=== PATIENT | female | born 1955 | race African-American/Black ===

== ENCOUNTER → 2016-10-12 | Outpatient (CLI) | payer OTHER ==
[2015-11-25 15:35] VITALS: BP 175/86
[~2016-10-12] MED LIST: ALBU0.63 NEB; AMLO5TAB2 PO; ASPI81TA44 PO; ATOR10TA PO; Aspirin PO; BUDE10.2 IH; CA/D1TAB3 PO; CHOL10003 PO; CLOP75TA57 PO; CYCL5TAB PO; ERGO500027 PO; HYDR-2766 PO; HYDR-2868 PO; HYDR25TA9 PO; LEVO500T59 PO; LOSA25TA4 PO; LOSA50TA6 PO; NICO1PAT27 TD; OMEP40CA2 PO; PANT40TA3 PO; PRED-220 PO; PRED2.5T PO; PRED20TA PO; PRED5TAB PO; SULF500T36 PO; VENTOLIN HFA18 GM IH
--- NOTE | 2016-10-12 13:55 | KCIC ---
Bilateral 3 view hand HISTORY: Rheumatoid arthritis of both hands. Pain is worsening. Left hand Generalized bone demineralization. No evidence of acute fracture or aggressive bone destruction. Mild widening of the scapholunate distance and rotary subluxation of the scaphoid suggesting dissociation. Slight ulnar plus variance. No marginal erosion. No advanced joint space narrowing. There may be mild degenerative changes at the triscaphe and first MTP joint. IMPRESSION: 1. Findings suggest scapholunate dissociation. 2. Generalized bone demineralization. Right hand Widening of the scapholunate distance, compatible with scapholunate dissociation. Generalized bone demineralization. Slight ulnar plus variance. No evidence of acute fracture. No aggressive bone destruction. No evidence of marginal erosion. No advanced joint space narrowing. Small cortical defect at the lateral scaphoid may be due to a small cyst. Mild spurring at the triscaphe compatible with mild degenerative etiology. Mild degenerative appearance at the first MCP joint. IMPRESSION: 1. Findings suggest bilateral scapholunate dissociation. 2. Bone demineralization. Electronically signed by: Geronimo Burgos MD (10/12/2016 1:52 PM)
== END | disposition home or self-care (01) ==
LOC: KCIC 10:09
PROVIDERS: ATTEND Internal Medicine
DX: M79.642 Pain in left hand (principal); M79.641 Pain in right hand; M81.0 Age-related osteoporosis without current pathological fracture; M06.9 Rheumatoid arthritis, unspecified
CPT/HCPCS: 73130

== ENCOUNTER → 2016-11-21 | Outpatient (CLI) | payer MEDICARE, OTHER ==
[2015-11-25 15:35] VITALS: BP 175/86
--- NOTE | 2016-11-21 10:06 | RAD ---
Indication:Hepatitis C Grayscale images of the abdomen were obtained. Comparison note is made of a previous examination 09/09/2015 interpreted as unremarkable Liver:No focal mass is seen in the visualized liver. Gallbladder:Normal. The common bile duct diameter of approximately 3 mm is also normal Spleen:Normal Pancreas:The head and visualized body appeared unremarkable. The more distal body and tail of the pancreas were obscured. Kidneys:Normal Abdominal aorta and IVC:As visualized normal Ancillary findings:None Impression:No acute or significant finding seen on abdominal ultrasound exam
== END | disposition home or self-care (01) ==
LOC: US 08:39
PROVIDERS: ATTEND Internal Medicine Gastroenterology
DX: B19.20 Unspecified viral hepatitis C without hepatic coma (principal)
CPT/HCPCS: 76700

== ENCOUNTER → 2016-11-26 | Outpatient (CLI) | payer MEDICARE, OTHER ==
[2015-11-25 15:35] VITALS: BP 175/86
--- NOTE | 2016-11-26 09:04 | KCIC ---
Indication: Postmenopausal. Bone mineral analysis of the lumbar spine and left hip was performed. The bone mineral density of the lumbar spine L1-L4 is 1.130 with a T score of 0.8. The bone mineral density of the left hip is 0.846 with a T score of -0.8. IMPRESSION: Normal bone mineral density of the lumbar spine and left hip. Electronically signed by: Yimi Doan MD (11/26/2016 9:01 AM) [id number]
== END | disposition home or self-care (01) ==
LOC: KCIC DEXA 07:58
PROVIDERS: ATTEND Internal Medicine
DX: N95.9 Unspecified menopausal and perimenopausal disorder (principal); M85.88 Other specified disorders of bone density and structure, other site
CPT/HCPCS: 77080

== ENCOUNTER → 2016-11-29 | Outpatient (CLI) | payer MEDICARE, OTHER ==
[2015-11-25 15:35] VITALS: BP 175/86
--- NOTE | 2016-11-29 09:16 | RAD ---
DATE: 11/29/2016 EXAM: MAMMO MISTY SCREENING BILATERAL HISTORY: Routine screening COMPARISON: 10/07/2014 The breast parenchyma shows scattered fibroglandular densities. Breast parenchyma level B. FINDINGS: 2-D and 3-D tomosynthesis imaging was performed in CC and MLO projections. Two small nodules in the lateral aspect of the right breast are unchanged. These are probably intramammary lymph nodes. No new or enlarging breast densities are seen. Minimal benign type calcification is present. No suspicious microcalcifications have developed. IMPRESSION: Stable mammograms without evidence of malignancy. BI-RADS CATEGORY: 2 BENIGN FINDING(S) RECOMMENDED FOLLOW-UP: 12M 12 MONTH FOLLOW-UP PQRS compliance statement: Patient information was entered into a reminder system with a target due date for the next mammogram. Mammography is a sensitive method for finding small breast cancers, but it does not detect them all and is not a substitute for careful clinical examination. A negative mammogram does not negate a clinically suspicious finding and should not result in delay in biopsying a clinically suspicious abnormality. "Our facility is accredited by the [employer] Mammography Program."
== END | disposition home or self-care (01) ==
LOC: KCIC MAMMO 07:48
PROVIDERS: ATTEND Internal Medicine
DX: Z12.31 Encounter for screening mammogram for malignant neoplasm of breast (principal)
CPT/HCPCS: 77063; G0202; 77067

== ENCOUNTER 2017-06-06 12:11 | Inpatient (IN) | payer OTHER ==
[2017-06-06 12:52] LABS: ADD MAN DIFF? NO
[2017-06-06 12:56] LABS: BASO # 0.1 x10^3/uL (0.0-0.2); BASO % 1 % (0-3); EOS # 0.1 x10^3/uL (0.0-0.7); EOS % 1 % (0-3); HEMATOCRIT 36.8 % (36.0-47.0); HEMOGLOBIN 11.9 g/dL (12.0-15.5); LYMPH % 34 % (24-48); MEAN CORPUSCULAR HEMOGLOBIN 27 pg (25-35); MEAN CORPUSCULAR HGB CONC 33 g/dL (31-37); MEAN CORPUSCULAR VOLUME 83 fL (79-100); MONO # 0.6 x10^3/uL (0.0-1.1); MONO % 5 % (0-9); NEUT # 6.8 x10^3uL (1.8-7.7); NEUT % 59 % (31-73); PLATELET COUNT 339 x10^3/uL (140-400); RED BLOOD COUNT 4.45 x10^6/uL (3.50-5.40); RED CELL DISTRIBUTION WIDTH 16.8 % (11.5-14.5); WHITE BLOOD COUNT 11.6 x10^3/uL (4.0-11.0)
[2017-06-06] MEDS: IV NORMAL SALINE 1000ML BAG 1,000 ML IV ×3 (12:58→23:20)
[2017-06-06] MEDS: ONDANSETRON PF 4 MG/2 ML VIAL. IV (12:59)
[2017-06-06] MEDS: fentaNYL PF VIAL 100 MCG/2 ML VIAL IV ×5 (13:00→23:14)
[2017-06-06 13:06] LABS: ANION GAP 15 (6-14); BLOOD UREA NITROGEN 21 mg/dL (7-20); CARBON DIOXIDE 25 mmol/L (21-32); CHLORIDE 98 mmol/L (98-107); CREATININE 0.8 mg/dL (0.6-1.0); GFR 87.7; GLUCOSE 116 mg/dL (70-99); POTASSIUM 3.5 mmol/L (3.5-5.1); SODIUM 138 mmol/L (136-145)
[2017-06-06 13:12] LABS: ALBUMIN 3.3 g/dL (3.4-5.0); ALK PHOS 71 U/L (46-116); ALT (SGPT) 22 U/L (14-59); AST (SGOT) 19 U/L (15-37); DIRECT BILIRUBIN 0.1 mg/dL (0.0-0.2); LIPASE 83 U/L (73-393); TOTAL BILIRUBIN 0.3 mg/dL (0.2-1.0); TOTAL PROTEIN 9.1 g/dL (6.4-8.2)
[2017-06-06 13:20] LABS: TROPONINI 0.094 ng/mL (0.000-0.055)
[2017-06-06 13:20] LABS: CKMB INDEX 1.1 % (0-4); CKMB MASS 1.5 ng/mL (0.0-3.6); CREATINE KINASE 142 U/L (26-192)
[2017-06-06] MEDS ORDERED: CONTRAST GIVEN MC (13:30)
[2017-06-06] MEDS: IOHEXOL 300 MG/ML 100ML VIAL. IV (13:40)
[2017-06-06] MEDS: 0.9 % SODIUM CHLORIDE 10 ML DISP.SYRIN. IV (13:53)
[2017-06-06 14:32] LABS: BILIRUBIN,URINE NEGATIVE (NEG); CLARITY,URINE CLEAR; COLOR,URINE YELLOW; GLUCOSE,URINE NEGATIVE (NEG); NITRITE,URINE NEGATIVE (NEG); PH,URINE 5.5; PROTEIN,URINE NEGATIVE (NEG-TRACE); UROBILINOGEN,URINE 0.2 mg/dL (0.2 mg/dL)
[2017-06-06] MEDS ORDERED: ONDANSETRON PF 4 MG/2 ML VIAL. IV (14:45)
[2017-06-06] MEDS ORDERED: ACETAMINOPHEN 325 MG TABLET. PO (14:45)
[2017-06-06] MEDS ORDERED: NITROGLYCERIN SUBLINGUAL 0.4 MG BOTTLE OF 25. SL (14:45)
[2017-06-06 14:48] LABS: BACTERIA,URINE FEW /HPF (0-FEW); HYALINE CASTS, URINE FEW /HPF; RBC,URINE 0 /HPF (0-2); SQUAMOUS EPITHELIAL CELL,UR MOD /LPF
[2017-06-06] MEDS: hydrALAZINE 20 MG/ML VIAL. IVP (14:57)
[2017-06-06] MEDS: IPRATRPIUM/ALBUTEROL 0.5/2.5MG 3 ML NEBU. NEB ×2 (15:23→20:00)
[2017-06-06] MEDS: hydroCHLOROthiazide 25 MG TABLET PO (17:24)
[2017-06-06] MEDS: ASPIRIN CHEWABLE 81 MG TABLET. PO (17:24)
[2017-06-06] MEDS: CLOPIDOGREL BISULFATE 75 MG TABLET PO (17:25)
[2017-06-06] MEDS: amLODIPine BESYLATE 5 MG TABLET PO (17:25)
[2017-06-06] MEDS: LOSARTAN POTASSIUM 50 MG TABLET. PO (17:25)
[2017-06-06 19:21] LABS: TROPONINI 0.082 ng/mL (0.000-0.055)
[2017-06-06] MEDS ORDERED: DOCUSATE SODIUM 283 MG/5 ML ENEMA. PR (21:00)
[2017-06-06] MEDS: SODIUM PHOSPHATES 19/7GM 133 ML ENEMA. PR (21:30)
[2017-06-06] MEDS: ATORVASTATIN CALCIUM 10 MG TABLET. PO (21:34)
[2017-06-06] MEDS: hydrALAZINE 25 MG TABLET PO (21:34)
[2017-06-06] MEDS ORDERED: NON FORMULARY ITEM (Albuterol Sulfate (Albuterol Sulfate Neb Soln) 0.63 MG) NEB (22:00)
[2017-06-06] MEDS ORDERED: ALBUTEROL SULFATE 2.5 MG/3 ML NEBU. NEB (22:15)
[2017-06-06] MEDS: ENOXAPARIN 40 MG/0.4 ML SYRINGE. SQ (23:13)
[2017-06-06] MEDS: CYCLOBENZAPRINE 10 MG TABLET. PO (23:14)
[2017-06-07 00:23] LABS: TROPONINI 0.075 ng/mL (0.000-0.055)
[2017-06-07] MEDS: fentaNYL PF VIAL 100 MCG/2 ML VIAL IV ×2 (03:43→08:08)
[2017-06-07 05:14] LABS: ADD MAN DIFF? NO
[2017-06-07 05:35] LABS: BASO # 0.1 x10^3/uL (0.0-0.2); BASO % 1 % (0-3); EOS # 0.2 x10^3/uL (0.0-0.7); EOS % 2 % (0-3); HEMATOCRIT 36.4 % (36.0-47.0); HEMOGLOBIN 11.5 g/dL (12.0-15.5); LYMPH # 4.2 x10^3/uL (1.0-4.8); LYMPH % 34 % (24-48); MEAN CORPUSCULAR HEMOGLOBIN 27 pg (25-35); MEAN CORPUSCULAR HGB CONC 32 g/dL (31-37); MEAN CORPUSCULAR VOLUME 84 fL (79-100); MONO # 0.7 x10^3/uL (0.0-1.1); MONO % 6 % (0-9); NEUT # 7.2 x10^3uL (1.8-7.7); NEUT % 57 % (31-73); PLATELET COUNT 327 x10^3/uL (140-400); RED BLOOD COUNT 4.31 x10^6/uL (3.50-5.40); RED CELL DISTRIBUTION WIDTH 16.6 % (11.5-14.5); WHITE BLOOD COUNT 12.5 x10^3/uL (4.0-11.0)
[2017-06-07 05:47] LABS: ANION GAP 16 (6-14); BLOOD UREA NITROGEN 16 mg/dL (7-20); CALCIUM 9.2 mg/dL (8.5-10.1); CARBON DIOXIDE 22 mmol/L (21-32); CHLORIDE 103 mmol/L (98-107); CREATININE 0.7 mg/dL (0.6-1.0); GFR 102.3; GLUCOSE 78 mg/dL (70-99); POTASSIUM 3.3 mmol/L (3.5-5.1); SODIUM 141 mmol/L (136-145)
[2017-06-07] MEDS: IV NORMAL SALINE 1000ML BAG 1,000 ML IV (06:37)
[2017-06-07] MEDS: CHOLECALCIFEROL (VITAMIN D3) 1,000 UNIT TABLET PO (08:06)
[2017-06-07] MEDS: hydroCHLOROthiazide 25 MG TABLET PO (08:06)
[2017-06-07] MEDS: ASPIRIN CHEWABLE 81 MG TABLET. PO (08:06)
[2017-06-07] MEDS: hydrALAZINE 25 MG TABLET PO ×3 (08:07→21:19)
[2017-06-07] MEDS: amLODIPine BESYLATE 5 MG TABLET PO (08:07)
[2017-06-07] MEDS: LOSARTAN POTASSIUM 50 MG TABLET. PO (08:07)
[2017-06-07] MEDS: predniSONE 10 MG TABLET PO (08:08)
[2017-06-07] MEDS: SENNOSIDES/DOCUSATE 8.6/50MG TABLET. PO (08:11)
[2017-06-07] MEDS: POLYETHYLENE GLYCOL 3350 17 GM PACKET. PO (08:11)
[2017-06-07] MEDS: BUDESONIDE 0.5 MG/2 ML NEBU. NEB ×2 (08:12→20:15)
[2017-06-07] MEDS: IPRATRPIUM/ALBUTEROL 0.5/2.5MG 3 ML NEBU. NEB ×2 (08:12→22:49)
[2017-06-07] MEDS: ALBUTEROL SULFATE 2.5 MG/3 ML NEBU. NEB ×4 (08:15→20:15)
[2017-06-07] MEDS ORDERED: NON FORMULARY ITEM (Budesonide/Formoterol Fumarate (Symbicort 160-4.5 Mcg Inhaler) 2 PUFF) IH (09:00)
[2017-06-07] MEDS: CLOPIDOGREL BISULFATE 75 MG TABLET PO (11:42)
[2017-06-07] MEDS: POTASSIUM CHLORIDE 20 MEQ TABLET.ER. PO ×2 (11:42→16:09)
[2017-06-07] MEDS: CYCLOBENZAPRINE 10 MG TABLET. PO (21:19)
[2017-06-07] MEDS: ATORVASTATIN CALCIUM 10 MG TABLET. PO (21:19)
[2017-06-07] MEDS: ENOXAPARIN 40 MG/0.4 ML SYRINGE. SQ (21:21)
[2017-06-08] MEDS: HYDROcodone/APAP 10/325 1 TAB TABLET PO ×2 (01:11→08:57)
[2017-06-08] MEDS: ALBUTEROL SULFATE 2.5 MG/3 ML NEBU. NEB ×2 (07:46→12:08)
[2017-06-08] MEDS: BUDESONIDE 0.5 MG/2 ML NEBU. NEB (07:46)
[2017-06-08] MEDS: ASPIRIN CHEWABLE 81 MG TABLET. PO ×2 (07:47→08:58)
[2017-06-08 08:29] LABS: ANION GAP 11 (6-14); BLOOD UREA NITROGEN 9 mg/dL (7-20); CALCIUM 9.1 mg/dL (8.5-10.1); CARBON DIOXIDE 25 mmol/L (21-32); CHLORIDE 103 mmol/L (98-107); CHOLESTEROL 123 mg/dL (0-200); CREATININE 0.6 mg/dL (0.6-1.0); GFR 122.2; GLUCOSE 115 mg/dL (70-99); HDLC 75 mg/dL (40-60); LDLC 40 mg/dL (0-100); NON-HDL CHOLESTEROL 48 mg/dL (0-129); POTASSIUM 3.8 mmol/L (3.5-5.1); SODIUM 139 mmol/L (136-145); TRIGLYCERIDES 38 mg/dL (0-150); VLDLC 8 mg/dL (0-40)
[2017-06-08 08:30] LABS: CHOLESTEROL/HDL RATIO 1.6
[2017-06-08 08:45] LABS: THYROID STIM HORMONE (TSH) 0.977 uIU/mL (0.358-3.74)
[2017-06-08] MEDS: LOSARTAN POTASSIUM 50 MG TABLET. PO (08:45)
[2017-06-08] MEDS: amLODIPine BESYLATE 5 MG TABLET PO (08:45)
[2017-06-08] MEDS: CLOPIDOGREL BISULFATE 75 MG TABLET PO (08:46)
[2017-06-08] MEDS: predniSONE 10 MG TABLET PO (08:46)
[2017-06-08] MEDS: CHOLECALCIFEROL (VITAMIN D3) 1,000 UNIT TABLET PO (08:46)
[2017-06-08] MEDS: hydroCHLOROthiazide 25 MG TABLET PO (08:46)
[2017-06-08] MEDS: hydrALAZINE 25 MG TABLET PO (08:47)
== END 2017-06-08 13:05 | disposition home or self-care (01) | DRG 206 ==
LOC: ER 12:11 → 5 SOUTH 14:45
DX: M94.0 Chondrocostal junction syndrome [Tietze] (principal); I24.8 Other forms of acute ischemic heart disease; I10 Essential (primary) hypertension; E11.9 Type 2 diabetes mellitus without complications; E78.5 Hyperlipidemia, unspecified; F41.9 Anxiety disorder, unspecified; I25.10 Atherosclerotic heart disease of native coronary artery without angina pectoris; R74.8 Abnormal levels of other serum enzymes; J44.9 Chronic obstructive pulmonary disease, unspecified; F17.210 Nicotine dependence, cigarettes, uncomplicated; M06.9 Rheumatoid arthritis, unspecified; M19.90 Unspecified osteoarthritis, unspecified site; M79.7 Fibromyalgia; G89.29 Other chronic pain; T40.605A Adverse effect of unspecified narcotics, initial encounter; Z91.19 Patient's noncompliance with other medical treatment and regimen; Z88.8 Allergy status to other drugs, medicaments and biological substances; Z79.891 Long term (current) use of opiate analgesic; Z95.5 Presence of coronary angioplasty implant and graft; Z82.5 Family history of asthma and other chronic lower respiratory diseases; Z83.3 Family history of diabetes mellitus; Z82.49 Family history of ischemic heart disease and other diseases of the circulatory system; I25.2 Old myocardial infarction
CPT/HCPCS: 36415; 71046; 74177; 80048; 80061; 80076; 81001; 82553; 83690; 84443; 84484; 85025; 87086; 93005; 94640; 94760; 96361; 96374; 96375; 99291; 99291-25; J0360; J1650; J2405; J3010; J7030; J7512; J7613; J7620; J7626; Q9967

== ENCOUNTER 2017-12-22 17:27 | Inpatient (IN) | payer OTHER ==
[~2017-12-22] VITALS: Ht 162.6 cm; Wt 75.8 kg
[~2017-12-22 17:27] MED LIST changes: -AMLO5TAB2 PO; +AMLO5TAB7 PO; -ASPI81TA44 PO; +ASPI81TA59 PO; +INSU100I17 SQ; -LOSA25TA4 PO; +LOSA25TA5 PO; -LOSA50TA6 PO; +LOSA50TA7 PO; +PRED50TA PO
--- NOTE | 2017-12-22 17:50 | PHYS DOC ---
Past Medical History Past Medical History: Arthritis, COPD, Fibromyalgia, Hypertension, [place] Additional Past Medical Histor: fibromyalgia Past Surgical History: Angioplasty, Additional Past Surgical Histo: W/ STENT PLACEMENT Alcohol Use: Rarely Drug Use: None Adult General Chief Complaint Chief Complaint: SHORTNESS OF BREATH HPI HPI Patient is a 62 year old female who presents with shortness of air and cough 3 weeks. Patient states she has history of COPD and took a breathing treatment last at this morning at home. Patient states that she's not been taking any of her medications for at least a week because she wants to take Chantix and is afraid that she could not take her medications with the Chantix. Patient states that she did not consult her doctor before stopping all of her medications. Review of Systems Review of Systems Constitutional: Denies fever or chills [] Eyes: Denies change in visual acuity, redness, or eye pain [] HENT: Denies nasal congestion or sore throat [] Respiratory: Cough and shortness of breath [] Cardiovascular: No additional information not addressed in HPI [] GI: Denies abdominal pain, nausea, vomiting, bloody stools or diarrhea [] : Denies dysuria or hematuria [] Musculoskeletal: Denies back pain or joint pain [] Integument: Denies rash or skin lesions [] Neurologic: Denies headache, focal weakness or sensory changes [] Endocrine: Denies polyuria or polydipsia [] All other systems were reviewed and found to be within normal limits, except as documented in this note. Current Medications Current Medications Current Medications Medications (Trade) Dose Ordered Sig/Juan Start Time Stop Time Status Last Admin Dose Admin Acetaminophen (Tylenol) 650 mg PRN Q4HRS PRN 12/22/17 19:15 12/23/17 19:14 Albuterol/ Ipratropium (Duoneb) 3 ml 1X ONCE 12/22/17 19:00 12/22/17 19:01 DC 12/22/17 18:58 3 ML Info (CONTRAST GIVEN -- Rx MONITORING) 1 each PRN DAILY PRN 12/22/17 19:00 12/24/17 18:59 Ondansetron HCl (Zofran) 4 mg PRN Q8HRS PRN 12/22/17 19:15 12/23/17 19:14 12/22/17 19:28 4 MG Prednisone (Prednisone) 50 mg 1X ONCE 12/22/17 18:00 12/22/17 18:01 DC 12/22/17 18:24 50 MG Allergies Allergies Allergies Coded Allergies Type Severity Reaction Last Updated Verified enalapril Allergy Severe facial Swelling 06/21/15 Yes lisinopril Allergy Severe facial Swelling 06/21/15 Yes morphine Allergy Intermediate 11/24/15 Yes Physical Exam Physical Exam Constitutional: Well developed, well nourished, no acute distress, non-toxic appearance. [] HENT: Normocephalic, atraumatic, bilateral external ears normal, oropharynx moist, no oral exudates, nose normal. [] Eyes: PERRLA, EOMI, conjunctiva normal, no discharge. [] Neck: Normal range of motion, no tenderness, supple, no stridor. [] Cardiovascular:Heart rate regular rhythm, no murmur [] Lungs & Thorax: Bilateral breath sounds have rales and inspiratory and expiratory wheezes in all lobes to auscultation [] Abdomen: Bowel sounds normal, soft, no tenderness, no masses, no pulsatile masses. [] Skin: Warm, dry, no erythema, no rash. [] Back: No tenderness, no CVA tenderness. [] Extremities: No tenderness, no cyanosis, no clubbing, ROM intact, no edema. [] Neurologic: Alert and oriented X 3, normal motor function, normal sensory function, no focal deficits noted. [] Psychologic: Affect normal, judgement normal, mood normal. [] Current Patient Data Vital Signs Vital Signs Date Time Temp Pulse Resp B/P (MAP) Pulse Ox O2 Delivery O2 Flow Rate FiO2 12/22/17 18:59 96 Room Air 12/22/17 17:33 98.9 94 26 140/79 (99) 98.9 Lab Values Laboratory Tests Test 12/22/17 17:44 12/22/17 17:49 Prothrombin Time 13.2 SEC (11.7-14.0) Prothrombin Time INR 1.1 (0.8-1.1) PTT 30 SEC (24-38) White Blood Count 10.7 x10^3/uL (4.0-11.0) Red Blood Count 3.80 x10^6/uL (3.50-5.40) Hemoglobin 9.6 g/dL (12.0-15.5) L Hematocrit 29.7 % (36.0-47.0) L Mean Corpuscular Volume 78 fL (79-100) L Mean Corpuscular Hemoglobin 25 pg (25-35) Mean Corpuscular Hemoglobin Concent 32 g/dL (31-37) Red Cell Distribution Width 16.6 % (11.5-14.5) H Platelet Count 361 x10^3/uL (140-400) Neutrophils (%) (Auto) 50 % (31-73) Lymphocytes (%) (Auto) 25 % (24-48) Monocytes (%) (Auto) 9 % (0-9) Eosinophils (%) (Auto) 15 % (0-3) H Basophils (%) (Auto) 1 % (0-3) Neutrophils # (Auto) 5.3 x10^3uL (1.8-7.7) Lymphocytes # (Auto) 2.7 x10^3/uL (1.0-4.8) Monocytes # (Auto) 1.0 x10^3/uL (0.0-1.1) Eosinophils # (Auto) 1.6 x10^3/uL (0.0-0.7) H Basophils # (Auto) 0.1 x10^3/uL (0.0-0.2) Segmented Neutrophils % 54 % (35-66) Lymphocytes % 25 % (24-48) Monocytes % 8 % (0-10) Eosinophils % 12 % (0-5) H Basophils % 1 % (0-3) Platelet Estimate Adequate (ADEQUATE) D-Dimer (Linda) 7.47 ug/mlFEU (0.00-0.50) H Sodium Level 139 mmol/L (136-145) Potassium Level 3.4 mmol/L (3.5-5.1) L Chloride Level 104 mmol/L (98-107) Carbon Dioxide Level 24 mmol/L (21-32) Anion Gap 11 (6-14) Blood Urea Nitrogen 6 mg/dL (7-20) L Creatinine 0.6 mg/dL (0.6-1.0) Estimated GFR (Cockcroft-Gault) 121.8 Glucose Level 113 mg/dL (70-99) H Calcium Level 8.8 mg/dL (8.5-10.1) Troponin I Quantitative 0.058 ng/mL (0.000-0.055) JP-Xjn-C-Type Natriuretic Peptide 174 pg/mL (0-124) H Laboratory Tests 12/22/17 17:49 Laboratory Tests 12/22/17 17:49 EKG EKG Sinus rhythm, no STEMI[] Interpretation Time: [address] Jacob Radiology/Procedures Radiology/Procedures Chest x ray Impressions: [facility] [address] [place] [address] IMAGING REPORT Signed PATIENT: LOUIS SALAZAR ACCOUNT: [id number] : 1955 LOCATION: [address] [place] [address] AGE: 62 SEX: F EXAM STATUS: ADM IN ORD. PHYSICIAN: MARK REY APRN REASON: ELEVATED DDIMER PROCEDURE: CT ANGIOGRAPHY CHEST CTA Chest with contrast: Clinical History: ELEVATED D DIMER SOA AND COUGH X 3 WEEKS N PREV INJ 75ML OMNI 300 Shortness of breath. Axial helical images of the chest were obtained after the administration of 75 cc of IV Omni 300 and timed appropriately for a pulmonary arterial study. Conventional axial reconstruction was performed in addition to coronal, sagittal and bilateral oblique MIP (maximum intensity projection). This study was ordered to detect possible pulmonary embolism. There are no filling defects to suggest pulmonary embolism. The more peripheral subsegmental pulmonary arteries are not well opacified limiting our sensitivity for small peripheral pulmonary emboli. There is diffuse emphysematous changes. There is patchy groundglass opacities peripherally. There is no mediastinal or hilar lymphadenopathy. The thoracic aorta appears normal. Impression: 1. No evidence of pulmonary embolism. 2. Peripheral groundglass opacities are nonspecific and could be pneumonitis although mild atypical pneumonia is possible. PQRS Compliance Statement: One or more of the following individualized dose reduction techniques were utilized for this examination: 1. Automated exposure control 2. Adjustment of the mA and/or kV according to patient size 3. Use of iterative reconstruction technique Electronically signed by: Nestor Harrison III, MD (12/22/2017 7:40 PM) [facility] Course & Med Decision Making Course & Med Decision Making Patient is a 62 year old female who presents with shortness of air and cough 3 weeks. Patient states she has history of COPD and took a breathing treatment last at this morning at home. Patient states that she's not been taking any of her medications for at least a week because she wants to take Chantix and is afraid that she could not take her medications with the Chantix. Patient states that she did not consult her doctor before stopping all of her medications. On examination patient's lungs have rales and wheezes throughout all lung bases. Patient's breathing about 30 breaths a minute but is afebrile. Patient is 92% on room air. Patient states she does have bouts of nausea but has not vomited. Patient states she coughs up clear take mucus. Patient states she now has pain in her left side under her breast from coughing. Patient states that it hurts most when she breathes in. Patient has no extremity edema. Patient speaks in full sentences. Patient is supposed to be taking hydrochlorothiazide, hydralazine, amlodipine, prednisone, losartan, albuterol nebulized, albuterol inhaler, Symbicort, aspirin, Plavix. Patient is given 1 DuoNeb treatment in the ED and with reevaluation patient still has inspiratory and expiratory wheezes but crackles have decreased. A second DuoNeb is ordered for the patient. Patient 's troponin is elevated at 0.058. Another DuoNeb has been ordered due to continued wheezing. Patient is given 50mg Prednisone PO. EKG is Sinus rhythm without STEMI. Patient has a history of COPD, hypertension, and NSTEMI. Patient d-dimer is 7.47 and a CTA of chest is ordered to rule out PE. Dr. Desai called and spoke with Dr. Jacob. The patient is being admitted and Dr. Jacob started heparin drip and given the patient a aspirin. It is unknown if why patient troponin is elevated with normal EKG findings. Patient being treated for NSTEMI. Patients CTA shows 1. No evidence of pulmonary embolism. 2. Peripheral groundglass opacities are nonspecific and could be pneumonitis although mild atypical pneumonia is possible. Blood cultures, Rocephin and Azithromycin are ordered. [] Dragon Disclaimer Dragon Disclaimer This electronic medical record was generated, in whole or in part, using a voice recognition dictation system. Departure Departure Referrals: ANIVAL DESAI MD (PCP) MARK REY HIDE SALTER Dec 22, 2017 17:50
[2017-12-22] MEDS ORDERED: IPRATRPIUM/ALBUTEROL 0.5/2.5MG 3 ML NEBU. NEB ONE ×2 (18:00→19:00)
[2017-12-22] MEDS ORDERED: predniSONE 10 MG TABLET PO ONE (18:00)
[2017-12-22 18:05] LABS: BASO # 0.1 x10^3/uL (0.0-0.2); BASO % 1 % (0-3); EOS # 1.6 x10^3/uL (0.0-0.7); EOS % 15 % (0-3); HEMATOCRIT 29.7 % (36.0-47.0); HEMOGLOBIN 9.6 g/dL (12.0-15.5); LYMPH # 2.7 x10^3/uL (1.0-4.8); LYMPH % 25 % (24-48); MEAN CORPUSCULAR HEMOGLOBIN 25 pg (25-35); MEAN CORPUSCULAR HGB CONC 32 g/dL (31-37); MEAN CORPUSCULAR VOLUME 78 fL (79-100); MONO % 9 % (0-9); NEUT # 5.3 x10^3uL (1.8-7.7); NEUT % 50 % (31-73); PLATELET COUNT 361 x10^3/uL (140-400); RED CELL DISTRIBUTION WIDTH 16.6 % (11.5-14.5); WHITE BLOOD COUNT 10.7 x10^3/uL (4.0-11.0)
[2017-12-22 18:20] LABS: CALCIUM 8.8 mg/dL (8.5-10.1); CREATININE 0.6 mg/dL (0.6-1.0); GFR 121.8; POTASSIUM 3.4 mmol/L (3.5-5.1)
[2017-12-22] MEDS ORDERED: CONTRAST GIVEN. MC PRN (19:00)
[2017-12-22] MEDS ORDERED: ACETAMINOPHEN 325 MG TABLET. PO PRN (19:15)
[2017-12-22] MEDS ORDERED: ONDANSETRON PF 4 MG/2 ML VIAL. IV PRN (19:15)
[2017-12-22] MEDS ORDERED: IOHEXOL 300 MG/ML 100ML VIAL. IV ONE (19:30)
[2017-12-22] MEDS ORDERED: HEPARIN 25,000UTS/500ML PREMIX 500 ML IV PRN (19:30)
[2017-12-22 19:31] LABS: % BASOS 1 % (0-3); % EOS 12 % (0-5); % LYMPHS 25 % (24-48); % MONOS 8 % (0-10); % SEGS 54 % (35-66)
[2017-12-22 19:32] LABS: PLT ESTIMATE ADEQUATE (ADEQUATE)
[2017-12-22 19:35] LABS: PROTHROMBIN TIME PATIENT 13.2 SEC (11.7-14.0)
--- NOTE | 2017-12-22 19:43 | RAD ---
CTA Chest with contrast: Clinical History: ELEVATED D DIMER SOA AND COUGH X 3 WEEKS N PREV INJ 75ML OMNI 300 Shortness of breath. Axial helical images of the chest were obtained after the administration of 75 cc of IV Omni 300 and timed appropriately for a pulmonary arterial study. Conventional axial reconstruction was performed in addition to coronal, sagittal and bilateral oblique MIP (maximum intensity projection). This study was ordered to detect possible pulmonary embolism. There are no filling defects to suggest pulmonary embolism. The more peripheral subsegmental pulmonary arteries are not well opacified limiting our sensitivity for small peripheral pulmonary emboli. There is diffuse emphysematous changes. There is patchy groundglass opacities peripherally. There is no mediastinal or hilar lymphadenopathy. The thoracic aorta appears normal. Impression: 1. No evidence of pulmonary embolism. 2. Peripheral groundglass opacities are nonspecific and could be pneumonitis although mild atypical pneumonia is possible. PQRS Compliance Statement: One or more of the following individualized dose reduction techniques were utilized for this examination: 1. Automated exposure control 2. Adjustment of the mA and/or kV according to patient size 3. Use of iterative reconstruction technique Electronically signed by: Nestor Harrison III, MD (12/22/2017 7:40 PM) [facility]
[2017-12-22 20:05] VITALS: BP 173/78
[2017-12-22] MEDS ORDERED: AZITHRMYCN 500MG IVPB FOR OMNI 250 ML IV ONE (20:30)
[2017-12-22] MEDS ORDERED: OXYC15TA60 PO (20:57)
[2017-12-22] MEDS ORDERED: NON FORMULARY ITEM (Budesonide/Formoterol Fumarate (Symbicort 160-4.5 Mcg Inhaler) 2 PUFF) IH SCH (21:00)
[2017-12-22] MEDS ORDERED: NON FORMULARY ITEM (Albuterol Sulfate (Albuterol Sulfate Neb Soln) 0.63 MG) NEB PRN (21:00)
[2017-12-22] MEDS ORDERED: ALBUTEROL SULFATE 2.5 MG/3 ML NEBU. NEB PRN ×2 (21:15→22:45)
[2017-12-22] MEDS: methylPREDNISolone SOD SUCC PF 40 MG/ML VIAL. IV SCH (21:15)
--- NOTE | 2017-12-22 21:43 | RAD ---
Indication:SOA TECHNIQUE:PA and lateral views of the chest COMPARISON: Previous study from 06/07/2017 FINDINGS: Heart is normal in size. Lungs are hyperinflated with diffuse streaky perihilar opacities and prominent interstitial markings. No focal consolidation. No pneumothorax or effusion. Visualized bony thorax within normal limits. IMPRESSION: Findings suggests acute bronchitis or atypical/viral infection. Electronically signed by: Kulwinder Javier DO (12/22/2017 9:40 PM) [facility]
[2017-12-22] MEDS: ATORVASTATIN CALCIUM 10 MG TABLET. PO SCH (21:58)
[2017-12-22] MEDS: HYDROcodone/APAP 10/325 1 TAB TABLET PO PRN (21:58)
[2017-12-22] MEDS: CYCLOBENZAPRINE 10 MG TABLET. PO SCH (22:00)
[2017-12-22] MEDS: hydrALAZINE 25 MG TABLET PO SCH (22:00)
[2017-12-22 23:00] VITALS: BP 169/68
[2017-12-22] MEDS: oxyCODONE ER 15 MG TAB.ER.12H PO SCH (23:33)
[2017-12-23] MEDS ORDERED: HEPARIN for IV BOLUS 10,000 UNIT/10 ML VIAL. IV PRN (00:15)
[2017-12-23 03:00] VITALS: BP 135/52
[2017-12-23] MEDS: ALBUTEROL SULFATE 2.5 MG/3 ML NEBU. NEB SCH ×4 (06:01→19:38)
[2017-12-23] MEDS: BUDESONIDE 0.5 MG/2 ML NEBU. NEB SCH ×2 (06:01→19:38)
[2017-12-23 06:11] LABS: BASO # 0.1 x10^3/uL (0.0-0.2); BASO % 1 % (0-3); EOS % 0 % (0-3); HEMATOCRIT 28.5 % (36.0-47.0); LYMPH # 1.6 x10^3/uL (1.0-4.8); LYMPH % 16 % (24-48); MEAN CORPUSCULAR HEMOGLOBIN 25 pg (25-35); MEAN CORPUSCULAR HGB CONC 32 g/dL (31-37); MEAN CORPUSCULAR VOLUME 79 fL (79-100); MONO # 0.3 x10^3/uL (0.0-1.1); MONO % 3 % (0-9); NEUT # 7.8 x10^3uL (1.8-7.7); NEUT % 80 % (31-73); PLATELET COUNT 331 x10^3/uL (140-400); RED BLOOD COUNT 3.64 x10^6/uL (3.50-5.40); WHITE BLOOD COUNT 9.7 x10^3/uL (4.0-11.0)
--- NOTE | 2017-12-23 06:23 | EKG ---
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
[2017-12-23 06:33] LABS: CALCIUM 8.7 mg/dL (8.5-10.1); CREATININE 0.7 mg/dL (0.6-1.0); GFR 101.9; POTASSIUM 4.7 mmol/L (3.5-5.1)
[2017-12-23 07:16] VITALS: BP 140/64
[2017-12-23] MEDS ORDERED: MAGNESIUM SULFATE 2GM 50 ML IV ONE (08:15)
[2017-12-23] MEDS ORDERED: ANTI-COAG MONITOR BY PHARMACY. MC PRN (08:30)
[2017-12-23] MEDS: methylPREDNISolone SOD SUCC PF 40 MG/ML VIAL. IV SCH ×2 (08:48→20:46)
[2017-12-23] MEDS: hydroCHLOROthiazide 25 MG TABLET PO SCH (08:48)
[2017-12-23] MEDS: LACTOBACILLUS RHAMNOSUS GG 1 CAPSULE. PO SCH ×2 (08:48→20:46)
[2017-12-23] MEDS: LOSARTAN POTASSIUM 50 MG TABLET. PO SCH (08:49)
[2017-12-23] MEDS: hydrALAZINE 25 MG TABLET PO SCH ×3 (08:49→20:47)
[2017-12-23] MEDS: CLOPIDOGREL BISULFATE 75 MG TABLET PO SCH (08:50)
[2017-12-23] MEDS: amLODIPine BESYLATE 5 MG TABLET PO SCH (08:50)
[2017-12-23] MEDS: CHOLECALCIFEROL (VITAMIN D3) 1,000 UNIT TABLET PO SCH (08:50)
[2017-12-23] MEDS: ASPIRIN CHEWABLE 81 MG TABLET. PO SCH (08:50)
[2017-12-23] MEDS: oxyCODONE ER 15 MG TAB.ER.12H PO SCH ×2 (08:51→22:37)
[2017-12-23 10:28] VITALS: BP 152/66
[2017-12-23] MEDS ORDERED: NON FORMULARY ITEM (Albuterol Sulfate (Ventolin Hfa Inhaler) 2 PUFF) IH SCH (10:45)
--- NOTE | 2017-12-23 10:51 | PDOC ---
Provider Note Provider Note Pt seen.H&P dictated. #[id number] ANIVAL DESAI MD Dec 23, 2017 10:51
[2017-12-23] MEDS: ENOXAPARIN 40 MG/0.4 ML SYRINGE. SQ SCH ×2 (10:55→20:46)
[2017-12-23] MEDS ORDERED: ALBUTEROL SULFATE 2.5 MG/3 ML NEBU. NEB PRN (11:00)
[2017-12-23] MEDS: AZITHROMYCIN 250 MG TABLET. PO SCH (11:04)
[2017-12-23] MEDS: predniSONE 10 MG TABLET PO SCH (11:05)
--- NOTE | 2017-12-23 11:28 | EKG ---
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
--- NOTE | 2017-12-23 11:41 | HP ---
ADMIT DATE: 12/23/2017 LOCATION: 258. REASON FOR ADMISSION TO THE HOSPITAL: Shortness of breath, COPD with acute exacerbation. HISTORY OF PRESENT ILLNESS: The patient is a 62-year-old female with rheumatoid arthritis, chronic COPD, history of CAD, cardiac stents in the past. She was having cough with short of breath, progressive weakness. She still smokes, came to the Emergency Room initially with bilateral wheezing and was admitted to the hospital without any improvement. Her troponin was slightly elevated to 0.05. Chest x-ray showed bronchitis. CT angiogram was negative for PE. The patient was admitted to the hospital and was given IV Solu-Medrol and IV antibiotics. PAST MEDICAL HISTORY: Last time she was in the hospital was 6 months ago, history of rheumatoid arthritis, hypertension, hyperlipidemia, COPD and CAD. PAST SURGICAL HISTORY: , cardiac stents. FAMILY HISTORY: Positive for heart disease, diabetes. SOCIAL HISTORY: Smokes for about 30 years, trying to cut down, still smokes. Denies alcohol. She is on chronic narcotic pain medication. ALLERGIES: TO LISINOPRIL, ENALAPRIL, MORPHINE CAUSES HIVES AND SWELLING. MEDICATIONS AT HOME: Albuterol, amlodipine, aspirin, atorvastatin, Symbicort, vitamin D, Plavix, Flexeril, hydralazine, hydrochlorothiazide, hydrocodone, losartan, prednisone 10 mg daily. REVIEW OF SYSTEMS: CARDIAC: No chest pain. GASTROINTESTINAL: No nausea or vomiting. RESPIRATORY: Has some cough, sputum, headache, upper respiratory infection a couple of days ago. No fever. Some white to yellow sputum. Rest of her 14-systems reviewed are negative. PHYSICAL EXAMINATION: VITAL SIGNS: At the time of admission shows temperature 98, pulse 80, respirations 18, blood pressure 140/79, 91 on room air. HEENT: Head is atraumatic. Pupils equal. Oral cavity: Dentures. NECK: Supple. Thyroid not enlarged. JVD not elevated. CHEST: Symmetrical. LUNGS: Bilateral wheezing, both inspiratory and expiratory mostly in the right side, posterior. ABDOMEN: Soft, bowel sounds present, no mass palpable. EXTERNAL GENITALIA: No Fraga. RECTAL: Deferred. EXTREMITIES: No calf tenderness, no edema. Has rheumatoid arthritis with deformity of the fingers. LABORATORY DATA: White count is 10, hemoglobin 9.6, platelets 361. INR is 1.1. Electrolytes show sodium 139, potassium 4.7, chloride 104, bicarbonate 24, BUN 10, creatinine 0.7. Troponin 0.06. Magnesium 1.7, low. Chest x-ray bronchitis. CT angiogram was negative for PE. EKG done, report is pending. FINAL IMPRESSION: 1. Chronic obstructive pulmonary disease with acute exacerbation. 2. Mild elevation in troponin, probably demand ischemia. 3. Coronary artery disease ,AL old and history of cardiac stents. 4. Chronic obstructive pulmonary disease. 5. Smoking addiction. 6. Rheumatoid arthritis. 7. Hypertension. 8. Hyperlipidemia. PLAN: At this time, admit to hospital, hydrate with IV fluids, was put on heparin drip, no changes to subQ heparin. Cardiology is consulted. Monitor EKG, troponin, cardiac enzymes, EKG, IV Solu-Medrol, oxygen, breathing treatments and Zithromax and Rocephin IV and see how the patient's condition improves. ANIVAL DESAI MD DR: NIMESH/denver JOB#: [id number] / [id number] REN
[2017-12-23] MEDS: HYDROcodone/APAP 10/325 1 TAB TABLET PO PRN ×2 (11:44→20:19)
--- NOTE | 2017-12-23 13:38 | PDOC2 ---
PARISH RICE YIELD CLERK 12/23/17 1338: CARDIAC CONSULT DATE OF CONSULT Date of Consult DATE: 12/23/17 TIME: 13:16 REASON FOR CONSULT Reason for Consult: PVCs REFERRING PHYSICIAN Referring Physician: Brayan SOURCE Source: Chart review, Patient HISTORY OF PRESENT ILLNESS HISTORY OF PRESENT ILLNESS 62 year old female admitted through the ER with acute COPD exacerbation after stopping her medications in anticipation of starting Chantix. Telemetry with PVCs/PACs in the setting of hypomagnesemia and hypokalemia both of which have been corrected. Denies associated CP or palpitations. Remains dyspneic. Reason for Visit: PVCs/PACs PAST MEDICAL HISTORY Past Medical History Cardiovascular: CAD (with PCI/BMS to RCA; 04/2015), HTN, SC (NSTEMI; 04/2015), Hyperlipidemia Pulmonary: COPD CENTRAL NERVOUS SYSTEM: Other (none) GI: Other (GI bleed), diverticulosis Heme/Onc: Anemia Hepatobiliary: No pertinent hx Psych: Anxiety Musculoskeletal: Other (chronic pain ) Rheumatologic: Fibromyalgia, Rheumatoid arthritis Infectious disease: No pertinent hx ENT: No pertinent hx Renal/: No pertinent hx Endocrine: Diabetes Dermatology: No pertinent hx PAST SURGICAL HISTORY Past Surgical History FAMILY HISTORY Family History Diabetes, Heart Disease, Other (COPD) SOCIAL HISTORY Social History Smoke: 1 pack per day (X 30 years) ALCOHOL: occasional Drugs: None CURRENT MEDICATIONS CURRENT MEDICATIONS Current Medications Medications (Trade) Dose Ordered Sig/Juan Route PRN Reason Start Time Stop Time Status Last Admin Dose Admin Prednisone (Prednisone) 50 mg 1X ONCE PO 12/22/17 18:00 12/22/17 18:01 DC 12/22/17 18:24 Albuterol/ Ipratropium (Duoneb) 3 ml 1X ONCE NEB 12/22/17 18:00 12/22/17 18:01 DC 12/22/17 18:06 Albuterol/ Ipratropium (Duoneb) 3 ml 1X ONCE NEB 12/22/17 19:00 12/22/17 19:01 DC 12/22/17 18:58 Ondansetron HCl (Zofran) 4 mg PRN Q8HRS PRN IV NAUSEA/VOMITING 12/22/17 19:15 12/23/17 19:14 12/22/17 19:28 Heparin Sodium/ Dextrose 500 ml @ 18 mls/hr CONT PRN IV SEE I/O RECORD 12/22/17 19:30 12/23/17 10:46 DC 12/22/17 19:42 Ceftriaxone Sodium 50 ml @ 100 mls/hr 1X ONCE IV 12/22/17 20:00 12/22/17 20:29 DC 12/22/17 22:04 Azithromycin 250 ml @ 250 mls/hr 1X ONCE IV 12/22/17 20:30 12/22/17 21:29 DC 12/22/17 23:32 Amlodipine Besylate (Norvasc) 5 mg DAILY PO 12/23/17 09:00 12/23/17 08:50 Aspirin (Children'S Aspirin) 81 mg DAILYWBKFT PO 12/23/17 08:00 12/23/17 08:50 Atorvastatin Calcium (Lipitor) 5 mg QHS PO 12/22/17 21:15 12/22/17 21:58 Vitamin D (Vitamin D3) 1,000 unit DAILY PO 12/23/17 09:00 12/23/17 08:50 Clopidogrel Bisulfate (Plavix) 75 mg DAILYWBKFT PO 12/23/17 08:00 12/23/17 08:50 Hydrochlorothiazide (Hydrodiuril) 25 mg DAILY PO 12/23/17 09:00 12/23/17 08:48 Losartan Potassium (Cozaar) 50 mg DAILY PO 12/23/17 09:00 12/23/17 08:49 Cyclobenzaprine HCl (Flexeril) 5 mg QHS PO 12/22/17 21:15 12/22/17 22:00 Hydralazine HCl (Apresoline) 25 mg TID PO 12/22/17 21:15 12/23/17 08:49 Acetaminophen/ Hydrocodone Bitart (Lortab 10/325) 1 tab PRN Q6HRS PRN PO PAIN 12/22/17 21:00 12/23/17 11:44 Oxycodone HCl (OxyCONTIN) 15 mg BID PO 12/22/17 21:15 12/23/17 08:51 Methylprednisolone Sodium Succinate (SOLU-Medrol 40MG VIAL) 60 mg Q12HR IV 12/22/17 21:15 12/23/17 08:48 Budesonide (Pulmicort) 0.5 mg RTBID NEB 12/23/17 08:00 12/23/17 06:01 Albuterol Sulfate (Ventolin Neb Soln) 2.5 mg RTQID NEB 12/23/17 08:00 12/23/17 12:30 Albuterol Sulfate (Ventolin Neb Soln) 2.5 mg PRN Q4HRS PRN NEB SHORTNESS OF BREATH 12/22/17 22:45 12/22/17 22:42 Heparin Sodium (Porcine) (Heparin Sodium) 1,850 unit PRN Q6HRS PRN IV FOR UFH LEVEL LESS THAN 0.2 12/23/17 00:15 12/23/17 00:31 Magnesium Sulfate 50 ml @ 25 mls/hr 1X ONCE IV 12/23/17 08:15 12/23/17 10:14 DC 12/23/17 08:50 Info (Anti-Coagulation Monitoring By Pharmacy) 1 each PRN DAILY PRN MC SEE COMMENTS 12/23/17 08:30 12/23/17 08:20 Lactobacillus Rhamnosus (Culturelle) 1 cap BID PO 12/23/17 09:00 12/23/17 08:48 Prednisone (Prednisone) 10 mg DAILY PO 12/23/17 11:00 12/23/17 11:05 Azithromycin (Zithromax) 250 mg DAILY PO 12/23/17 10:45 12/23/17 11:04 ALLERGIES ALLERGIES: Coded Allergies: enalapril (Verified Allergy, Severe, facial Swelling, 06/21/15) lisinopril (Verified Allergy, Severe, facial Swelling, 06/21/15) morphine (Verified Allergy, Intermediate, 11/24/15) TOLERATES LORTAB ROS Review of System 10 point review with pertinent positives in HPI PHYSICAL EXAM General: Alert, Oriented X3, Cooperative HEENT: Atraumatic Lungs: Other (coarse) Heart: Normal S1, Normal S2, Other (3-4/6 ANGELO) Abdomen: Soft Extremities: No edema Skin: No rashes Neuro: Normal speech Psych/Mental Status: Mental status NL, Mood NL MUSCULOSKELETAL: No deformity VITALS VITALS Vital Signs Date Time Temp Pulse Resp B/P (MAP) Pulse Ox O2 Delivery O2 Flow Rate FiO2 12/23/17 12:44 18 95 Nasal Cannula 2.0 12/23/17 10:28 98.2 91 152/66 (94) 98.2 LABS Lab: Laboratory Tests Test 12/22/17 17:44 12/22/17 17:49 12/22/17 23:25 12/23/17 04:50 Prothrombin Time 13.2 SEC (11.7-14.0) Prothromb Time International Ratio 1.1 (0.8-1.1) Activated Partial Thromboplast Time 30 SEC (24-38) White Blood Count 10.7 x10^3/uL (4.0-11.0) Red Blood Count 3.80 x10^6/uL (3.50-5.40) Hemoglobin 9.6 g/dL (12.0-15.5) Hematocrit 29.7 % (36.0-47.0) Mean Corpuscular Volume 78 fL (79-100) Mean Corpuscular Hemoglobin 25 pg (25-35) Mean Corpuscular Hemoglobin Concent 32 g/dL (31-37) Red Cell Distribution Width 16.6 % (11.5-14.5) Platelet Count 361 x10^3/uL (140-400) Neutrophils (%) (Auto) 50 % (31-73) Lymphocytes (%) (Auto) 25 % (24-48) Monocytes (%) (Auto) 9 % (0-9) Eosinophils (%) (Auto) 15 % (0-3) Basophils (%) (Auto) 1 % (0-3) Neutrophils # (Auto) 5.3 x10^3uL (1.8-7.7) Lymphocytes # (Auto) 2.7 x10^3/uL (1.0-4.8) Monocytes # (Auto) 1.0 x10^3/uL (0.0-1.1) Eosinophils # (Auto) 1.6 x10^3/uL (0.0-0.7) Basophils # (Auto) 0.1 x10^3/uL (0.0-0.2) Segmented Neutrophils % 54 % (35-66) Lymphocytes % 25 % (24-48) Monocytes % 8 % (0-10) Eosinophils % 12 % (0-5) Basophils % 1 % (0-3) Platelet Estimate Adequate (ADEQUATE) D-Dimer (Linda) 7.47 ug/mlFEU (0.00-0.50) Sodium Level 139 mmol/L (136-145) Potassium Level 3.4 mmol/L (3.5-5.1) Chloride Level 104 mmol/L (98-107) Carbon Dioxide Level 24 mmol/L (21-32) Anion Gap 11 (6-14) Blood Urea Nitrogen 6 mg/dL (7-20) Creatinine 0.6 mg/dL (0.6-1.0) Estimated GFR (Cockcroft-Gault) 121.8 Glucose Level 113 mg/dL (70-99) Calcium Level 8.8 mg/dL (8.5-10.1) Troponin I Quantitative 0.058 ng/mL (0.000-0.055) 0.060 ng/mL (0.000-0.055) CJ-Ash-J-Type Natriuretic Peptide 174 pg/mL (0-124) Procalcitonin < 0.10 ng/mL (0.00-0.10) Heparin Anti-Xa Act, Unfractionated < 0.10 IU/mL (0.30-0.70) 0.27 IU/mL (0.30-0.70) Test 12/23/17 04:55 12/23/17 11:30 White Blood Count 9.7 x10^3/uL (4.0-11.0) Red Blood Count 3.64 x10^6/uL (3.50-5.40) Hemoglobin 9.0 g/dL (12.0-15.5) Hematocrit 28.5 % (36.0-47.0) Mean Corpuscular Volume 79 fL (79-100) Mean Corpuscular Hemoglobin 25 pg (25-35) Mean Corpuscular Hemoglobin Concent 32 g/dL (31-37) Red Cell Distribution Width 17.0 % (11.5-14.5) Platelet Count 331 x10^3/uL (140-400) Neutrophils (%) (Auto) 80 % (31-73) Lymphocytes (%) (Auto) 16 % (24-48) Monocytes (%) (Auto) 3 % (0-9) Eosinophils (%) (Auto) 0 % (0-3) Basophils (%) (Auto) 1 % (0-3) Neutrophils # (Auto) 7.8 x10^3uL (1.8-7.7) Lymphocytes # (Auto) 1.6 x10^3/uL (1.0-4.8) Monocytes # (Auto) 0.3 x10^3/uL (0.0-1.1) Eosinophils # (Auto) 0.0 x10^3/uL (0.0-0.7) Basophils # (Auto) 0.1 x10^3/uL (0.0-0.2) Sodium Level 139 mmol/L (136-145) Potassium Level 4.7 mmol/L (3.5-5.1) Chloride Level 104 mmol/L (98-107) Carbon Dioxide Level 24 mmol/L (21-32) Anion Gap 11 (6-14) Blood Urea Nitrogen 10 mg/dL (7-20) Creatinine 0.7 mg/dL (0.6-1.0) Estimated GFR (Cockcroft-Gault) 101.9 Glucose Level 172 mg/dL (70-99) Calcium Level 8.7 mg/dL (8.5-10.1) Magnesium Level 1.7 mg/dL (1.8-2.4) Troponin I Quantitative 0.057 ng/mL (0.000-0.055) Heparin Anti-Xa Act, Unfractionated 0.26 IU/mL (0.30-0.70) IMAGES IMAGES Chest CTA: 1. No evidence of pulmonary embolism. 2. Peripheral groundglass opacities are nonspecific and could be pneumonitis although mild atypical pneumonia is possible. ECHOCARDIOGRAM ECHOCARDIOGRAM 02/19/2018: TTE: Hyperdynamic left ventricular systolic function. The Ejection Fraction is 75%. Transmitral Doppler flow pattern is Grade I-abnormal relaxation pattern. The left atrium is mildly dilated. There appears to be dynamic LVOT obstruction with systolic anterior motion of anterior mitral valve leaflet. LVOT max pressure gradient of 177 mmHg and mean pressure gradient 91mmHg. Mild tricuspid regurgitation. The PA pressure was estimated at 36 mmHg. There is no evidence of significant pericardial effusion. ASSESSMENT/PLAN ASSESSMENT/PLAN 1. PVCs/PACS --associated with hypomagnesemia and hypokalemia which have been repleted --repeat labs in a.m. 2. murmur --repeat TTE --LVOT obstruction documented on TTE 02/2017; ? etiology of murmur 3. HTN --control with meds 4. CAD with prior PCI --stable --continue secondary prevention 7. trivial elevation of troponin levels --likely associated with accel HTN and cessation of meds --TTE will assess for WMA --no symptoms DEIDRA BURRELL MD 12/23/17 9573: CARDIAC CONSULT ASSESSMENT/PLAN ASSESSMENT/PLAN Patient seen and examined. Agree with SECURITY MANAGEMENT SPECIALIST's assessment and plan. PVCs and PACs secondary to electrolyte imbalance Replace potassium and magnesium Check 2-D echo to assess LV function and evaluate LVOT gradient If patient has significant dynamic obstruction, we will consider changing Norvasc to verapamil to optimize treatment Slight troponin elevation probably demand ischemia. CAD status clinically stable Thank you for your consultation PARISH RICE APRN Dec 23, 2017 13:38 DEIDRA BURRELL MD Dec 23, 2017 16:59
[2017-12-23 15:07] VITALS: BP 156/66
[2017-12-23 19:28] VITALS: BP 128/63
[2017-12-23] MEDS: cefTRIAXone IV Push 1 GM VIAL. IVP SCH (20:40)
[2017-12-23] MEDS: ATORVASTATIN CALCIUM 10 MG TABLET. PO SCH (20:46)
[2017-12-23] MEDS: CYCLOBENZAPRINE 10 MG TABLET. PO SCH (20:46)
[2017-12-23 22:04] VITALS: BP 150/66
--- NOTE | 2017-12-23 22:14 | EKG ---
[facility] [address] [place] [address] Test Date: 2017-12-23 Test Time: 22:08:55 Pat Name: LOUIS SALAZAR Department: Room: 258 1 Gender: F Memory Care Director: KAHLIL : 1955 Requested By: ROXANA WALDROP Order Number: [id number] Reading MD: Stu Cabral Measurements Intervals [place] Rate: 74 P: 41 VA: 186 QRS: 20 QRSD: 80 T: 24 QT: 380 QTc: 427 Interpretive Statements SINUS RHYTHM LEFT ATRIAL ABNORMALITY QRS(T) CONTOUR ABNORMALITY CONSIDER ANTEROSEPTAL MYOCARDIAL DAMAGE ABNORMAL ECG Electronically Signed On 12-24-2017 16:30:25 CDT by Stu Cabral
[2017-12-24] VITALS (7 sets, daily range): BP systolic 144–176; BP diastolic 66–79
[2017-12-24] MEDS: HYDROcodone/APAP 10/325 1 TAB TABLET PO PRN ×2 (03:58→18:01)
[2017-12-24 04:33] LABS: CALCIUM 8.6 mg/dL (8.5-10.1); CREATININE 0.8 mg/dL (0.6-1.0); GFR 87.4; MAGNESIUM 1.9 mg/dL (1.8-2.4)
[2017-12-24 05:13] LABS: POTASSIUM 3.5 mmol/L (3.5-5.1)
[2017-12-24] MEDS: ALBUTEROL SULFATE 2.5 MG/3 ML NEBU. NEB SCH ×5 (05:55→19:53)
[2017-12-24] MEDS: BUDESONIDE 0.5 MG/2 ML NEBU. NEB SCH ×2 (05:55→19:53)
[2017-12-24] MEDS ORDERED: POTASSIUM CHLORIDE 20 MEQ TABLET.ER. PO ONE ×2 (08:00→14:00)
[2017-12-24] MEDS: CLOPIDOGREL BISULFATE 75 MG TABLET PO SCH (08:45)
[2017-12-24] MEDS: hydroCHLOROthiazide 25 MG TABLET PO SCH (08:45)
[2017-12-24] MEDS: hydrALAZINE 25 MG TABLET PO SCH ×3 (08:46→21:39)
[2017-12-24] MEDS: amLODIPine BESYLATE 5 MG TABLET PO SCH (08:46)
[2017-12-24] MEDS: CHOLECALCIFEROL (VITAMIN D3) 1,000 UNIT TABLET PO SCH (08:46)
[2017-12-24] MEDS: AZITHROMYCIN 250 MG TABLET. PO SCH (08:47)
[2017-12-24] MEDS: LOSARTAN POTASSIUM 50 MG TABLET. PO SCH (08:47)
[2017-12-24] MEDS: methylPREDNISolone SOD SUCC PF 40 MG/ML VIAL. IV SCH ×2 (08:47→21:41)
[2017-12-24] MEDS: ASPIRIN CHEWABLE 81 MG TABLET. PO SCH (08:47)
[2017-12-24] MEDS: predniSONE 10 MG TABLET PO SCH (08:47)
[2017-12-24] MEDS: LACTOBACILLUS RHAMNOSUS GG 1 CAPSULE. PO SCH ×2 (08:47→21:39)
[2017-12-24] MEDS: oxyCODONE ER 15 MG TAB.ER.12H PO SCH ×2 (08:51→21:38)
--- NOTE | 2017-12-24 10:17 | PDOC ---
PROGRESS NOTES Subjective Subjective feels better today ,less sob Objective Objective Vital Signs Date Time Temp Pulse Resp B/P (MAP) Pulse Ox O2 Delivery O2 Flow Rate FiO2 12/24/17 08:51 16 96 Room Air 12/24/17 08:47 83 144/66 12/24/17 07:00 98.4 98.4 12/24/17 03:30 2.0 Intake and Output 12/24/17 07:00 Intake Total 2630 ml Output Total 6040 ml Balance -3410 ml Intake Oral 2630 ml Output Urine Total 6000 ml Emesis 40 ml Physical Exam Abdomen: Soft Heart: Normal S1, Normal S2, Other (3-4/6 ANGELO) Extremities: No edema General: Alert, Oriented X3, Cooperative HEENT: Atraumatic Lungs: Other (coarse) MUSCULOSKELETAL: No deformity Neuro: Normal speech Psych/Mental Status: Mental status NL, Mood NL Skin: No rashes Diagnosis Problem List Problems Medical Problems: (1) NSTEMI (non-ST elevated myocardial infarction) Status: Acute Assessment Assessment Problems Medical Problems: (1) NSTEMI (non-ST elevated myocardial infarction) Status: Acute FINAL IMPRESSION: 1. Chronic obstructive pulmonary disease with acute exacerbation. 2. Mild elevation in troponin, probably demand ischemia. 3. Known Coronary artery disease , history of cardiac stents. 4. Chronic obstructive pulmonary disease. 5. Smoking addiction. 6. Rheumatoid arthritis. 7. Hypertension. 8. Hyperlipidemia. PLAN: At this time, admit to hospital, hydrate with IV fluids, was put on heparin drip, no changes to subQ heparin. Cardiology is consulted. Monitor EKG, troponin, cardiac enzymes, EKG, IV Solu-Medrol, oxygen, breathing treatments and Zithromax and Rocephin IV and see how the patient's condition improves. Plan Plan of Care Problems Medical Problems: (1) NSTEMI (non-ST elevated myocardial infarction) Status: Acute Comment Review of Relevant I have reviewed the following items bijal (where applicable) has been applied. Labs Laboratory Tests Test 12/23/17 11:30 12/24/17 03:50 Heparin Anti-Xa Act, Unfractionated 0.26 IU/mL (0.30-0.70) Sodium Level 138 mmol/L (136-145) Potassium Level 3.5 mmol/L (3.5-5.1) Chloride Level 104 mmol/L (98-107) Carbon Dioxide Level 25 mmol/L (21-32) Anion Gap 9 (6-14) Blood Urea Nitrogen 15 mg/dL (7-20) Creatinine 0.8 mg/dL (0.6-1.0) Estimated GFR (Cockcroft-Gault) 87.4 Glucose Level 224 mg/dL (70-99) Calcium Level 8.6 mg/dL (8.5-10.1) Magnesium Level 1.9 mg/dL (1.8-2.4) Microbiology 12/22/17 Blood Culture - Preliminary, Resulted NO GROWTH AFTER 1 DAY Medications Current Medications Albuterol Sulfate (Ventolin Neb Soln) 2.5 mg PRN Q4HRS PRN NEB SHORTNESS OF BREATH; Start 12/23/17 at 11:00; Stop 12/23/17 at 11:00; Status DC Azithromycin (Zithromax) 250 mg DAILY PO Last administered on 12/24/17at 08:47; Start 12/23/17 at 10:45 Ceftriaxone Sodium (Rocephin) 1 gm Q24H IVP Last administered on 12/23/17at 20: 40; Start 12/23/17 at 20:00 Enoxaparin Sodium (Lovenox 40mg Syringe) 40 mg Q24H SQ Last administered on 01/30at 20:46; Start 12/23/17 at 11:00 Non-Formulary Medication (Albuterol Sulfate (Ventolin Hfa Inhaler)) 2 puff PRN Q4-6HRS IH ; Start 12/23/17 at 10:45; Status UNV Potassium Chloride (Klor-Con) 40 meq 1X ONCE PO Last administered on at 08:47; Start 12/24/17 at 08:00; Stop 12/24/17 at 08:01; Status DC Prednisone (Prednisone) 10 mg DAILY PO Last administered on 12/24/17at 08:47; Start 12/23/17 at 11:00 Vitals/I & O Vital Sign - Last 24 Hours 12/23/17 12/23/17 12/23/17 12/23/17 10:28 11:44 12:30 12:44 Temp 98.2 98.2 Pulse 91 Resp 18 18 B/P (MAP) 152/66 (94) Pulse Ox 97 97 95 O2 Delivery Nasal Cannula Nasal Cannula Nasal Cannula O2 Flow Rate 2.0 2.0 1.5 2.0 12/23/17 12/23/17 12/23/17 12/23/17 12:44 14:35 15:07 16:08 Temp 98.1 98.1 Pulse 91 88 Resp 18 B/P (MAP) 152/66 156/66 (96) Pulse Ox 96 95 O2 Delivery Room Air Nasal Cannula O2 Flow Rate 2.0 1.5 12/23/17 12/23/17 12/23/17 12/23/17 19:28 19:38 20:00 20:19 Temp 98.3 98.3 Pulse 89 Resp 18 20 B/P (MAP) 128/63 (84) Pulse Ox 96 100 100 O2 Delivery Room Air Room Air Room Air Nasal Cannula O2 Flow Rate 2.0 12/23/17 12/23/17 12/23/17 12/24/17 20:47 22:04 22:37 02:29 Temp 98.2 98.2 Pulse 89 87 Resp 18 22 18 B/P (MAP) 128/63 150/66 (94) Pulse Ox 98 98 98 O2 Delivery Nasal Cannula Nasal Cannula Room Air O2 Flow Rate 2.0 2.0 12/24/17 12/24/17 12/24/17 12/24/17 03:30 03:50 03:58 05:00 Temp 98.3 98.3 Pulse 67 Resp 18 20 20 B/P (MAP) 176/72 (106) 162/70 (100) Pulse Ox 97 97 93 O2 Delivery Nasal Cannula Room Air Room Air O2 Flow Rate 2.0 12/24/17 12/24/17 12/24/17 12/24/17 05:55 07:00 08:46 08:46 Temp 98.4 98.4 Pulse 83 83 83 Resp 20 B/P (MAP) 144/66 (92) 144/66 144/66 Pulse Ox 93 97 O2 Delivery Room Air Room Air 12/24/17 12/24/17 08:47 08:51 Pulse 83 Resp 16 B/P (MAP) 144/66 Pulse Ox 96 O2 Delivery Room Air Intake and Output 12/23/17 12/23/17 12/24/17 15:00 23:00 07:00 Intake Total 1800 ml 830 ml Output Total 2000 ml 4040 ml Balance -2000 ml -2240 ml 830 ml ANIVAL DESAI MD Dec 24, 2017 10:17
--- NOTE | 2017-12-24 10:21 | CARD ---
MR#: [id number] Date of Study: 12/24/2017 Ordering Physician: PARISH RICE, Referring Physician: ANIVAL DESAI, Tech: LINDA Banks APPROVED REPORT EXAM: Two-dimensional and M-mode echocardiogram with Doppler and color Doppler. Other Information Quality : AverageHR: 93bpm INDICATION Murmur, LVOT obstruction 2D DIMENSIONS Left Atrium(2D)2.5 (1.6-4.0cm)IVSd1.4 (0.7-1.1cm) Aortic Root(2D)2.7 (2.0-3.7cm)LVDd4.1 (3.9-5.9cm) LVOT Diameter1.9 (1.8-2.4cm)PWd1.6 (0.7-1.1cm) LVDs1.6 (2.5-4.0cm)FS (%) 61.4 % SV67.4 mlLVEF(%)90.6 (>50%) Aortic Valve AoV Peak Alfa.286.6cm/sAoV VTI66.5cm AO Peak GR.32.9mmHgAO Mean GR.21mmHg AI P 1/2 [id number] Mitral Valve MV E Kyoyrkfw451.7cm/sMV E Peak Gr.179mmHg MV DECEL [id number] A Fdkagesm816.6cm/s E/A Ratio0.8 Pulmonary Valve PV Peak Ycsooglk014.8cm/s Tricuspid Valve TR P. Ajfnizdn094ls/sTR Peak Gr.19mmHg LEFT VENTRICLE The left ventricle is normal size. There is mild to moderate concentric left ventricular hypertrophy. The left ventricular systolic function is normal and the ejection fraction is within normal range. E F 65% There is normal LV segmental wall motion. The left ventricular diastolic function and filling i s normal for age. RIGHT VENTRICLE The right ventricle is normal size. The right ventricular systolic function is normal. ATRIA The left atrium size is normal. The right atrium size is normal. The interatrial septum is intact wit h no evidence for an atrial septal defect or patent foramen ovale as noted on 2-D or Doppler imaging. AORTIC VALVE The aortic valve is moderately to severely calcified. Doppler and Color Flow revealed trace aortic re gurgitation. Suboptimal doppler evaluation. Probable at least moderate aortic stenosis. Cannot rule o ut component of LVOT obstruction/subvalvular obstruction. MG approximately 36 mm Hg. There is no aort ic valvular vegetation. MITRAL VALVE The mitral valve is moderately thickened. Mitral annular calcification is moderate. There is no evide nce of mitral valve prolapse. There is no mitral valve stenosis. Doppler and Color-flow revealed mild mitral regurgitation. TRICUSPID VALVE The tricuspid valve leaflets are thickened , but open well. Doppler and Color Flow revealed mild tric uspid regurgitation. There is no tricuspid valve prolapse or vegetation. There is no tricuspid valve stenosis. PULMONIC VALVE The pulmonic valve is not well visualized. Doppler and Color Flow revealed no pulmonic valvular regur gitation. There is no pulmonic valvular stenosis. GREAT VESSELS The aortic root is normal in size. The IVC is normal in size and collapses >50% with inspiration. PERICARDIAL EFFUSION There is no evidence of significant pericardial effusion. Critical Notification Critical Value: No <Conclusion> There is mild to moderate concentric left ventricular hypertrophy. The left ventricular systolic function is normal and the ejection fraction is within normal range. EF 65% There is normal LV segmental wall motion. The aortic valve is moderately to severely calcified. Suboptimal doppler evaluation. Probable at leas t moderate aortic stenosis. Cannot rule out component of LVOT obstruction/subvalvular obstruction. MG approximately 36 mm Hg. Signed by : Ward Abbott, Electronically Approved : 12/24/2017 10:20:26
--- NOTE | 2017-12-24 13:59 | PDOC ---
PHUC FISHER STENCILING MACHINE TENDER 12/24/17 1359: CARDIO Progress Notes Date and Time Date of Service 12/24/2017 Time of Evaluation 1220 Subjective Subjective: No Chest Pain, No shortness of breath, No Palpitations, No Dizziness Vitals Vitals Vital Signs Date Time Temp Pulse Resp B/P (MAP) Pulse Ox O2 Delivery O2 Flow Rate FiO2 12/24/17 12:06 94 Room Air 12/24/17 11:35 98.5 76 22 146/67 (93) 98.5 12/24/17 03:30 2.0 Weight Weight [ ] Input and Output Intake and Output Intake and Output 12/24/17 07:00 Intake Total 2630 ml Output Total 6040 ml Balance -3410 ml Intake Oral 2630 ml Output Urine Total 6000 ml Emesis 40 ml Laboratory Labs Laboratory Tests Test 12/24/17 03:50 Sodium Level 138 mmol/L (136-145) Potassium Level 3.5 mmol/L (3.5-5.1) Chloride Level 104 mmol/L (98-107) Carbon Dioxide Level 25 mmol/L (21-32) Anion Gap 9 (6-14) Blood Urea Nitrogen 15 mg/dL (7-20) Creatinine 0.8 mg/dL (0.6-1.0) Estimated GFR (Cockcroft-Gault) 87.4 Glucose Level 224 mg/dL (70-99) Calcium Level 8.6 mg/dL (8.5-10.1) Magnesium Level 1.9 mg/dL (1.8-2.4) Microbiology Micro Microbiology 12/22/17 Blood Culture - Preliminary, Resulted NO GROWTH AFTER 1 DAY Physical Exam HEENT: Neck Supple W Full Motion Chest: Symmetric LUNGS: Other (diminished bases) Heart: S1S2, RRR (SR WAP), murmurs (systolic murmur) Abdomen: Soft N/T Extremities: No Calf Tenderness, Other (trace LE ) Neurology: alert, oriented, follow commands Assessment Assessment 1. Arrhythmia: WAP, occasional PVCs. 2. Hypomagnesemia/hypokalemia: replaced 3. Moderate with LVOT component: EF 65% with nml WM 4. Elevated troponin: peaked at 0.06, suspect demand mediated with uncontrolled HTN and multiple culprits above. 5. HTN: labile episodes 6. CAD: past PCI, stable clinically 7. COPD with continued tobaccoism Recommendations 1. Continue with secondary prevention including DAPT. 2. Start on coreg. Will titrate BP meds as tolerated. 3. Mg, TSH, lipids. Replace K and Mg as warranted. 4. Smoking cessation 5. Follow up in office in 4 weeks. Will consider for outpt stress test if none recent. DEIDRA BURRELL MD 12/24/17 1543: CARDIO Progress Notes Assessment Assessment Patient seen and examined. Agree with OPTICAL INSTRUMENT SPECIALIST's assessment and plan. Telemetry did not show any significant arrhythmias 2-D echo results as noted. We will consider MARZIA for more definitive evaluation of aortic stenosis/LVOT obstruction as an outpatient We will also consider ischemic evaluation with MPI as an outpatient Okay for discharge from cardiac standpoint and follow-up with our office in 1 month PHUC FISHER APRN Dec 24, 2017 13:59 DEIDRA BURRELL MD Dec 24, 2017 15:43
[2017-12-24 14:24] LABS: MAGNESIUM 1.9 mg/dL (1.8-2.4)
[2017-12-24 14:27] LABS: CHOLESTEROL/HDL RATIO 1.7
[2017-12-24 16:47] LABS: FREE T4 1.21 ng/dL (0.76-1.46)
[2017-12-24] MEDS: CARVEDILOL 3.125 MG TABLET. PO SCH (17:58)
[2017-12-24] MEDS: cefTRIAXone IV Push 1 GM VIAL. IVP SCH (21:31)
[2017-12-24] MEDS: ENOXAPARIN 40 MG/0.4 ML SYRINGE. SQ SCH (21:33)
[2017-12-24] MEDS: ATORVASTATIN CALCIUM 10 MG TABLET. PO SCH (21:39)
[2017-12-24] MEDS: CYCLOBENZAPRINE 10 MG TABLET. PO SCH (21:40)
[2017-12-25 03:29] VITALS: BP 153/72
[2017-12-25 07:00] VITALS: BP 154/69
[2017-12-25] MEDS: LACTOBACILLUS RHAMNOSUS GG 1 CAPSULE. PO SCH (07:42)
[2017-12-25] MEDS: CHOLECALCIFEROL (VITAMIN D3) 1,000 UNIT TABLET PO SCH (07:42)
[2017-12-25] MEDS: ASPIRIN CHEWABLE 81 MG TABLET. PO SCH (07:42)
[2017-12-25] MEDS: amLODIPine BESYLATE 5 MG TABLET PO SCH (07:43)
[2017-12-25] MEDS: AZITHROMYCIN 250 MG TABLET. PO SCH (07:43)
[2017-12-25] MEDS: hydrALAZINE 25 MG TABLET PO SCH (07:44)
[2017-12-25] MEDS: oxyCODONE ER 15 MG TAB.ER.12H PO SCH (07:44)
[2017-12-25] MEDS: predniSONE 10 MG TABLET PO SCH (07:45)
[2017-12-25] MEDS: CLOPIDOGREL BISULFATE 75 MG TABLET PO SCH (07:45)
[2017-12-25] MEDS: LOSARTAN POTASSIUM 50 MG TABLET. PO SCH (07:45)
[2017-12-25 07:46] VITALS: BP 154/69
[2017-12-25] MEDS: CARVEDILOL 3.125 MG TABLET. PO SCH (07:46)
[2017-12-25] MEDS: hydroCHLOROthiazide 25 MG TABLET PO SCH (07:46)
[2017-12-25] MEDS: methylPREDNISolone SOD SUCC PF 40 MG/ML VIAL. IV SCH (07:46)
[2017-12-25] MEDS: BUDESONIDE 0.5 MG/2 ML NEBU. NEB SCH (07:57)
--- NOTE | 2017-12-25 07:57 | RAD ---
Chest, 2 views, 12/24/2017: HISTORY: Follow-up pneumonia Comparison is made to a study from 12/22/2017. The heart size and pulmonary vascularity are normal. There is calcific plaquing of the aorta. Emphysematous changes are present in the lungs with mild parenchymal scarring. Mild streaky bibasilar opacities most likely reflect atelectasis. There is no evidence of pleural fluid. IMPRESSION: 1. Emphysema. 2. Mild streaky bibasilar atelectasis. Electronically signed by: Benny Rene MD (12/25/2017 7:54 AM) [facility]
[2017-12-25] MEDS: ALBUTEROL SULFATE 2.5 MG/3 ML NEBU. NEB SCH ×2 (08:00→11:22)
--- NOTE | 2017-12-25 09:42 | PDOC ---
PROGRESS NOTES Subjective Subjective feels better ready to go home Objective Objective Vital Signs Date Time Temp Pulse Resp B/P (MAP) Pulse Ox O2 Delivery O2 Flow Rate FiO2 12/25/17 08:00 96 Nasal Cannula 2.0 12/25/17 07:46 78 154/69 12/25/17 07:00 98.6 22 98.6 Intake and Output 12/25/17 07:00 Intake Total 2090 ml Output Total 2950 ml Balance -860 ml Intake Oral 2090 ml Output Urine Total 2950 ml Physical Exam Abdomen: Soft Heart: Normal S1, Normal S2, Other (3-4/6 ANGELO) Extremities: No edema General: Alert, Oriented X3, Cooperative HEENT: Atraumatic Lungs: Other (coarse) MUSCULOSKELETAL: No deformity Neuro: Normal speech Psych/Mental Status: Mental status NL, Mood NL Skin: No rashes Diagnosis Problem List Problems Medical Problems: (1) NSTEMI (non-ST elevated myocardial infarction) Status: Acute Assessment Assessment Problems Medical Problems: (1) NSTEMI (non-ST elevated myocardial infarction) Status: Acute FINAL IMPRESSION: 1. Chronic obstructive pulmonary disease with acute exacerbation. 2. Mild elevation in troponin, probably demand ischemia. 3. Known Coronary artery disease , history of cardiac stents. 4. Chronic obstructive pulmonary disease. 5. Smoking addiction. 6. Rheumatoid arthritis. 7. Hypertension. 8. Hyperlipidemia. PLAN: echo good lvf cxr improved labs ok. d/c home today. po vantin+prednisone smoking counseling done. At this time, admit to hospital, hydrate with IV fluids, was put on heparin drip, no changes to subQ heparin. Cardiology is consulted. Monitor EKG, troponin, cardiac enzymes, EKG, IV Solu-Medrol, oxygen, breathing treatments and Zithromax and Rocephin IV and see how the patient's condition improves. Plan Plan of Care Problems Medical Problems: (1) NSTEMI (non-ST elevated myocardial infarction) Status: Acute Comment Review of Relevant I have reviewed the following items bijal (where applicable) has been applied. Labs Microbiology 12/22/17 Blood Culture - Final, Complete Medications Current Medications Carvedilol (Coreg) 3.125 mg BIDWMEALS PO Last administered on 12/25/17at 07:46; Start 12/24/17 at 17:00 Methylprednisolone Sodium Succinate (SOLU-Medrol 40MG VIAL) 30 mg Q12HR IV Last administered on 12/25/17at 07:46; Start 12/24/17 at 21:00 Potassium Chloride (Klor-Con) 20 meq 1X ONCE PO Last administered on at 16:34; Start 12/24/17 at 14:00; Stop 12/24/17 at 14:06; Status DC Vitals/I & O Vital Sign - Last 24 Hours 12/24/17 12/24/17 12/24/17 12/24/17 11:35 12:06 15:48 16:34 Temp 98.5 98.4 98.5 98.4 Pulse 76 85 85 Resp 22 20 B/P (MAP) 146/67 (93) 153/67 (95) 153/67 Pulse Ox 96 94 95 O2 Delivery Room Air Room Air Room Air 12/24/17 12/24/17 12/24/17 12/24/17 16:43 17:58 18:01 19:15 Pulse 85 Resp 18 B/P (MAP) 153/67 Pulse Ox 95 94 O2 Delivery Room Air Room Air Room Air 12/24/17 12/24/17 12/24/17 12/24/17 19:40 19:55 19:55 20:00 Temp 98.9 98.9 Pulse 84 Resp 16 B/P (MAP) 155/72 (99) Pulse Ox 94 98 98 O2 Delivery Room Air Room Air Room Air Room Air 12/24/17 12/24/17 12/24/17 12/25/17 21:38 21:39 22:21 01:40 Temp 98.3 98.3 Pulse 84 94 Resp 20 16 B/P (MAP) 155/72 170/79 (109) Pulse Ox 98 94 94 O2 Delivery Room Air Nasal Cannula Room Air 12/25/17 12/25/17 12/25/17 12/25/17 03:29 07:00 07:43 07:44 Temp 98.6 98.6 98.6 98.6 Pulse 72 78 72 72 Resp 16 22 B/P (MAP) 153/72 (99) 154/69 (97) 154/69 154/69 Pulse Ox 94 96 O2 Delivery Room Air Room Air 12/25/17 12/25/17 12/25/17 12/25/17 07:44 07:45 07:46 08:00 Pulse 72 78 B/P (MAP) 154/69 154/69 Pulse Ox 94 96 O2 Delivery Nasal Cannula Nasal Cannula O2 Flow Rate 2.0 2.0 Intake and Output 12/24/17 12/24/17 12/25/17 15:00 23:00 07:00 Intake Total 870 ml 1220 ml Output Total 2950 ml Balance -2080 ml 1220 ml ANIVAL DESAI MD Dec 25, 2017 09:42
[2017-12-25] MEDS ORDERED: POTASSIUM CHLORIDE 20 MEQ TABLET.ER. PO ONE (09:45)
[2017-12-25] MEDS ORDERED: PRED50TA PO (09:46)
[2017-12-25] MEDS ORDERED: CEFP200T PO (09:46)
--- NOTE | 2017-12-25 10:38 | DISCH ---
DISCHARGE WITH HOME HEALTH DISCHARGE INFORMATION: Final Diagnosis: Problems Medical Problems: (1) NSTEMI (non-ST elevated myocardial infarction) Status: Acute Condition on Discharge: Stable CODE STATUS: Code Status: Full HOME HEALTH: Face to Face: I certify this patient is under my care and that I, or a nurse practitioner or physician's assistant professor of life sciences working with me, had a face to face encounter that meets the physician face to face encounter requirements with this patient on []. Medical Complications: COPD Group Home For: Medication Management, Pain Management Physical Therapy For: Evalulation/Treatment Occupational Therapy For: Evaluation/Treatment Home Health Aide For: Self-care MENTAL HEALTH ORDERLY For: Community Resources Pt Meets Homebound Status: Unsteady balance w/ amb,, Extreme weakness w/ amb. POST DISCHARGE ORDERS: Activity Instructions for Disc: Activity as tolerated Weight Bearing Status after Di: No restrictions Wound/Incision Care: No wound care needed CHECKS AFTER DISCHARGE: Checks after discharge: Check blood press - daily TREATMENT/EQUIPMENT ORDERS: Adaptive Equipment Issued: None Discharge Respiratory Equipmen: Oxygen CERTIFICATION STATEMENT: Certification Statement: Certification Statement: Based on the above finding, I certify that this patient is confined to the home and needs intermittent penitentiary care, physical therapy and/or speech therapy, or continues to need occupational therapy.~ This patient is under my care, and I have initiated the establishment of the plan of care.~ This patient will be followed by myself or a community physician who will periodically review the plan of care. Home Meds Active Scripts Cholecalciferol (Vitamin D3) (VITAMIN D3) 1,000 Unit Tablet, 1000 UNIT PO DAILY , #30 CAP Prov:GUIDO MARTINEZ APRN 11/25/15 Albuterol Sulfate (ALBUTEROL SULFATE NEB SOLN) 0.63 Mg/3 Ml Vial.neb, 0.63 MG NEB PRN Q4HRS PRN for SHORTNESS OF BREATH, #120 EACH 0 Refills Prov:GUIDO MARTINEZ APRN 11/25/15 Losartan Potassium (LOSARTAN POTASSIUM) 50 Mg Tablet, 50 MG PO DAILY, #30 TAB Prov:GUIDO MARTINEZ APRN 11/25/15 Prednisone (PREDNISONE ) 10 Mg Tablet, 10 MG PO as directed, #27 TAB Prov:GUIDO MARTINEZ APRN 11/25/15 Aspirin (Children's Aspirin) 81 Mg Tab.chew, 81 MG PO DAILYWBKFT, #30 TAB.CHEW Prov:ANIVAL DESAI MD 05/19/14 Atorvastatin Calcium (LIPITOR) 10 Mg Tablet, 5 MG PO QHS, #30 Prov:ANIVAL DESAI MD 05/05/14 Clopidogrel Bisulfate (PLAVIX) 75 Mg Tablet, 75 MG PO DAILYWBKFT, #30 Prov:ANIVAL DESAI MD 05/05/14 Reported Medications Oxycodone Hcl (OXYCONTIN) 15 Mg Tab.er.12h, 15 MG PO BID, TAB 12/22/17 Albuterol Sulfate (VENTOLIN HFA INHALER) 18 Gm Hfa.aer.ad, 2 PUFF IH PRN Q4-6HRS , #1 INHALER 05/03/14 Budesonide/Formoterol Fumarate (SYMBICORT 160-4.5 MCG INHALER) 10.2 Gm Hfa.aer.ad, 2 PUFF IH BID, #10.6 GM 3 Refills 05/03/14 Hydrocodone Bit/Acetaminophen (HYDROCODONE-APAP 10-325 ) 1 Each Tablet, 1 TAB PO PRN Q6HRS PRN for PAIN, TAB 0 Refills 05/03/14 Hydrochlorothiazide (HYDROCHLOROTHIAZIDE TABLET ) 25 Mg Tablet, 1 TAB PO DAILY, #30 TAB 5 Refills 05/03/14 Hydralazine Hcl (HYDRALAZINE HCL) 25 Mg Tablet, 1 TAB PO TID, #90 TAB 5 Refills 05/03/14 Cyclobenzaprine Hcl (CYCLOBENZAPRINE HCL) 5 Mg Tablet, 1 TAB PO QHS, #30 TAB 05/03/14 Amlodipine Besylate (AMLODIPINE BESYLATE) 5 Mg Tablet, 5 MG PO DAILY, TAB 05/03/14 ANIVAL DESAI MD Dec 25, 2017 10:37
[2017-12-25] MEDS: HYDROcodone/APAP 10/325 1 TAB TABLET PO PRN ×2 (12:52→15:23)
== END 2017-12-25 14:58 | disposition home health service (06) | DRG 190 ==
LOC: ER 17:27 → 2 SOUTH 19:15
PROVIDERS: ADMIT Internal Medicine; ATTEND Internal Medicine
DX: J44.1 Chronic obstructive pulmonary disease with (acute) exacerbation (principal); I21.A1 Myocardial infarction type 2; E87.6 Hypokalemia; I49.3 Ventricular premature depolarization; E11.9 Type 2 diabetes mellitus without complications; E78.5 Hyperlipidemia, unspecified; E83.42 Hypomagnesemia; I10 Essential (primary) hypertension; I25.10 Atherosclerotic heart disease of native coronary artery without angina pectoris; F17.210 Nicotine dependence, cigarettes, uncomplicated; M06.9 Rheumatoid arthritis, unspecified; R79.1 Abnormal coagulation profile; M79.7 Fibromyalgia; F41.9 Anxiety disorder, unspecified; G89.29 Other chronic pain; K57.90 Diverticulosis of intestine, part unspecified, without perforation or abscess without bleeding; M19.90 Unspecified osteoarthritis, unspecified site; I25.2 Old myocardial infarction; Z79.891 Long term (current) use of opiate analgesic; Z82.5 Family history of asthma and other chronic lower respiratory diseases; Z83.3 Family history of diabetes mellitus; Z95.5 Presence of coronary angioplasty implant and graft; Z79.899 Other long term (current) drug therapy; Z88.8 Allergy status to other drugs, medicaments and biological substances; Z88.5 Allergy status to narcotic agent; Z79.4 Long term (current) use of insulin; Z79.82 Long term (current) use of aspirin
CPT/HCPCS: 36415; 71046; 71275; 80048; 80061; 83735; 83880; 84145; 84439; 84443; 84481; 84484; 85007; 85025; 85379; 85520; 85610; 85730; 87040; 93005; 93306; 94618; 94640; 94760; 96365; 96375; 99406; J0456; J0690; J0696; J1644; J1650; J2405; J2920; J3475; J7512; J7613; J7620; J7626; Q0144; 99285-25

== ENCOUNTER → 2018-07-24 | Outpatient (CLI) | payer OTHER ==
[2018-05-09 11:00] VITALS: BP 110/49
[~2018-07-24] MED LIST changes: +AMLO5TAB10 PO; -AMLO5TAB7 PO; +CEFP200T PO; +DEXL60CA2 PO; +HYDR-2145 PO; -HYDR-2766 PO; +HYDR-2769 PO; -HYDR25TA9 PO; +LOSA-73 PO; -LOSA25TA5 PO; +LOSA25TA54 PO; -LOSA50TA7 PO; +METO25TA4 PO; +NITR0.4T SL; +OXYC15TA61 PO; +PRED1TAB3 PO; +SENN-22 PO
--- NOTE | 2018-07-24 16:10 | KCIC ---
Bilateral digital screening mammograms with 3-D tomosynthesis: Reason for examination: Routine screening. Comparison is made to previous studies dated 11/29/2016 and 10/07/2014. Bilateral mammograms in CC and oblique projections were obtained with 2-D imaging and 3-D tomosynthesis imaging on a Siemens Inspiration unit and reviewed on the workstation. Interpretation was made with the benefit of CAD. The skin and nipples show no abnormalities. No abnormal axillary lymph nodes are seen. The breast parenchyma shows scattered fatty and fibroglandular density. (Breast density: Category B.) There continues to be some nodular parenchymal asymmetry anteriorly at the 10:00 position of the right breast which is stable. There continues to be a small circumscribed nodule at the 9:00 B position of the right breast which is unchanged. There also continues to be some nodularity present anteriorly in the left breast at approximately the 2:00 B position of the left breast which is stable. There are no new masses, suspicious calcifications or architectural distortion. Impression: No evidence of malignancy. Recommend routine screening. BI-RAD Category 2: Benign. "Our facility is accredited by the [employer] Mammography Program." This patient's information has been entered into a reminder system for the patient to be notified with the results of her examination and a target date for the next mammogram. Electronically signed by: Samira Wong MD (07/24/2018 4:08 PM) [facility]
== END | disposition home or self-care (01) ==
LOC: KCIC MAMMO 11:43
PROVIDERS: ATTEND Internal Medicine
DX: Z12.31 Encounter for screening mammogram for malignant neoplasm of breast (principal); N63.13 Unspecified lump in the right breast, lower outer quadrant
CPT/HCPCS: 77063; 77067

== ENCOUNTER → 2018-10-28 | Outpatient (CLI) | payer OTHER ==
[2018-05-09 11:00] VITALS: BP 110/49
[~2018-10-28] MED LIST changes: -PANT40TA3 PO; +PANT40TA77 PO
[2018-10-28 18:02] LABS: BF CLARITY TURBID; BF COLOR YELLOW; BF MON % 3 %; BF PMN % 97 %; BF RBC COUNT 7500 /cmm (Not Established); BF SOURCE SYNOVIAL; BF WBC COUNT 25000 /cmm (Not Established)
== END | disposition home or self-care (01) ==
LOC: SPEC 16:33
PROVIDERS: ATTEND Orthopaedic Surgery Sports Medicine
DX: M25.562 Pain in left knee (principal)
CPT/HCPCS: 87071; 87075; 89050; 89060

== ENCOUNTER → 2018-11-25 | Outpatient (CLI) | payer OTHER ==
[2018-05-09 11:00] VITALS: BP 110/49
[2018-11-25 15:15] LABS: BF CLARITY TURBID; BF COLOR YELLOW; BF SOURCE SYNOVIAL
[2018-11-25 15:16] LABS: BF MON % 19 %; BF PMN % 81 %; BF RBC COUNT 12800 /cmm (Not Established); BF WBC COUNT 8800 /cmm (Not Established)
== END | disposition home or self-care (01) ==
LOC: SPEC 13:11
PROVIDERS: ATTEND Orthopaedic Surgery Sports Medicine
DX: M17.12 Unilateral primary osteoarthritis, left knee (principal)
CPT/HCPCS: 87071; 87075; 89050; 89060

== ENCOUNTER → 2018-12-16 | Outpatient (CLI) | payer OTHER ==
[2018-05-09 11:00] VITALS: BP 110/49
[2018-12-16 20:12] LABS: BF CLARITY TURBID; BF COLOR YELLOW; BF RBC COUNT 8000 /cmm (Not Established); BF SOURCE SYNOVIAL; BF WBC COUNT 35500 /cmm (Not Established)
[2018-12-16 20:13] LABS: BF PMN % 85 %
[2018-12-16 20:14] LABS: BF MON % 15 %
== END | disposition home or self-care (01) ==
LOC: SPEC 16:47
PROVIDERS: ATTEND Orthopaedic Surgery Sports Medicine
DX: M17.12 Unilateral primary osteoarthritis, left knee (principal)
CPT/HCPCS: 87071; 87075; 89050; 89060

== ENCOUNTER → 2019-02-02 | Day surgery (SDC) | payer OTHER ==
[~2019-02-02] MED LIST changes: +ASPI-612 PO; +HYDR25TA10 PO; +IV RINGERS,LACTATED 1000ML 1,000 ML IV SCH; -NITR0.4T SL; +NITR0.4T24 SL; +PROPOFOL 20 ML IV ONE
--- NOTE | 2019-02-02 14:45 | PDOC4 ---
PROCEDURE Procedure [place] Indication: h/o polyps Meds: per anesthesia Findings: ABILIO--normal --scoped advanced with difficulty due to tortuosity to cecum. Mucosa normal. No polyps, tics, etc. Retroflex normal. Cari. well. IMP: Negative surveillance for h/o polyps. REC: Repeat in 5 years. F/u in office in 2 weeks re; HCV treatment status. BRIDGET SORIANO MD Feb 02, 2019 14:45
[2019-02-02 15:00] VITALS: BP 135/62
== END ==
LOC: ENDOS 13:34
PROVIDERS: ATTEND Internal Medicine Gastroenterology
DX: Z12.11 Encounter for screening for malignant neoplasm of colon (principal); K57.30 Diverticulosis of large intestine without perforation or abscess without bleeding; D64.9 Anemia, unspecified; K21.9 Gastro-esophageal reflux disease without esophagitis; F41.9 Anxiety disorder, unspecified; Z87.39 Personal history of other diseases of the musculoskeletal system and connective tissue; Z86.19 Personal history of other infectious and parasitic diseases; Z98.890 Other specified postprocedural states; Z72.0 Tobacco use; Z86.010 Personal history of colon polyps; Z88.6 Allergy status to analgesic agent; Z88.0 Allergy status to penicillin; Z88.8 Allergy status to other drugs, medicaments and biological substances
CPT/HCPCS: 45378; J2704

== ENCOUNTER 2019-02-09 10:01 | Inpatient (IN) | payer OTHER, MEDICAID ==
[~2019-02-09] VITALS: Ht 162.6 cm; Wt 81.2 kg
[~2019-02-09 10:01] MED LIST changes: -ASPI-612 PO; -HYDR25TA10 PO; -IV RINGERS,LACTATED 1000ML 1,000 ML IV SCH; -PROPOFOL 20 ML IV ONE
[2019-02-09] MEDS ORDERED: ASPIRIN 325 MG TABLET PO ONE (10:45)
[2019-02-09] MEDS ORDERED: IV NORMAL SALINE 1000ML BAG 1,000 ML IV ONE (10:45)
[2019-02-09] MEDS ORDERED: MECLIZINE HCL 12.5 MG TABLET. PO ONE (10:45)
[2019-02-09] MEDS ORDERED: NITROGLYCERIN SUBLINGUAL 0.4 MG BOTTLE OF 25. SL PRN ×3 (10:45→18:30)
[2019-02-09 10:59] LABS: BILIRUBIN,URINE NEGATIVE (NEG); CLARITY,URINE CLEAR; COLOR,URINE YELLOW; NITRITE,URINE NEGATIVE (NEG); PH,URINE 5.5; PROTEIN,URINE NEGATIVE (NEG-TRACE); UROBILINOGEN,URINE 0.2 mg/dL (0.2 mg/dL)
[2019-02-09 11:19] LABS: SQUAMOUS EPITHELIAL CELL,UR OCC /LPF
[2019-02-09 11:20] LABS: BACTERIA,URINE 0 /HPF (0-FEW); RBC,URINE 0 /HPF (0-2); WBC,URINE OCC /HPF (0-4)
[2019-02-09 11:21] LABS: BARBITURATES NEG (NEG); BENZODIAZEPINES NEG (NEG); CANNABINOIDS NEG (NEG); COCAINE NEG (NEG); METHADONE NEG (NEG); OPIATES POS (NEG); PHENCYCLIDINE NEG (NEG)
[2019-02-09 11:23] LABS: AMPHETAMINE/METHAMPHETAMINE NEG (NEG)
--- NOTE | 2019-02-09 11:35 | RAD ---
PORTABLE CHEST 1V History: Chest pain Comparison: May 06, 2018 Findings: No consolidation or pleural effusion. Normal heart size. Impression: 1. No acute cardiopulmonary process. Electronically signed by: Jb Barnhart DO (02/09/2019 11:32 AM) [facility]
--- NOTE | 2019-02-09 11:50 | RAD ---
CT HEAD WO CONTRAST Clinical indications: Dizziness. COMPARISON: 05/29/2015. Technique: Noncontrast axial cross sectional scanning of the head was performed. PQRS compliance Statement One or more of the following individualized dose reduction techniques were utilized for this study: 1. Automated exposure control 2. Adjustment of the mA and/or kV according to patient size 3. Use of iterative reconstruction technique Findings: No acute intracranial hemorrhage or midline shift or mass-effect or hydrocephalus or extra-axial fluid collection is seen. Mild bilateral periventricular white matter hypodensity is seen consistent with chronic small vessel ischemic disease. However, this has developed since the prior study. If acute ischemia is suspected clinically, then a MRI study may be helpful for further evaluation. No skull fracture or pneumocephalus is seen. No opacification of the mastoid sinuses or the middle ear cavities or the paranasal sinuses is seen. The maxillary sinuses are not completely seen in this study. IMPRESSION: No acute intracranial hemorrhage is seen. Bilateral periventricular white matter hypodensity is seen consistent with chronic small vessel ischemic disease. However, this is a new finding since May 29, 2015. Therefore, a focus of acute ischemia is possible and therefore a brain MRI study may be helpful for further evaluation if clinically indicated. Electronically signed by: Robbin Masterson MD (02/09/2019 11:47 AM) [facility]
--- NOTE | 2019-02-09 12:12 | EKG ---
[facility] [address] [place] [address] Test Date: 2019-02-09 Test Time: 10:58:58 Pat Name: LOUIS SALAZAR Department: Room: Gender: F Manuscript Reader: : 1955 Requested By: FLOYD GARDNER Order Number: [id number] Reading MD: Ward Abbott MD Measurements Intervals [place] Rate: 68 P: 38 DE: 190 QRS: -15 QRSD: 84 T: -26 QT: 372 QTc: 396 Interpretive Statements SINUS RHYTHM LEFTWARD AXIS CONSIDER INFERIOR INFARCT NON-SPECIFIC ST/T CHANGES Electronically Signed On 02-23-2019 9:28:47 REHAB MANAGER by Ward Abbott MD
[2019-02-09 14:11] LABS: BASO % 0 % (0-3); EOS # 0.3 x10^3/uL (0.0-0.7); EOS % 4 % (0-3); HEMATOCRIT 29.9 % (36.0-47.0); HEMOGLOBIN 9.7 g/dL (12.0-15.5); LYMPH # 2.6 x10^3/uL (1.0-4.8); LYMPH % 34 % (24-48); MEAN CORPUSCULAR HEMOGLOBIN 28 pg (25-35); MEAN CORPUSCULAR HGB CONC 33 g/dL (31-37); MEAN CORPUSCULAR VOLUME 87 fL (79-100); MONO # 0.7 x10^3/uL (0.0-1.1); MONO % 9 % (0-9); NEUT # 4.1 x10^3/uL (1.8-7.7); NEUT % 53 % (31-73); PLATELET COUNT 260 x10^3/uL (140-400); RED BLOOD COUNT 3.42 x10^6/uL (3.50-5.40); RED CELL DISTRIBUTION WIDTH 16.5 % (11.5-14.5); WHITE BLOOD COUNT 7.8 x10^3/uL (4.0-11.0)
[2019-02-09 14:21] LABS: CALCIUM 8.4 mg/dL (8.5-10.1); CREATININE 0.7 mg/dL (0.6-1.0); GFR 101.6; POTASSIUM 3.6 mmol/L (3.5-5.1)
[2019-02-09 14:26] LABS: ALBUMIN 2.7 g/dL (3.4-5.0); ALBUMIN/GLOBULIN RATIO 0.6 (1.0-1.7); MAGNESIUM 1.4 mg/dL (1.8-2.4); TOTAL BILIRUBIN 0.2 mg/dL (0.2-1.0); TOTAL PROTEIN 7.4 g/dL (6.4-8.2)
[2019-02-09 14:36] LABS: CREATINE KINASE 64 U/L (26-192)
[2019-02-09] MEDS ORDERED: ONDANSETRON PF 4 MG/2 ML VIAL. IV PRN (14:45)
--- NOTE | 2019-02-09 15:32 | PHYS DOC ---
Past Medical History Past Medical History: [place], Unknown Additional Past Medical Histor: fibromyalgia Past Surgical History: Angioplasty, Additional Past Surgical Histo: W/ STENT PLACEMENT Alcohol Use: None Drug Use: None Adult General Chief Complaint Chief Complaint: WEAKNESS/GENERALIZED HPI HPI Patient is a 63 year old female with history of [place] 2, rheumatoid arthritis, who presents to the ED today complaining of 7 out of 10 "gassy, indigestion" chest pain that began 2 weeks ago. She states this morning she thought she was dreaming and felt the chest pain. She also states she felt weak and was dizzy. She states she woke up and realized she is not dreaming and called 911 who took her to [facility] despite her resistant to being taken to [facility]. She states she got to [facility] and did not like the care she was receiving, she signed out and came to [place]. Patient denies any exacerbating or relieving factors to her pain. Review of Systems Review of Systems Constitutional: Denies fever or chills [] Eyes: Denies change in visual acuity, redness, or eye pain [] HENT: Denies nasal congestion or sore throat [] Respiratory: Denies cough or shortness of breath [] Cardiovascular: Reports chest pain GI: Denies abdominal pain, nausea, vomiting, bloody stools or diarrhea [] : Denies dysuria or hematuria [] Musculoskeletal: Denies back pain or joint pain [] Integument: Denies rash or skin lesions [] Neurologic: Reports dizziness. Denies headache, focal weakness or sensory changes [] All other systems were reviewed and found to be within normal limits, except as documented in this note. Current Medications Current Medications Current Medications Medications (Trade) Dose Ordered Sig/[facility] Start Time Stop Time Status Last Admin Dose Admin Aspirin (Rosaura Aspirin) 325 mg 1X ONCE 02/09/19 10:45 02/09/19 10:46 DC 02/09/19 11:44 325 MG Meclizine HCl (Antivert) 25 mg 1X ONCE 02/09/19 10:45 02/09/19 10:46 DC 02/09/19 11:44 25 MG Nitroglycerin (Nitrostat) 0.4 mg PRN Q5MIN PRN 02/09/19 10:45 02/09/19 18:28 DC Sodium Chloride 1,000 ml @ 1,000 mls/hr 1X ONCE 02/09/19 10:45 02/09/19 11:44 DC 02/09/19 11:44 1,000 MLS/HR Allergies Allergies Allergies Coded Allergies Type Severity Reaction Last Updated Verified enalapril Allergy Severe facial Swelling 02/02/19 Yes lisinopril Allergy Severe facial Swelling 02/02/19 Yes morphine Allergy Intermediate 02/02/19 Yes Physical Exam Physical Exam Constitutional: Well developed, well nourished, no acute distress, non-toxic appearance. [] HENT: Normocephalic, atraumatic, bilateral external ears normal, oropharynx moist, no oral exudates, nose normal. [] Eyes: PERRLA, EOMI, conjunctiva normal, no discharge. [] Neck: Normal range of motion, no tenderness, supple, no stridor. [] Cardiovascular:Heart rate regular rhythm, no murmur [] Lungs & Thorax: Bilateral breath sounds clear to auscultation [] Abdomen: Bowel sounds normal, soft, no tenderness, no masses, no pulsatile masses. [] Skin: Warm, dry, no erythema, no rash. [] Back: No tenderness, no CVA tenderness. [] Extremities: No tenderness, no cyanosis, no clubbing, ROM intact, no edema. [] Neurologic: Alert and oriented X 3, normal motor function, normal sensory function, no focal deficits noted. [] Psychologic: Affect normal, judgement normal, mood normal. [] Current Patient Data Vital Signs Vital Signs Date Time Temp Pulse Resp B/P (MAP) Pulse Ox O2 Delivery O2 Flow Rate FiO2 02/09/19 12:45 77 16 98 02/09/19 10:43 98.3 156/72 (100) Room Air 98.3 Lab Values Laboratory Tests Test 02/09/19 10:20 Urine Collection Type Unknown Urine Color Yellow Urine Clarity Clear Urine pH 5.5 Urine Specific [place] 1.010 Urine Protein Negative mg/dL (NEG-TRACE) Urine Glucose (UA) Negative mg/dL (NEG) Urine Ketones (Stick) Negative mg/dL (NEG) Urine Blood Negative (NEG) Urine Nitrite Negative (NEG) Urine Bilirubin Negative (NEG) Urine Urobilinogen Dipstick 0.2 mg/dL (0.2 mg/dL) Urine Leukocyte Esterase Negative (NEG) Urine RBC 0 /HPF (0-2) Urine WBC Occ /HPF (0-4) Urine Squamous Epithelial Cells Occ /LPF Urine Bacteria 0 /HPF (0-FEW) Urine Opiates Screen Pos (NEG) Urine Methadone Screen Neg (NEG) Urine Barbiturates Neg (NEG) Urine Phencyclidine Screen Neg (NEG) Urine Amphetamine/Methamphetamine Neg (NEG) Urine Benzodiazepines Screen Neg (NEG) Urine Cocaine Screen Neg (NEG) Urine Cannabinoids Screen Neg (NEG) Urine Ethyl Alcohol Neg (NEG) EKG EKG [address] Simon sinus rhythm HR 68 no STEMI[] Radiology/Procedures Radiology/Procedures []PROCEDURE: PORTABLE CHEST 1V PORTABLE CHEST 1V History: Chest pain Comparison: May 06, 2018 Findings: No consolidation or pleural effusion. Normal heart size. Impression: 1. No acute cardiopulmonary process. Electronically signed by: Jb Barnhart DO (02/09/2019 11:32 AM) [facility] DICTATED and SIGNED BY: JB BARNHART DO DATE: 02/09/19 113 PROCEDURE: CT HEAD WO CONTRAST CT HEAD WO CONTRAST Clinical indications: Dizziness. COMPARISON: 05/29/2015. Technique: Noncontrast axial cross sectional scanning of the head was performed. PQRS compliance Statement One or more of the following individualized dose reduction techniques were utilized for this study: 1. Automated exposure control 2. Adjustment of the mA and/or kV according to patient size 3. Use of iterative reconstruction technique Findings: No acute intracranial hemorrhage or midline shift or mass-effect or hydrocephalus or extra-axial fluid collection is seen. Mild bilateral periventricular white matter hypodensity is seen consistent with chronic small vessel ischemic disease. However, this has developed since the prior study. If acute ischemia is suspected clinically, then a MRI study may be helpful for further evaluation. No skull fracture or pneumocephalus is seen. No opacification of the mastoid sinuses or the middle ear cavities or the paranasal sinuses is seen. The maxillary sinuses are not completely seen in this study. IMPRESSION: No acute intracranial hemorrhage is seen. Bilateral periventricular white matter hypodensity is seen consistent with chronic small vessel ischemic disease. However, this is a new finding since May 29, 2015. Therefore, a focus of acute ischemia is possible and therefore a brain MRI study may be helpful for further evaluation if clinically indicated. Electronically signed by: Mala Masterson MD (02/09/2019 11:47 AM) [id number] DICTATED and SIGNED BY: MALA MASTERSON MD DATE: 02/09/19 1147 Course & Med Decision Making Course & Med Decision Making Pertinent Labs and Imaging studies reviewed. (See chart for details) This is a 63-year-old female patient presenting to the ED today for left-sided chest pain for 2 weeks. Also complaining of dizziness since this morning. See history of present illness. Cardiac workup is negative. Stroke scale is 0. Chest x-ray is negative for any acute findings, CT of the head noted for ischemic chronic small vessel ischemic disease however this is new since 2016. Most of her labs are negative for any acute findings, Heart score is 0. Spoke with Dr. Desai who accepted patient for admission. Spoke with Dr. [place] and DRAWING TRACER for cardiology who will f/u with patient. Dragon Disclaimer Dragon Disclaimer This electronic medical record was generated, in whole or in part, using a voice recognition dictation system. The HEART Score for CP Pts HEART Score for Chest Pain: HEART Score for Chest Pain Response (Comments) Value History Slighlty/Non-Suspicious 0 ECG Normal 0 Age > 65 2 Risk Factors 1 or 2 Risk Factors 1 Troponin < Normal Limit 0 Total 3 Risk Factors: Risk Factors: DM, Current or recent (<one month) smoker, HTN, HLP, family history of CAD, obesity. Risk Scores: Score 0 - 3: 2.5% MACE over next 6 weeks - Discharge Home Score 4 - 6: 20.3% MACE over next 6 weeks - Admit for Clinical Observation Score 7 - 10: 72.7% MACE over next 6 weeks - Early Invasive Strategies NIHSS Stroke Scale NIH Stroke Scale: NIH Stroke Scale Response (Comments) Value Level of Consciousness: 0 Alert/Responsive 0 LOC Questions: 0 Answers both correctly 0 Best Gaze: 0 Normal 0 Visual: 0 No visual loss 0 Facial Palsy: 0 Normal, symmetrical 0 Motor - Left Arm 0 No drift 0 Motor - Right Arm 0 No drift 0 Motor - Left Leg 0 No drift 0 Motor: Right Leg 0 No drift 0 Limb Ataxia: 0 Absent 0 Sensory: 0 No loss 0 Best Language: 0 Normal 0 Dysathria: 0 Normal 0 Extinction and Inattention: 0 Normal 0 Total 0 Departure Departure Impression: Primary Impression: Chest pain Additional Impression: Dizziness Disposition: 09 ADMITTED INPATIENT Condition: STABLE Referrals: ANIVAL DESAI MD (PCP) Problem Qualifiers Primary Impression: Chest pain Chest pain type: unspecified Qualified Codes: R07.9 - Chest pain, unspecified FLOYD GARDNER [employer] MANAGER Feb 09, 2019 15:32
[2019-02-09 15:50] VITALS: BP 147/65
[2019-02-09] MEDS ORDERED: ASPI-612 PO (16:36)
[2019-02-09] MEDS ORDERED: HYDR25TA10 PO (16:36)
--- NOTE | 2019-02-09 16:36 | PDOC2 ---
NEUROLOGY CONSULT Date of Admission Date of Admission DATE: 02/09/19 TIME: 16:25 Reason for Consult Reason for Consult: abnormal head CT Referring Physician Referring Physician: Dr. Schmidt Source Source: Chart review, Patient History of Present Illness History of Present Illness The patient is a 63-year-old right-handed female who came to the emergency department with 2 weeks of chest pain. She went to , was not happy with the care, and came here. Because of her vision no complaints of dizziness, she underwent a head CT, as reviewed below. She denies any history of stroke, seizur e, or head injury. There is no headache. Past Medical History Cardiovascular: CAD, HTN, [place], Hyperlipidemia Pulmonary: COPD CENTRAL NERVOUS SYSTEM: Periperal neuropathy GI: Constipation, GERD, Other (dysphagia) Heme/Onc: Anemia NOS Hepatobiliary: Hep A/B/C Musculoskeletal: Other (carpal tunnel) Rheumatologic: Fibromyalgia, Rheumatoid arthritis, Other (lupus) Renal/: UTI, Urinary Incontinence Past Surgical History Past Surgical History: Cataract Removal, , Tonsillectomy, Other (coronary) Family History Family History: Cancer, CAD Social History Social History , no alcohol or tobacco Current Medications Current Medications Current Medications Oxycodone HCl (OxyCONTIN) 15 mg Q12HR PO ; Start 02/09/19 at 21:00 Aspirin (Rosaura Aspirin) 325 mg 1X ONCE PO Last administered on 02/09/19at 11:44; Start 02/09/19 at 10:45; Stop 02/09/19 at 10:46; Status DC Nitroglycerin (Nitrostat) 0.4 mg PRN Q5MIN PRN SL CP RATING > 1/10; Start 02/09/19 at 10:45; Stop 02/10/19 at 10:44 Sodium Chloride 1,000 ml @ 1,000 mls/hr 1X ONCE IV Last administered on 02/09/19at 11:44; Start 02/09/19 at 10:45; Stop 02/09/19 at 11:44; Status DC Meclizine HCl (Antivert) 25 mg 1X ONCE PO Last administered on 02/09/19at 11:44; Start 02/09/19 at 10:45; Stop 02/09/19 at 10:46; Status DC Ondansetron HCl (Zofran) 4 mg PRN Q8HRS PRN IV NAUSEA/VOMITING; Start 02/09/19 at 14:45; Stop 02/10/19 at 14:44 Nitroglycerin (Nitrostat) 0.4 mg PRN Q5MIN PRN SL CHEST PAIN; Start 02/09/19 at 14:45; Stop 02/10/19 at 14:44 Active Scripts Active Dexilant (Dexlansoprazole) 60 Mg Romero. 1 Cap PO DAILY 30 Days Nitrostat (Nitroglycerin) 0.4 Mg Tab.subl 0.4 Mg SL PRN Q5MIN PRN 30 Days Senna-Time S Tablet (Sennosides/Docusate Sodium) 1 Each Tablet 1 Tab PO BID 30 Days Albuterol Sulfate Neb Soln (Albuterol Sulfate) 0.63 Mg/3 Ml Vial.neb 0.63 Mg NEB PRN Q4HRS PRN Losartan Potassium 50 Mg Tablet 50 Mg PO DAILY Lipitor (Atorvastatin Calcium) 10 Mg Tablet 5 Mg PO QHS Reported Metoprolol Tartrate 25 Mg Tablet 1 Tab PO BID Prednisone 1 Mg Tablet 5 Tab PO DAILY Oxycontin (Oxycodone HCl) 15 Mg Tab.er.12h 15 Mg PO BID Ventolin Hfa Inhaler (Albuterol Sulfate) 18 Gm Hfa.aer.ad 2 Puff IH PRN Q4-6HRS Symbicort 160-4.5 Mcg Inhaler (Budesonide/Formoterol Fumarate) 10.2 Gm Hfa.aer.ad 2 Puff IH BID Hydrocodone-Apap 10-325 (Hydrocodone Bit/Acetaminophen) 1 Each Tablet 1 Tab PO PRN Q6HRS PRN Hydralazine Hcl 25 Mg Tablet 1 Tab PO TID Cyclobenzaprine Hcl 5 Mg Tablet 1 Tab PO QHS Allergies Allergies: Coded Allergies: enalapril (Verified Allergy, Severe, facial Swelling, 02/02/19) lisinopril (Verified Allergy, Severe, facial Swelling, 02/02/19) morphine (Verified Allergy, Intermediate, 02/02/19) TOLERATES LORTAB ROS Review of System Negative for fever, chills, weight loss, shortness of breath, chest pain, indigestion, hematochezia, melena, and dysuria. Full 14-point review of systems is negative. Physical Exam Physical Examination General: Well-developed, well-nourished black female in no acute distress HEENT: Normocephalic andatraumatic.Temporal arteriespulsatile and nontender. Neck: Supple without bruit, no meningismus Musculoskeletal: Stability:see neurologic. Gait exam:see neurologic. Tone:see neurologic.Strength:see neurologic. Neurological: Mental Status:intact, orientation, memory, attention span/concentration, language, fund of knowledge normal. Cranial Nerves:Pupils equal and reactive to light, extraocular movements areintact, visual painter are full to confrontation. Facial sensation is normal. There is no facial asymmetry. Vestibulo-ocular reflex is intact. Palate elevates and tongue protrudes in midline. All other cranial related problems are negative except as mentioned before.Reflexes:2+ and symmetric with flexor plantar responses. Motor:5/5 strength with normal tone and bulk. Coordination:Finger-nose finger and cozv-hw-nhad testing are normal. Rapid alternating movements and fine finger movements are intact. Gait:Refuses, usually has a cane or walker because of severe osteoarthritis in the knees, especially on the left, did not have these with her. Sensory:Normal pinprick, vibration, light touch, proprioception. Vitals VITALS Vital Signs Date Time Temp Pulse Resp B/P (MAP) Pulse Ox O2 Delivery O2 Flow Rate FiO2 02/09/19 15:50 97.9 78 16 147/65 (92) 96 Room Air 97.9 Labs Labs Laboratory Tests Test 02/09/19 10:20 02/09/19 14:00 Urine Collection Type Unknown Urine Color Yellow Urine Clarity Clear Urine pH 5.5 Urine Specific [place] 1.010 Urine Protein Negative mg/dL (NEG-TRACE) Urine Glucose (UA) Negative mg/dL (NEG) Urine Ketones (Stick) Negative mg/dL (NEG) Urine Blood Negative (NEG) Urine Nitrite Negative (NEG) Urine Bilirubin Negative (NEG) Urine Urobilinogen Dipstick 0.2 mg/dL (0.2 mg/dL) Urine Leukocyte Esterase Negative (NEG) Urine RBC 0 /HPF (0-2) Urine WBC Occ /HPF (0-4) Urine Squamous Epithelial Cells Occ /LPF Urine Bacteria 0 /HPF (0-FEW) Urine Opiates Screen Pos (NEG) Urine Methadone Screen Neg (NEG) Urine Barbiturates Neg (NEG) Urine Phencyclidine Screen Neg (NEG) Urine Amphetamine/Methamphetamine Neg (NEG) Urine Benzodiazepines Screen Neg (NEG) Urine Cocaine Screen Neg (NEG) Urine Cannabinoids Screen Neg (NEG) Urine Ethyl Alcohol Neg (NEG) White Blood Count 7.8 x10^3/uL (4.0-11.0) Red Blood Count 3.42 x10^6/uL (3.50-5.40) Hemoglobin 9.7 g/dL (12.0-15.5) Hematocrit 29.9 % (36.0-47.0) Mean Corpuscular Volume 87 fL (79-100) Mean Corpuscular Hemoglobin 28 pg (25-35) Mean Corpuscular Hemoglobin Concent 33 g/dL (31-37) Red Cell Distribution Width 16.5 % (11.5-14.5) Platelet Count 260 x10^3/uL (140-400) Neutrophils (%) (Auto) 53 % (31-73) Lymphocytes (%) (Auto) 34 % (24-48) Monocytes (%) (Auto) 9 % (0-9) Eosinophils (%) (Auto) 4 % (0-3) Basophils (%) (Auto) 0 % (0-3) Neutrophils # (Auto) 4.1 x10^3/uL (1.8-7.7) Lymphocytes # (Auto) 2.6 x10^3/uL (1.0-4.8) Monocytes # (Auto) 0.7 x10^3/uL (0.0-1.1) Eosinophils # (Auto) 0.3 x10^3/uL (0.0-0.7) Basophils # (Auto) 0.0 x10^3/uL (0.0-0.2) Sodium Level 141 mmol/L (136-145) Potassium Level 3.6 mmol/L (3.5-5.1) Chloride Level 106 mmol/L (98-107) Carbon Dioxide Level 26 mmol/L (21-32) Anion Gap 9 (6-14) Blood Urea Nitrogen 18 mg/dL (7-20) Creatinine 0.7 mg/dL (0.6-1.0) Estimated GFR (Cockcroft-Gault) 101.6 BUN/Creatinine Ratio 26 (6-20) Glucose Level 99 mg/dL (70-99) Calcium Level 8.4 mg/dL (8.5-10.1) Magnesium Level 1.4 mg/dL (1.8-2.4) Total Bilirubin 0.2 mg/dL (0.2-1.0) Aspartate Amino Transf (AST/SGOT) 14 U/L (15-37) Alanine Aminotransferase (ALT/SGPT) 12 U/L (14-59) Alkaline Phosphatase 51 U/L (46-116) Creatine Kinase 64 U/L (26-192) Creatine Kinase MB (Mass) 1.0 ng/mL (0.0-3.6) Creatine Kinase MB Relative Index % (0-4) Troponin I Quantitative 0.053 ng/mL (0.000-0.055) YL-Sbg-N-Type Natriuretic Peptide 284 pg/mL (0-124) Total Protein 7.4 g/dL (6.4-8.2) Albumin 2.7 g/dL (3.4-5.0) Albumin/Globulin Ratio 0.6 (1.0-1.7) Thyroid Stimulating Hormone (TSH) 0.486 uIU/mL (0.358-3.74) Laboratory Tests Test 02/09/19 10:20 02/09/19 14:00 Urine Collection Type Unknown Urine Color Yellow Urine Clarity Clear Urine pH 5.5 Urine Specific [place] 1.010 Urine Protein Negative mg/dL (NEG-TRACE) Urine Glucose (UA) Negative mg/dL (NEG) Urine Ketones (Stick) Negative mg/dL (NEG) Urine Blood Negative (NEG) Urine Nitrite Negative (NEG) Urine Bilirubin Negative (NEG) Urine Urobilinogen Dipstick 0.2 mg/dL (0.2 mg/dL) Urine Leukocyte Esterase Negative (NEG) Urine RBC 0 /HPF (0-2) Urine WBC Occ /HPF (0-4) Urine Squamous Epithelial Cells Occ /LPF Urine Bacteria 0 /HPF (0-FEW) Urine Opiates Screen Pos (NEG) Urine Methadone Screen Neg (NEG) Urine Barbiturates Neg (NEG) Urine Phencyclidine Screen Neg (NEG) Urine Amphetamine/Methamphetamine Neg (NEG) Urine Benzodiazepines Screen Neg (NEG) Urine Cocaine Screen Neg (NEG) Urine Cannabinoids Screen Neg (NEG) Urine Ethyl Alcohol Neg (NEG) White Blood Count 7.8 x10^3/uL (4.0-11.0) Red Blood Count 3.42 x10^6/uL (3.50-5.40) Hemoglobin 9.7 g/dL (12.0-15.5) Hematocrit 29.9 % (36.0-47.0) Mean Corpuscular Volume 87 fL (79-100) Mean Corpuscular Hemoglobin 28 pg (25-35) Mean Corpuscular Hemoglobin Concent 33 g/dL (31-37) Red Cell Distribution Width 16.5 % (11.5-14.5) Platelet Count 260 x10^3/uL (140-400) Neutrophils (%) (Auto) 53 % (31-73) Lymphocytes (%) (Auto) 34 % (24-48) Monocytes (%) (Auto) 9 % (0-9) Eosinophils (%) (Auto) 4 % (0-3) Basophils (%) (Auto) 0 % (0-3) Neutrophils # (Auto) 4.1 x10^3/uL (1.8-7.7) Lymphocytes # (Auto) 2.6 x10^3/uL (1.0-4.8) Monocytes # (Auto) 0.7 x10^3/uL (0.0-1.1) Eosinophils # (Auto) 0.3 x10^3/uL (0.0-0.7) Basophils # (Auto) 0.0 x10^3/uL (0.0-0.2) Sodium Level 141 mmol/L (136-145) Potassium Level 3.6 mmol/L (3.5-5.1) Chloride Level 106 mmol/L (98-107) Carbon Dioxide Level 26 mmol/L (21-32) Anion Gap 9 (6-14) Blood Urea Nitrogen 18 mg/dL (7-20) Creatinine 0.7 mg/dL (0.6-1.0) Estimated GFR (Cockcroft-Gault) 101.6 BUN/Creatinine Ratio 26 (6-20) Glucose Level 99 mg/dL (70-99) Calcium Level 8.4 mg/dL (8.5-10.1) Magnesium Level 1.4 mg/dL (1.8-2.4) Total Bilirubin 0.2 mg/dL (0.2-1.0) Aspartate Amino Transf (AST/SGOT) 14 U/L (15-37) Alanine Aminotransferase (ALT/SGPT) 12 U/L (14-59) Alkaline Phosphatase 51 U/L (46-116) Creatine Kinase 64 U/L (26-192) Creatine Kinase MB (Mass) 1.0 ng/mL (0.0-3.6) Creatine Kinase MB Relative Index % (0-4) Troponin I Quantitative 0.053 ng/mL (0.000-0.055) ZD-Qbw-S-Type Natriuretic Peptide 284 pg/mL (0-124) Total Protein 7.4 g/dL (6.4-8.2) Albumin 2.7 g/dL (3.4-5.0) Albumin/Globulin Ratio 0.6 (1.0-1.7) Thyroid Stimulating Hormone (TSH) 0.486 uIU/mL (0.358-3.74) Images Images CT HEAD WO CONTRAST Clinical indications: Dizziness. COMPARISON: 05/29/2015. Technique: Noncontrast axial cross sectional scanning of the head was performed. PQRS compliance Statement One or more of the following individualized dose reduction techniques were utilized for this study: 1. Automated exposure control 2. Adjustment of the mA and/or kV according to patient size 3. Use of iterative reconstruction technique Findings: No acute intracranial hemorrhage or midline shift or mass-effect or hydrocephalus or extra-axial fluid collection is seen. Mild bilateral periventricular white matter hypodensity is seen consistent with chronic small vessel ischemic disease. However, this has developed since the prior study. If acute ischemia is suspected clinically, then a MRI study may be helpful for further evaluation. No skull fracture or pneumocephalus is seen. No opacification of the mastoid sinuses or the middle ear cavities or the paranasal sinuses is seen. The maxillary sinuses are not completely seen in this study. IMPRESSION: No acute intracranial hemorrhage is seen. Bilateral periventricular white matter hypodensity is seen consistent with chronic small vessel ischemic disease. However, this is a new finding since May 29, 2015. Therefore, a focus of acute ischemia is possible and therefore a brain MRI study may be helpful for further evaluation if clinically indicated. Assessment/Plan Assessment/Plan Impression: I reviewed the CT scans from today and 3 years ago, I really do not see much difference, she has microvascular ischemic disease undoubtedly due to age and blood pressure, this is asymptomatic, and she has a negative neurological examination. Mild peripheral neuropathy. On examination all I find is some hyporeflexia Recommendations: I offered the patient an option of getting a brain MRI, she says she has severe claustrophobia. Therefore risks outweigh benefits of this study. Note that she is already on aspirin, blood pressure control, and a statin, so is well covered for stroke prevention anyway. Therefore, I simply offered patient reassurance that her CT scan findings are unremarkable. No additional neurological studies needed. Thank you for letting me help with the patient's care. KORY MOLINA MD Feb 09, 2019 16:36
[2019-02-09] MEDS ORDERED: NON FORMULARY ITEM (Albuterol Sulfate (Ventolin Hfa Inhaler) 2 PUFF) IH SCH (18:30)
[2019-02-09] MEDS ORDERED: ALBUTEROL SULFATE 2.5 MG/3 ML NEBU. NEB PRN (18:30)
[2019-02-09] MEDS ORDERED: NON FORMULARY ITEM (Albuterol Sulfate (Albuterol Sulfate Neb Soln) 0.63 MG) NEB PRN (18:30)
[2019-02-09 19:23] VITALS: BP 147/67
[2019-02-09] MEDS: BUDESONIDE 0.5 MG/2 ML NEBU. NEB SCH (20:21)
[2019-02-09] MEDS: ALBUTEROL SULFATE 2.5 MG/3 ML NEBU. NEB SCH (20:21)
[2019-02-09] MEDS ORDERED: oxyCODONE ER 15 MG TAB.ER.12H PO SCH (21:00)
[2019-02-09] MEDS ORDERED: NON FORMULARY ITEM (Budesonide/Formoterol Fumarate (Symbicort 160-4.5 Mcg Inhaler) 2 PUFF) IH SCH (21:00)
[2019-02-09] MEDS: ATORVASTATIN CALCIUM 10 MG TABLET. PO SCH (21:00)
[2019-02-09] MEDS: SENNOSIDES/DOCUSATE 8.6/50MG TABLET. PO SCH (21:23)
[2019-02-09] MEDS: CYCLOBENZAPRINE 10 MG TABLET. PO SCH (21:23)
[2019-02-09] MEDS: METOPROLOL TART IMMED RELEASE 25 MG TABLET. PO SCH (21:24)
[2019-02-09] MEDS: hydrALAZINE 25 MG TABLET PO SCH (21:26)
[2019-02-09] MEDS: oxyCODONE ER 15 MG TAB.ER.12H PO SCH (21:27)
[2019-02-09] MEDS: HYDROcodone/APAP 10/325 1 TAB TABLET PO PRN (21:59)
[2019-02-09 22:49] VITALS: BP 144/68
[2019-02-09] MEDS ORDERED: MAGNESIUM SULFATE 2GM 50 ML IV ONE (23:00)
[2019-02-09] MEDS: ENOXAPARIN 40 MG/0.4 ML SYRINGE. SQ SCH (23:01)
[2019-02-10] VITALS (17 sets, daily range): BP systolic 117–188; BP diastolic 58–89
[2019-02-10 03:23] LABS: BASO # 0.1 x10^3/uL (0.0-0.2); BASO % 1 % (0-3); EOS # 0.3 x10^3/uL (0.0-0.7); EOS % 5 % (0-3); HEMOGLOBIN 10.1 g/dL (12.0-15.5); LYMPH % 42 % (24-48); MEAN CORPUSCULAR HEMOGLOBIN 29 pg (25-35); MEAN CORPUSCULAR HGB CONC 33 g/dL (31-37); MEAN CORPUSCULAR VOLUME 88 fL (79-100); MONO # 0.6 x10^3/uL (0.0-1.1); MONO % 8 % (0-9); NEUT # 3.1 x10^3/uL (1.8-7.7); NEUT % 44 % (31-73); PLATELET COUNT 270 x10^3/uL (140-400); RED BLOOD COUNT 3.53 x10^6/uL (3.50-5.40); RED CELL DISTRIBUTION WIDTH 16.4 % (11.5-14.5); WHITE BLOOD COUNT 7.1 x10^3/uL (4.0-11.0)
[2019-02-10 03:42] LABS: CALCIUM 8.9 mg/dL (8.5-10.1); CREATININE 0.7 mg/dL (0.6-1.0); GFR 101.6; MAGNESIUM 2.3 mg/dL (1.8-2.4); POTASSIUM 4.3 mmol/L (3.5-5.1)
--- NOTE | 2019-02-10 07:36 | EKG ---
[facility] [address] [place] [address] Test Date: 2019-02-10 Test Time: 07:26:14 Pat Name: LOUIS SALAZAR Department: Room: 209 1 Gender: F Clerk Entry Level: [place] : 1955 Requested By: ANIVAL DESAI Order Number: [id number] Reading MD: Ward Abbott MD Measurements Intervals [place] Rate: 59 P: 55 NM: 190 QRS: 2 QRSD: 84 T: -12 QT: 390 QTc: 390 Interpretive Statements SINUS RHYTHM CONSISTENT WITH ANTEROSEPTAL INFARCT Electronically Signed On 02-23-2019 9:37:06 SENIOR ENVIRONMENTAL PRACTICE LEADER by Ward Abbott MD
[2019-02-10] MEDS: ALBUTEROL SULFATE 2.5 MG/3 ML NEBU. NEB SCH ×4 (07:54→19:57)
[2019-02-10] MEDS: BUDESONIDE 0.5 MG/2 ML NEBU. NEB SCH ×2 (07:54→19:57)
--- NOTE | 2019-02-10 08:18 | PDOC2 ---
PHUC FISHER SITE DAMAGE PREVENTION TECHNICIAN 02/10/19 0818: CARDIAC CONSULT DATE OF CONSULT Date of Consult DATE: 02/10/19 TIME: 08:11 REASON FOR CONSULT Reason for Consult: chest pain REFERRING PHYSICIAN Referring Physician: Kleber SOURCE Source: Chart review, Patient HISTORY OF PRESENT ILLNESS HISTORY OF PRESENT ILLNESS This is a pleasant 63 yo female admitted for complains of chest pain. Reports that she woke up yesterday morning and was having palpitations and dizziness. This lasted at least about 15 minutes yesterday. She felt that she felt her heart was beating fast. She was brought to ED first then was transferred to [facility] as she prefers to be here so she was brought in by her daughter. In the last week she has been having chest pain achy sensation to left and has been having sensation of indigestion. Also reports of BARNES. No recent injuries, fall. She also has been skipping her meds mainly due to forgetfulness,. PAST MEDICAL HISTORY Past Medical History Cardiovascular: CAD (with PCI/BMS to RCA; 04/2015), HTN, [place] (NSTEMI; 04/2015), Hyperlipidemia, Pulmonary: COPD CENTRAL NERVOUS SYSTEM: Other (none) GI: Other (GI bleed), diverticulosis, colon polyp, duodenal angiodysplasia, GERD Heme/Onc: Anemia Hepatobiliary: No pertinent hx Psych: Anxiety Musculoskeletal: Other (chronic pain ) Rheumatologic: Fibromyalgia, Rheumatoid arthritis Infectious disease: no pertinent history ENT: No pertinent hx Renal/: No pertinent hx Endocrine: Diabetes Dermatology: No pertinent hx PAST SURGICAL HISTORY Past Surgical History , Other (PCI/stent 2014), PCI/stent 04/2017 FAMILY HISTORY Family History: Diabetes, Heart Disease SOCIAL HISTORY Smoke: Quit ALCOHOL: occassional Drugs: None Lives: with Family CURRENT MEDICATIONS CURRENT MEDICATIONS Current Medications Medications (Trade) Dose Ordered Sig/Juan Route PRN Reason Start Time Stop Time Status Last Admin Dose Admin Oxycodone HCl (OxyCONTIN) 15 mg Q12HR PO 02/09/19 21:00 02/09/19 21:27 Aspirin (Rosaura Aspirin) 325 mg 1X ONCE PO 02/09/19 10:45 02/09/19 10:46 DC 02/09/19 11:44 Sodium Chloride 1,000 ml @ 1,000 mls/hr 1X ONCE IV 02/09/19 10:45 02/09/19 11:44 DC 02/09/19 11:44 Meclizine HCl (Antivert) 25 mg 1X ONCE PO 02/09/19 10:45 02/09/19 10:46 DC 02/09/19 11:44 Hydralazine HCl (Apresoline) 25 mg TID PO 02/09/19 21:00 02/09/19 21:26 Acetaminophen/ Hydrocodone Bitart (Lortab 10/325) 1 tab PRN Q6HRS PRN PO PAIN 02/09/19 18:30 02/09/19 21:59 Metoprolol Tartrate (Lopressor) 25 mg BID PO 02/09/19 21:00 02/09/19 21:24 Senna/Docusate Sodium (Senna Plus) 1 tab BID PO 02/09/19 21:00 02/09/19 21:23 Cyclobenzaprine HCl (Flexeril) 5 mg QHS PO 02/09/19 21:00 02/09/19 21:23 Budesonide (Pulmicort) 0.5 mg RTBID NEB 02/09/19 20:00 02/10/19 07:54 Albuterol Sulfate (Ventolin Neb Soln) 2.5 mg RTQID NEB 02/09/19 20:00 02/10/19 07:54 Magnesium Sulfate 50 ml @ 25 mls/hr 1X ONCE IV 02/09/19 23:00 02/10/19 00:59 DC 02/09/19 22:59 Enoxaparin Sodium (Lovenox 40mg Syringe) 40 mg Q24H SQ 02/09/19 23:00 02/09/19 23:01 ALLERGIES ALLERGIES: Coded Allergies: enalapril (Verified Allergy, Severe, facial Swelling, 02/02/19) lisinopril (Verified Allergy, Severe, facial Swelling, 02/02/19) morphine (Verified Allergy, Intermediate, 02/02/19) TOLERATES LORTAB ROS Review of System 14 point ROS evaluated with pertinent positives noted per HPI PHYSICAL EXAM General: Alert, Oriented X3, Cooperative, No acute distress HEENT: Atraumatic, Mucous membr. moist/pink Lungs: Clear to auscultation, Normal air movement Heart: Regular rate (SR), Normal S1, Normal S2, Other (S4; holosystolic murmur loudest to apex) Abdomen: Soft, No tenderness Extremities: No cyanosis, No edema Skin: No breakdown, No significant lesion Neuro: Normal speech, Sensation intact Psych/Mental Status: Mental status NL, Mood NL MUSCULOSKELETAL: Osteoarthritic changes both hands VITALS/I&O VITALS/I&O: Vital Signs Date Time Temp Pulse Resp B/P (MAP) Pulse Ox O2 Delivery O2 Flow Rate FiO2 02/10/19 07:54 98 Room Air 02/10/19 03:38 97.5 66 16 127/63 (84) 97.5 I & O 02/09/19 02/09/19 02/10/19 15:00 23:00 07:00 Intake Total 120 ml 120 ml Output Total 300 ml Balance -180 ml 120 ml LABS Lab: Laboratory Tests Test 02/09/19 10:20 02/09/19 14:00 02/09/19 23:25 02/10/19 02:50 Urine Collection Type Unknown Urine Color Yellow Urine Clarity Clear Urine pH 5.5 Urine Specific [place] 1.010 Urine Protein Negative mg/dL (NEG-TRACE) Urine Glucose (UA) Negative mg/dL (NEG) Urine Ketones (Stick) Negative mg/dL (NEG) Urine Blood Negative (NEG) Urine Nitrite Negative (NEG) Urine Bilirubin Negative (NEG) Urine Urobilinogen Dipstick 0.2 mg/dL (0.2 mg/dL) Urine Leukocyte Esterase Negative (NEG) Urine RBC 0 /HPF (0-2) Urine WBC Occ /HPF (0-4) Urine Squamous Epithelial Cells Occ /LPF Urine Bacteria 0 /HPF (0-FEW) Urine Opiates Screen Pos (NEG) Urine Methadone Screen Neg (NEG) Urine Barbiturates Neg (NEG) Urine Phencyclidine Screen Neg (NEG) Urine Amphetamine/Methamphetamine Neg (NEG) Urine Benzodiazepines Screen Neg (NEG) Urine Cocaine Screen Neg (NEG) Urine Cannabinoids Screen Neg (NEG) Urine Ethyl Alcohol Neg (NEG) White Blood Count 7.8 x10^3/uL (4.0-11.0) 7.1 x10^3/uL (4.0-11.0) Red Blood Count 3.42 x10^6/uL (3.50-5.40) L 3.53 x10^6/uL (3.50-5.40) Hemoglobin 9.7 g/dL (12.0-15.5) L 10.1 g/dL (12.0-15.5) L Hematocrit 29.9 % (36.0-47.0) L 31.0 % (36.0-47.0) L Mean Corpuscular Volume 87 fL (79-100) 88 fL (79-100) Mean Corpuscular Hemoglobin 28 pg (25-35) 29 pg (25-35) Mean Corpuscular Hemoglobin Concent 33 g/dL (31-37) 33 g/dL (31-37) Red Cell Distribution Width 16.5 % (11.5-14.5) H 16.4 % (11.5-14.5) H Platelet Count 260 x10^3/uL (140-400) 270 x10^3/uL (140-400) Neutrophils (%) (Auto) 53 % (31-73) 44 % (31-73) Lymphocytes (%) (Auto) 34 % (24-48) 42 % (24-48) Monocytes (%) (Auto) 9 % (0-9) 8 % (0-9) Eosinophils (%) (Auto) 4 % (0-3) H 5 % (0-3) H Basophils (%) (Auto) 0 % (0-3) 1 % (0-3) Neutrophils # (Auto) 4.1 x10^3/uL (1.8-7.7) 3.1 x10^3/uL (1.8-7.7) Lymphocytes # (Auto) 2.6 x10^3/uL (1.0-4.8) 3.0 x10^3/uL (1.0-4.8) Monocytes # (Auto) 0.7 x10^3/uL (0.0-1.1) 0.6 x10^3/uL (0.0-1.1) Eosinophils # (Auto) 0.3 x10^3/uL (0.0-0.7) 0.3 x10^3/uL (0.0-0.7) Basophils # (Auto) 0.0 x10^3/uL (0.0-0.2) 0.1 x10^3/uL (0.0-0.2) Sodium Level 141 mmol/L (136-145) 143 mmol/L (136-145) Potassium Level 3.6 mmol/L (3.5-5.1) 4.3 mmol/L (3.5-5.1) Chloride Level 106 mmol/L (98-107) 108 mmol/L (98-107) H Carbon Dioxide Level 26 mmol/L (21-32) 25 mmol/L (21-32) Anion Gap 9 (6-14) 10 (6-14) Blood Urea Nitrogen 18 mg/dL (7-20) 16 mg/dL (7-20) Creatinine 0.7 mg/dL (0.6-1.0) 0.7 mg/dL (0.6-1.0) Estimated GFR (Cockcroft-Gault) 101.6 101.6 BUN/Creatinine Ratio 26 (6-20) H Glucose Level 99 mg/dL (70-99) 110 mg/dL (70-99) H Calcium Level 8.4 mg/dL (8.5-10.1) L 8.9 mg/dL (8.5-10.1) Magnesium Level 1.4 mg/dL (1.8-2.4) L 2.3 mg/dL (1.8-2.4) Total Bilirubin 0.2 mg/dL (0.2-1.0) Aspartate Amino Transferase (AST) 14 U/L (15-37) L Alanine Aminotransferase (ALT) 12 U/L (14-59) L Alkaline Phosphatase 51 U/L (46-116) Creatine Kinase 64 U/L (26-192) Creatine Kinase MB (Mass) 1.0 ng/mL (0.0-3.6) Creatine Kinase MB Relative Index % (0-4) Troponin I Quantitative 0.053 ng/mL (0.000-0.055) 0.058 ng/mL (0.000-0.055) 0.063 ng/mL (0.000-0.055) MB-Wse-C-Type Natriuretic Peptide 284 pg/mL (0-124) H Total Protein 7.4 g/dL (6.4-8.2) Albumin 2.7 g/dL (3.4-5.0) L Albumin/Globulin Ratio 0.6 (1.0-1.7) L Thyroid Stimulating Hormone (TSH) 0.486 uIU/mL (0.358-3.74) 0.723 uIU/mL (0.358-3.74) Triglycerides Level 94 mg/dL (0-150) Cholesterol Level 160 mg/dL (0-200) LDL Cholesterol, Calculated 61 mg/dL (0-100) VLDL Cholesterol, Calculated 19 mg/dL (0-40) Non-HDL Cholesterol Calculated 80 mg/dL (0-129) HDL Cholesterol 80 mg/dL (40-60) H Cholesterol/HDL Ratio 2.0 Laboratory Tests 02/09/19 14:00 02/10/19 02:50 Laboratory Tests 02/09/19 14:00 02/10/19 02:50 ECHOCARDIOGRAM ECHOCARDIOGRAM <Conclusion> The left ventricular systolic function is normal. The Ejection Fraction is 60-65%. There is normal LV segmental wall motion. Moderate asymmetric left ventricular septal hypertrophy. Moderate aortic stenosis with aortic valve area by planimetry is 1.36 cm2. There is systolic anterior motion of the anterior leaflet of mitral valve. Dynamic left ventricular outflow tract obstruction seen with PG 46 mm Hg increasing to 63 mm Hg with valsalva. Doppler and Color Flow revealed trace tricuspid regurgitation. There is no evidence of significant pericardial effusion. DATE: 05/07/18 1426 HEART CATH HEART CATH Conclusion 1. 70-80% stenosis involving the right coronary artery 2. Successful PCI/stent placement to the right coronary artery 3. Hyperdynamic left ventricle systolic function with ejection fraction estimated at greater than 75% 4. No significant mitral regurgitation or aortic stenosis Recommendations 1. Aspirin 325 daily 2. Plavix 75 daily for at least 4-6 weeks and preferably one year 3. Cardiovascular risk factor modification DATE: 05/03/14 1647 ASSESSMENT/PLAN ASSESSMENT/PLAN 1. Chest pain: UA features 2. CAD: past stent to RCA 3. Hx of moderate and HOCM 4. Hx of duodenal angiodysplasia requiring transfusion 5. COPD 6. Chronic diastolic CHF 7. HTN: controlled 8. HLP 9. Hypomagnesemia: replaced Recommendations 1. TTE. [facility] today, risks and benefits discussed and agreeable to proceed. 2. ASA. Resume home meds post [facility]. 3. If no [facility] in the last yr then will consider. 4. Discussed treatment compliance and phone utilization for reminder. DEIDRA BURRELL MD 02/10/19 1715: CARDIAC CONSULT ASSESSMENT/PLAN ASSESSMENT/PLAN Patient seen and examined. Agree with EMPLOYMENT TRAINING SPECIALIST's assessment and plan. Agree with cardiac catheterization for more definitive evaluation of symptoms concerning for unstable angina. Chronic diastolic heart failure clinically well compensated. Continue current medical regimen. Thank you for your consultation. PHUC FISHER APRN Feb 10, 2019 08:18 DEIDRA BURRELL MD Feb 10, 2019 17:15
[2019-02-10] MEDS: oxyCODONE ER 15 MG TAB.ER.12H PO SCH ×2 (09:54→21:53)
[2019-02-10] MEDS: ASPIRIN ENTERIC COATED 81 MG TABLET.DR. PO SCH (09:54)
[2019-02-10] MEDS: METOPROLOL TART IMMED RELEASE 25 MG TABLET. PO SCH ×2 (09:55→21:56)
[2019-02-10] MEDS: hydrALAZINE 25 MG TABLET PO SCH ×3 (09:55→21:56)
[2019-02-10] MEDS: LOSARTAN POTASSIUM 50 MG TABLET. PO SCH (09:55)
[2019-02-10] MEDS: HYDROcodone/APAP 10/325 1 TAB TABLET PO PRN (09:59)
--- NOTE | 2019-02-10 10:16 | PDOC ---
Provider Note Provider Note Pt seen.H&P dictated.#[id number]. ANIVAL DESAI MD Feb 10, 2019 10:16
--- NOTE | 2019-02-10 10:36 | NUR ---
SS following for discharge planning. SS reviewed pt chart. Pt is from home and is currently on room air. SS will continue to follow for discharge planning.
--- NOTE | 2019-02-10 10:49 | HP ---
ADMIT DATE: 02/09/2019 REASON FOR ADMISSION TO THE HOSPITAL: Chest pain. The patient has known history of coronary artery disease. HISTORY OF PRESENT ILLNESS: The patient is a 63-year-old female who has history of rheumatoid arthritis, chronic smoker, stopped last year, history of coronary artery disease, ID [address] [facility], she had stents placed. She was having chest pain yesterday, does not feel good. She also noticed her heart rating fast. She was taken to [facility], but she did not want to go there. She was brought to [facility], seen in the Emergency Room. Cardiac enzymes initial set was negative and EKG negative for acute ischemia, was admitted to the hospital and Cardiology was consulted. CT scan showed many lacunar strokes, but no acute stroke. Neurology was consulted. PAST MEDICAL HISTORY: History of coronary artery disease, had a stent in the right coronary in 2015, hypertension, ID, hyperlipidemia, rheumatoid arthritis, COPD, diverticulosis, hepatitis C, fibromyalgia, rheumatoid arthritis, chronic pain syndrome. PAST SURGICAL HISTORY: , cardiac stent in 2014, ulcers in 04/2017. FAMILY HISTORY: Positive for diabetes, heart disease. SOCIAL HISTORY: Ex-smoker, quit last year, smoked for 30 years. Denies alcohol. On chronic narcotic pain medications. ALLERGIES: LISINOPRIL, MORPHINE, ENALAPRIL CAUSES SWELLING. MEDICATIONS AT HOME: DuoNeb 4 times daily, she has a breathing machine at home, aspirin 81 mg daily, atorvastatin 10 mg daily, Symbicort 2 puffs twice a day, cyclobenzaprine 5 mg at bedtime, Dexilant 60 mg daily, hydralazine 25 mg 3 times daily, hydrochlorothiazide 25 mg daily, hydrocodone 10/325 q.6 hours, losartan 50 mg daily, metoprolol 25 mg twice a day, nitro sublingual, OxyContin 50 mg twice a day, prednisone 5 mg daily, she is on chronic prednisone for arthritis, senna daily. REVIEW OF SYSTEMS: CARDIAC: She says no chest pain now. GASTROINTESTINAL: No nausea or vomiting. NEUROLOGICAL: No weakness. The rest of the 14 systems was reviewed and negative. PHYSICAL EXAMINATION: GENERAL: The patient is pleasant, not in any distress. VITAL SIGNS: Temperature 98, pulse 84, respirations 20, blood pressure 153/72, 97 on room air. HEENT: Head is atraumatic. Pupils equal. Oral cavity; no congestion. Has dentures. NECK: Supple. Thyroid not enlarged. JVD not elevated. CHEST: Symmetrical. CARDIOVASCULAR: S1, S2. LUNGS: Clear. ABDOMEN: Soft, bowel sounds present, no mass palpable. EXTERNAL GENITALIA: No Fraga. RECTAL: Deferred. EXTREMITIES: Has swelling in the right knee from previous arthritis, had arthrocentesis done in the past. No edema, no calf tenderness. Has rheumatoid arthritis with deformities of the fingers. LABORATORY DATA: Shows a white count 8, hemoglobin 9.7, platelets 260. Electrolytes show sodium 141, potassium 3.6, chloride 106, bicarbonate 26, BUN 18, creatinine 0.7, glucose 99, magnesium 1.4, low. LFTs were normal. Troponin 0.05. TSH was normal. Cholesterol 160. Urine is negative. Toxicology screen was positive for opiates. She takes chronic narcotic pain medications and chest x-ray was negative. CT head negative for acute stroke. FINAL IMPRESSION: 1. Chest pain for cardiac evaluation. 2. The patient has known coronary artery disease, previous stents in 2014,2017. 3. Chronic obstructive pulmonary disease, stable. 4. Rheumatoid arthritis, on prednisone. 5. Chronic pain medications, narcotic for pain control. 6. History of hepatitis C. 7. Probably history of old lacunar infarcts. PLAN: At this time, was admitted to the hospital. Serial cardiac enzymes and EKG. Cardiology is consulted, probably either go for a stress test or a cardiac catheterization. The patient was also seen by Neurology because of old strokes, does not feel this is an acute stroke at this point and she also had anemia of chronic disease. We will see how she does after the cardiac evaluation. ANIVAL DESAI MD DR: NIMESH/[place] JOB#: [id number] / [id number] REN
[2019-02-10] MEDS ORDERED: fentaNYL PF VIAL 100 MCG/2 ML VIAL ONE (11:14)
[2019-02-10] MEDS ORDERED: MIDAZOLAM HCL/PF 2 MG/2 ML VIAL. ONE (11:14)
[2019-02-10] MEDS ORDERED: IOHEXOL 300 MG/ML 50 ML VIAL. IART ONE (11:15)
[2019-02-10] MEDS ORDERED: NITROGLYCERIN 200 MCG/2 ML SYRINGE FOR CATH/VASC LAB. ONE (11:15)
[2019-02-10] MEDS ORDERED: MIDAZOLAM HCL/PF 2 MG/2 ML VIAL. IV ONE (11:15)
[2019-02-10] MEDS ORDERED: LIDOCAINE 1% PF 2 ML VIAL. INJ ONE (11:15)
[2019-02-10] MEDS ORDERED: fentaNYL PF VIAL 100 MCG/2 ML VIAL IV ONE (11:15)
[2019-02-10] MEDS ORDERED: VERAPAMIL 5 MG/2 ML VIAL. ONE (11:15)
[2019-02-10] MEDS ORDERED: VERAPAMIL 5 MG/2 ML VIAL. IART ONE (11:15)
[2019-02-10] MEDS ORDERED: NITROGLYCERIN 200 MCG/2 ML SYRINGE FOR CATH/VASC LAB. IART ONE (11:15)
[2019-02-10] MEDS ORDERED: HEPARIN for IV BOLUS 10,000 UNIT/10 ML VIAL. IART ONE (11:15)
[2019-02-10] MEDS ORDERED: HEPARIN for IV BOLUS 10,000 UNIT/10 ML VIAL. ONE (11:15)
[2019-02-10] MEDS ORDERED: IOHEXOL 300 MG/ML 100ML VIAL. ONE (11:18)
[2019-02-10] MEDS ORDERED: LIDOCAINE 1% PF 2 ML VIAL. ONE (11:18)
[2019-02-10] MEDS ORDERED: diphenhydrAMINE 50 MG/ML VIAL ONE (11:36)
[2019-02-10] MEDS ORDERED: CONTRAST GIVEN. MC PRN (11:45)
[2019-02-10] MEDS ORDERED: diphenhydrAMINE 50 MG/ML VIAL IVP ONE (12:00)
--- NOTE | 2019-02-10 12:07 | CARD ---
MR#: [id number] Date of Study: 02/10/2019 Ordering Physician: PHUC FISHER, Referring Physician: PHUC FISHER Tech: KASSIDY MOHAMUD APPROVED REPORT Technologist: KASSIDY MOHAMUD Nurse: Kyung Victor RN Procedure(s) performed: Left heart catheterization and selective coronary angiography via right trans radial approach FL TIME: 5.0 MIN DOSE: 30.4 GY/CM2 CONTRAST: 68 ML OMNIPAQUE MODERATE SEDATION: 25 MINS INDICATION The indication(s) include : unstable angina . CS Clinical Frailty Scale [facility] Clinical Frailty Scale: Managing Well Heart Failure Heart Failure: No PROCEDURE NARRATIVE After explaining the risks, benefits and alternative options, informed consent was obtained from mayra ent. Patient was brought to the cardiac Chucking Machine Set Up Operator Tool and right wrist was prepped and draped in the usual fashion after confirming a positive modified Luís's test. Arterial access was obtained in the righ t radial artery and a 6 [place] sheath was inserted. 6 [place] Les catheter was used to perform bernard ective angiography of the left and right coronary arteries. LVEDP and transaortic gradients were ashwini ured. Patient tolerated the procedure well. Hemostasis was achieved using TR band. There were no i mmediate complications. The following findings were noted. FINDINGS 1. Hemodynamics: Left ventricular end-diastolic pressure of 29 mmHg. No pullback gradient across th e aortic valve. 2. Coronary angiography: a. The left main coronary artery arose from the left sinus of Valsalva, gave rise to the left anteri or descending and left circumflex arteries and did not show any significant stenosis. b. The left anterior descending artery did not show any significant stenosis. c. The left circumflex artery did not show any significant stenosis. d. The right coronary artery was a large and dominant vessel arising from the right sinus of Valsalv a that showed widely patent stent in the midsegment. Conclusion No significant coronary artery stenosis with widely patent previously placed stent in the right coron michael artery Recommendations Medical Therapy Signed by : Stu Cabral, Electronically Approved : 02/10/2019 12:07:13
[2019-02-10] MEDS: predniSONE 10 MG TABLET PO SCH (12:23)
[2019-02-10] MEDS: SENNOSIDES/DOCUSATE 8.6/50MG TABLET. PO SCH ×2 (12:23→21:51)
[2019-02-10] MEDS: hydroCHLOROthiazide 25 MG TABLET PO SCH (12:23)
[2019-02-10] MEDS: PANTOPRAZOLE 40 MG TABLET.DR. PO SCH (12:23)
[2019-02-10] MEDS: ATORVASTATIN CALCIUM 10 MG TABLET. PO SCH (21:00)
[2019-02-10] MEDS: CYCLOBENZAPRINE 10 MG TABLET. PO SCH (21:51)
[2019-02-10] MEDS: ENOXAPARIN 40 MG/0.4 ML SYRINGE. SQ SCH (23:31)
[2019-02-11 03:33] VITALS: BP 160/69
[2019-02-11] MEDS: HYDROcodone/APAP 10/325 1 TAB TABLET PO PRN (05:15)
[2019-02-11] MEDS: PANTOPRAZOLE 40 MG TABLET.DR. PO SCH (06:24)
[2019-02-11 07:00] VITALS: BP 138/68
[2019-02-11] MEDS: BUDESONIDE 0.5 MG/2 ML NEBU. NEB SCH (08:00)
[2019-02-11] MEDS: ALBUTEROL SULFATE 2.5 MG/3 ML NEBU. NEB SCH (08:45)
[2019-02-11] MEDS: predniSONE 10 MG TABLET PO SCH (09:10)
[2019-02-11] MEDS: ASPIRIN ENTERIC COATED 81 MG TABLET.DR. PO SCH (09:10)
[2019-02-11] MEDS: SENNOSIDES/DOCUSATE 8.6/50MG TABLET. PO SCH (09:10)
[2019-02-11] MEDS: hydroCHLOROthiazide 25 MG TABLET PO SCH (09:10)
[2019-02-11] MEDS: oxyCODONE ER 15 MG TAB.ER.12H PO SCH (09:11)
[2019-02-11] MEDS: LOSARTAN POTASSIUM 50 MG TABLET. PO SCH (09:11)
[2019-02-11] MEDS: hydrALAZINE 25 MG TABLET PO SCH (09:11)
[2019-02-11] MEDS: METOPROLOL TART IMMED RELEASE 25 MG TABLET. PO SCH (09:12)
--- NOTE | 2019-02-11 09:33 | CARD ---
MR#: [id number] Date of Study: 02/11/2019 Ordering Physician: PHUC FISHER, Referring Physician: PHUC FISHER Tech: Sara Ingram SHILOH APPROVED REPORT EXAM: Two-dimensional and M-mode echocardiogram with Doppler and color Doppler. Other Information Quality : AverageHR: 67bpm Rhythm : NSR INDICATION Chest Pain 2D DIMENSIONS RVDd2.7 (2.9-3.5cm)Left Atrium(2D)2.8 (1.6-4.0cm) IVSd1.6 (0.7-1.1cm)Aortic Root(2D)2.6 (2.0-3.7cm) LVDd3.0 (3.9-5.9cm)LVOT Diameter1.8 (1.8-2.4cm) PWd1.3 (0.7-1.1cm)LVDs1.7 (2.5-4.0cm) FS (%) 43.8 %SV27.6 ml M-Mode DIMENSIONS Left Atrium(MM)4.59 (2.5-4.0cm)Aortic Root2.61 (2.2-3.7cm) Aortic Valve AoV Peak Alaf.312.0cm/sAoV VTI66.6cm AO Peak GR.38.9mmHgAO Mean GR.20mmHg Mitral Valve MV E Inxmwnht21.9cm/sMV E Peak Gr.8mmHg MV DECEL [id number] A Sgvweayv321.6cm/s MV E Mean Gr.4mmHgE/A Ratio0.9 Pulmonary Valve PV Peak Rsvruffl282.2cm/s Tricuspid Valve TR P. Ytvcdotl884fo/sRAP [id number] TR Peak Gr.70taJyAODG29bjHb Pulmonary Vein S1 Bccesrnk15.9cm/sD2 Qxydqlja45.9cm/s LEFT VENTRICLE The left ventricle is normal size. There is mild to moderate concentric left ventricular hypertrophy. The left ventricle is hyperdynamic. The Ejection Fraction is >70%. There is normal LV segmental wall motion. Transmitral Doppler flow pattern is abnormal. RIGHT VENTRICLE The right ventricle is normal size. There is normal right ventricular wall thickness. The right ventr icular systolic function is normal. ATRIA The left atrium is mildly dilated. The right atrium size is normal. The interatrial septum is intact with no evidence for an atrial septal defect or patent foramen ovale as noted on 2-D or Doppler imagi ng. AORTIC VALVE The aortic valve is trileaflet. The aortic valve is moderately calcified. Doppler and Color Flow reve aled trace to mild aortic regurgitation. There is moderate valvular aortic stenosis with maximum pres sure gradient of 39 mmHg and mean pressure gradient of 20 mmHg. MITRAL VALVE Mitral annular calcification is mild. LVOT obstruction present. There is no evidence of mitral valve prolapse. There is no mitral valve stenosis. Doppler and Color-flow revealed trace to mild mitral reg urgitation. TRICUSPID VALVE The tricuspid valve is normal in structure and function. Doppler and Color Flow revealed trace tricus pid regurgitation. The PA pressure was estimated at 20 mmHg. There is no tricuspid valve prolapse or vegetation. There is no tricuspid valve stenosis. PULMONIC VALVE The pulmonic valve is not well visualized. GREAT VESSELS The aortic root is normal in size. The ascending aorta is normal in size. The IVC is normal in size a nd collapses >50% with inspiration. PERICARDIAL EFFUSION There is no evidence of significant pericardial effusion. Critical Notification Critical Value: No <Conclusion> The left ventricle is normal size. The left ventricle is hyperdynamic. The Ejection Fraction is >70%. There is mild to moderate concentric left ventricular hypertrophy. There is moderate valvular aortic stenosis with maximum pressure gradient of 39 mmHg and mean pressur e gradient of 20 mmHg. Doppler and Color Flow revealed trace to mild aortic regurgitation. Doppler and Color-flow revealed trace to mild mitral regurgitation. Doppler and Color Flow revealed trace tricuspid regurgitation. The PA pressure was estimated at 20 mmHg. Signed by : Adrien Francois MD Electronically Approved : 02/11/2019 09:32:53
--- NOTE | 2019-02-11 10:24 | PDOC ---
PROGRESS NOTES Subjective Subjective pt want to go home Objective Objective Vital Signs Date Time Temp Pulse Resp B/P (MAP) Pulse Ox O2 Delivery O2 Flow Rate FiO2 02/11/19 09:12 72 138/68 02/11/19 08:00 Room Air 02/11/19 07:00 98.5 18 95 98.5 02/10/19 11:56 2.0 Intake and Output 02/11/19 07:00 Intake Total 1890 ml Output Total 600 ml Balance 1290 ml Intake Oral 1890 ml Output Urine Total 600 ml # Voids 3 # Bowel Movements 1 Physical Exam Abdomen: Soft, No tenderness Heart: Regular rate (SR), Normal S1, Normal S2, Other (S4; holosystolic murmur loudest to apex) Extremities: No cyanosis, No edema General: Alert, Oriented X3, Cooperative, No acute distress HEENT: Atraumatic, Mucous membr. moist/pink Lungs: Clear to auscultation, Normal air movement MUSCULOSKELETAL: Osteoarthritic changes both hands Neuro: Normal speech, Sensation intact Psych/Mental Status: Mental status NL, Mood NL Skin: No breakdown, No significant lesion Diagnosis Problem List Problems Medical Problems: (1) Chest pain Status: Acute (2) Dizziness Status: Acute Assessment Assessment Problems Medical Problems: (1) Chest pain Status: Acute (2) Dizziness Status: Acute FINAL IMPRESSION: 1. Chest pain for cardiac evaluation. 2. The patient has known coronary artery disease, previous stents in 2014,2018. 3. Chronic obstructive pulmonary disease, stable. 4. Rheumatoid arthritis, on prednisone. 5. Chronic pain medications, narcotic for pain control. 6. History of hepatitis C. 7. Probably history of old lacunar infarcts. PLAN: d/c home today Cardiac cath 02/10/19 ,no blockages and patent stents. d/c home today. labs good. At this time, was admitted to the hospital. Serial cardiac enzymes and EKG. Cardiology is consulted, probably either go for a stress test or a cardiac catheterization. The patient was also seen by Neurology because of old strokes, does not feel this is an acute stroke at this point and she also had anemia of chronic disease. We will see how she does after the cardiac evaluation. Plan Plan of Care Problems Medical Problems: (1) Chest pain Status: Acute (2) Dizziness Status: Acute Comment Review of Relevant I have reviewed the following items bijal (where applicable) has been applied. Medications Current Medications Diphenhydramine HCl (Benadryl) 25 mg 1X ONCE IVP Last administered on 02/10/19at 12:00; Start 02/10/19 at 12:00; Stop 02/10/19 at 12:01; Status DC Diphenhydramine HCl (Benadryl) 50 mg STK-MED ONCE .ROUTE ; Start 02/10/19 at 11:36; Stop 02/10/19 at 11:37; Status DC Fentanyl Citrate (Fentanyl 2ml Vial) 100 mcg 1X ONCE IV Last administered on 02/10/19at 11:15; Start 02/10/19 at 11:15; Stop 02/10/19 at 11:34; Status DC Fentanyl Citrate (Fentanyl 2ml Vial) 100 mcg STK-MED ONCE .ROUTE ; Start 02/10/19 at 11:14; Stop 02/10/19 at 11:15; Status DC Heparin Sodium (Porcine) (Heparin Sodium) 2,500 unit 1X ONCE IART Last administered on 02/10/19at 11:15; Start 02/10/19 at 11:15; Stop 02/10/19 at 11:34; Status DC Heparin Sodium (Porcine) (Heparin Sodium) 10,000 unit STK-MED ONCE .ROUTE ; S tart 02/10/19 at 11:15; Stop 02/10/19 at 11:15; Status DC Heparin Sodium/ Sodium Chloride 500 ml @ As Directed STK-MED ONCE .ROUTE ; Start 02/10/19 at 11:18; Stop 02/10/19 at 11:18; Status DC Heparin Sodium/ Sodium Chloride (HEPARIN for ARTERIAL LINE FLUSH) 1,000 unit 1X ONCE IART Last administered on 02/10/19at 11:15; Start 02/10/19 at 11:15; Stop 02/10/19 at 11:34; Status DC Heparin Sodium/ Sodium Chloride (HEPARIN for ARTERIAL LINE FLUSH) 1,000 unit 1X ONCE IART Last administered on 02/10/19at 11:15; Start 02/10/19 at 11:15; Stop 02/10/19 at 11:34; Status DC Info (CONTRAST GIVEN -- Rx MONITORING) 1 each PRN DAILY PRN MC SEE COMMENTS; Start 02/10/19 at 11:45; Stop 02/12/19 at 11:44 Iohexol (Omnipaque 300 Mg/ml) 50 ml 1X ONCE IART Last administered on 02/10/19at 11:15; Start 02/10/19 at 11:15; Stop 02/10/19 at 11:34; Status DC Iohexol (Omnipaque 300 Mg/ml) 100 ml STK-MED ONCE .ROUTE ; Start 02/10/19 at 11:18; Stop 02/10/19 at 11:18; Status DC Lidocaine HCl (Xylocaine-Mpf 1% 2ml Vial) 2 ml 1X ONCE INJ Last administered on 02/10/19at 11:15; Start 02/10/19 at 11:15; Stop 02/10/19 at 11:34; Status DC Lidocaine HCl (Xylocaine-Mpf 1% 2ml Vial) 2 ml STK-MED ONCE .ROUTE ; Start 02/10/19 at 11:18; Stop 02/10/19 at 11:18; Status DC Midazolam HCl (Versed) 2 mg 1X ONCE IV Last administered on 02/10/19at 11:15; Start 02/10/19 at 11:15; Stop 02/10/19 at 11:34; Status DC Midazolam HCl (Versed) 2 mg STK-MED ONCE .ROUTE ; Start 02/10/19 at 11:14; Stop 02/10/19 at 11:15; Status DC Nitroglycerin (Nitroglycerin) 200 mcg 1X ONCE IART Last administered on 02/10/19at 11:15; Start 02/10/19 at 11:15; Stop 02/10/19 at 11:34; Status DC Nitroglycerin (Nitroglycerin) 200 mcg STK-MED ONCE .ROUTE ; Start 02/10/19 at 11:15; Stop 02/10/19 at 11:15; Status DC Verapamil HCl (Verapamil) 2.5 mg 1X ONCE IART Last administered on 02/10/19at 11:15; Start 02/10/19 at 11:15; Stop 02/10/19 at 11:34; Status DC Verapamil HCl (Verapamil) 5 mg STK-MED ONCE .ROUTE ; Start 02/10/19 at 11:15; Stop 02/10/19 at 11:15; Status DC Vitals/I & O Vital Sign - Last 24 Hours 02/10/19 02/10/19 02/10/1919 11:15 11:15 11:56 12:05 Pulse 77 71 70 Resp 15 18 B/P (MAP) 119/58 (78) Pulse Ox 98 O2 Delivery Nasal Cannula O2 Flow Rate 2.0 02/10/19 02/10/19 02/10/19 02/10/19 12:10 12:20 12:35 13:03 Pulse 72 90 86 B/P (MAP) 129/70 (89) 162/69 (100) 117/86 (96) Pulse Ox 95 O2 Delivery Room Air 02/10/19 02/10/19 02/10/19 02/10/19 14:35 14:38 15:00 15:07 Temp 98.1 98.1 Pulse 82 84 100 88 Resp 20 B/P (MAP) 124/58 (80) 124/58 170/89 (116) 188/68 (108) Pulse Ox 96 O2 Delivery Room Air 02/10/19 02/10/19 02/10/19 02/10/19 15:37 16:07 16:19 16:37 Pulse 88 80 96 B/P (MAP) 139/64 (89) 148/66 (93) 173/75 (107) Pulse Ox 96 O2 Delivery Room Air 02/10/19 02/10/19 02/10/19 02/10/19 16:51 17:06 17:07 19:59 Temp 97.9 97.9 Pulse 94 95 96 89 Resp 18 B/P (MAP) 170/89 (116) 170/89 131/60 (83) 132/63 (86) O2 Delivery Room Air 02/10/19 02/10/19 02/10/19 02/10/19 20:03 21:53 21:56 21:56 Pulse 75 75 Resp 16 B/P (MAP) 172/72 172/72 Pulse Ox 96 O2 Delivery Room Air Room Air 02/10/19 02/11/19 02/11/19 02/11/19 23:16 01:53 03:33 05:15 Temp 98.8 98.8 98.8 98.8 Pulse 72 99 Resp 18 18 18 16 B/P (MAP) 177/79 (111) 160/69 (99) Pulse Ox 98 96 96 96 O2 Delivery Room Air Room Air Room Air Room Air 02/11/19 02/11/19 02/11/19/30/19 06:15 07:00 08:00 09:11 Temp 98.5 98.5 Pulse 72 72 Resp 16 18 B/P (MAP) 138/68 (91) 138/68 Pulse Ox 96 95 O2 Delivery Room Air Room Air Room Air 02/11/19 02/11/19 09:11 09:12 Pulse 72 72 B/P (MAP) 138/68 138/68 Intake and Output 02/10/19 02/10/19 02/11/19 15:00 23:00 07:00 Intake Total 400 ml 690 ml 800 ml Output Total 600 ml Balance -200 ml 690 ml 800 ml ANIVAL DESAI MD Feb 11, 2019 10:24
[2019-02-11 11:00] VITALS: BP 116/58
--- NOTE | 2019-02-11 11:34 | PDOC ---
AUDREY FISHERHOMERSandra Carson HEAD WRESTLING COACH 02/11/19 1134: CARDIO Progress Notes Date and Time Date of Service 02/11/2019 Time of Evaluation 1110 Subjective Subjective: No Chest Pain, No shortness of breath, No Palpitations Vitals Vitals Vital Signs Date Time Temp Pulse Resp B/P (MAP) Pulse Ox O2 Delivery O2 Flow Rate FiO2 02/11/19 09:12 72 138/68 02/11/19 08:00 Room Air 02/11/19 07:00 98.5 18 95 98.5 02/10/19 11:56 2.0 Weight Weight [ ] Input and Output Intake and Output Intake and Output 02/11/19 07:00 Intake Total 1890 ml Output Total 600 ml Balance 1290 ml Intake Oral 1890 ml Output Urine Total 600 ml # Voids 3 # Bowel Movements 1 Physical Exam HEENT: Neck Supple W Full Motion Chest: Symmetric LUNGS: Clear to Auscultation Heart: S1S2, RRR (SR), other (S4; 4/6 holosystolic loudest apex) Abdomen: Soft N/T Extremities: No Edema, No Calf Tenderness Neurology: alert, oriented, follow commands Assessment Assessment 1. Chest pain: potentially due to HOCM/. LHC revealed patent stents 2. CAD: past stents 3. Hx of moderate and HOCM: virtually unchanged per echo 4. Hx of duodenal angiodysplasia requiring transfusion 5. COPD 6. Chronic diastolic CHF: compensated 7. HTN: controlled 8. HLP 9. Hypomagnesemia: replaced Recommendations 1. ASA, Secondary prevention measures. 2. MCOT for 2 weeks for her palpitations to rule out any contributing arrhythmias. 3. Discussed treatment compliance and phone utilization for reminder. DEIDRA BURRELL MD 02/11/19 1625: CARDIO Progress Notes Assessment Assessment Patient seen and examined. Agree with INDUSTRIAL RELATIONS OFFICER's assessment and plan. Cardiac catheterization showed patent RCA stent without any lesions needing intervention. Continue current secondary prevention measures. Agree with outpatient event monitor and follow-up in 1 month PHUC FISHER APRN Feb 11, 2019 11:34 DEIDRA BURRELL MD Feb 11, 2019 16:25
--- NOTE | 2019-02-11 13:20 | NUR ---
Discharge Note: LOUIS SALAZAR Discharge instructions and discharge home medications reviewed with Patient and a copy given. All questions have been answered and understanding verbalized. Follow up appointment information given to patient. The following instructions and handouts were given: Chest pain, cardiac diet, and post heart catheterization after care Discontinued lines and drains: Peripheral IV intact. Patient discharged to Home or Self Care with Self via Wheelchair
--- NOTE | 2019-02-16 21:34 | PDOC ---
Provider Note Provider Note Discharge summary dictated. #[id number] ANIVAL DESAI MD Feb 16, 2019 21:34
--- NOTE | 2019-02-16 21:42 | DS ---
DATE OF DISCHARGE: 02/11/2019 REASON FOR ADMISSION TO THE HOSPITAL: Chest pain, slight elevation in troponin. PROCEDURES DONE: 1. Echocardiogram. 2. Cardiac catheterization. COMPLICATIONS NOTED: None. HOSPITAL COURSE: The patient is a 63-year-old female with history of previous NE as well as previous stents in the past. The patient was admitted with chest pain and cardiac enzymes were slightly elevated at 0.058, went up to 0.063. The patient had a history of coronary artery disease, previous cardiac stents, was taken to the label paster and it shows previously placed stents in the right coronary artery were widely patent, no significant coronary artery disease was noted and the patient was feeling better. The patient was discharged on 02/11/2019. FINAL DIAGNOSES: Chest pain, very slight elevation in troponin. Cardiac catheterization shows previously placed stent in the right coronary is patent, no significant coronary artery disease. Patient has chronic fibromyalgia, rheumatoid arthritis, hypertension, hyperlipidemia, gastroesophageal reflux disease . chronic obstructive pulmonary disease, all remained stable. DISPOSITION: The patient was discharged home. ANIVAL DESAI MD DR: NIMESH/[place] JOB#: [id number] / [id number] REN
== END 2019-02-11 13:20 | disposition home or self-care (01) | DRG 286 ==
LOC: ER 10:01 → 2 NORTH 13:00
PROVIDERS: ADMIT Internal Medicine; ATTEND Internal Medicine
PROC: 4A023N7 Measurement of Cardiac Sampling and Pressure, Left Heart, Percutaneous Approach (ICD-10-PCS; principal; 2019-02-10)
PROC: B2111ZZ Fluoroscopy of Multiple Coronary Arteries using Low Osmolar Contrast (ICD-10-PCS; 2019-02-10)
DX: R07.9 Chest pain, unspecified (principal); E43 Unspecified severe protein-calorie malnutrition; I42.1 Obstructive hypertrophic cardiomyopathy; I50.32 Chronic diastolic (congestive) heart failure; I25.10 Atherosclerotic heart disease of native coronary artery without angina pectoris; E78.5 Hyperlipidemia, unspecified; E83.42 Hypomagnesemia; G89.4 Chronic pain syndrome; I11.0 Hypertensive heart disease with heart failure; E11.42 Type 2 diabetes mellitus with diabetic polyneuropathy; J44.9 Chronic obstructive pulmonary disease, unspecified; K21.9 Gastro-esophageal reflux disease without esophagitis; M06.9 Rheumatoid arthritis, unspecified; M79.7 Fibromyalgia; F41.9 Anxiety disorder, unspecified; I25.2 Old myocardial infarction; Z79.891 Long term (current) use of opiate analgesic; Z82.49 Family history of ischemic heart disease and other diseases of the circulatory system; Z83.3 Family history of diabetes mellitus; Z87.19 Personal history of other diseases of the digestive system; Z87.891 Personal history of nicotine dependence; Z95.5 Presence of coronary angioplasty implant and graft; Z88.8 Allergy status to other drugs, medicaments and biological substances; D63.8 Anemia in other chronic diseases classified elsewhere
CPT/HCPCS: 36415; 70450; 71045; 80048; 80053; 80061; 80307; 81001; 82553; 83735; 83880; 84443; 84484; 85025; 93005; 93306; 93458; 94640; 94760; 96360; 96361; 99152; 99153; C1769; C1892; J1200; J1644; J1650; J2250; J3010; J3475; J3490; J7030; J7512; J7613; J7626; J8597; Q9967; 99285-25; G0378

== ENCOUNTER 2019-10-03 09:31 | Inpatient (IN) | payer OTHER, MEDICAID ==
[~2019-10-03] VITALS: Ht 162.6 cm; Wt 82.0 kg
[2019-10-03] VITALS (17 sets, daily range): BP systolic 108–163; BP diastolic 34–64
[~2019-10-03 09:31] MED LIST changes: +ASPI-612 PO; +HYDR25TA10 PO
[2019-10-03 10:24] LABS: BASO # 0.1 x10^3/uL (0.0-0.2); BASO % 1 % (0-3); EOS # 0.3 x10^3/uL (0.0-0.7); EOS % 3 % (0-3); LYMPH # 3.9 x10^3/uL (1.0-4.8); LYMPH % 40 % (24-48); MEAN CORPUSCULAR HEMOGLOBIN 17 pg (25-35); MEAN CORPUSCULAR HGB CONC 29 g/dL (31-37); MEAN CORPUSCULAR VOLUME 59 fL (79-100); MONO # 0.9 x10^3/uL (0.0-1.1); MONO % 9 % (0-9); NEUT # 4.6 x10^3/uL (1.8-7.7); NEUT % 47 % (31-73); PLATELET COUNT 318 x10^3/uL (140-400); RED BLOOD COUNT 2.52 x10^6/uL (3.50-5.40); WHITE BLOOD COUNT 9.7 x10^3/uL (4.0-11.0)
[2019-10-03 10:26] LABS: CALCIUM 8.7 mg/dL (8.5-10.1); CREATININE 1.2 mg/dL (0.6-1.0); GFR 54.4; POTASSIUM 3.5 mmol/L (3.5-5.1)
[2019-10-03 10:27] LABS: HEMATOCRIT 14.7 % (36.0-47.0); HEMOGLOBIN 4.2 g/dL (12.0-15.5)
[2019-10-03 10:31] LABS: ALBUMIN 3.1 g/dL (3.4-5.0); ALBUMIN/GLOBULIN RATIO 0.9 (1.0-1.7); TOTAL BILIRUBIN 0.2 mg/dL (0.2-1.0); TOTAL PROTEIN 6.6 g/dL (6.4-8.2)
--- NOTE | 2019-10-03 10:36 | PHYS DOC ---
Past Medical History Past Medical History: ID, Unknown Additional Past Medical Histor: fibromyalgia Past Surgical History: Angioplasty, Additional Past Surgical Histo: W/ STENT PLACEMENT Smoking Status: Never Smoker Additional Information: Chewing tabacco daily Alcohol Use: None Drug Use: None General Adult EDM: Chief Complaint: ABNORMAL LABS HPI: HPI: Patient is a 64-year-old female who presents today secondary to generalized weakness and an abnormal lab. Dr. Javier called this morning after he found the results of blood that was drawn yesterday the hemoglobin was 4 and hematocrit was 14. He said he talked to the patient and had her come to the emergency department for further evaluation. Patient states other than feeling generally weak she has not been sick recently. She did state that a couple of weeks ago she had some kaur colored stools but no fever no melena no hematemesis no hematochezia. She denies any pain. She has not had much of a cough or congestion. [] Review of Systems: Review of Systems: Constitutional: Reports generalized weakness. [] Eyes: Denies change in visual acuity. [] HENT: Denies nasal congestion or sore throat. [] Respiratory: Denies cough or shortness of breath. [] Cardiovascular: Denies chest pain or edema. [] GI: Denies abdominal pain, nausea, vomiting, bloody stools or diarrhea. [] : Denies dysuria. [] Musculoskeletal: Denies back pain or joint pain. [] Integument: Denies rash. [] Neurologic: Denies headache, focal weakness or sensory changes. [] Endocrine: Denies polyuria or polydipsia. [] Lymphatic: Denies swollen glands. [] Psychiatric: Denies depression or anxiety. [] Heart Score: Risk Factors: Risk Factors: DM, Current or recent (<one month) smoker, HTN, HLP, family history of CAD, obesity. Risk Scores: Score 0 - 3: 2.5% MACE over next 6 weeks - Discharge Home Score 4 - 6: 20.3% MACE over next 6 weeks - Admit for Clinical Observation Score 7 - 10: 72.7% MACE over next 6 weeks - Early Invasive Strategies Allergies: Allergies: Allergies Coded Allergies Type Severity Reaction Last Updated Verified enalapril Allergy Severe facial Swelling 02/02/19 Yes lisinopril Allergy Severe facial Swelling 02/02/19 Yes morphine Allergy Intermediate 02/02/19 Yes Physical Exam: PE: Constitutional: Well developed, well nourished, no acute distress, appears pale. [] HENT: Normocephalic, atraumatic, bilateral external ears normal, oropharynx moist, no oral exudates, nose normal. [] Eyes: PERRLA, EOMI, conjunctiva normal, no discharge. [] Neck: Normal range of motion, no tenderness, supple, no stridor. [] Cardiovascular:Heart rate regular rhythm, no murmur [] Lungs & Thorax: Bilateral breath sounds clear to auscultation [] Abdomen: Bowel sounds normal, soft, no tenderness, no masses, no pulsatile masses. [] Skin: Skin appears pale. [] Back: No tenderness, no CVA tenderness. [] Extremities: No tenderness, no cyanosis, no clubbing, ROM intact, no edema. [] Neurologic: Alert and oriented X 3, normal motor function, normal sensory function, no focal deficits noted. [] Psychologic: Anxious [] Current Patient Data: Labs: Laboratory Tests Test 10/03/19 10:00 White Blood Count 9.7 x10^3/uL (4.0-11.0) Red Blood Count 2.52 x10^6/uL (3.50-5.40) L Hemoglobin 4.2 g/dL (12.0-15.5) *L Hematocrit 14.7 % (36.0-47.0) *L Mean Corpuscular Volume 59 fL (79-100) L Mean Corpuscular Hemoglobin 17 pg (25-35) L Mean Corpuscular Hemoglobin Concent 29 g/dL (31-37) L Red Cell Distribution Width 21.0 % (11.5-14.5) H Platelet Count 318 x10^3/uL (140-400) Neutrophils (%) (Auto) 47 % (31-73) Lymphocytes (%) (Auto) 40 % (24-48) Monocytes (%) (Auto) 9 % (0-9) Eosinophils (%) (Auto) 3 % (0-3) Basophils (%) (Auto) 1 % (0-3) Neutrophils # (Auto) 4.6 x10^3/uL (1.8-7.7) Lymphocytes # (Auto) 3.9 x10^3/uL (1.0-4.8) Monocytes # (Auto) 0.9 x10^3/uL (0.0-1.1) Eosinophils # (Auto) 0.3 x10^3/uL (0.0-0.7) Basophils # (Auto) 0.1 x10^3/uL (0.0-0.2) Platelet Estimate Pending Sodium Level 142 mmol/L (136-145) Potassium Level 3.5 mmol/L (3.5-5.1) Chloride Level 106 mmol/L (98-107) Carbon Dioxide Level 23 mmol/L (21-32) Anion Gap 13 (6-14) Blood Urea Nitrogen 22 mg/dL (7-20) H Creatinine 1.2 mg/dL (0.6-1.0) H Estimated GFR (Cockcroft-Gault) 54.4 BUN/Creatinine Ratio 18 (6-20) Glucose Level 117 mg/dL (70-99) H Calcium Level 8.7 mg/dL (8.5-10.1) Total Bilirubin 0.2 mg/dL (0.2-1.0) Aspartate Amino Transferase (AST) 18 U/L (15-37) Alanine Aminotransferase (ALT) 21 U/L (14-59) Alkaline Phosphatase 40 U/L (46-116) L Total Protein 6.6 g/dL (6.4-8.2) Albumin 3.1 g/dL (3.4-5.0) L Albumin/Globulin Ratio 0.9 (1.0-1.7) L Laboratory Tests 10/03/19 10:00 Laboratory Tests 10/03/19 10:00 Vital Signs: Vital Signs Date Time Temp Pulse Resp B/P (MAP) Pulse Ox O2 Delivery O2 Flow Rate FiO2 10/03/19 09:42 99.3 82 126/73 (90) 99 Room Air 99.3 EKG: EKG: [] Radiology/Procedures: Radiology/Procedures: [] Course & Med Decision Making: Course & Med Decision Making Pertinent Labs and Imaging studies reviewed. (See chart for details) [ED course: Evaluation reveals a 64-year-old female with what appears to be an acute anemia. Her hemoglobin is 4 hematocrit 14. She was typed and crossed for 2 units and blood was transfused in the emergency department today. She will be admitted for further evaluation.] Dragon Disclaimer: Dragon Disclaimer: This electronic medical record was generated, in whole or in part, using a voice recognition dictation system. Departure Departure Impression: Primary Impression: Symptomatic anemia Disposition: ADMITTED INPATIENT Condition: STABLE Referrals: ANIVAL DESAI MD (PCP) Justicifation of Admission Dx: Justifications for Admission: Justification of Admission Dx: Yes Comments: Symptomatic anemia LUCERO ROMAN DO Oct 03, 2019 10:36
[2019-10-03] MEDS ORDERED: ACETAMINOPHEN 325 MG TABLET. PO PRN ×2 (10:45→11:00)
[2019-10-03] MEDS ORDERED: ONDANSETRON PF 4 MG/2 ML VIAL. IV PRN (10:45)
[2019-10-03] MEDS ORDERED: NITROGLYCERIN SUBLINGUAL 0.4 MG BOTTLE OF 25. SL PRN (11:00)
[2019-10-03] MEDS ORDERED: NON FORMULARY ITEM (Albuterol Sulfate (Ventolin Hfa Inhaler) 2 PUFF) IH SCH (11:00)
[2019-10-03 11:11] LABS: ANISOCYTOSIS MOD; PLT ESTIMATE ADEQUATE (ADEQUATE); POLYCHROMASIA SLIGHT
[2019-10-03 11:12] LABS: HYPOCHROMIA MOD; MICROCYTOSIS MOD; OVALOCYTES FEW; TARGET CELLS FEW
[2019-10-03] MEDS ORDERED: ALBUTEROL SULFATE 2.5 MG/3 ML NEBU. NEB PRN (11:15)
--- NOTE | 2019-10-03 11:17 | PDOC ---
Provider Note Provider Note H&P dictated #[id number] Justicifation of Admission Dx: Justifications for Admission: Justification of Admission Dx: Yes Comments: Acute blood loss anemia with GI bleeding. RITO JOLLY MD Oct 03, 2019 11:17
--- NOTE | 2019-10-03 11:41 | HP ---
ADMIT DATE: 10/03/2019 ADMITTING PHYSICIAN: Erik Schmidt MD. HISTORY OF PRESENT ILLNESS: This 64-year-old female with a history of previous GI bleeding and diverticulosis and coronary artery disease with stent, has been not feeling well for last 1 week. She has been feeling weak and dizzy. She denies any chest pains, but gets tired and short of breath easily. She denies any bleeding. She does admit to dark stools only small amount once. She denies any abdominal pain, nausea, vomiting, diarrhea, constipation, fever or chills. She does admit to fast heart rate at times. Yesterday, she had seen Dr. Schmidt and she had blood drawn. This morning, the lab called me stating that the patient had a critical lab with hemoglobin of 4.3, so I called the patient and told her to come to the Emergency Room. In the Emergency Room, the patient was noted to have hemoglobin of 4, so I will admit her to Intensive Care Unit for blood transfusion and further management. Stool has not been obtained in the Emergency Room. The patient denies any overt bleeding. REVIEW OF SYSTEMS: As noted in the history of present illness. Other systems reviewed and are negative. The patient has been taking blood thinners. PAST MEDICAL HISTORY: Her last admission was in 01/2019 for chest pain. At that time, cardiac catheterization showed previously placed stent in the right coronary artery that was patent and no other significant coronary artery disease. She has a history of hypertension, myocardial infarction, hyperlipidemia, rheumatoid arthritis, COPD, diverticulosis, hepatitis C, fibromyalgia, chronic pain syndrome. PAST SURGICAL HISTORY: Includes , cardiac stent in the right coronary artery in 2014, repeat cardiac catheterization in 01/2019, ulcers in 04/2017. FAMILY HISTORY: Positive for diabetes and heart disease. SOCIAL HISTORY: Ex-smoker, quit in 2018, smoked for 30 years prior to that. No history of alcoholism or drug abuse. Has been on chronic narcotic pain medications. ALLERGIES: THE PATIENT IS ALLERGIC TO LISINOPRIL, MORPHINE, ENALAPRIL, CAUSES SWELLING. MEDICATIONS: Reviewed and ordered as needed. PHYSICAL EXAMINATION: VITAL SIGNS: Temperature 99.3 degrees Fahrenheit, pulse 82 per minute, blood pressure 126/73 mmHg. GENERAL: The patient is an elderly female who is alert, oriented and in mild distress. SKIN: Warm and dry. Skin is pale. EYES: Pupils reacting to light. Conjunctivae pale. Sclerae muddy. HENT: Unremarkable. NECK: Supple. JVP normal. No thyromegaly. Trachea midline. LUNGS: Decreased breath sounds at bases. Lungs are clear. No wheezing noted. CARDIOVASCULAR: Tachycardia present. Grade 3/6 systolic murmur present. ABDOMEN: Soft, nontender, no guarding, no rigidity. Bowel sounds present. Abdomen is obese. EXTREMITIES: No edema, no calf tenderness, no cyanosis. CENTRAL NERVOUS SYSTEM: Alert and oriented, generalized weakness. LABORATORY FINDINGS: INR is 1. Sodium 142, potassium 3.5, BUN 22, creatinine 1.2, glucose 117, albumin 3.1, AST 18, ALT 21. WBC count is 9.7, hemoglobin 4.2, platelet count is 318,000, MCV is 59. IMPRESSION: 1. Most likely the patient has acute gastrointestinal bleeding. 2. Acute blood loss anemia. 3. Coronary artery disease with stent in the right coronary artery. 4. Diverticulosis. 5. Hyperlipidemia. 6. Rheumatoid arthritis. 7. Chronic obstructive pulmonary disease. 8. Hepatitis C. 9. Fibromyalgia. 10. Chronic pain syndrome. PLAN: I will admit her to Intensive Care Unit because of her coronary artery disease as well as severe anemia. Type and cross and transfuse. She may need at least 3-[address] Conner for GI evaluation and management. I will hold her blood pressure medications. Keep her n.p.o. for now. We will also hold aspirin. I will start her on IV Protonix. The patient is hemodynamically stable, but at high risk for complications. We will monitor her hemoglobin and hematocrit every 6 hours and advance diet and other medications when she continues to improve. For details, please refer to the orders. JAMELTIP Phani JOLLY MD DR: MIGUEL ÁNGEL/[place] JOB#: [id number] / [id number]
[2019-10-03] MEDS: ALBUTEROL SULFATE 2.5 MG/3 ML NEBU. NEB SCH ×3 (12:00→20:00)
[2019-10-03] MEDS: PANTOPRAZOLE IV PUSH 40 MG VIAL. IVP SCH ×2 (12:04→20:48)
[2019-10-03 12:13] LABS: RED BLOOD COUNT 2.43 x10^6/uL (3.50-5.40); RED CELL DISTRIBUTION WIDTH 21.4 % (11.5-14.5); WHITE BLOOD COUNT 9.7 x10^3/uL (4.0-11.0)
[2019-10-03 12:15] LABS: HEMATOCRIT 14.2 % (36.0-47.0); HEMOGLOBIN 4.1 g/dL (12.0-15.5)
--- NOTE | 2019-10-03 12:20 | NUR ---
Received Critical from Lab Hgb 4.1 and Hct 14.[address] Schmidt at [phone]
[2019-10-03] MEDS: predniSONE 5 MG TABLET PO SCH (13:00)
--- NOTE | 2019-10-03 13:08 | PDOC2 ---
CONSULT Date of Consult Date of Consult DATE: 10/03/19 TIME: 13:07 Reason for Consult Reason for Consult: Chronic blood loss anemia Past Medical History Cardiovascular: CAD, HTN, GA, Hyperlipidemia Pulmonary: COPD CENTRAL NERVOUS SYSTEM: Periperal neuropathy GI: Constipation, GERD, Other Heme/Onc: Anemia NOS Hepatobiliary: Hep A/B/C Psych: Anxiety Musculoskeletal: Other Rheumatologic: Fibromyalgia, Rheumatoid arthritis, Other Infectious disease: No pertinent hx Renal/: UTI, Urinary Incontinence Endocrine: Diabetes Past Surgical History Past Surgical History: Cataract Removal, , Tonsillectomy, Other Family History Family History: Diabetes, Heart Disease Social History ALCOHOL: occassional Drugs: None Lives: with Family Domestic Violence: Neg Current Problem List Problem List Problems Medical Problems: (1) Symptomatic anemia Status: Acute Current Medications Current Medications Current Medications Ondansetron HCl (Zofran) 4 mg PRN Q8HRS PRN IV NAUSEA/VOMITING; Start 10/03/19 at 10:45; Stop 10/04/19 at 10:44 Acetaminophen (Tylenol) 650 mg PRN Q4HRS PRN PO FEVER > 100.3'F; Start 10/03/19 at 10:45; Stop 10/03/19 at 11:08; Status DC Acetaminophen (Tylenol) 650 mg PRN Q6HRS PRN PO MILD PAIN / TEMP > 100.3'F; Start 10/03/19 at 11:00 Acetaminophen/ Hydrocodone Bitart (Lortab 10/325) 1 tab PRN Q6HRS PRN PO MODERATE TO SEVERE PAIN; Start 10/03/19 at 11:00 Nitroglycerin (Nitrostat) 0.4 mg PRN Q5MIN PRN SL CHEST PAIN; Start 10/03/19 at 11:00 Oxycodone HCl (OxyCONTIN) 15 mg BID PO ; Start 10/03/19 at 21:00 Prednisone (Prednisone) 5 mg DAILY PO ; Start 10/03/19 at 13:00 Senna/Docusate Sodium (Senna Plus) 1 tab BID PO ; Start 10/03/19 at 21:00 Albuterol Sulfate (Ventolin Neb Soln) 2.5 mg PRN Q4HRS PRN NEB SHORTNESS OF BR EATH; Start 10/03/19 at 11:15 Non-Formulary Medication (Albuterol Sulfate (Ventolin Hfa Inhaler)) 2 puff PRN Q4-6HRS IH ; Start 10/03/19 at 11:00; Status UNV Budesonide (Pulmicort) 0.5 mg RTBID NEB ; Start 10/03/19 at 20:00 Pantoprazole Sodium (PROTONIX VIAL for IV PUSH) 40 mg Q12HR IVP Last administered on 10/03/19at 12:04; Start 10/03/19 at 11:00 Albuterol Sulfate (Ventolin Neb Soln) 2.5 mg RTQID NEB ; Start 10/03/19 at 12:00 Active Scripts Active Dexilant (Dexlansoprazole) 60 Mg Cap.mp 1 Cap PO DAILY 30 Days Nitrostat (Nitroglycerin) 0.4 Mg Tab.subl 0.4 Mg SL PRN Q5MIN PRN 30 Days Senna-Time S Tablet (Sennosides/Docusate Sodium) 1 Each Tablet 1 Tab PO BID 30 Days Albuterol Sulfate Neb Soln (Albuterol Sulfate) 0.63 Mg/3 Ml Vial.neb 0.63 Mg NEB PRN Q4HRS PRN Losartan Potassium 50 Mg Tablet 50 Mg PO DAILY Lipitor (Atorvastatin Calcium) 10 Mg Tablet 5 Mg PO QHS Reported Aspirin Ec (Aspirin) 81 Mg Tablet. 81 Mg PO DAILY Hydrochlorothiazide 25 Mg Tablet 25 Mg PO DAILY Metoprolol Tartrate 25 Mg Tablet 1 Tab PO BID Prednisone 1 Mg Tablet 5 Tab PO DAILY Oxycontin (Oxycodone HCl) 15 Mg Tab.er.12h 15 Mg PO BID Ventolin Hfa Inhaler (Albuterol Sulfate) 18 Gm Hfa.aer.ad 2 Puff IH PRN Q4-6HRS Symbicort 160-4.5 Mcg Inhaler (Budesonide/Formoterol Fumarate) 10.2 Gm Hfa.aer.ad 2 Puff IH BID Hydrocodone-Apap 10-325 (Hydrocodone Bit/Acetaminophen) 1 Each Tablet 1 Tab PO PRN Q6HRS PRN Hydralazine Hcl 25 Mg Tablet 1 Tab PO TID Cyclobenzaprine Hcl 5 Mg Tablet 1 Tab PO QHS Allergies Allergies: Coded Allergies: enalapril (Verified Allergy, Severe, facial Swelling, 02/02/19) lisinopril (Verified Allergy, Severe, facial Swelling, 02/02/19) morphine (Verified Allergy, Intermediate, 02/02/19) TOLERATES LORTAB Vitals VITALS Vital Signs Date Time Temp Pulse Resp B/P (MAP) Pulse Ox O2 Delivery O2 Flow Rate FiO2 10/03/19 12:38 98.9 75 18 111/34 98.9 10/03/19 11:15 100 Room Air Labs Labs Laboratory Tests Test 10/03/19 10:00 10/03/19 11:57 White Blood Count 9.7 x10^3/uL (4.0-11.0) 9.7 x10^3/uL (4.0-11.0) Red Blood Count 2.52 x10^6/uL (3.50-5.40) 2.43 x10^6/uL (3.50-5.40) Hemoglobin 4.2 g/dL (12.0-15.5) 4.1 g/dL (12.0-15.5) Hematocrit 14.7 % (36.0-47.0) 14.2 % (36.0-47.0) Mean Corpuscular Volume 59 fL (79-100) 59 fL (79-100) Mean Corpuscular Hemoglobin 17 pg (25-35) 17 pg (25-35) Mean Corpuscular Hemoglobin Concent 29 g/dL (31-37) 29 g/dL (31-37) Red Cell Distribution Width 21.0 % (11.5-14.5) 21.4 % (11.5-14.5) Platelet Count 318 x10^3/uL (140-400) 298 x10^3/uL (140-400) Neutrophils (%) (Auto) 47 % (31-73) Lymphocytes (%) (Auto) 40 % (24-48) Monocytes (%) (Auto) 9 % (0-9) Eosinophils (%) (Auto) 3 % (0-3) Basophils (%) (Auto) 1 % (0-3) Neutrophils # (Auto) 4.6 x10^3/uL (1.8-7.7) Lymphocytes # (Auto) 3.9 x10^3/uL (1.0-4.8) Monocytes # (Auto) 0.9 x10^3/uL (0.0-1.1) Eosinophils # (Auto) 0.3 x10^3/uL (0.0-0.7) Basophils # (Auto) 0.1 x10^3/uL (0.0-0.2) Platelet Estimate Adequate (ADEQUATE) Polychromasia Slight Hypochromasia Mod Anisocytosis Mod Microcytosis Mod Target Cells Few Ovalocytes Few Prothrombin Time 13.0 SEC (11.7-14.0) Prothromb Time International Ratio 1.0 (0.8-1.1) Sodium Level 142 mmol/L (136-145) Potassium Level 3.5 mmol/L (3.5-5.1) Chloride Level 106 mmol/L (98-107) Carbon Dioxide Level 23 mmol/L (21-32) Anion Gap 13 (6-14) Blood Urea Nitrogen 22 mg/dL (7-20) Creatinine 1.2 mg/dL (0.6-1.0) Estimated GFR (Cockcroft-Gault) 54.4 BUN/Creatinine Ratio 18 (6-20) Glucose Level 117 mg/dL (70-99) Calcium Level 8.7 mg/dL (8.5-10.1) Total Bilirubin 0.2 mg/dL (0.2-1.0) Aspartate Amino Transf (AST/SGOT) 18 U/L (15-37) Alanine Aminotransferase (ALT/SGPT) 21 U/L (14-59) Alkaline Phosphatase 40 U/L (46-116) Total Protein 6.6 g/dL (6.4-8.2) Albumin 3.1 g/dL (3.4-5.0) Albumin/Globulin Ratio 0.9 (1.0-1.7) Laboratory Tests Test 10/03/19 10:00 10/03/19 11:57 White Blood Count 9.7 x10^3/uL (4.0-11.0) 9.7 x10^3/uL (4.0-11.0) Red Blood Count 2.52 x10^6/uL (3.50-5.40) 2.43 x10^6/uL (3.50-5.40) Hemoglobin 4.2 g/dL (12.0-15.5) 4.1 g/dL (12.0-15.5) Hematocrit 14.7 % (36.0-47.0) 14.2 % (36.0-47.0) Mean Corpuscular Volume 59 fL (79-100) 59 fL (79-100) Mean Corpuscular Hemoglobin 17 pg (25-35) 17 pg (25-35) Mean Corpuscular Hemoglobin Concent 29 g/dL (31-37) 29 g/dL (31-37) Red Cell Distribution Width 21.0 % (11.5-14.5) 21.4 % (11.5-14.5) Platelet Count 318 x10^3/uL (140-400) 298 x10^3/uL (140-400) Neutrophils (%) (Auto) 47 % (31-73) Lymphocytes (%) (Auto) 40 % (24-48) Monocytes (%) (Auto) 9 % (0-9) Eosinophils (%) (Auto) 3 % (0-3) Basophils (%) (Auto) 1 % (0-3) Neutrophils # (Auto) 4.6 x10^3/uL (1.8-7.7) Lymphocytes # (Auto) 3.9 x10^3/uL (1.0-4.8) Monocytes # (Auto) 0.9 x10^3/uL (0.0-1.1) Eosinophils # (Auto) 0.3 x10^3/uL (0.0-0.7) Basophils # (Auto) 0.1 x10^3/uL (0.0-0.2) Platelet Estimate Adequate (ADEQUATE) Polychromasia Slight Hypochromasia Mod Anisocytosis Mod Microcytosis Mod Target Cells Few Ovalocytes Few Prothrombin Time 13.0 SEC (11.7-14.0) Prothromb Time International Ratio 1.0 (0.8-1.1) Sodium Level 142 mmol/L (136-145) Potassium Level 3.5 mmol/L (3.5-5.1) Chloride Level 106 mmol/L (98-107) Carbon Dioxide Level 23 mmol/L (21-32) Anion Gap 13 (6-14) Blood Urea Nitrogen 22 mg/dL (7-20) Creatinine 1.2 mg/dL (0.6-1.0) Estimated GFR (Cockcroft-Gault) 54.4 BUN/Creatinine Ratio 18 (6-20) Glucose Level 117 mg/dL (70-99) Calcium Level 8.7 mg/dL (8.5-10.1) Total Bilirubin 0.2 mg/dL (0.2-1.0) Aspartate Amino Transf (AST/SGOT) 18 U/L (15-37) Alanine Aminotransferase (ALT/SGPT) 21 U/L (14-59) Alkaline Phosphatase 40 U/L (46-116) Total Protein 6.6 g/dL (6.4-8.2) Albumin 3.1 g/dL (3.4-5.0) Albumin/Globulin Ratio 0.9 (1.0-1.7) Assessment/Plan Assessment/Plan Chronic blood loss anemia- etiology to be determined. Malignancy, AVMS, polyps, and/or IBD in differential. Plan iron studies/b12/retic count transfusional support to maintain Hg > 7 eventul EGD/colono to further assess RIANNA FLORES MD Oct 03, 2019 13:08
--- NOTE | 2019-10-03 15:07 | CONS ---
DATE OF CONSULTATION: 10/03/2019 GASTROENTEROLOGY CONSULTATION REASON FOR CONSULTATION: Chronic blood loss anemia. HISTORY OF PRESENT ILLNESS: A 64-year-old -[place] female with past medical history significant for fibromyalgia, AL, , status post stents, who was admitted to the hospital after she was found to have hemoglobin of 4. She has had general weakness, but denies any melena, hematochezia, or hematemesis. States that she had bleed several years ago, at which time no source was identified. Weight and appetite have been stable until recently. With continued symptoms of shortness of breath, she has been admitted for further evaluation and care. PAST MEDICAL HISTORY: Heart disease, status post AL, history of stents, , angioplasty. ALLERGIES: ENALAPRIL, LISINOPRIL, AND MORPHINE. MEDICATIONS: Presently include oxycodone, budesonide, prednisone, albuterol, pantoprazole, nitroglycerin. SOCIAL HISTORY: She is retired. Does not drink or smoke. FAMILY HISTORY: Noncontributory. REVIEW OF SYSTEMS: Per records. PHYSICAL EXAMINATION: GENERAL: Reveals a pale -Emir[place] female. VITAL SIGNS: Temperature 98.9, pulse 75, respiratory rate 18, blood pressure 111/34. LUNGS: Clear. CARDIOVASCULAR: Reveals S1, S2 without S3, S4 or appreciable murmurs. Tachycardic. ABDOMEN: Reveals a soft abdomen, normal bowel sounds, without appreciable hepatosplenomegaly. EXTREMITIES: Reveal no cyanosis, clubbing or edema. LABORATORY STUDIES: Hemoglobin 4.1, hematocrit 14.2, white count 9.7, platelet count is 298,000. Sodium 142, potassium 3.5, chloride 106, BUN 22, creatinine 1.2, glucose 117, calcium 8.7. Total bilirubin 0.2, AST of 18, ALT of 21, alkaline phosphatase 40, total protein 6.6, albumin 3.1. INR is 1.0. IMPRESSION: Chronic blood loss anemia, etiology is to be determined. Differential includes peptic ulcer disease, malignancy, inflammatory bowel disease, colon polyps, arteriovenous malformations. Therefore, recommend blood counts, iron stores, B12 levels. Retic count to further assess her symptoms. Eventual endoscopy would be recommended once the patient is hemodynamically stabilized. RIANNA FLORES MD DR: PUSHPA/[place] JOB#: [id number] / [id number]
[2019-10-03] MEDS: BUDESONIDE 0.5 MG/2 ML NEBU. NEB SCH (20:00)
[2019-10-03] MEDS: oxyCODONE ER 15 MG TAB.ER.12H PO SCH (20:48)
[2019-10-03] MEDS: SENNOSIDES/DOCUSATE 8.6/50MG TABLET. PO SCH (20:48)
[2019-10-03] MEDS: HYDROcodone/APAP 10/325 1 TAB TABLET PO PRN (20:55)
[2019-10-04 01:30] LABS: HEMATOCRIT 25.1 % (36.0-47.0); HEMOGLOBIN 7.9 g/dL (12.0-15.5); RED BLOOD COUNT 3.64 x10^6/uL (3.50-5.40); RED CELL DISTRIBUTION WIDTH 29.4 % (11.5-14.5); WHITE BLOOD COUNT 10.9 x10^3/uL (4.0-11.0)
[2019-10-04 03:00] VITALS: BP 138/49
[2019-10-04 07:00] VITALS: BP 157/54
[2019-10-04 07:41] LABS: ALBUMIN 2.9 g/dL (3.4-5.0); ALBUMIN/GLOBULIN RATIO 0.9 (1.0-1.7); CALCIUM 8.7 mg/dL (8.5-10.1); GFR 67.1; POTASSIUM 3.8 mmol/L (3.5-5.1); TOTAL BILIRUBIN 0.4 mg/dL (0.2-1.0); TOTAL PROTEIN 6.3 g/dL (6.4-8.2)
[2019-10-04 07:42] LABS: BASO % 0 % (0-3); EOS # 0.4 x10^3/uL (0.0-0.7); EOS % 5 % (0-3); HEMATOCRIT 24.3 % (36.0-47.0); HEMOGLOBIN 7.6 g/dL (12.0-15.5); LYMPH # 3.1 x10^3/uL (1.0-4.8); LYMPH % 34 % (24-48); MEAN CORPUSCULAR HEMOGLOBIN 22 pg (25-35); MEAN CORPUSCULAR HGB CONC 31 g/dL (31-37); MEAN CORPUSCULAR VOLUME 69 fL (79-100); MONO # 0.9 x10^3/uL (0.0-1.1); MONO % 10 % (0-9); NEUT # 4.7 x10^3/uL (1.8-7.7); NEUT % 51 % (31-73); PLATELET COUNT 257 x10^3/uL (140-400); RED BLOOD COUNT 3.54 x10^6/uL (3.50-5.40); RED CELL DISTRIBUTION WIDTH 29.7 % (11.5-14.5); WHITE BLOOD COUNT 9.2 x10^3/uL (4.0-11.0)
[2019-10-04] MEDS: BUDESONIDE 0.5 MG/2 ML NEBU. NEB SCH ×2 (07:49→21:05)
[2019-10-04] MEDS: ALBUTEROL SULFATE 2.5 MG/3 ML NEBU. NEB SCH ×4 (07:49→21:05)
--- NOTE | 2019-10-04 09:45 | PDOC ---
IM PROGRESS NOTES- Subjective Subjective Feels weak. No complaints of abdominal pain or dyspnea. Objective Vitals/I&O Vital Signs Date Time Temp Pulse Resp B/P (MAP) Pulse Ox O2 Delivery O2 Flow Rate FiO2 10/04/19 07:50 97 Room Air 10/04/19 07:00 98.4 69 18 157/54 (88) 98.4 I & O 10/03/19 10/03/19 10/04/19 14:59 22:59 06:59 Intake Total 320 ml 713 ml 640 ml Balance 320 ml 713 ml 640 ml Physical Exam Physical Exam General appearance - alert, chronically ill appearing, and in no distress and oriented to person, place, and time Mental Status - alert, oriented to person, place, and time, affect appropriate to mood Head - normal Chest -decreased breath sounds at bases Heart - S1 and S2 regular with grade 3 x 6 systolic murmur Abdomen - soft, nontender Neurological - alert and oriented Extremities - no pedal edema Skin - warm and dry Labs Laboratory Tests Test 10/03/19 10:00 10/03/19 11:57 10/03/19 12:00 10/04/19 00:10 White Blood Count 9.7 x10^3/uL (4.0-11.0) 9.7 x10^3/uL (4.0-11.0) 10.9 x10^3/uL (4.0-11.0) Red Blood Count 2.52 x10^6/uL (3.50-5.40) L 2.43 x10^6/uL (3.50-5.40) L 2.46 x10^6/uL (3.50-5.70) L 3.64 x10^6/uL (3.50-5.40) Hemoglobin 4.2 g/dL (12.0-15.5) *L 4.1 g/dL (12.0-15.5) *L 7.9 g/dL (12.0-15.5) #L Hematocrit 14.7 % (36.0-47.0) *L 14.2 % (36.0-47.0) *L 25.1 % (36.0-47.0) L Mean Corpuscular Volume 59 fL (79-100) L 59 fL (79-100) L 69 fL (79-100) #L Mean Corpuscular Hemoglobin 17 pg (25-35) L 17 pg (25-35) L 22 pg (25-35) L Mean Corpuscular Hemoglobin Concent 29 g/dL (31-37) L 29 g/dL (31-37) L 32 g/dL (31-37) Red Cell Distribution Width 21.0 % (11.5-14.5) H 21.4 % (11.5-14.5) H 29.4 % (11.5-14.5) H Platelet Count 318 x10^3/uL (140-400) 298 x10^3/uL (140-400) 264 x10^3/uL (140-400) Neutrophils (%) (Auto) 47 % (31-73) Lymphocytes (%) (Auto) 40 % (24-48) Monocytes (%) (Auto) 9 % (0-9) Eosinophils (%) (Auto) 3 % (0-3) Basophils (%) (Auto) 1 % (0-3) Neutrophils # (Auto) 4.6 x10^3/uL (1.8-7.7) Lymphocytes # (Auto) 3.9 x10^3/uL (1.0-4.8) Monocytes # (Auto) 0.9 x10^3/uL (0.0-1.1) Eosinophils # (Auto) 0.3 x10^3/uL (0.0-0.7) Basophils # (Auto) 0.1 x10^3/uL (0.0-0.2) Platelet Estimate Adequate (ADEQUATE) Polychromasia Slight Hypochromasia Mod Anisocytosis Mod Microcytosis Mod Target Cells Few Ovalocytes Few Prothrombin Time 13.0 SEC (11.7-14.0) Prothrombin Time INR 1.0 (0.8-1.1) Sodium Level 142 mmol/L (136-145) Potassium Level 3.5 mmol/L (3.5-5.1) Chloride Level 106 mmol/L (98-107) Carbon Dioxide Level 23 mmol/L (21-32) Anion Gap 13 (6-14) Blood Urea Nitrogen 22 mg/dL (7-20) H Creatinine 1.2 mg/dL (0.6-1.0) H Estimated GFR (Cockcroft-Gault) 54.4 BUN/Creatinine Ratio 18 (6-20) Glucose Level 117 mg/dL (70-99) H Calcium Level 8.7 mg/dL (8.5-10.1) Total Bilirubin 0.2 mg/dL (0.2-1.0) Aspartate Amino Transferase (AST) 18 U/L (15-37) Alanine Aminotransferase (ALT) 21 U/L (14-59) Alkaline Phosphatase 40 U/L (46-116) L Total Protein 6.6 g/dL (6.4-8.2) Albumin 3.1 g/dL (3.4-5.0) L Albumin/Globulin Ratio 0.9 (1.0-1.7) L Absolute Reticulocyte Count 0.062 x10^6/uL (0.020-0.120) Percent Reticulocyte Count 2.5 % (0.5-2.3) H Immature Reticulocyte Fraction 0.56 (0.20-0.60) Iron Level 10 ug/dL (50-170) L Total Iron Binding Capacity 476 ug/dL (250-450) H Iron Saturation 2 % (15-34) L Test 10/04/19 06:15 White Blood Count 9.2 x10^3/uL (4.0-11.0) Red Blood Count 3.54 x10^6/uL (3.50-5.40) Hemoglobin 7.6 g/dL (12.0-15.5) L Hematocrit 24.3 % (36.0-47.0) L Mean Corpuscular Volume 69 fL (79-100) L Mean Corpuscular Hemoglobin 22 pg (25-35) L Mean Corpuscular Hemoglobin Concent 31 g/dL (31-37) Red Cell Distribution Width 29.7 % (11.5-14.5) H Platelet Count 257 x10^3/uL (140-400) Neutrophils (%) (Auto) 51 % (31-73) Lymphocytes (%) (Auto) 34 % (24-48) Monocytes (%) (Auto) 10 % (0-9) H Eosinophils (%) (Auto) 5 % (0-3) H Basophils (%) (Auto) 0 % (0-3) Neutrophils # (Auto) 4.7 x10^3/uL (1.8-7.7) Lymphocytes # (Auto) 3.1 x10^3/uL (1.0-4.8) Monocytes # (Auto) 0.9 x10^3/uL (0.0-1.1) Eosinophils # (Auto) 0.4 x10^3/uL (0.0-0.7) Basophils # (Auto) 0.0 x10^3/uL (0.0-0.2) Sodium Level 141 mmol/L (136-145) Potassium Level 3.8 mmol/L (3.5-5.1) Chloride Level 106 mmol/L (98-107) Carbon Dioxide Level 25 mmol/L (21-32) Anion Gap 10 (6-14) Blood Urea Nitrogen 15 mg/dL (7-20) Creatinine 1.0 mg/dL (0.6-1.0) Estimated GFR (Cockcroft-Gault) 67.1 BUN/Creatinine Ratio 15 (6-20) Glucose Level 121 mg/dL (70-99) H Calcium Level 8.7 mg/dL (8.5-10.1) Total Bilirubin 0.4 mg/dL (0.2-1.0) Aspartate Amino Transferase (AST) 14 U/L (15-37) L Alanine Aminotransferase (ALT) 22 U/L (14-59) Alkaline Phosphatase 35 U/L (46-116) L Total Protein 6.3 g/dL (6.4-8.2) L Albumin 2.9 g/dL (3.4-5.0) L Albumin/Globulin Ratio 0.9 (1.0-1.7) L Laboratory Tests 10/03/19 10:00 10/03/19 11:57 10/04/19 00:10 10/04/19 06:15 Laboratory Tests 10/03/19 10:00 10/04/19 06:15 Meds Current Medications Medications (Trade) Dose Ordered Sig/Juan Route PRN Reason Start Time Stop Time Status Last Admin Dose Admin Acetaminophen/ Hydrocodone Bitart (Lortab 10/325) 1 tab PRN Q6HRS PRN PO MODERATE TO SEVERE PAIN 10/03/19 11:00 10/03/19 20:55 Oxycodone HCl (OxyCONTIN) 15 mg BID PO 10/03/19 21:00 10/03/19 20:48 Senna/Docusate Sodium (Senna Plus) 1 tab BID PO 10/03/19 21:00 10/03/19 20:48 Budesonide (Pulmicort) 0.5 mg RTBID [facility] 10/03/19 20:00 10/04/19 07:49 Pantoprazole Sodium (PROTONIX VIAL for IV PUSH) 40 mg Q12HR IVP 10/03/19 11:00 10/03/19 20:48 Albuterol Sulfate (Ventolin Neb Soln) 2.5 mg RTQID [facility] 10/03/19 12:00 10/04/19 07:49 Assessment Assessment 1. Most likely the patient has acute gastrointestinal bleeding. 2. Acute blood loss anemia. 3. Coronary artery disease with stent in the right coronary artery. 4. Diverticulosis. 5. Hyperlipidemia. 6. Rheumatoid arthritis. 7. Chronic obstructive pulmonary disease. 8. Hepatitis C. 9. Fibromyalgia. 10. Chronic pain syndrome. PLAN: I will admit her to Intensive Care Unit because of her coronary artery disease as well as severe anemia. Type and cross and transfuse. She may need at least 3-[address] Conner for GI evaluation and management. I will hold her blood pressure medications. Keep her n.p.o. for now. We will also hold aspirin. I will start her on IV Protonix. The patient is hemodynamically stable, but at high risk for complications. We will monitor her hemoglobin and hematocrit every 6 hours and advance diet and other medications when she continues to improve. For details, please refer to the orders. Hemoglobin has improved to 7.9. Hypertension-restart metoprolol and hydralazine. Anemia, acute on chronic blood loss anemia-check B12 level and iron studies. Will need GI work-up when stable Plan Plan For more details regarding further plans, please refer to the orders. Justicifation of Admission Dx: Justifications for Admission: Justification of Admission Dx: Yes RITO JOLLY MD Oct 04, 2019 09:45
[2019-10-04 11:00] VITALS: BP 154/50
[2019-10-04] MEDS: predniSONE 5 MG TABLET PO SCH (11:49)
[2019-10-04] MEDS: oxyCODONE ER 15 MG TAB.ER.12H PO SCH ×2 (11:50→20:59)
[2019-10-04] MEDS: PANTOPRAZOLE IV PUSH 40 MG VIAL. IVP SCH ×2 (11:50→20:55)
[2019-10-04] MEDS: SENNOSIDES/DOCUSATE 8.6/50MG TABLET. PO SCH ×2 (11:50→20:55)
[2019-10-04] MEDS: hydrALAZINE 25 MG TABLET PO SCH ×3 (11:54→20:53)
[2019-10-04] MEDS: METOPROLOL TART IMMED RELEASE 25 MG TABLET. PO SCH ×2 (11:54→20:50)
[2019-10-04 15:00] VITALS: BP 160/64
--- NOTE | 2019-10-04 15:21 | PDOC ---
G I PROGRESS NOTE Reason for Follow-up Iron deficiency anemia Subjective Feeling better s/p transfusions Physical Exam Lungs clear CV S1 S2 ABD +BS, soft, nontender Review of Relevant I have reviewed the following items bijal (where applicable) has been applied. Labs Laboratory Tests Test 10/03/19 10:00 10/03/19 11:57 10/03/19 12:00 10/04/19 00:10 White Blood Count 9.7 x10^3/uL (4.0-11.0) 9.7 x10^3/uL (4.0-11.0) 10.9 x10^3/uL (4.0-11.0) Red Blood Count 2.52 x10^6/uL (3.50-5.40) 2.43 x10^6/uL (3.50-5.40) 2.46 x10^6/uL (3.50-5.70) 3.64 x10^6/uL (3.50-5.40) Hemoglobin 4.2 g/dL (12.0-15.5) 4.1 g/dL (12.0-15.5) 7.9 g/dL (12.0-15.5) Hematocrit 14.7 % (36.0-47.0) 14.2 % (36.0-47.0) 25.1 % (36.0-47.0) Mean Corpuscular Volume 59 fL (79-100) 59 fL (79-100) 69 fL (79-100) Mean Corpuscular Hemoglobin 17 pg (25-35) 17 pg (25-35) 22 pg (25-35) Mean Corpuscular Hemoglobin Concent 29 g/dL (31-37) 29 g/dL (31-37) 32 g/dL (31-37) Red Cell Distribution Width 21.0 % (11.5-14.5) 21.4 % (11.5-14.5) 29.4 % (11.5-14.5) Platelet Count 318 x10^3/uL (140-400) 298 x10^3/uL (140-400) 264 x10^3/uL (140-400) Neutrophils (%) (Auto) 47 % (31-73) Lymphocytes (%) (Auto) 40 % (24-48) Monocytes (%) (Auto) 9 % (0-9) Eosinophils (%) (Auto) 3 % (0-3) Basophils (%) (Auto) 1 % (0-3) Neutrophils # (Auto) 4.6 x10^3/uL (1.8-7.7) Lymphocytes # (Auto) 3.9 x10^3/uL (1.0-4.8) Monocytes # (Auto) 0.9 x10^3/uL (0.0-1.1) Eosinophils # (Auto) 0.3 x10^3/uL (0.0-0.7) Basophils # (Auto) 0.1 x10^3/uL (0.0-0.2) Platelet Estimate Adequate (ADEQUATE) Polychromasia Slight Hypochromasia Mod Anisocytosis Mod Microcytosis Mod Target Cells Few Ovalocytes Few Prothrombin Time 13.0 SEC (11.7-14.0) Prothromb Time International Ratio 1.0 (0.8-1.1) Sodium Level 142 mmol/L (136-145) Potassium Level 3.5 mmol/L (3.5-5.1) Chloride Level 106 mmol/L (98-107) Carbon Dioxide Level 23 mmol/L (21-32) Anion Gap 13 (6-14) Blood Urea Nitrogen 22 mg/dL (7-20) Creatinine 1.2 mg/dL (0.6-1.0) Estimated GFR (Cockcroft-Gault) 54.4 BUN/Creatinine Ratio 18 (6-20) Glucose Level 117 mg/dL (70-99) Calcium Level 8.7 mg/dL (8.5-10.1) Total Bilirubin 0.2 mg/dL (0.2-1.0) Aspartate Amino Transf (AST/SGOT) 18 U/L (15-37) Alanine Aminotransferase (ALT/SGPT) 21 U/L (14-59) Alkaline Phosphatase 40 U/L (46-116) Total Protein 6.6 g/dL (6.4-8.2) Albumin 3.1 g/dL (3.4-5.0) Albumin/Globulin Ratio 0.9 (1.0-1.7) Absolute Reticulocyte Count 0.062 x10^6/uL (0.020-0.120) Percent Reticulocyte Count 2.5 % (0.5-2.3) Immature Reticulocyte Fraction 0.56 (0.20-0.60) Iron Level 10 ug/dL (50-170) Total Iron Binding Capacity 476 ug/dL (250-450) Iron Saturation 2 % (15-34) Test 10/04/19 06:15 10/04/19 12:00 White Blood Count 9.2 x10^3/uL (4.0-11.0) 10.4 x10^3/uL (4.0-11.0) Red Blood Count 3.54 x10^6/uL (3.50-5.40) 3.53 x10^6/uL (3.50-5.40) Hemoglobin 7.6 g/dL (12.0-15.5) 7.8 g/dL (12.0-15.5) Hematocrit 24.3 % (36.0-47.0) 24.6 % (36.0-47.0) Mean Corpuscular Volume 69 fL (79-100) 70 fL (79-100) Mean Corpuscular Hemoglobin 22 pg (25-35) 22 pg (25-35) Mean Corpuscular Hemoglobin Concent 31 g/dL (31-37) 32 g/dL (31-37) Red Cell Distribution Width 29.7 % (11.5-14.5) 29.5 % (11.5-14.5) Platelet Count 257 x10^3/uL (140-400) 262 x10^3/uL (140-400) Neutrophils (%) (Auto) 51 % (31-73) Lymphocytes (%) (Auto) 34 % (24-48) Monocytes (%) (Auto) 10 % (0-9) Eosinophils (%) (Auto) 5 % (0-3) Basophils (%) (Auto) 0 % (0-3) Neutrophils # (Auto) 4.7 x10^3/uL (1.8-7.7) Lymphocytes # (Auto) 3.1 x10^3/uL (1.0-4.8) Monocytes # (Auto) 0.9 x10^3/uL (0.0-1.1) Eosinophils # (Auto) 0.4 x10^3/uL (0.0-0.7) Basophils # (Auto) 0.0 x10^3/uL (0.0-0.2) Sodium Level 141 mmol/L (136-145) Potassium Level 3.8 mmol/L (3.5-5.1) Chloride Level 106 mmol/L (98-107) Carbon Dioxide Level 25 mmol/L (21-32) Anion Gap 10 (6-14) Blood Urea Nitrogen 15 mg/dL (7-20) Creatinine 1.0 mg/dL (0.6-1.0) Estimated GFR (Cockcroft-Gault) 67.1 BUN/Creatinine Ratio 15 (6-20) Glucose Level 121 mg/dL (70-99) Calcium Level 8.7 mg/dL (8.5-10.1) Total Bilirubin 0.4 mg/dL (0.2-1.0) Aspartate Amino Transf (AST/SGOT) 14 U/L (15-37) Alanine Aminotransferase (ALT/SGPT) 22 U/L (14-59) Alkaline Phosphatase 35 U/L (46-116) Total Protein 6.3 g/dL (6.4-8.2) Albumin 2.9 g/dL (3.4-5.0) Albumin/Globulin Ratio 0.9 (1.0-1.7) Laboratory Tests Test 10/04/19 00:10 10/04/19 06:15 10/04/19 12:00 White Blood Count 10.9 x10^3/uL (4.0-11.0) 9.2 x10^3/uL (4.0-11.0) 10.4 x10^3/uL (4.0-11.0) Red Blood Count 3.64 x10^6/uL (3.50-5.40) 3.54 x10^6/uL (3.50-5.40) 3.53 x10^6/uL (3.50-5.40) Hemoglobin 7.9 g/dL (12.0-15.5) 7.6 g/dL (12.0-15.5) 7.8 g/dL (12.0-15.5) Hematocrit 25.1 % (36.0-47.0) 24.3 % (36.0-47.0) 24.6 % (36.0-47.0) Mean Corpuscular Volume 69 fL (79-100) 69 fL (79-100) 70 fL (79-100) Mean Corpuscular Hemoglobin 22 pg (25-35) 22 pg (25-35) 22 pg (25-35) Mean Corpuscular Hemoglobin Concent 32 g/dL (31-37) 31 g/dL (31-37) 32 g/dL (31-37) Red Cell Distribution Width 29.4 % (11.5-14.5) 29.7 % (11.5-14.5) 29.5 % (11.5-14.5) Platelet Count 264 x10^3/uL (140-400) 257 x10^3/uL (140-400) 262 x10^3/uL (140-400) Neutrophils (%) (Auto) 51 % (31-73) Lymphocytes (%) (Auto) 34 % (24-48) Monocytes (%) (Auto) 10 % (0-9) Eosinophils (%) (Auto) 5 % (0-3) Basophils (%) (Auto) 0 % (0-3) Neutrophils # (Auto) 4.7 x10^3/uL (1.8-7.7) Lymphocytes # (Auto) 3.1 x10^3/uL (1.0-4.8) Monocytes # (Auto) 0.9 x10^3/uL (0.0-1.1) Eosinophils # (Auto) 0.4 x10^3/uL (0.0-0.7) Basophils # (Auto) 0.0 x10^3/uL (0.0-0.2) Sodium Level 141 mmol/L (136-145) Potassium Level 3.8 mmol/L (3.5-5.1) Chloride Level 106 mmol/L (98-107) Carbon Dioxide Level 25 mmol/L (21-32) Anion Gap 10 (6-14) Blood Urea Nitrogen 15 mg/dL (7-20) Creatinine 1.0 mg/dL (0.6-1.0) Estimated GFR (Cockcroft-Gault) 67.1 BUN/Creatinine Ratio 15 (6-20) Glucose Level 121 mg/dL (70-99) Calcium Level 8.7 mg/dL (8.5-10.1) Total Bilirubin 0.4 mg/dL (0.2-1.0) Aspartate Amino Transf (AST/SGOT) 14 U/L (15-37) Alanine Aminotransferase (ALT/SGPT) 22 U/L (14-59) Alkaline Phosphatase 35 U/L (46-116) Total Protein 6.3 g/dL (6.4-8.2) Albumin 2.9 g/dL (3.4-5.0) Albumin/Globulin Ratio 0.9 (1.0-1.7) Medications Current Medications Ondansetron HCl (Zofran) 4 mg PRN Q8HRS PRN IV NAUSEA/VOMITING; Start 10/03/19 at 10:45; Stop 10/04/19 at 10:44; Status DC Acetaminophen (Tylenol) 650 mg PRN Q4HRS PRN PO FEVER > 100.3'F; Start 10/03/19 at 10:45; Stop 10/03/19 at 11:08; Status DC Acetaminophen (Tylenol) 650 mg PRN Q6HRS PRN PO MILD PAIN / TEMP > 100.3'F; Start 10/03/19 at 11:00 Acetaminophen/ Hydrocodone Bitart (Lortab 10/325) 1 tab PRN Q6HRS PRN PO MODERATE TO SEVERE PAIN Last administered on 10/03/19at 20:55; Start 10/03/19 at 11:00 Nitroglycerin (Nitrostat) 0.4 mg PRN Q5MIN PRN SL CHEST PAIN; Start 10/03/19 at 11:00 Oxycodone HCl (OxyCONTIN) 15 mg BID PO Last administered on 10/04/19at 11:50; Start 10/03/19 at 21:00 Prednisone (Prednisone) 5 mg DAILY PO Last administered on 10/04/19at 11:49; Start 10/03/19 at 13:00 Senna/Docusate Sodium (Senna Plus) 1 tab BID PO Last administered on 10/04/19at 11:50; Start 10/03/19 at 21:00 Albuterol Sulfate (Ventolin Neb Soln) 2.5 mg PRN Q4HRS PRN NEB SHORTNESS OF BREATH; Start 10/03/19 at 11:15 Non-Formulary Medication (Albuterol Sulfate (Ventolin Hfa Inhaler)) 2 puff PRN Q4-6HRS IH ; Start 10/03/19 at 11:00; Status UNV Budesonide (Pulmicort) 0.5 mg RTBID NEB Last administered on 10/04/19at 07:49; Start 10/03/19 at 20:00 Pantoprazole Sodium (PROTONIX VIAL for IV PUSH) 40 mg Q12HR IVP Last administered on 10/04/19at 11:50; Start 10/03/19 at 11:00 Albuterol Sulfate (Ventolin Neb Soln) 2.5 mg RTQID NEB Last administered on 10/04/19at 11:05; Start 10/03/19 at 12:00 Atorvastatin Calcium (Lipitor) 5 mg QHS PO ; Start 10/04/19 at 21:00 Hydralazine HCl (Apresoline) 25 mg TID PO Last administered on 10/04/19at 15:16; Start 10/04/19 at 10:00 Metoprolol Tartrate (Lopressor) 25 mg BID PO Last administered on 10/04/19at 11:54; Start 10/04/19 at 10:00 Active Scripts Active Dexilant (Dexlansoprazole) 60 Mg Cap.mp 1 Cap PO DAILY 30 Days Nitrostat (Nitroglycerin) 0.4 Mg Tab.subl 0.4 Mg SL PRN Q5MIN PRN 30 Days Senna-Time S Tablet (Sennosides/Docusate Sodium) 1 Each Tablet 1 Tab PO BID 30 Days Albuterol Sulfate Neb Soln (Albuterol Sulfate) 0.63 Mg/3 Ml Vial.neb 0.63 Mg NEB PRN Q4HRS PRN Losartan Potassium 50 Mg Tablet 50 Mg PO DAILY Lipitor (Atorvastatin Calcium) 10 Mg Tablet 5 Mg PO QHS Reported Aspirin Ec (Aspirin) 81 Mg Tablet. 81 Mg PO DAILY Hydrochlorothiazide 25 Mg Tablet 25 Mg PO DAILY Metoprolol Tartrate 25 Mg Tablet 1 Tab PO BID Prednisone 1 Mg Tablet 5 Tab PO DAILY Oxycontin (Oxycodone HCl) 15 Mg Tab.er.12h 15 Mg PO BID Ventolin Hfa Inhaler (Albuterol Sulfate) 18 Gm Hfa.aer.ad 2 Puff IH PRN Q4-6HRS Symbicort 160-4.5 Mcg Inhaler (Budesonide/Formoterol Fumarate) 10.2 Gm Hfa.aer.ad 2 Puff IH BID Hydrocodone-Apap 10-325 (Hydrocodone Bit/Acetaminophen) 1 Each Tablet 1 Tab PO PRN Q6HRS PRN Hydralazine Hcl 25 Mg Tablet 1 Tab PO TID Cyclobenzaprine Hcl 5 Mg Tablet 1 Tab PO QHS Vitals/I & O Vital Sign - Last 24 Hours 10/03/19 10/03/19 10/03/19 10/03/19 15:47 15:49 16:10 16:20 Temp 96.6 96.6 96.5 96.6 96.6 96.5 Pulse 85 85 87 Resp 20 20 12 B/P (MAP) 134/62 134/62 108/56 Pulse Ox 98 O2 Delivery Room Air 10/03/19 10/03/19 10/03/19 10/03/19 17:15 18:12 19:21 19:21 Temp 98.0 98.1 98.5 98.5 98.0 98.1 98.5 98.5 Pulse 78 79 83 83 Resp 12 12 18 18 B/P (MAP) 144/59 147/64 139/56 (83) 139/56 Pulse Ox 96 O2 Delivery Room Air 10/03/19 10/03/19 10/03/19 10/03/19 20:00 20:21 20:48 20:55 Temp 98.7 98.7 Pulse 89 Resp 16 16 16 B/P (MAP) 143/64 Pulse Ox 96 O2 Delivery Room Air Room Air Room Air 10/03/19 10/03/19 10/04/19 10/04/19 22:00 23:00 01:00 03:00 Temp 98.6 98.1 98.6 98.1 Pulse 78 71 Resp 16 18 16 18 B/P (MAP) 154/61 (92) 138/49 (78) Pulse Ox 96 96 96 94 O2 Delivery Room Air Room Air Room Air Room Air 10/04/19 10/04/19 10/04/19 10/04/19 07:00 07:50 08:00 11:00 Temp 98.4 98.2 98.4 98.2 Pulse 69 92 Resp 18 20 B/P (MAP) 157/54 (88) 154/50 (84) Pulse Ox 98 97 97 O2 Delivery Room Air Room Air Room Air Room Air 10/04/19 10/04/19 10/04/19 10/04/19 11:05 11:50 11:54 11:54 Pulse 69 69 B/P (MAP) 157/54 157/54 Pulse Ox 98 98 O2 Delivery Room Air Room Air 10/04/19 15:16 Pulse 69 B/P (MAP) 157/54 Intake and Output 10/03/19 10/03/19 10/04/19 14:59 22:59 06:59 Intake Total 320 ml 713 ml 640 ml Balance 320 ml 713 ml 640 ml Problem List Problems Medical Problems: (1) Symptomatic anemia Status: Acute Assessment Iron deficiency anemia- etiology to be determined. PUD, colon/gastric cancer, AVMS, IBD, celiac disease, and/or colon polyps in differential. Plan advance diet covid swab o/p egd/colonoscopy to further assess Justicifation of Admission Dx: Justifications for Admission: Justification of Admission Dx: Yes RIANNA FLORES MD Oct 04, 2019 15:21
[2019-10-04 18:13] LABS: HEMATOCRIT 23.9 % (36.0-47.0); HEMOGLOBIN 7.6 g/dL (12.0-15.5); RED BLOOD COUNT 3.45 x10^6/uL (3.50-5.40); RED CELL DISTRIBUTION WIDTH 29.5 % (11.5-14.5); WHITE BLOOD COUNT 11.2 x10^3/uL (4.0-11.0)
[2019-10-04 19:00] VITALS: BP 150/62
--- NOTE | 2019-10-04 19:34 | NUR ---
Some charting was not completed by day shift RN. This RN completed tasks to get rid of red charting out.
[2019-10-04] MEDS: HYDROcodone/APAP 10/325 1 TAB TABLET PO PRN (20:56)
[2019-10-04] MEDS: ATORVASTATIN CALCIUM 10 MG TABLET. PO SCH (20:59)
--- NOTE | 2019-10-04 21:04 | NUR ---
Pt. refused lipitor and states MD told her they were going to hold that and her steroid.
[2019-10-04 23:00] VITALS: BP 144/53
[2019-10-05 00:15] LABS: HEMATOCRIT 23.5 % (36.0-47.0); HEMOGLOBIN 7.3 g/dL (12.0-15.5); RED BLOOD COUNT 3.44 x10^6/uL (3.50-5.40); RED CELL DISTRIBUTION WIDTH 29.7 % (11.5-14.5); WHITE BLOOD COUNT 11.4 x10^3/uL (4.0-11.0)
[2019-10-05 03:00] VITALS: BP 137/55
[2019-10-05] MEDS: HYDROcodone/APAP 10/325 1 TAB TABLET PO PRN (03:08)
[2019-10-05 05:22] LABS: BASO # 0.1 x10^3/uL (0.0-0.2); BASO % 1 % (0-3); EOS # 0.4 x10^3/uL (0.0-0.7); EOS % 4 % (0-3); HEMATOCRIT 23.9 % (36.0-47.0); HEMOGLOBIN 7.4 g/dL (12.0-15.5); LYMPH # 2.8 x10^3/uL (1.0-4.8); LYMPH % 25 % (24-48); MEAN CORPUSCULAR HEMOGLOBIN 21 pg (25-35); MEAN CORPUSCULAR HGB CONC 31 g/dL (31-37); MEAN CORPUSCULAR VOLUME 69 fL (79-100); MONO # 1.1 x10^3/uL (0.0-1.1); MONO % 10 % (0-9); NEUT # 7.2 x10^3/uL (1.8-7.7); NEUT % 62 % (31-73); PLATELET COUNT 230 x10^3/uL (140-400); RED BLOOD COUNT 3.45 x10^6/uL (3.50-5.40); RED CELL DISTRIBUTION WIDTH 29.7 % (11.5-14.5); WHITE BLOOD COUNT 11.6 x10^3/uL (4.0-11.0)
[2019-10-05 05:43] LABS: ALBUMIN 2.8 g/dL (3.4-5.0); ALBUMIN/GLOBULIN RATIO 0.8 (1.0-1.7); CALCIUM 8.4 mg/dL (8.5-10.1); CREATININE 0.8 mg/dL (0.6-1.0); GFR 86.8; POTASSIUM 3.7 mmol/L (3.5-5.1); TOTAL BILIRUBIN 0.3 mg/dL (0.2-1.0); TOTAL PROTEIN 6.2 g/dL (6.4-8.2)
--- NOTE | 2019-10-05 06:21 | EKG ---
[facility] [address] [place] [address] Test Date: 2019-10-03 Test Time: 11:28:07 Pat Name: LOUIS SALAZAR Department: Room: 444 Gender: F [employer]: : [id number] Requested By: RITO JOLLY Order Number: [id number] Reading MD: Stu Cabral Measurements Intervals [place] Rate: 74 P: 129 [place]: 162 QRS: 181 QRSD: 90 T: 161 QT: 368 QTc: 409 Interpretive Statements SINUS RHYTHM ANTEROSEPTAL INFARCT, OLD Electronically Signed On 10-26-2019 10:13:00 CDT by Stu Cabral
[2019-10-05 07:56] VITALS: BP 150/63
[2019-10-05] MEDS: SENNOSIDES/DOCUSATE 8.6/50MG TABLET. PO SCH ×2 (08:53→21:45)
[2019-10-05] MEDS: predniSONE 5 MG TABLET PO SCH (08:53)
[2019-10-05] MEDS: METOPROLOL TART IMMED RELEASE 25 MG TABLET. PO SCH ×2 (08:53→21:44)
[2019-10-05] MEDS: hydrALAZINE 25 MG TABLET PO SCH ×3 (08:54→21:45)
[2019-10-05] MEDS: oxyCODONE ER 15 MG TAB.ER.12H PO SCH ×2 (08:54→21:44)
[2019-10-05] MEDS: PANTOPRAZOLE IV PUSH 40 MG VIAL. IVP SCH (08:54)
--- NOTE | 2019-10-05 08:54 | NUR ---
SW following. Discussed with RN, pt from home room air, gets around fine. Per RN, pt reported she has a walker, wheelchair and scooter at home. Plan for EGD and colonoscopy outpatient. COVID-19 test pending. SW will continue to follow.
--- NOTE | 2019-10-05 10:11 | PDOC ---
PROGRESS NOTES Subjective Subjective none ,slightly better today Objective Objective Vital Signs Date Time Temp Pulse Resp B/P (MAP) Pulse Ox O2 Delivery O2 Flow Rate FiO2 10/05/19 08:54 73 150/63 10/05/19 08:54 Room Air 10/05/19 07:56 98.6 18 97 98.6 Intake and Output 10/05/19 07:00 Intake Total 360 ml Balance 360 ml Intake Oral 360 ml # Voids 3 # Bowel Movements 1 Physical Exam Abdomen: Normal bowel sounds, Soft Heart: Regular rate, Normal S1 Extremities: No clubbing General: Alert HEENT: Atraumatic, PERRLA Lungs: Clear to auscultation MUSCULOSKELETAL: Osteoarthritic changes both hands Neck: Supple Neuro: Normal speech Psych/Mental Status: Mental status NL Skin: No breakdown Diagnosis Problem List Problems Medical Problems: (1) Symptomatic anemia Status: Acute Assessment Assessment 1. Anemia most likely the patient has acute gastrointestinal bleeding. 2. Acute blood loss anemia. 3. Coronary artery disease with stent in the right coronary artery. 4. Diverticulosis. 5. Hyperlipidemia. 6. Rheumatoid arthritis on prednisone. 7. Chronic obstructive pulmonary disease. 8. Hepatitis C. 9. Fibromyalgia. 10. Chronic pain syndrome. PLAN: Hb 7.4 today after transfusion. iron infusion today 400 m g iv protonix bid pt want EGD done in patient due to transportation problems. covid test pending. sono liver for Hep c liver disease I will admit her to Intensive Care Unit because of her coronary artery disease as well as severe anemia. Type and cross and transfuse. She may need at least 3-[address] Conner for GI evaluation and management. I will hold her blood pressure medications. Keep her n.p.o. for now. We will also hold aspirin. I will start her on IV Protonix. The patient is hemodynamically stable, but at high risk for complications. We will monitor her hemoglobin and hematocrit every 6 hours and advance diet and other medications when she continues to improve. For details, please refer to the orders. Hemoglobin has improved to 7.9. Hypertension-restart metoprolol and hydralazine. Anemia, acute on chronic blood loss anemia-check B12 level and iron studies. Will need GI work-up when stable Plan Plan of Care Problems Medical Problems: (1) Symptomatic anemia Status: Acute Comment Review of Relevant I have reviewed the following items bijal (where applicable) has been applied. Labs Laboratory Tests Test 10/04/19 12:00 10/04/19 17:55 10/05/19 00:10 10/05/19 04:45 White Blood Count 10.4 x10^3/uL (4.0-11.0) 11.2 x10^3/uL (4.0-11.0) 11.4 x10^3/uL (4.0-11.0) 11.6 x10^3/uL (4.0-11.0) Red Blood Count 3.53 x10^6/uL (3.50-5.40) 3.45 x10^6/uL (3.50-5.40) 3.44 x10^6/uL (3.50-5.40) 3.45 x10^6/uL (3.50-5.40) Hemoglobin 7.8 g/dL (12.0-15.5) 7.6 g/dL (12.0-15.5) 7.3 g/dL (12.0-15.5) 7.4 g/dL (12.0-15.5) Hematocrit 24.6 % (36.0-47.0) 23.9 % (36.0-47.0) 23.5 % (36.0-47.0) 23.9 % (36.0-47.0) Mean Corpuscular Volume 70 fL (79-100) 69 fL (79-100) 69 fL (79-100) 69 fL (79-100) Mean Corpuscular Hemoglobin 22 pg (25-35) 22 pg (25-35) 21 pg (25-35) 21 pg (25-35) Mean Corpuscular Hemoglobin Concent 32 g/dL (31-37) 32 g/dL (31-37) 31 g/dL (31-37) 31 g/dL (31-37) Red Cell Distribution Width 29.5 % (11.5-14.5) 29.5 % (11.5-14.5) 29.7 % (11.5-14.5) 29.7 % (11.5-14.5) Platelet Count 262 x10^3/uL (140-400) 244 x10^3/uL (140-400) 230 x10^3/uL (140-400) 230 x10^3/uL (140-400) Neutrophils (%) (Auto) 62 % (31-73) Lymphocytes (%) (Auto) 25 % (24-48) Monocytes (%) (Auto) 10 % (0-9) Eosinophils (%) (Auto) 4 % (0-3) Basophils (%) (Auto) 1 % (0-3) Neutrophils # (Auto) 7.2 x10^3/uL (1.8-7.7) Lymphocytes # (Auto) 2.8 x10^3/uL (1.0-4.8) Monocytes # (Auto) 1.1 x10^3/uL (0.0-1.1) Eosinophils # (Auto) 0.4 x10^3/uL (0.0-0.7) Basophils # (Auto) 0.1 x10^3/uL (0.0-0.2) Sodium Level 142 mmol/L (136-145) Potassium Level 3.7 mmol/L (3.5-5.1) Chloride Level 105 mmol/L (98-107) Carbon Dioxide Level 26 mmol/L (21-32) Anion Gap 11 (6-14) Blood Urea Nitrogen 11 mg/dL (7-20) Creatinine 0.8 mg/dL (0.6-1.0) Estimated GFR (Cockcroft-Gault) 86.8 BUN/Creatinine Ratio 14 (6-20) Glucose Level 122 mg/dL (70-99) Calcium Level 8.4 mg/dL (8.5-10.1) Total Bilirubin 0.3 mg/dL (0.2-1.0) Aspartate Amino Transf (AST/SGOT) 16 U/L (15-37) Alanine Aminotransferase (ALT/SGPT) 20 U/L (14-59) Alkaline Phosphatase 40 U/L (46-116) Total Protein 6.2 g/dL (6.4-8.2) Albumin 2.8 g/dL (3.4-5.0) Albumin/Globulin Ratio 0.8 (1.0-1.7) Medications Current Medications Atorvastatin Calcium (Lipitor) 5 mg QHS PO ; Start 10/04/19 at 21:00 Vitals/I & O Vital Sign - Last 24 Hours 10/04/19 10/04/19 10/04/19 10/04/19 11:00 11:05 11:50 11:54 Temp 98.2 98.2 Pulse 92 69 Resp 20 B/P (MAP) 154/50 (84) 157/54 Pulse Ox 97 98 98 O2 Delivery Room Air Room Air Room Air 10/04/19 10/04/19 10/04/19 10/04/19 11:54 15:00 15:16 15:55 Temp 98.6 98.6 Pulse 69 72 69 Resp 18 B/P (MAP) 157/54 160/64 (96) 157/54 Pulse Ox 93 93 O2 Delivery Room Air 10/04/19 10/04/19 10/04/19 10/04/19 16:20 19:00 20:00 20:50 Temp 99.1 99.1 Pulse 80 69 Resp 18 B/P (MAP) 150/62 (91) 157/54 Pulse Ox 96 O2 Delivery Room Air Room Air Room Air 10/04/19 10/04/19 10/04/19 10/04/19 20:53 20:56 21:08 21:56 Pulse 69 B/P (MAP) 157/54 Pulse Ox 98 O2 Delivery Room Air Room Air Room Air 10/04/19 10/05/19 10/05/19 10/05/19 23:00 03:00 03:08 04:10 Temp 98.4 98.6 98.4 98.6 Pulse 79 69 Resp 18 18 B/P (MAP) 144/53 (83) 137/55 (82) Pulse Ox 94 95 O2 Delivery Room Air Room Air Room Air Room Air 10/05/19 10/05/19 10/05/19 10/05/19 07:56 08:53 08:54 08:54 Temp 98.6 98.6 Pulse 73 73 73 Resp 18 B/P (MAP) 150/63 (92) 150/63 150/63 Pulse Ox 97 O2 Delivery Room Air Room Air Intake and Output 10/04/19 10/04/19 10/05/19 15:00 23:00 07:00 Intake Total 360 ml Balance 360 ml Justicifation of Admission Dx: Justifications for Admission: Justification of Admission Dx: Yes ANIVAL DESAI MD Oct 05, 2019 10:11
[2019-10-05] MEDS ORDERED: CYANOCOBALAMIN (VITAMIN B-12) 1,000 MCG/ML VIAL IM ONE (10:15)
--- NOTE | 2019-10-05 10:20 | NUR ---
Informed of NPO status for impending stomach test
[2019-10-05] MEDS ORDERED: IRON SUCROSE COMPLEX 400 MG in IV NORMAL SALINE 250ML 250 ML IV ONE (11:00)
[2019-10-05 11:12] VITALS: BP 129/51
--- NOTE | 2019-10-05 12:30 | PDOC ---
Subjective: Subjective: Feeling better. Had a hard stool at home and maybe saw a black spot in it. Maybe recurred here. Doesn't take iron at home, doesn't know why. Says she's having a scope today and her food was taken away. Takes Dexilant and ASA at home. Objective: Objective: EGD 04/2018: E--Irregular z-line at 39cm c/w ~grade A esophagitis. G--Normal D--3, 1mm angiodysplasiae in distal bulb. Not treated as not acutely bleeding and presence of these reliably predicts more lesions distally beyond reach of scope and treatment not likely to have meaningful effect on the anemia. IMP: Mild reflux esophagitis. Duodenal angiodysplasiae. REC: Likely will need chronic po or IV iron supplementation. Colonoscopy 01/2019: ABILIO--normal --scoped advanced with difficulty due to tortuosity to cecum. Mucosa normal. No polyps, tics, etc. Retroflex normal. IMP: Negative surveillance for h/o polyps. REC: Repeat in 5 years. F/u in office in 2 weeks re; HCV treatment status. D/w nurse - to have US today - primary asked about EGD as inpt vs outpt. Vital Signs: Vital Signs Date Time Temp Pulse Resp B/P (MAP) Pulse Ox O2 Delivery O2 Flow Rate FiO2 10/05/19 11:12 97.3 73 18 129/51 (77) 98 Room Air 97.3 Labs: Laboratory Tests Test 10/04/19 16:25 10/04/19 17:55 10/05/19 00:10 10/05/19 04:45 Coronavirus (COVID-19)(PCR) Negative White Blood Count 11.2 x10^3/uL 11.4 x10^3/uL 11.6 x10^3/uL Red Blood Count 3.45 x10^6/uL 3.44 x10^6/uL 3.45 x10^6/uL Hemoglobin 7.6 g/dL 7.3 g/dL 7.4 g/dL Hematocrit 23.9 % 23.5 % 23.9 % Mean Corpuscular Volume 69 fL 69 fL 69 fL Mean Corpuscular Hemoglobin 22 pg 21 pg 21 pg Mean Corpuscular Hemoglobin Concent 32 g/dL 31 g/dL 31 g/dL Red Cell Distribution Width 29.5 % 29.7 % 29.7 % Platelet Count 244 x10^3/uL 230 x10^3/uL 230 x10^3/uL Neutrophils (%) (Auto) 62 % Lymphocytes (%) (Auto) 25 % Monocytes (%) (Auto) 10 % Eosinophils (%) (Auto) 4 % Basophils (%) (Auto) 1 % Neutrophils # (Auto) 7.2 x10^3/uL Lymphocytes # (Auto) 2.8 x10^3/uL Monocytes # (Auto) 1.1 x10^3/uL Eosinophils # (Auto) 0.4 x10^3/uL Basophils # (Auto) 0.1 x10^3/uL Sodium Level 142 mmol/L Potassium Level 3.7 mmol/L Chloride Level 105 mmol/L Carbon Dioxide Level 26 mmol/L Anion Gap 11 Blood Urea Nitrogen 11 mg/dL Creatinine 0.8 mg/dL Estimated GFR (Cockcroft-Gault) 86.8 BUN/Creatinine Ratio 14 Glucose Level 122 mg/dL Calcium Level 8.4 mg/dL Total Bilirubin 0.3 mg/dL Aspartate Amino Transf (AST/SGOT) 16 U/L Alanine Aminotransferase (ALT/SGPT) 20 U/L Alkaline Phosphatase 40 U/L Total Protein 6.2 g/dL Albumin 2.8 g/dL Albumin/Globulin Ratio 0.8 PE: GEN: NAD - sitting on edge of bed, iron infusing LUNGS: CTAB HEART: RRR ABD: NABS, S/ND/NT NEURO/PSYCH: A & O 3 A/P: DEJAH, non-compliance w/ iron - recent 'scopes as above - h/o duodenal angiodysplasiae, GERD on PPI Hep C CAD -- Plans for US. Will review questions about EGD w/ Dr. Conner. Can change to PO PPI. Justicifation of Admission Dx: Justifications for Admission: Justification of Admission Dx: Yes MARCK HORTA Oct 05, 2019 12:30
[2019-10-05 12:59] LABS: HEMATOCRIT 25.2 % (36.0-47.0); HEMOGLOBIN 7.7 g/dL (12.0-15.5); RED BLOOD COUNT 3.65 x10^6/uL (3.50-5.40); RED CELL DISTRIBUTION WIDTH 29.9 % (11.5-14.5)
[2019-10-05] MEDS: ALBUTEROL SULFATE 2.5 MG/3 ML NEBU. NEB SCH ×3 (13:14→19:34)
[2019-10-05 15:10] VITALS: BP 166/60
[2019-10-05 19:00] VITALS: BP 161/62
[2019-10-05 19:27] LABS: HEMOGLOBIN 7.9 g/dL (12.0-15.5); RED BLOOD COUNT 3.6 x10^6/uL (3.50-5.40); RED CELL DISTRIBUTION WIDTH 30.5 % (11.5-14.5); WHITE BLOOD COUNT 12.9 x10^3/uL (4.0-11.0)
[2019-10-05] MEDS: BUDESONIDE 0.5 MG/2 ML NEBU. NEB SCH (19:34)
--- NOTE | 2019-10-05 20:15 | RAD ---
ABDOMEN LTD: 10/05/2019 10:05 AM Indication: 64 years old Female. Hepatitis C Comparison: None. TECHNIQUE: Sonographic evaluation of the right upper quadrant was performed utilizing grayscale and color Doppler imaging. FINDINGS: Liver: There is diffuse increased echogenicity of the hepatic parenchyma compatible with diffuse hepatocellular disease, most commonly due to steatosis. This decreases the sensitivity of ultrasound for the detection of focal hepatic lesions. There is hepatopedal flow within the portal venous system. Right hepatic lobe measures 18.1 cm. Biliary system: CBD measures 7 mm. There is no intrahepatic or extrahepatic biliary dilatation. Gallbladder: No gallstones, wall thickening or pericholecystic fluid. . Sonographic Nash sign: Negative Pancreas: Visualized head and uncinate process are unremarkable. Body and tail are not visualized. Right kidney: 11.5 x 4.5 x 4.2 cm No hydronephrosis. Normal echotexture without focal mass or renal calculus. Free fluid:None. IMPRESSION: Increased echogenicity of the hepatic parenchyma suggestive of hepatocellular disease, most, hepatic steatosis. This limits evaluation for underlying hepatic masses. Electronically signed by: Scarlett Toth MD (10/05/2019 8:12 PM) KENY
[2019-10-05] MEDS: ATORVASTATIN CALCIUM 10 MG TABLET. PO SCH (21:00)
[2019-10-05 23:00] VITALS: BP 157/72
[2019-10-06 00:30] LABS: HEMATOCRIT 25.7 % (36.0-47.0); HEMOGLOBIN 8.1 g/dL (12.0-15.5); RED BLOOD COUNT 3.69 x10^6/uL (3.50-5.40); RED CELL DISTRIBUTION WIDTH 29.7 % (11.5-14.5); WHITE BLOOD COUNT 13.9 x10^3/uL (4.0-11.0)
[2019-10-06 03:00] VITALS: BP 149/61
[2019-10-06] MEDS: HYDROcodone/APAP 10/325 1 TAB TABLET PO PRN (04:18)
[2019-10-06 06:33] LABS: HEMATOCRIT 23.8 % (36.0-47.0); HEMOGLOBIN 7.2 g/dL (12.0-15.5); RED BLOOD COUNT 3.37 x10^6/uL (3.50-5.40); WHITE BLOOD COUNT 13.5 x10^3/uL (4.0-11.0)
[2019-10-06 07:00] VITALS: BP 149/54
[2019-10-06] MEDS: ALBUTEROL SULFATE 2.5 MG/3 ML NEBU. NEB SCH ×2 (07:29→11:43)
[2019-10-06] MEDS: BUDESONIDE 0.5 MG/2 ML NEBU. NEB SCH (07:29)
[2019-10-06] MEDS ORDERED: PANTOPRAZOLE 40 MG TABLET.DR. PO SCH (07:30)
--- NOTE | 2019-10-06 07:54 | PDOC ---
PROGRESS NOTES Subjective Subjective READY TO GO HOME Objective Objective Vital Signs Date Time Temp Pulse Resp B/P (MAP) Pulse Ox O2 Delivery O2 Flow Rate FiO2 10/06/19 07:31 98 Room Air 10/06/19 03:00 98.6 72 18 149/61 (90) 98.6 Intake and Output 10/06/19 07:00 Intake Total 720 ml Balance 720 ml Intake Oral 720 ml # Voids 2 Physical Exam Abdomen: Normal bowel sounds, Soft Heart: Regular rate, Normal S1 Extremities: No clubbing General: Alert HEENT: Atraumatic, PERRLA Lungs: Clear to auscultation MUSCULOSKELETAL: Osteoarthritic changes both hands Neck: Supple Neuro: Normal speech Psych/Mental Status: Mental status NL Skin: No breakdown Diagnosis Problem List Problems Medical Problems: (1) Symptomatic anemia Status: Acute Assessment Assessment 1. Anemia most likely the patient has acute gastrointestinal bleeding. 2. Acute blood loss anemia. 3. Coronary artery disease with stent in the right coronary artery. 4. Diverticulosis. 5. Hyperlipidemia. 6. Rheumatoid arthritis on prednisone. 7. Chronic obstructive pulmonary disease. 8. Hepatitis C. 9. Fibromyalgia. 10. Chronic pain syndrome. PLAN:d/c home today Hb 7.1 today after transfusion. iron infusion today 400 m g po protonix bid out pt testing covid test p-neg. sono liver for Hep c liver disease, no masses I will admit her to Intensive Care Unit because of her coronary artery disease as well as severe anemia. Type and cross and transfuse. She may need at least 3-[address] Conner for GI evaluation and management. I will hold her blood pressure medications. Keep her n.p.o. for now. We will also hold aspirin. I will start her on IV Protonix. The patient is hemodynamically stable, but at high risk for complications. We will monitor her hemoglobin and hematocrit every 6 hours and advance diet and other medications when she continues to improve. For details, please refer to the orders. Hemoglobin has improved to 7.9. Hypertension-restart metoprolol and hydralazine. Anemia, acute on chronic blood loss anemia-check B12 level and iron studies. Will need GI work-up when stable Plan Plan of Care Problems Medical Problems: (1) Symptomatic anemia Status: Acute Comment Review of Relevant I have reviewed the following items bijal (where applicable) has been applied. Labs Laboratory Tests Test 10/05/19 12:25 10/05/19 19:20 10/06/19 00:11 10/06/19 06:00 White Blood Count 13.0 x10^3/uL (4.0-11.0) 12.9 x10^3/uL (4.0-11.0) 13.9 x10^3/uL (4.0-11.0) 13.5 x10^3/uL (4.0-11.0) Red Blood Count 3.65 x10^6/uL (3.50-5.40) 3.60 x10^6/uL (3.50-5.40) 3.69 x10^6/uL (3.50-5.40) 3.37 x10^6/uL (3.50-5.40) Hemoglobin 7.7 g/dL (12.0-15.5) 7.9 g/dL (12.0-15.5) 8.1 g/dL (12.0-15.5) 7.2 g/dL (12.0-15.5) Hematocrit 25.2 % (36.0-47.0) 25.0 % (36.0-47.0) 25.7 % (36.0-47.0) 23.8 % (36.0-47.0) Mean Corpuscular Volume 69 fL (79-100) 70 fL (79-100) 70 fL (79-100) 71 fL (79-100) Mean Corpuscular Hemoglobin 21 pg (25-35) 22 pg (25-35) 22 pg (25-35) 21 pg (25-35) Mean Corpuscular Hemoglobin Concent 31 g/dL (31-37) 32 g/dL (31-37) 31 g/dL (31-37) 30 g/dL (31-37) Red Cell Distribution Width 29.9 % (11.5-14.5) 30.5 % (11.5-14.5) 29.7 % (11.5-14.5) 30.0 % (11.5-14.5) Platelet Count 240 x10^3/uL (140-400) 245 x10^3/uL (140-400) 253 x10^3/uL (140-400) 204 x10^3/uL (140-400) Medications Current Medications Cyanocobalamin (Vitamin B-12) 1,000 mcg 1X ONCE IM Last administered on 10/05/19at 12:42; Start 10/05/19 at 10:15; Stop 10/05/19 at 10:19; Status DC Iron Sucrose 400 mg/Sodium Chloride 270 ml @ 90 mls/hr 1X ONCE IV Last administered on 10/05/19at 10:51; Start 10/05/19 at 11:00; Stop 10/05/19 at 13:59; Status DC Pantoprazole Sodium (Protonix) 40 mg DAILYAC PO ; Start 10/06/19 at 07:30 Vitals/I & O Vital Sign - Last 24 Hours 10/05/19 10/05/19 10/05/19 10/05/19 07:56 08:53 08:54 08:54 Temp 98.6 98.6 Pulse 73 73 73 Resp 18 B/P (MAP) 150/63 (92) 150/63 150/63 Pulse Ox 97 O2 Delivery Room Air Room Air 10/05/19 10/05/19 10/05/19 10/05/19 11:12 12:42 13:14 15:10 Temp 97.3 97.6 97.3 97.6 Pulse 73 76 Resp 18 18 B/P (MAP) 129/51 (77) 166/60 (95) Pulse Ox 98 97 97 O2 Delivery Room Air Room Air Room Air Room Air 10/05/19 10/05/19 10/05/19 10/05/19 16:27 19:00 19:35 20:00 Temp 98.5 98.5 Pulse 83 Resp 18 B/P (MAP) 161/62 (95) Pulse Ox 99 95 98 O2 Delivery Room Air Room Air Room Air Room Air 10/05/19 10/05/19 10/05/19 10/05/19 21:44 21:44 21:45 23:00 Temp 98.7 98.7 Pulse 83 83 83 Resp 18 B/P (MAP) 161/62 161/62 157/72 (100) Pulse Ox 98 O2 Delivery Room Air Room Air 10/06/19 10/06/19 10/06/19 10/06/19 01:44 03:00 04:18 05:20 Temp 98.6 98.6 Pulse 72 Resp 18 B/P (MAP) 149/61 (90) Pulse Ox 98 O2 Delivery Room Air Room Air Room Air Room Air 10/06/19 07:31 Pulse Ox 98 O2 Delivery Room Air Intake and Output 10/05/19 10/05/19 10/06/19 15:00 23:00 07:00 Intake Total 300 ml 100 ml 320 ml Balance 300 ml 100 ml 320 ml Justicifation of Admission Dx: Justifications for Admission: Justification of Admission Dx: Yes ANIVAL DESAI MD Oct 06, 2019 07:54
[2019-10-06 08:37] VITALS: BP 149/54
[2019-10-06] MEDS: hydrALAZINE 25 MG TABLET PO SCH (08:37)
[2019-10-06] MEDS: SENNOSIDES/DOCUSATE 8.6/50MG TABLET. PO SCH (08:37)
[2019-10-06] MEDS: oxyCODONE ER 15 MG TAB.ER.12H PO SCH (08:37)
[2019-10-06] MEDS: predniSONE 5 MG TABLET PO SCH (08:37)
[2019-10-06] MEDS: METOPROLOL TART IMMED RELEASE 25 MG TABLET. PO SCH (08:37)
--- NOTE | 2019-10-06 09:02 | NUR ---
SW following. Discussed with RN, pt from home, room air, COVID-19 negative. Discharge order for home with self care. No further SW needs.
--- NOTE | 2019-10-06 11:11 | PDOC ---
Subjective: Subjective: Wants to know what she's supposed to do about her anemia. "I don't want the inexpensive option and I don't want the expensive option." Objective: Objective: Has DC orders. Vital Signs: Vital Signs Date Time Temp Pulse Resp B/P (MAP) Pulse Ox O2 Delivery O2 Flow Rate FiO2 10/06/19 08:37 84 149/54 10/06/19 08:37 16 Room Air 10/06/19 07:31 98 10/06/19 07:00 98.2 98.2 Labs: Laboratory Tests Test 10/05/19 12:25 10/05/19 19:20 10/06/19 00:11 10/06/19 06:00 White Blood Count 13.0 x10^3/uL 12.9 x10^3/uL 13.9 x10^3/uL 13.5 x10^3/uL Red Blood Count 3.65 x10^6/uL 3.60 x10^6/uL 3.69 x10^6/uL 3.37 x10^6/uL Hemoglobin 7.7 g/dL 7.9 g/dL 8.1 g/dL 7.2 g/dL Hematocrit 25.2 % 25.0 % 25.7 % 23.8 % Mean Corpuscular Volume 69 fL 70 fL 70 fL 71 fL Mean Corpuscular Hemoglobin 21 pg 22 pg 22 pg 21 pg Mean Corpuscular Hemoglobin Concent 31 g/dL 32 g/dL 31 g/dL 30 g/dL Red Cell Distribution Width 29.9 % 30.5 % 29.7 % 30.0 % Platelet Count 240 x10^3/uL 245 x10^3/uL 253 x10^3/uL 204 x10^3/uL Imaging: Abd US 10/04 IMPRESSION: Increased echogenicity of the hepatic parenchyma suggestive of hepatocellular disease, most, hepatic steatosis. This limits evaluation for underlying hepatic masses. PE: GEN: NAD - two breakfast trays LUNGS: CTAB HEART: RRR ABD: S/ND/NT NEURO/PSYCH: A & O 3 A/P: DEJAH H/o duodenal angiodysplasiae and GERD - on PPI, non-compliant w/ iron Hep C -- DC per primary. Again explained need for chronic iron supplementation - discussed could take PO iron BID-TID or continue with infusions as outpt. Follow-up w/ Dr. Conner in the office re: Hep C treatment as previously discussed. Justicifation of Admission Dx: Justifications for Admission: Justification of Admission Dx: Yes MARCK HORTA Oct 06, 2019 11:10
--- NOTE | 2019-10-06 11:50 | NUR ---
Discharge instructions and belongings reviewed with patient, verbalized understanding. Patient was escorted out via wheelchair by Calos HUNTER
--- NOTE | 2019-10-07 14:55 | PDOC ---
Provider Note Provider Note Discharge summary dictated,#[id number]. Justicifation of Admission Dx: Justifications for Admission: Justification of Admission Dx: Yes ANIVAL DESAI MD Oct 07, 2019 14:55
--- NOTE | 2019-10-07 15:38 | DS ---
DATE OF DISCHARGE: 10/06/2019 REASON FOR ADMISSION TO THE HOSPITAL: Severe anemia, hemoglobin around 4. CONSULTATIONS: GI, Dr. Conner. PROCEDURES DONE: Ultrasound of the abdomen and other procedure is blood transfusion of 2 units. HOSPITAL COURSE: The patient is a 64-year-old female with history of coronary artery disease, rheumatoid arthritis, on prednisone and hepatitis C. She was feeling weak and tired. Routine labs in the office shows hemoglobin 4. The patient was referred to the hospital. In the Emergency Room, hemoglobin was 4 and was seen by GI. It was thought chronic anemia, was given 2 units of packed RBC, hemoglobin went up to 8. Her iron studies was low, was given 500 mg IV iron. The patient had ultrasound of the liver for hepatitis C, which shows no cirrhosis. No nodules. The patient was recommended outpatient EGD, colonoscopy and she had a colonoscopy in 2019. EGD in 2018 shows angiodysplasia in the duodenum. FINAL DIAGNOSES: 1. Chronic anemia secondary to possible bleeding from duodenal angiodysplasia. 2. History of hepatitis C. 3. Rheumatoid arthritis. 4. Hypertension. 5. Coronary artery disease, history of previous cardiac intervention. PLAN: At this time, the patient was recommended to follow outpatient for EGD and also for hepatitis C treatment. Monitor hemoglobin. The patient was given IV iron infusion and 2 units of packed RBC. ANIVAL DESAI MD DR: NIMESH/[place] JOB#: [id number] / [id number]
== END 2019-10-06 11:40 | disposition home or self-care (01) | DRG 378 ==
LOC: ER 09:31 → 4 NORTH 10:37
PROVIDERS: ADMIT Internal Medicine; ATTEND Internal Medicine
PROC: 30233N1 Transfusion of Nonautologous Red Blood Cells into Peripheral Vein, Percutaneous Approach (ICD-10-PCS; principal; 2019-10-03)
DX: K31.811 Angiodysplasia of stomach and duodenum with bleeding (principal); D62 Acute posthemorrhagic anemia; B19.20 Unspecified viral hepatitis C without hepatic coma; E11.9 Type 2 diabetes mellitus without complications; E78.5 Hyperlipidemia, unspecified; G89.4 Chronic pain syndrome; I10 Essential (primary) hypertension; I25.10 Atherosclerotic heart disease of native coronary artery without angina pectoris; I25.2 Old myocardial infarction; J44.9 Chronic obstructive pulmonary disease, unspecified; K57.90 Diverticulosis of intestine, part unspecified, without perforation or abscess without bleeding; M06.9 Rheumatoid arthritis, unspecified; M79.7 Fibromyalgia; Z79.891 Long term (current) use of opiate analgesic; Z83.3 Family history of diabetes mellitus; Z87.891 Personal history of nicotine dependence; Z91.14 Patient's other noncompliance with medication regimen; Z95.5 Presence of coronary angioplasty implant and graft; F41.9 Anxiety disorder, unspecified; K21.9 Gastro-esophageal reflux disease without esophagitis; Z20.828 Contact with and (suspected) exposure to other viral communicable diseases; Z88.8 Allergy status to other drugs, medicaments and biological substances
CPT/HCPCS: 36415; 76705; 80053; 82607; 83540; 83550; 85025; 85027; 85045; 85610; 86850; 86900; 86901; 86920; 93005; 94640; 94760; 99285; C9113; J1756; J3420; J7050; J7512; P9016; G0378; J7030; J7613; J7626; U0003-CS

== ENCOUNTER → 2020-05-16 | Outpatient (CLI) | payer OTHER, MEDICAID ==
[~2020-05-16] MED LIST changes: +AMLO-186 PO; -AMLO5TAB10 PO; -ASPI-612 PO; +ASPI-886 PO
--- NOTE | 2020-05-16 22:17 | CARD ---
MR#: [id number] Date of Study: 05/16/2020 Ordering Physician: DEIDRA BURRELL, Referring Physician: DEIDRA BURRELL, Tech: Karen Almonte [facility] APPROVED REPORT EXAM: Two-dimensional and M-mode echocardiogram with Doppler and color Doppler. Other Information Quality : AverageHR: 79bpm INDICATION Aortic Valve Disease RISK FACTORS Hypertension Diabetes Previous smoker 2D DIMENSIONS RVDd2.4 (2.9-3.5cm)Left Atrium(2D)2.7 (1.6-4.0cm) IVSd1.1 (0.7-1.1cm)Aortic Root(2D)2.8 (2.0-3.7cm) LVDd4.8 (3.9-5.9cm)LVOT Diameter2.0 (1.8-2.4cm) PWd1.1 (0.7-1.1cm)LVDs3.1 (2.5-4.0cm) FS (%) 34.7 %SV68.8 ml LVEF(%)63.7 (>50%) Aortic Valve AoV Peak Alfa.308.9cm/sAoV VTI66.1cm AO Peak GR.38.2mmHgLVOT Peak Alfa.168.2cm/s LVOT VTI 38.77cmAO Mean GR.21mmHg KULDIP (VMAX)1.55dr1RJY (VTI)1.93cm2 Mitral Valve MV E Gqqzxtxu524.0cm/sMV DECEL [id number] MV A Pzmpvawb261.9cm/sMV E Mean Gr.6mmHg MV [id number]/A Ratio0.8 MVA (PHT)2.13cm2 TDI E/Lateral E'17.4E/Medial E'12.8 Pulmonary Valve PV Peak Xzqgsfcw538.4cm/sPV Peak Grad.4mmHg Tricuspid Valve TR P. Gdejkawy374ls/sRAP [id number] TR Peak Gr.33ohXqJRAD69xtMb Pulmonary Vein S1 Ueuitjax56.0cm/sD2 Yposlxxp25.9cm/s PVa [id number] LEFT VENTRICLE The left ventricle is normal size. There is mild concentric left ventricular hypertrophy. The left ve ntricular systolic function is normal and the ejection fraction is within normal range. The Ejection Fraction is 60-65%. There is normal LV segmental wall motion. Transmitral Doppler flow pattern is Gra de I-abnormal relaxation pattern. RIGHT VENTRICLE The right ventricle is normal size. There is normal right ventricular wall thickness. The right ventr icular systolic function is normal. ATRIA The left atrium size is normal. The right atrium size is normal. The interatrial septum is intact wit h no evidence for an atrial septal defect or patent foramen ovale as noted on 2-D or Doppler imaging. AORTIC VALVE The aortic valve is severely calcified. Doppler and Color Flow revealed trace aortic regurgitation. T here is moderate aortic stenosis with a maximum pressure gradient of 42 mmHg and mean pressure gradie nt of 28 mmHg. MITRAL VALVE The mitral valve is mildly thickened. There is the appearance of LVOT obstruction present. There is n o evidence of mitral valve prolapse. There is no mitral valve stenosis. Doppler and Color-flow reveal ed trace to mild mitral regurgitation. TRICUSPID VALVE The tricuspid valve is normal in structure and function. Doppler and Color Flow revealed trace tricus pid regurgitation with an estimated PAP of 31 mmHg. There is no tricuspid valve stenosis. PULMONIC VALVE The pulmonic valve is not well visualized. Doppler and Color Flow revealed trace pulmonic valvular re gurgitation. There is no pulmonic valvular stenosis. GREAT VESSELS The aortic root is normal in size. The IVC is normal in size and collapses >50% with inspiration. PERICARDIAL EFFUSION There is no evidence of significant pericardial effusion. Critical Notification Critical Value: No <Conclusion> The left ventricular systolic function is normal and the ejection fraction is within normal range. Th e Ejection Fraction is 60-65%. There is normal LV segmental wall motion. There is moderate aortic stenosis with a maximum pressure gradient of 42 mmHg and mean pressure gradi ent of 28 mmHg. Signed by : Ward Abbott, Electronically Approved : 05/16/2020 22:16:53
== END ==
LOC: ECHO 15:07
PROVIDERS: ATTEND Internal Medicine Cardiovascular Disease
DX: I08.0 Rheumatic disorders of both mitral and aortic valves (principal); Q25.3 Supravalvular aortic stenosis; I11.9 Hypertensive heart disease without heart failure; Z87.891 Personal history of nicotine dependence
CPT/HCPCS: 93306

== ENCOUNTER → 2020-10-19 | Outpatient (CLI) | payer OTHER, MEDICAID ==
[2020-10-04 14:23] VITALS: BP 127/65
[~2020-10-19] MED LIST changes: +INSU100V35 SQ; +REGADENOSON 0.4 MG/5 ML DISP.SYRIN. IV ONE
--- NOTE | 2020-10-20 11:13 | RAD ---
MR#: [id number] Date of Study: 10/19/2020 Ordering Physician: DEIDRA BURRELL, Referring Physician: AURORA CARMONA Tech: RT Ama (R) (N) APPROVED REPORT Test Type: Pharmacological Stress Nurse/Tech: Yusuf Osborne RN Test Indications: CAD Cardiac History: Cardiac Stent in 2014, HTN, See EMR. Medications: See EMR. Medical History: COPD, X-Smoker=quit 3yrs ago after 53 years of smoking, DM, See EMR. Resting ECG: SR Resting Heart Rate: 74 bpm Resting Blood Pressure: 150/70mmHg Pretest Chest Pain: No chest pain Nurse/Tech Notes Lungs diminished throughout, Heart tones regular. Consent: The procedure was explained to the patient in lay terms. Informed consent was witnessed. Efrain eout was entered into [employer]. History and Stress Test performed by ROSRAIO Hernandez Pharm. Details Pharmacologic stress testing was performed using 0.4mg per 5ml of regadenoson given intravenously ove r 7-10 seconds. Stress Symptoms No chest pain or symptoms. POST EXERCISE Reason for Termination: Infusion complete Max HR: 97 bpm Max Blood Pressure: 146/65mmHg Blood Pressure response to exercise: Normal blood pressure response during stress. Heart Rate response to exercise: WNL Chest Pain: No. Arrhythmia: No. ST Change: No. INTERPRETATION Stress EKG Conclusion: No evidence of stress induced EKG changes. Baseline septal infarct pattern. Imaging Protocol IMAGE PROTOCOL: Rest Tc-99m/stress Tc-99m 1 day Rest: Stress: Viability: Radiopharm.Tc99m [id number] Sestamibi Dose10.4mCi 31mCi Duration 15min. 15min. Img Date 10/19/2020 10/19/2020 Inj-Img [id number]. 60min. Rest Admin Site:IV - Right AntecubitalAdministrator:RT Coleman (R)(N) Stress Admin Site: IV - Right AntecubitalAdministrator: ROSARIO Hernandez STRESS DATA End Diast. Vol.86.0mlAv. Heart Rate85.0bpm End Syst. Vol.20.0mlCO Index BSA0.0L/min Myocardial Bwih290.0gEject. Nexwxzuo02.0% Stress Rates Pk. Fill Rate3.95EDV/secLVtime Pk. Fill 177.98msec Pk. Empty Rate4.77ESV/secLVtime Pk. Vdxyg271.00msec 1/3 Pk. Fill1.29EDV/sec Stress Scores Regional WT2.00Summed WT8.00 Regional WM0.00Summed WM2.00 The rest and stress images show normal perfusion, normal contraction and thickening. LV Perf. Quant 17 Seg. SSS0.00 17 Seg. SRS0.00 17 Seg. SDS0.00 Stress Defect Extent (% LAD)0.00Rest Defect Extent (% LAD)0.00Rev. Defect Extent (% LAD)0.00 Stress Defect Extent (% LCX) 7.50Rest Defect Extent (% LCX)0.00Rev. Defect Extent (% LCX)7.50 Stress Defect Extent (% RCA)0.00Rest Defect Extent (% RCA)0.00Rev. Defect Extent (% RCA)0.00 Stress Defect Extent (% NORM)1.30Rest Defect Extent (% NORM)0.00Rev. Defect Extent (% NORM)1.30 Other Information Quality:Average Risk Assessment: Low Risk Conclusion 1. No evidence of EKG changes with stress testing. Baseline septal infarct pattern. 2. Normal perfusion at stress/rest. 3. Low risk study. 4. EF > 60%. Signed by : Ward Abbott, Electronically Approved : 10/20/2020 11:13:21
== END ==
LOC: NM 09:29
PROVIDERS: ATTEND Internal Medicine Cardiovascular Disease
DX: C20 Malignant neoplasm of rectum (principal); I21.9 Acute myocardial infarction, unspecified; I25.119 Atherosclerotic heart disease of native coronary artery with unspecified angina pectoris
CPT/HCPCS: 78452; 93017; A9500; J2785

== ENCOUNTER 2020-10-26 09:10 | Inpatient (IN) | payer OTHER, MEDICAID ==
[2020-10-26] VITALS (22 sets, daily range): BP systolic 104–179; BP diastolic 55–99
[~2020-10-26] VITALS: Ht 162.6 cm; Wt 87.3 kg
[~2020-10-26 09:10] MED LIST changes: -REGADENOSON 0.4 MG/5 ML DISP.SYRIN. IV ONE
[2020-10-26] MEDS ORDERED: LIDOCAINE WITH 8.4% SOD BICARB 3 ML DISP.SYRIN. ONE ×2 (10:04→11:31)
[2020-10-26] MEDS ORDERED: fentaNYL PF VIAL 100 MCG/2 ML VIAL ONE (10:09)
[2020-10-26] MEDS ORDERED: MIDAZOLAM HCL/PF 2 MG/2 ML VIAL. ONE (10:09)
[2020-10-26] MEDS ORDERED: LOSARTAN POTASSIUM 50 MG TABLET. PO STA (10:20)
[2020-10-26] MEDS ORDERED: hydrALAZINE 20 MG/ML VIAL. IVP ONE (10:30)
[2020-10-26] MEDS ORDERED: METOPROLOL TART IMMED RELEASE 25 MG TABLET. PO ONE (10:30)
[2020-10-26] MEDS ORDERED: LIDOCAINE WITH 8.4% SOD BICARB 3 ML DISP.SYRIN. IJ ONE (11:15)
[2020-10-26] MEDS ORDERED: fentaNYL PF VIAL 100 MCG/2 ML VIAL IV ONE (11:15)
[2020-10-26] MEDS ORDERED: MIDAZOLAM HCL/PF 2 MG/2 ML VIAL. IV ONE (11:15)
--- NOTE | 2020-10-26 12:09 | PDOC ---
Provider Note Date of Service: DATE: 10/26/20 TIME: 12:07 Provider Note IR NOTE RUL nodule biopsy performed 10.26.20 Post biopsy pneumothorax with 8 Fr anterior chest tube placed. Will need admission, pulm consult. Currently on continuous suction at -20. Otherwise stable. Justifications for Admission Other Justification WENDY GOMEZ MD Oct 26, 2020 12:09
[2020-10-26] MEDS ORDERED: HYDROcodone/APAP 5/325MG 1 TAB TABLET PO PRN (12:15)
--- NOTE | 2020-10-26 13:54 | NUR ---
Pt admitted to room 442, report phoned to nurse Crabtree. All personal belonging taken with patient. Sp02 98%, no s/s of resp distress noted. Family informed of admission and room number. Pt escorted per cart. Chest tube connected in room, O2 at 2L/NC. Nurse at bedside.
[2020-10-26] MEDS ORDERED: DEXTROSE 50% 25 GM / 50ML DISP.SYRIN. IV PRN (15:15)
[2020-10-26] MEDS ORDERED: NON FORMULARY ITEM (Albuterol Sulfate (Ventolin Hfa Inhaler) 2 PUFF) IH SCH (15:30)
[2020-10-26] MEDS ORDERED: ALBUTEROL SULFATE 2.5 MG/3 ML NEBU. NEB PRN (15:45)
[2020-10-26] MEDS: HYDROcodone/APAP 10/325 1 TAB TABLET PO PRN (15:51)
[2020-10-26] MEDS: hydrALAZINE 25 MG TABLET PO SCH ×2 (15:53→21:00)
[2020-10-26 17:00] LABS: BASO # 0.1 x10^3/uL (0.0-0.2); BASO % 1 % (0-3); EOS # 0.1 x10^3/uL (0.0-0.7); EOS % 1 % (0-3); HEMATOCRIT 29.9 % (36.0-47.0); HEMOGLOBIN 9.7 g/dL (12.0-15.5); LYMPH % 24 % (24-48); MEAN CORPUSCULAR HEMOGLOBIN 30 pg (25-35); MEAN CORPUSCULAR HGB CONC 32 g/dL (31-37); MEAN CORPUSCULAR VOLUME 91 fL (79-100); MONO # 0.9 x10^3/uL (0.0-1.1); MONO % 8 % (0-9); NEUT # 8.1 x10^3/uL (1.8-7.7); NEUT % 67 % (31-73); PLATELET COUNT 252 x10^3/uL (140-400); RED BLOOD COUNT 3.28 x10^6/uL (3.50-5.40); WHITE BLOOD COUNT 12.1 x10^3/uL (4.0-11.0)
[2020-10-26 17:34] LABS: ALBUMIN 2.6 g/dL (3.4-5.0); ALBUMIN/GLOBULIN RATIO 0.7 (1.0-1.7); CALCIUM 8.6 mg/dL (8.5-10.1); CREATININE 0.8 mg/dL (0.6-1.0); GFR 86.6; POTASSIUM 3.2 mmol/L (3.5-5.1); TOTAL BILIRUBIN 0.2 mg/dL (0.2-1.0); TOTAL PROTEIN 6.3 g/dL (6.4-8.2)
[2020-10-26] MEDS: INSULIN LISPRO 300 UNITS/3 ML VIAL. SQ SCH (17:40)
[2020-10-26] MEDS: BUDESONIDE 0.5 MG/2 ML NEBU. NEB SCH (18:33)
[2020-10-26] MEDS: ALBUTEROL SULFATE 2.5 MG/3 ML NEBU. NEB SCH (18:33)
[2020-10-26] MEDS ORDERED: NON FORMULARY ITEM (Budesonide/Formoterol Fumarate (Symbicort 160-4.5 Mcg Inhaler) 2 PUFF) IH SCH (21:00)
[2020-10-26] MEDS: SENNOSIDES/DOCUSATE 8.6/50MG TABLET. PO SCH (21:25)
[2020-10-26] MEDS: ATORVASTATIN CALCIUM 10 MG TABLET. PO SCH (21:35)
[2020-10-26] MEDS: oxyCODONE ER 15 MG TAB.ER.12H PO SCH (21:36)
[2020-10-26] MEDS: CYCLOBENZAPRINE 10 MG TABLET. PO SCH (21:37)
[2020-10-26] MEDS: METOPROLOL TART IMMED RELEASE 25 MG TABLET. PO SCH (21:38)
[2020-10-27] MEDS: HYDROcodone/APAP 10/325 1 TAB TABLET PO PRN ×3 (00:09→18:38)
[2020-10-27] MEDS: ALBUTEROL SULFATE 2.5 MG/3 ML NEBU. NEB SCH ×5 (00:13→18:15)
[2020-10-27 03:00] VITALS: BP 127/57
[2020-10-27 07:00] VITALS: BP 116/57
[2020-10-27] MEDS: BUDESONIDE 0.5 MG/2 ML NEBU. NEB SCH ×2 (07:49→18:17)
[2020-10-27] MEDS: INSULIN LISPRO 300 UNITS/3 ML VIAL. SQ SCH ×5 (08:00→16:35)
--- NOTE | 2020-10-27 08:14 | RAD ---
10/26/2020 CT-guided biopsy, right upper lobe pulmonary nodule CT guided right chest tube placement INDICATION: Lung nodule Consent: The procedure was explained in its entirety to the patient or the patients designated repres entative by a member of the treatment team, including a discussion of the risks, benefits and commonl y accepted alternatives to the procedure, as well as the expected consequences of no therapy whatsoev er. Discussion of the risks included, but was not limited to, those that are most frequent and thos e that are rare but possibly severe or life-threatening, as well as the possibility of unforeseen com plications. The patient was brought to the CT scanner and placed in the supine position. A timeout procedure was performed. CT imaging of the pelvis demonstrated nodule in the right upper lobe concerning for prima ry lung malignancy. Anterior chest was prepped and draped using sterile barrier technique. 1% lidocai ne was administered for local anesthesia. Under intermittent CT guidance a 17-gauge needle was advanc ed to the nodule. Core biopsy samples were obtained. No pneumothorax prevention device is applied as the guiding needle was removed. In spite of this, post biopsy pneumothorax was noted, enlarging over serial CT exams. Therefore a small caliber chest tube was placed from an anterior approach. A new are a was prepped and draped using sterile barrier technique. 1% lidocaine was again administered. Under intermittent CT guidance a 5 Georgian sheathed needle was advanced into the pleural space. A guidewire was advanced into the pleural space over which, following dilatation and 8 Georgian drain was placed. T he catheter was connected to Pleur-evac device set to -20 cm of water. Sterile dressings were applied . The patient was transferred to the recovery area in stable condition, and will be admitted for obse rvation and chest tube management. Sedation: The procedure was performed under conscious sedation including continuous cardiopulmonary m onitoring via a dedicated sedation nurse. Nucu-wn-keuz sedation time: 30 minutes Impression: 1. CT guided biopsy, right upper lobe pulmonary nodule 2. CT guided right chest tube placement Electronically signed by: Elias Bojorquez MD (10/27/2020 8:11 AM) [id number]
--- NOTE | 2020-10-27 08:44 | PDOC ---
PULMONARY PROGRESS NOTES DATE: 10/27/20 TIME: 08:44 Vitals Vital Signs Date Time Temp Pulse Resp B/P (MAP) Pulse Ox O2 Delivery O2 Flow Rate FiO2 10/27/20 08:00 Room Air 10/27/20 07:53 97 10/27/20 07:12 16 10/27/20 06:37 1.0 10/27/20 03:00 98.8 86 127/57 (80) 98.8 General: Alert, Oriented X4, No acute distress Lungs: Clear, Other Cardiovascular: S1, S2 Abdomen: Soft, Non-tender Extremities: No Edema Labs Laboratory Tests Test 10/26/20 09:25 10/26/20 16:00 10/26/20 16:50 10/26/20 21:10 SARS-CoV-2 Antigen (Rapid) Negative (NEGATIVE) White Blood Count 12.1 x10^3/uL (4.0-11.0) Red Blood Count 3.28 x10^6/uL (3.50-5.40) Hemoglobin 9.7 g/dL (12.0-15.5) Hematocrit 29.9 % (36.0-47.0) Mean Corpuscular Volume 91 fL (79-100) Mean Corpuscular Hemoglobin 30 pg (25-35) Mean Corpuscular Hemoglobin Concent 32 g/dL (31-37) Red Cell Distribution Width 15.0 % (11.5-14.5) Platelet Count 252 x10^3/uL (140-400) Neutrophils (%) (Auto) 67 % (31-73) Lymphocytes (%) (Auto) 24 % (24-48) Monocytes (%) (Auto) 8 % (0-9) Eosinophils (%) (Auto) 1 % (0-3) Basophils (%) (Auto) 1 % (0-3) Neutrophils # (Auto) 8.1 x10^3/uL (1.8-7.7) Lymphocytes # (Auto) 3.0 x10^3/uL (1.0-4.8) Monocytes # (Auto) 0.9 x10^3/uL (0.0-1.1) Eosinophils # (Auto) 0.1 x10^3/uL (0.0-0.7) Basophils # (Auto) 0.1 x10^3/uL (0.0-0.2) Sodium Level 140 mmol/L (136-145) Potassium Level 3.2 mmol/L (3.5-5.1) Chloride Level 105 mmol/L (98-107) Carbon Dioxide Level 25 mmol/L (21-32) Anion Gap 10 (6-14) Blood Urea Nitrogen 24 mg/dL (7-20) Creatinine 0.8 mg/dL (0.6-1.0) Estimated GFR (Cockcroft-Gault) 86.6 BUN/Creatinine Ratio 30 (6-20) Glucose Level 231 mg/dL (70-99) Calcium Level 8.6 mg/dL (8.5-10.1) Total Bilirubin 0.2 mg/dL (0.2-1.0) Aspartate Amino Transf (AST/SGOT) 16 U/L (15-37) Alanine Aminotransferase (ALT/SGPT) 29 U/L (14-59) Alkaline Phosphatase 40 U/L (46-116) Total Protein 6.3 g/dL (6.4-8.2) Albumin 2.6 g/dL (3.4-5.0) Albumin/Globulin Ratio 0.7 (1.0-1.7) Glucose (Fingerstick) 209 mg/dL (70-99) 288 mg/dL (70-99) Test 10/27/20 08:41 Glucose (Fingerstick) 209 mg/dL (70-99) Laboratory Tests Test 10/26/20 09:25 10/26/20 16:00 10/26/20 16:50 10/26/20 21:10 SARS-CoV-2 Antigen (Rapid) Negative (NEGATIVE) White Blood Count 12.1 x10^3/uL (4.0-11.0) Red Blood Count 3.28 x10^6/uL (3.50-5.40) Hemoglobin 9.7 g/dL (12.0-15.5) Hematocrit 29.9 % (36.0-47.0) Mean Corpuscular Volume 91 fL (79-100) Mean Corpuscular Hemoglobin 30 pg (25-35) Mean Corpuscular Hemoglobin Concent 32 g/dL (31-37) Red Cell Distribution Width 15.0 % (11.5-14.5) Platelet Count 252 x10^3/uL (140-400) Neutrophils (%) (Auto) 67 % (31-73) Lymphocytes (%) (Auto) 24 % (24-48) Monocytes (%) (Auto) 8 % (0-9) Eosinophils (%) (Auto) 1 % (0-3) Basophils (%) (Auto) 1 % (0-3) Neutrophils # (Auto) 8.1 x10^3/uL (1.8-7.7) Lymphocytes # (Auto) 3.0 x10^3/uL (1.0-4.8) Monocytes # (Auto) 0.9 x10^3/uL (0.0-1.1) Eosinophils # (Auto) 0.1 x10^3/uL (0.0-0.7) Basophils # (Auto) 0.1 x10^3/uL (0.0-0.2) Sodium Level 140 mmol/L (136-145) Potassium Level 3.2 mmol/L (3.5-5.1) Chloride Level 105 mmol/L (98-107) Carbon Dioxide Level 25 mmol/L (21-32) Anion Gap 10 (6-14) Blood Urea Nitrogen 24 mg/dL (7-20) Creatinine 0.8 mg/dL (0.6-1.0) Estimated GFR (Cockcroft-Gault) 86.6 BUN/Creatinine Ratio 30 (6-20) Glucose Level 231 mg/dL (70-99) Calcium Level 8.6 mg/dL (8.5-10.1) Total Bilirubin 0.2 mg/dL (0.2-1.0) Aspartate Amino Transf (AST/SGOT) 16 U/L (15-37) Alanine Aminotransferase (ALT/SGPT) 29 U/L (14-59) Alkaline Phosphatase 40 U/L (46-116) Total Protein 6.3 g/dL (6.4-8.2) Albumin 2.6 g/dL (3.4-5.0) Albumin/Globulin Ratio 0.7 (1.0-1.7) Glucose (Fingerstick) 209 mg/dL (70-99) 288 mg/dL (70-99) Test 10/27/20 08:41 Glucose (Fingerstick) 209 mg/dL (70-99) Medications Active Scripts Medications Dose Route/Sig Max Daily Dose Days Date Category Admelog (Insulin Lispro) 100 Unit/1 Ml Vial 5 Units SQ TIDWMEALS 30 10/04/20 Rx Aspirin Ec (Aspirin) 81 Mg Tablet.dr 81 Mg PO DAILY 02/09/19 Reported Hydrochlorothiazide 25 Mg Tablet 25 Mg PO DAILY 02/09/19 Reported Metoprolol Tartrate 25 Mg Tablet 1 Tab PO BID 05/09/18 Reported Nitrostat (Nitroglycerin) 0.4 Mg Tab.subl 0.4 Mg SL PRN Q5MIN PRN 30 01/19/18 Rx Senna-Time S Tablet (Sennosides/Docusate Sodium) 1 Each Tablet 1 Tab PO BID 30 01/19/18 Rx Oxycontin (Oxycodone HCl) 15 Mg Tab.er.12h 15 Mg PO BID 12/22/17 Reported Albuterol Sulfate Neb Soln (Albuterol Sulfate) 0.63 Mg/3 Ml Vial.neb 0.63 Mg NEB PRN Q4HRS PRN 11/25/15 Rx Losartan Potassium 50 Mg Tablet 50 Mg PO DAILY 11/25/15 Rx Lipitor (Atorvastatin Calcium) 10 Mg Tablet 5 Mg PO QHS 05/05/14 Rx Ventolin Hfa Inhaler (Albuterol Sulfate) 18 Gm Hfa.aer.ad 2 Puff IH PRN Q4-6HRS 05/03/14 Reported Symbicort 160-4.5 Mcg Inhaler (Budesonide/Formoterol Fumarate) 10.2 Gm Hfa.aer.ad 2 Puff IH BID 05/03/14 Reported Hydrocodone-Apap 10-325 (Hydrocodone Bit/Acetaminophen) 1 Each Tablet 1 Tab PO PRN Q6HRS PRN 05/03/14 Reported Hydralazine Hcl 25 Mg Tablet 1 Tab PO TID 05/03/14 Reported Cyclobenzaprine Hcl 5 Mg Tablet 1 Tab PO QHS 05/03/14 Reported Impression . FULL NOTE DICTATED WILL DC WALL SUCTION REPEAT CXR IN 2 HOURS IF NO CHANGE CLAMP TUBE AND REPEAT CXR IN AM POSSIBLE DC TUBE IN AM MICHELLE PETERS MD Oct 27, 2020 08:44
[2020-10-27] MEDS ORDERED: POTASSIUM CHLORIDE 20 MEQ TABLET.ER. PO ONE (09:30)
[2020-10-27] MEDS ORDERED: DEXTROSE 50% 25 GM / 50ML DISP.SYRIN. IV PRN (09:30)
--- NOTE | 2020-10-27 09:34 | PDOC ---
Provider Note Date of Service: DATE: 10/27/20 TIME: 09:33 Provider Note Pt seen.H&P dictated.#[id number]. Justifications for Admission Other Justification ANIVAL DESAI MD Oct 27, 2020 09:34
[2020-10-27] MEDS: ASPIRIN ENTERIC COATED 81 MG TABLET.DR. PO SCH (09:39)
[2020-10-27] MEDS: hydrALAZINE 25 MG TABLET PO SCH ×3 (09:40→21:01)
[2020-10-27] MEDS: METOPROLOL TART IMMED RELEASE 25 MG TABLET. PO SCH ×2 (09:40→21:01)
[2020-10-27] MEDS: oxyCODONE ER 15 MG TAB.ER.12H PO SCH ×2 (09:40→21:04)
[2020-10-27] MEDS: SENNOSIDES/DOCUSATE 8.6/50MG TABLET. PO SCH ×2 (09:40→21:01)
[2020-10-27] MEDS: LOSARTAN POTASSIUM 50 MG TABLET. PO SCH (09:41)
[2020-10-27] MEDS: hydroCHLOROthiazide 25 MG TABLET PO SCH (09:41)
[2020-10-27] MEDS ORDERED: ENOXAPARIN 40 MG/0.4 ML SYRINGE. SQ SCH (10:00)
--- NOTE | 2020-10-27 10:07 | NUR ---
SW following. Discussed with RN, pt from home, room air, ada diet, rapid COVID-19 negative. Pulmonology following. RN advised no SW needs at this time. SW will continue to follow.
--- NOTE | 2020-10-27 10:40 | HP ---
ADMIT DATE: 10/26/2020 REASON FOR ADMISSION TO THE HOSPITAL: Pneumothorax after procedure, lung biopsy, right upper lobe. HISTORY OF PRESENT ILLNESS: The patient is a 65-year-old female patient who recently had a CT scan which shows a right upper lung mass suspicious for cancer. The patient was seen by Pulmonology, Dr. Alarcon who recommended lung biopsy. The patient was scheduled for a lung biopsy yesterday, had a CT-guided lung biopsy, right upper lobe nodule, post-biopsy pneumothorax developed. The patient had a chest tube placed, 8-Kazakh. The patient was admitted to the hospital. Pulmonary was consulted. PAST MEDICAL HISTORY: The patient was admitted to the hospital last month for chest pain. The patient has a known history of coronary artery disease, history of cardiac stents in the past. The patient had echocardiogram last week which shows a good left ventricular function. She has a history of coronary artery disease, COPD, rheumatoid arthritis, hepatitis C, hypertension, hyperlipidemia. PAST SURGICAL HISTORY: Stents in the heart, knee aspirations and now she had a lung biopsy. PERSONAL HISTORY: Smoked for 50 years, 1-2 packs; stopped three years ago. Denies alcohol. The patient is on chronic narcotic pain medication. FAMILY HISTORY: Positive for heart disease, COPD. REVIEW OF SYMPTOMS: The patient has some pain in the right side of the chest, but much better. ALLERGIES: LISINOPRIL CAUSES SWELLING. ENALAPRIL, KATEY INHIBITORS CAUSE SWELLING. ALSO, MORPHINE. MEDICATIONS AT HOME: Patient is on albuterol inhaler, aspirin, atorvastatin, Symbicort, cyclobenzaprine, Dexilant, hydralazine, hydrochlorothiazide, hydrocodone, losartan, metoprolol, OxyContin 15 mg twice a day, prednisone 5 mg daily, senna. PHYSICAL EXAMINATION: VITAL SIGNS: At the time of admission shows temperature 98, pulse 80, respirations 19, blood pressure 179/83, 98 on room air. HEENT: Head is atraumatic. Pupils equal. Oral cavity, no congestion. NECK: Supple. Thyroid not enlarged. JVD not elevated. CHEST: Has a chest tube on the right side of the chest, waterseal present. LUNGS: Good air entry. CARDIOVASCULAR: S1, S2. ABDOMEN: Soft, bowel sounds present. No mass palpable. EXTERNAL GENITALIA: No Fraga. RECTAL: Deferred. EXTREMITIES: No calf tenderness. No edema, has some arthritis from rheumatoid arthritis in the hands and arthritis and swellings in the knees. NEUROLOGIC: Moving all extremities. No focal deficits noted. LABORATORY DATA: Shows a white count of 12, hemoglobin 9.7, platelets 252. Electrolytes show sodium 140, potassium 3.2, chloride 105, bicarbonate 25, BUN 22, creatinine 0.8, glucose 232 and LFTs normal. FINAL IMPRESSION: 1. Right pneumothorax after biopsy, had a chest tube placed. 2. Right upper lung mass suspicious for cancer. Biopsy done, report is pending. 3. Chronic obstructive pulmonary disease. 4. Coronary artery disease, history of cardiac stents. 5. Rheumatoid arthritis. 6. Diabetes. 7. Hypertension. 8. Hyperlipidemia. 9. Hepatitis C. 10. Chronic narcotic pain medications for pain control. PLAN: At this time, was admitted to the hospital, had a chest tube placed. Pulmonary was consulted. Pain control,, check blood sugars and lovenox for DVT prophylaxis. NIMESH/ZACKERY/TRINIDAD DR: Polina TID: [id number] MTDD
[2020-10-27 11:00] VITALS: BP 116/57
--- NOTE | 2020-10-27 12:47 | RAD ---
EXAMINATION: XR CHEST 1V CLINICAL HISTORY: Pneumothorax, right lung biopsy and chest tube placement 10/26/2020 EXAM DATE/TIME: 10/27/2020 11:32 AM COMPARISON: 10/02/2020 FINDINGS: Lines, Tubes, and Devices: Right-sided pigtail pleural drainage catheter projected over the lower mayra g zone. Cardiomediastinal Silhouette: Normal heart size. Aortic atherosclerotic calcification. Lungs and Pleura: No evidence of right pneumothorax or pleural effusion. Slightly increased density s urrounding the right upper lobe pulmonary nodule, likely related to postprocedural changes. Mild biba silar subsegmental opacities, likely subsegmental atelectasis. Chronic changes in the lungs similar t o prior study. Bones and Soft Tissues: Degenerative changes of the thoracic spine. IMPRESSION: Right-sided pleural drainage catheter with no evidence of right pneumothorax or pleural effusion. Mild bibasilar opacities, likely subsegmental atelectasis. Electronically signed by: Sathish Rey DO (10/27/2020 12:44 PM) [id number]
[2020-10-27 15:00] VITALS: BP 151/74
[2020-10-27 19:35] VITALS: BP 126/71
--- NOTE | 2020-10-27 19:37 | RAD ---
EXAMINATION: Chest radiograph. VIEWS: Single view COMPARISON: Same day radiograph INDICATION:65 years, Female, chest tube. FINDINGS/ IMPRESSION: Stable position of the right pigtail pleural drain catheter with no evidence of pleural e ffusion or pneumothorax. No other significant changes since earlier exam. Electronically signed by: Keli Escalera MD (10/27/2020 7:34 PM) JACKIE
[2020-10-27] MEDS: ATORVASTATIN CALCIUM 10 MG TABLET. PO SCH (21:01)
[2020-10-27] MEDS: CYCLOBENZAPRINE 10 MG TABLET. PO SCH (21:01)
[2020-10-27 23:48] VITALS: BP 128/74
--- NOTE | 2020-10-28 02:47 | CONS ---
DATE OF CONSULTATION: 10/27/2020 ATTENDING PHYSICIAN: Erik Schmidt MD. REASON FOR CONSULTATION: The patient is seen in Pulmonary consultation at the request of Dr. Bojorquez for expected pneumothorax post right upper lobe biopsy. HISTORY OF PRESENT ILLNESS: The patient is a 65-year-old that had a previously abnormal CT chest. She had a right upper lobe mass with severe emphysematous changes surround the mass. I saw her in consultation in the office. We went over the options. I did explain that she would benefit from a needle aspiration. With that being said, we went over the possible complication including expected pneumothorax rate of 25%. The patient underwent a fine needle aspiration. She subsequently had a pneumothorax. Chest tube was inserted. I was asked to see her in consultation. She now feels better. She is not more short of air. She does have some discomfort at the site of the chest tube. PAST MEDICAL HISTORY: Coronary artery disease with previous myocardial infarction, COPD, fibromyalgia, rheumatoid arthritis, hypertension, and hyperlipidemia. PAST SURGICAL HISTORY: Previous cardiac stenting. She has had knee injections in the past. MEDICATION LIST: Reviewed. SOCIAL HISTORY: She quit tobacco in 2018. FAMILY HISTORY: Mother had lung cancer. REVIEW OF SYSTEMS: As indicated above, otherwise a 10-point system was reviewed and negative. CURRENT MEDICATIONS: List was reviewed. ALLERGIES: TO ENALAPRIL, LISINOPRIL AND MORPHINE. PHYSICAL EXAMINATION: GENERAL: The patient was in no significant respiratory distress, currently on room air saturation anywhere between 92 and 94%. HEENT: Eyes, the sclerae are nonicteric. NECK: Jugular venous distention was not elevated. No subcutaneous emphysema. CHEST: Full expansion. LUNGS: Poor air flow, no wheezes. CARDIOVASCULAR: Regular rate and rhythm with S1, S2, no S3. ABDOMEN: Soft. EXTREMITIES: No clubbing, cyanosis or edema. LABORATORY DATA: Chest x-ray was reviewed. There was no pneumothorax, status post chest tube placement. IMPRESSION: 1. Expected pneumothorax in a patient with severe emphysema undergoing a right upper lobe mass FNA. 2. Status post FNA right upper lobe mass, suspect malignancy. 3. Chronic obstructive pulmonary disease, unknown FEV1. 4. Tobacco dependence, in remission. 5. Other comorbidities including coronary artery disease, chronic obstructive pulmonary disease, and fibromyalgia. PLAN: 1. I have reviewed the chest x-ray, the lung is fully inflated. There is no air leak on chest tube. 2. Discontinue oral suction. Repeat chest x-ray in 2 hours. 3. If the above remains the same, we will clamp tube and possibly discontinue tube in the a.m. 4. Case discussed with pathologist, final report on FNA is pending. CIERA/XAVIER/ADINA DR: CIERA/[place] TID: [id number]
[2020-10-28 03:15] VITALS: BP 138/66
[2020-10-28] MEDS: HYDROcodone/APAP 10/325 1 TAB TABLET PO PRN ×2 (04:10→11:44)
[2020-10-28 07:00] VITALS: BP 141/67
[2020-10-28] MEDS: ALBUTEROL SULFATE 2.5 MG/3 ML NEBU. NEB SCH ×2 (07:42→12:28)
[2020-10-28] MEDS: BUDESONIDE 0.5 MG/2 ML NEBU. NEB SCH (07:43)
[2020-10-28 07:47] LABS: BASO # 0.1 x10^3/uL (0.0-0.2); BASO % 1 % (0-3); EOS # 0.4 x10^3/uL (0.0-0.7); EOS % 4 % (0-3); HEMATOCRIT 30.8 % (36.0-47.0); LYMPH # 3.2 x10^3/uL (1.0-4.8); LYMPH % 28 % (24-48); MEAN CORPUSCULAR HEMOGLOBIN 30 pg (25-35); MEAN CORPUSCULAR HGB CONC 32 g/dL (31-37); MEAN CORPUSCULAR VOLUME 92 fL (79-100); MONO # 1.1 x10^3/uL (0.0-1.1); MONO % 10 % (0-9); NEUT # 6.4 x10^3/uL (1.8-7.7); NEUT % 57 % (31-73); PLATELET COUNT 227 x10^3/uL (140-400); RED BLOOD COUNT 3.35 x10^6/uL (3.50-5.40); RED CELL DISTRIBUTION WIDTH 15.3 % (11.5-14.5); WHITE BLOOD COUNT 11.3 x10^3/uL (4.0-11.0)
[2020-10-28 07:52] LABS: CALCIUM 9.5 mg/dL (8.5-10.1); CREATININE 0.8 mg/dL (0.6-1.0); GFR 86.6; POTASSIUM 3.8 mmol/L (3.5-5.1)
[2020-10-28] MEDS: METOPROLOL TART IMMED RELEASE 25 MG TABLET. PO SCH (07:55)
[2020-10-28] MEDS: hydrALAZINE 25 MG TABLET PO SCH (07:56)
[2020-10-28] MEDS: SENNOSIDES/DOCUSATE 8.6/50MG TABLET. PO SCH (07:56)
[2020-10-28] MEDS: ASPIRIN ENTERIC COATED 81 MG TABLET.DR. PO SCH (07:56)
[2020-10-28] MEDS: oxyCODONE ER 15 MG TAB.ER.12H PO SCH (07:57)
[2020-10-28] MEDS: LOSARTAN POTASSIUM 50 MG TABLET. PO SCH (07:57)
[2020-10-28] MEDS: hydroCHLOROthiazide 25 MG TABLET PO SCH (07:57)
[2020-10-28] MEDS: INSULIN LISPRO 300 UNITS/3 ML VIAL. SQ SCH ×4 (08:13→12:17)
--- NOTE | 2020-10-28 08:40 | PDOC ---
PROGRESS NOTES Date of Service: DATE: 10/28/20 TIME: 08:40 Subjective Subjective feels ok , some chest pain at biopsy site Objective Objective Vital Signs Date Time Temp Pulse Resp B/P (MAP) Pulse Ox O2 Delivery O2 Flow Rate FiO2 10/28/20 07:57 99 Room Air 10/28/20 07:57 86 141/67 10/28/20 07:00 98.4 17 98.4 Intake and Output 10/28/20 07:00 Intake Total 720 ml Output Total 400 ml Balance 320 ml Intake Oral 720 ml Output Urine Total 400 ml # Voids 2 Physical Exam Abdomen: Soft Heart: Regular rate, Normal S1, Normal S2 Extremities: No clubbing General: Alert HEENT: Atraumatic Lungs: Clear to auscultation MUSCULOSKELETAL: No deformity, Osteoarthritic changes both hands Neck: Supple Neuro: Normal speech Psych/Mental Status: Mental status NL Skin: No breakdown Assessment Assessment FINAL IMPRESSION: 1. Right pneumothorax after biopsy, had a chest tube placed. 2. Right upper lung mass suspicious for cancer. Biopsy done, report is pending. 3. Chronic obstructive pulmonary disease. 4. Coronary artery disease, history of cardiac stents. 5. Rheumatoid arthritis. 6. Diabetes. 7. Hypertension. 8. Hyperlipidemia. 9. Hepatitis C. 10. Chronic narcotic pain medications for pain control. PLAN: chest tube to be clamped . chest tube to be removed, pt want to go home tomorrow. labs ok At this time, was admitted to the hospital, had a chest tube placed. Pulmonary was consulted. Pain control,, check blood sugars and lovenox for DVT prophylaxis. Comment Review of Relevant I have reviewed the following items bijal (where applicable) has been applied. Labs Laboratory Tests Test 10/27/20 08:41 10/27/20 11:15 10/27/20 16:34 10/27/20 21:16 Glucose (Fingerstick) 209 mg/dL (70-99) 223 mg/dL (70-99) 127 mg/dL (70-99) 235 mg/dL (70-99) Test 10/28/20 06:35 10/28/20 07:18 White Blood Count 11.3 x10^3/uL (4.0-11.0) Red Blood Count 3.35 x10^6/uL (3.50-5.40) Hemoglobin 10.0 g/dL (12.0-15.5) Hematocrit 30.8 % (36.0-47.0) Mean Corpuscular Volume 92 fL (79-100) Mean Corpuscular Hemoglobin 30 pg (25-35) Mean Corpuscular Hemoglobin Concent 32 g/dL (31-37) Red Cell Distribution Width 15.3 % (11.5-14.5) Platelet Count 227 x10^3/uL (140-400) Neutrophils (%) (Auto) 57 % (31-73) Lymphocytes (%) (Auto) 28 % (24-48) Monocytes (%) (Auto) 10 % (0-9) Eosinophils (%) (Auto) 4 % (0-3) Basophils (%) (Auto) 1 % (0-3) Neutrophils # (Auto) 6.4 x10^3/uL (1.8-7.7) Lymphocytes # (Auto) 3.2 x10^3/uL (1.0-4.8) Monocytes # (Auto) 1.1 x10^3/uL (0.0-1.1) Eosinophils # (Auto) 0.4 x10^3/uL (0.0-0.7) Basophils # (Auto) 0.1 x10^3/uL (0.0-0.2) Sodium Level 136 mmol/L (136-145) Potassium Level 3.8 mmol/L (3.5-5.1) Chloride Level 101 mmol/L (98-107) Carbon Dioxide Level 25 mmol/L (21-32) Anion Gap 10 (6-14) Blood Urea Nitrogen 21 mg/dL (7-20) Creatinine 0.8 mg/dL (0.6-1.0) Estimated GFR (Cockcroft-Gault) 86.6 Glucose Level 172 mg/dL (70-99) Calcium Level 9.5 mg/dL (8.5-10.1) Glucose (Fingerstick) 173 mg/dL (70-99) Medications Current Medications Aspirin (Ecotrin) 81 mg DAILY PO Last administered on 10/28/20at 07:56; Start 10/27/20 at 09:00 Dextrose (Dextrose 50%-Water Syringe) 12.5 gm PRN Q15MIN PRN IV SEE COMMENTS; Start 10/27/20 at 09:30 Enoxaparin Sodium (Lovenox 40mg Syringe) 40 mg Q24H SQ Last administered on 10/27/20at 09:41; Start 10/27/20 at 10:00; Stop 10/28/20 at 08:04; Status DC Enoxaparin Sodium (Lovenox 40mg Syringe) 40 mg Q24H SQ Last administered on 10/28/20at 08:07; Start 10/28/20 at 09:00 Hydrochlorothiazide (Hydrodiuril) 25 mg DAILY PO Last administered on 10/28/20at 07:57; Start 10/27/20 at 09:00 Insulin Human Lispro (HumaLOG) 0-7 UNITS TIDWMEALS SQ Last administered on 10/28/20at 08:13; Start 10/27/20 at 12:00 Losartan Potassium (Cozaar) 50 mg DAILY PO Last administered on 10/28/20at 07:57; Start 10/27/20 at 09:00 Potassium Chloride (Klor-Con) 40 meq 1X ONCE PO Last administered on 10/27/20at 09:41; Start 10/27/20 at 09:30; Stop 10/27/20 at 09:36; Status DC Vitals/I & O Vital Sign - Last 24 Hours 10/27/20 10/27/20 10/27/20 10/27/20 09:40 09:40 09:41 11:00 Temp 97.9 97.9 Pulse 82 82 82 84 Resp 18 B/P (MAP) 116/57 116/57 116/57 116/57 (76) Pulse Ox 94 O2 Delivery Room Air 10/27/20 10/27/20 10/27/20 10/27/20 11:49 13:18 15:00 15:37 Temp 97.9 97.9 Pulse 84 96 Resp 18 B/P (MAP) 116/57 151/74 (99) Pulse Ox 94 O2 Delivery Room Air Room Air Room Air 10/27/20 10/27/20 10/27/20 10/27/20 18:18 19:08 19:35 20:15 Temp 98.4 98.4 Pulse 95 Resp 20 18 B/P (MAP) 126/71 (89) Pulse Ox 93 O2 Delivery Room Air Room Air Room Air Room Air 10/27/20 10/27/20 10/27/20 10/27/20 21:01 21:01 21:04 23:48 Temp 98.5 98.5 Pulse 96 96 94 Resp 20 18 B/P (MAP) 151/74 151/74 128/74 (92) Pulse Ox 93 O2 Delivery Room Air Room Air 10/28/20 10/28/20 10/28/20 10/28/20 01:04 03:15 04:10 04:40 Temp 98.2 98.2 Pulse 66 Resp 20 18 20 20 B/P (MAP) 138/66 (90) Pulse Ox 93 O2 Delivery Room Air Room Air Room Air Room Air 10/28/20 10/28/20 10/28/20 10/28/20 07:00 07:43 07:55 07:56 Temp 98.4 98.4 Pulse 86 86 86 Resp 17 B/P (MAP) 141/67 (91) 141/67 141/67 Pulse Ox 94 99 O2 Delivery Room Air Room Air 10/28/20 10/28/20 07:57 07:57 Pulse 86 B/P (MAP) 141/67 Pulse Ox 99 O2 Delivery Room Air Intake and Output 10/27/20 10/27/20 10/28/20 15:00 23:00 07:00 Intake Total 120 ml 240 ml 360 ml Output Total 400 ml Balance 120 ml -160 ml 360 ml Justifications for Admission Other Justification ANIVAL DESAI MD Oct 28, 2020 08:40
[2020-10-28] MEDS ORDERED: ENOXAPARIN 40 MG/0.4 ML SYRINGE. SQ SCH (09:00)
--- NOTE | 2020-10-28 09:00 | RAD ---
EXAMINATION: XR CHEST 1V CLINICAL HISTORY: Pneumothorax TECHNIQUE: XR CHEST 1V COMPARISON: 10/27/2020 FINDINGS/ IMPRESSION: No evidence of significant interval change when accounting for differences in patient positioning and imaging technique. Right pleural drainage catheter remains in similar position with no evidence of pneumothorax or pleur al effusion. Electronically signed by: Sathish Rey DO (10/28/2020 8:58 AM) [id number]
--- NOTE | 2020-10-28 09:35 | PDOC ---
PULMONARY PROGRESS NOTES DATE: 10/28/20 TIME: 09:35 Subjective Patient feels better, now more short of breath. Vitals Vital Signs Date Time Temp Pulse Resp B/P (MAP) Pulse Ox O2 Delivery O2 Flow Rate FiO2 10/28/20 07:57 99 Room Air 10/28/20 07:57 86 141/67 10/28/20 07:00 98.4 17 98.4 ROS: No Nausea, No Chest Pain, No Abdominal Pain, No Increase Cough General: Alert, Oriented X4, No acute distress Lungs: Clear, Other Cardiovascular: S1, S2 Abdomen: Soft, Non-tender Extremities: No Edema Labs Laboratory Tests Test 10/26/20 16:00 10/26/20 16:50 10/26/20 21:10 10/27/20 08:41 White Blood Count 12.1 x10^3/uL (4.0-11.0) Red Blood Count 3.28 x10^6/uL (3.50-5.40) Hemoglobin 9.7 g/dL (12.0-15.5) Hematocrit 29.9 % (36.0-47.0) Mean Corpuscular Volume 91 fL (79-100) Mean Corpuscular Hemoglobin 30 pg (25-35) Mean Corpuscular Hemoglobin Concent 32 g/dL (31-37) Red Cell Distribution Width 15.0 % (11.5-14.5) Platelet Count 252 x10^3/uL (140-400) Neutrophils (%) (Auto) 67 % (31-73) Lymphocytes (%) (Auto) 24 % (24-48) Monocytes (%) (Auto) 8 % (0-9) Eosinophils (%) (Auto) 1 % (0-3) Basophils (%) (Auto) 1 % (0-3) Neutrophils # (Auto) 8.1 x10^3/uL (1.8-7.7) Lymphocytes # (Auto) 3.0 x10^3/uL (1.0-4.8) Monocytes # (Auto) 0.9 x10^3/uL (0.0-1.1) Eosinophils # (Auto) 0.1 x10^3/uL (0.0-0.7) Basophils # (Auto) 0.1 x10^3/uL (0.0-0.2) Sodium Level 140 mmol/L (136-145) Potassium Level 3.2 mmol/L (3.5-5.1) Chloride Level 105 mmol/L (98-107) Carbon Dioxide Level 25 mmol/L (21-32) Anion Gap 10 (6-14) Blood Urea Nitrogen 24 mg/dL (7-20) Creatinine 0.8 mg/dL (0.6-1.0) Estimated GFR (Cockcroft-Gault) 86.6 BUN/Creatinine Ratio 30 (6-20) Glucose Level 231 mg/dL (70-99) Calcium Level 8.6 mg/dL (8.5-10.1) Total Bilirubin 0.2 mg/dL (0.2-1.0) Aspartate Amino Transf (AST/SGOT) 16 U/L (15-37) Alanine Aminotransferase (ALT/SGPT) 29 U/L (14-59) Alkaline Phosphatase 40 U/L (46-116) Total Protein 6.3 g/dL (6.4-8.2) Albumin 2.6 g/dL (3.4-5.0) Albumin/Globulin Ratio 0.7 (1.0-1.7) Glucose (Fingerstick) 209 mg/dL (70-99) 288 mg/dL (70-99) 209 mg/dL (70-99) Test 10/27/20 11:15 10/27/20 16:34 10/27/20 21:16 10/28/20 06:35 Glucose (Fingerstick) 223 mg/dL (70-99) 127 mg/dL (70-99) 235 mg/dL (70-99) White Blood Count 11.3 x10^3/uL (4.0-11.0) Red Blood Count 3.35 x10^6/uL (3.50-5.40) Hemoglobin 10.0 g/dL (12.0-15.5) Hematocrit 30.8 % (36.0-47.0) Mean Corpuscular Volume 92 fL (79-100) Mean Corpuscular Hemoglobin 30 pg (25-35) Mean Corpuscular Hemoglobin Concent 32 g/dL (31-37) Red Cell Distribution Width 15.3 % (11.5-14.5) Platelet Count 227 x10^3/uL (140-400) Neutrophils (%) (Auto) 57 % (31-73) Lymphocytes (%) (Auto) 28 % (24-48) Monocytes (%) (Auto) 10 % (0-9) Eosinophils (%) (Auto) 4 % (0-3) Basophils (%) (Auto) 1 % (0-3) Neutrophils # (Auto) 6.4 x10^3/uL (1.8-7.7) Lymphocytes # (Auto) 3.2 x10^3/uL (1.0-4.8) Monocytes # (Auto) 1.1 x10^3/uL (0.0-1.1) Eosinophils # (Auto) 0.4 x10^3/uL (0.0-0.7) Basophils # (Auto) 0.1 x10^3/uL (0.0-0.2) Sodium Level 136 mmol/L (136-145) Potassium Level 3.8 mmol/L (3.5-5.1) Chloride Level 101 mmol/L (98-107) Carbon Dioxide Level 25 mmol/L (21-32) Anion Gap 10 (6-14) Blood Urea Nitrogen 21 mg/dL (7-20) Creatinine 0.8 mg/dL (0.6-1.0) Estimated GFR (Cockcroft-Gault) 86.6 Glucose Level 172 mg/dL (70-99) Calcium Level 9.5 mg/dL (8.5-10.1) Test 10/28/20 07:18 Glucose (Fingerstick) 173 mg/dL (70-99) Laboratory Tests Test 10/27/20 11:15 10/27/20 16:34 10/27/20 21:16 10/28/20 06:35 Glucose (Fingerstick) 223 mg/dL (70-99) 127 mg/dL (70-99) 235 mg/dL (70-99) White Blood Count 11.3 x10^3/uL (4.0-11.0) Red Blood Count 3.35 x10^6/uL (3.50-5.40) Hemoglobin 10.0 g/dL (12.0-15.5) Hematocrit 30.8 % (36.0-47.0) Mean Corpuscular Volume 92 fL (79-100) Mean Corpuscular Hemoglobin 30 pg (25-35) Mean Corpuscular Hemoglobin Concent 32 g/dL (31-37) Red Cell Distribution Width 15.3 % (11.5-14.5) Platelet Count 227 x10^3/uL (140-400) Neutrophils (%) (Auto) 57 % (31-73) Lymphocytes (%) (Auto) 28 % (24-48) Monocytes (%) (Auto) 10 % (0-9) Eosinophils (%) (Auto) 4 % (0-3) Basophils (%) (Auto) 1 % (0-3) Neutrophils # (Auto) 6.4 x10^3/uL (1.8-7.7) Lymphocytes # (Auto) 3.2 x10^3/uL (1.0-4.8) Monocytes # (Auto) 1.1 x10^3/uL (0.0-1.1) Eosinophils # (Auto) 0.4 x10^3/uL (0.0-0.7) Basophils # (Auto) 0.1 x10^3/uL (0.0-0.2) Sodium Level 136 mmol/L (136-145) Potassium Level 3.8 mmol/L (3.5-5.1) Chloride Level 101 mmol/L (98-107) Carbon Dioxide Level 25 mmol/L (21-32) Anion Gap 10 (6-14) Blood Urea Nitrogen 21 mg/dL (7-20) Creatinine 0.8 mg/dL (0.6-1.0) Estimated GFR (Cockcroft-Gault) 86.6 Glucose Level 172 mg/dL (70-99) Calcium Level 9.5 mg/dL (8.5-10.1) Test 10/28/20 07:18 Glucose (Fingerstick) 173 mg/dL (70-99) Medications Active Scripts Medications Dose Route/Sig Max Daily Dose Days Date Category Admelog (Insulin Lispro) 100 Unit/1 Ml Vial 5 Units SQ TIDWMEALS 30 10/04/20 Rx Aspirin Ec (Aspirin) 81 Mg Tablet.dr 81 Mg PO DAILY 02/09/19 Reported Hydrochlorothiazide 25 Mg Tablet 25 Mg PO DAILY 02/09/19 Reported Metoprolol Tartrate 25 Mg Tablet 1 Tab PO BID 05/09/18 Reported Nitrostat (Nitroglycerin) 0.4 Mg Tab.subl 0.4 Mg SL PRN Q5MIN PRN 30 01/19/18 Rx Senna-Time S Tablet (Sennosides/Docusate Sodium) 1 Each Tablet 1 Tab PO BID 30 01/19/18 Rx Oxycontin (Oxycodone HCl) 15 Mg Tab.er.12h 15 Mg PO BID 12/22/17 Reported Albuterol Sulfate Neb Soln (Albuterol Sulfate) 0.63 Mg/3 Ml Vial.neb 0.63 Mg NEB PRN Q4HRS PRN 11/25/15 Rx Losartan Potassium 50 Mg Tablet 50 Mg PO DAILY 11/25/15 Rx Lipitor (Atorvastatin Calcium) 10 Mg Tablet 5 Mg PO QHS 05/05/14 Rx Ventolin Hfa Inhaler (Albuterol Sulfate) 18 Gm Hfa.aer.ad 2 Puff IH PRN Q4-6HRS 05/03/14 Reported Symbicort 160-4.5 Mcg Inhaler (Budesonide/Formoterol Fumarate) 10.2 Gm Hfa.aer.ad 2 Puff IH BID 05/03/14 Reported Hydrocodone-Apap 10-325 (Hydrocodone Bit/Acetaminophen) 1 Each Tablet 1 Tab PO PRN Q6HRS PRN 05/03/14 Reported Hydralazine Hcl 25 Mg Tablet 1 Tab PO TID 05/03/14 Reported Cyclobenzaprine Hcl 5 Mg Tablet 1 Tab PO QHS 05/03/14 Reported Impression . IMPRESSION: 1. Expected pneumothorax in a patient with severe emphysema undergoing a right upper lobe mass FNA. 2. Status post FNA right upper lobe mass, suspect malignancy. 3. Chronic obstructive pulmonary disease, unknown FEV1. 4. Tobacco dependence, in remission. 5. Other comorbidities including coronary artery disease, chronic obstructive pulmonary disease, and fibromyalgia. Material submitted: . lung - RIGHT LUNG MASS CORE BIOPSY. Modifiers: right . 01 Clinical history: . RIGHT LUNG MASS RIGHT LUNG BIOPSY RIGHT LUNG NODULE . 02 Diagnosis: Lung tissue, right lung mass core biopsy: - POORLY DIFFERENTIATED NON-SMALL CELL CARCINOMA - FAVOR POORLY DIFFERENTIATED ADENOCARCINOMA. SEE COMMENT. (JPM:pit/alberto; 10/28/2020) QTP 10/28/2020 0850 Local . 02 Plan . Updated 10/28 Biopsy results positive for adenocarcinoma Chest x-ray reviewed no pneumothorax, chest tube has been clamped since last night We will discontinue chest tube okay to discharge home Follow-up with me next Friday 10/27 PLAN: 1. I have reviewed the chest x-ray, the lung is fully inflated. There is no air leak on chest tube. 2. Discontinue oral suction. Repeat chest x-ray in 2 hours. 3. If the above remains the same, we will clamp tube and possibly discontinue tube in the a.m. 4. Case discussed with pathologist, final report on FNA is pending. MICHELLE PETERS MD Oct 28, 2020 09:35
--- NOTE | 2020-10-28 10:41 | NUR ---
SW following. Discussed with RN, pt from home, room air, ada diet, Rapid COVID-19 negative. Pulmonology following - pt has a chest tube. RN advised no SW needs at this time. SW will continue to follow.
[2020-10-28 11:00] VITALS: BP 134/80
[2020-10-28 11:14] LABS: % EOS 5 % (0-5); % LYMPHS 25 % (24-48); % MONOS 7 % (0-10); % SEGS 63 % (35-66)
[2020-10-28 11:15] LABS: ANISOCYTOSIS SLIGHT; PLT ESTIMATE ADEQUATE (ADEQUATE)
[2020-10-28 15:00] VITALS: BP 136/72
--- NOTE | 2020-10-28 15:09 | PATHOLOGY ---
[facility] Accession Number: [id number] . 01 Material submitted: . lung - RIGHT LUNG MASS CORE BIOPSY. Modifiers: right . 01 Clinical history: . RIGHT LUNG MASS RIGHT LUNG BIOPSY RIGHT LUNG NODULE . 02 Diagnosis: Lung tissue, right lung mass core biopsy: - POORLY DIFFERENTIATED NON-SMALL CELL CARCINOMA - FAVOR POORLY DIFFERENTIATED ADENOCARCINOMA. SEE COMMENT. (JPM:pit/alberto; 10/28/2020) P 10/28/2020 0850 Local . 02 Comment: Sections of the right lung mass core biopsy show areas of replacement of lung parenchyma by a poorly differentiated malignant epithelial neoplasm. The tumor cells are present in solid nests and also focally appear to have a gland within gland cribriform arrangement. The tumor cells have moderate amounts of eosinophilic to vacuolated cytoplasm with some tumr cells appearing to have intracytoplasmic lumina. Tumor cells possess enlarged, markedly pleomorphic hyperchromatic nuclei. There is focal tumor necrosis and acute inflammation. Mitotic figures are readily demonstrated. Uninvolved lung tissue shows interstitial chronic inflammation and focal organizing pneumonia. A panel of immunoperoxidase stains is obtained on A1 and yields the following results: . Cytokeratin 7: Tumor cells positive. Cytkeratin 20: Tumor cells negative. CDX2: Tumor cells negative. P40: Few scattered tumor cells positive. TTF-1: Tumor cells negative. Napsin A: Few tumor cells focally positive. MICHAEL-3: Tumor cells negative. CK5/6: Tumor cells positive. . The morphologic and immunophenotypic findings are supportive of the diagnosis of poorly differentiated nonsmall cell carcinoma, favor poorly differentiated adenocarcinoma. The case is also examined by Dr. Shaw, who concurs with the diagnosis. The results are reported to Dr. Alarcon on 10/28/2020 at 1:36 PM. . (JPM:pit/alberto; 10/28/2020) . Special stains performed: CK7, CK20, CDX2, p40, TTF-1, napsin A, CK5/6 and MICHAEL-3 all on A1. . 02 Electronically signed: . Rajeev Fountain MD, Pathologist NPI- [id number] . 01 Gross description: . The specimen is received in formalin, labeled "Talia Hindsann A and RT lung" and per the requisition "RT lung mass core BX". It consists of multiple rose-white, irregular to cylindrical soft tissue fragments ranging from 0.1-1.1 cm in greatest dimension. Specimen is placed in a biopsy bag and entirely submitted in A1. (MRF; 10/26/2020) MFE/MFE 10/26/2020 1606 Local . 02 Pathologist provided ICD-10: C34.91 . 02 CPT . 739577, [id number], [id number] Specimen Comment: A courtesy copy of this report has been sent to [phone], [phone] Specimen Comment: [id number] Specimen Comment: Report sent to DR. ALARCON / DR DESAI Specimen Comment: Report sent to Performed at: 01 [facility] [address], [place], [place] [id number] MD Laureano Warner MD Phone: [phone] Performed at: 02 [facility] [address], [place] [id number] MD Rajeev Fountain MD Phone: [phone]
--- NOTE | 2020-10-30 10:47 | PDOC ---
Provider Note Date of Service: DATE: 10/30/20 TIME: 10:47 Provider Note Discharge summary dictated.#[id number]. Justifications for Admission Other Justification ANIVAL DESAI MD Oct 30, 2020 10:47
--- NOTE | 2020-10-30 12:57 | DS ---
REASON FOR ADMISSION TO THE HOSPITAL: Pneumothorax status post lung biopsy, right upper lobe. CONSULTATION: Alban Alarcon MD PROCEDURE DONE: Chest tube placement. HOSPITAL COURSE: The patient is a 65-year-old female. The patient had a right upper lung mass, around 2 cm. The patient had outpatient CT-guided lung biopsy. Unfortunately, the patient had a pneumothorax after that the patient had a chest tube placed, was admitted to the hospital. The patient was seen by pulmonology. The patient was put on water seal for 24-48 hours. It was clamped. Repeat x-ray shows improvement of the pneumothorax. Chest tube was removed. The patient was discharged. Pathology shows a poorly differentiated non-small cell carcinoma, favor poorly differentiated adenocarcinoma. The patient will be scheduled to see outpatient oncology and radiation oncology. FINAL DIAGNOSES: 1. Right upper lobe lung mass. The patient had a biopsy which shows a poorly differentiated adenocarcinoma. 2. The patient had pneumothorax, status post lung biopsy. The patient had chest tube placed and removed. 3. Smoking history for at least 40 years, stopped 3 years ago. 4. Rheumatoid arthritis. 5. Diabetes 6. Hypertension. 7. Hyperlipidemia. 8. Coronary artery disease. 9. Hepatitis C. 10. Chronic narcotic pain medications. DISPOSITION: Home. The patient will follow outpatient with medical oncology and radiation team. NIMESH/ERASTO/ADAMARIS DR: NIMESH/[place] TID: [id number]
== END 2020-10-28 16:00 | disposition home or self-care (01) | DRG 199 ==
LOC: INTRAD 09:10 → 4 NORTH 13:42
PROVIDERS: ADMIT Internal Medicine; ATTEND Internal Medicine
PROC: 0BBC3ZX Excision of Right Upper Lung Lobe, Percutaneous Approach, Diagnostic (ICD-10-PCS; principal; 2020-10-26)
PROC: 0W9930Z Drainage of Right Pleural Cavity with Drainage Device, Percutaneous Approach (ICD-10-PCS; 2020-10-26)
DX: J95.811 Postprocedural pneumothorax (principal); E43 Unspecified severe protein-calorie malnutrition; C34.11 Malignant neoplasm of upper lobe, right bronchus or lung; B19.20 Unspecified viral hepatitis C without hepatic coma; E11.9 Type 2 diabetes mellitus without complications; E78.5 Hyperlipidemia, unspecified; F17.201 Nicotine dependence, unspecified, in remission; I10 Essential (primary) hypertension; I25.10 Atherosclerotic heart disease of native coronary artery without angina pectoris; I25.2 Old myocardial infarction; J43.9 Emphysema, unspecified; M06.9 Rheumatoid arthritis, unspecified; M79.7 Fibromyalgia; Z79.891 Long term (current) use of opiate analgesic; Z80.1 Family history of malignant neoplasm of trachea, bronchus and lung; Z82.5 Family history of asthma and other chronic lower respiratory diseases; Z95.5 Presence of coronary angioplasty implant and graft; Z20.822 Contact with and (suspected) exposure to COVID-19; Z88.8 Allergy status to other drugs, medicaments and biological substances
CPT/HCPCS: 32408; 32557; 36415; 71045; 80048; 80053; 82962; 85007; 85025; 87426; 88305; 88341; 88342; 94640; 94760; 99152; 99153; C1892; J0360; J1650; J1815; J2250; J3010; J3490; G0378; J7613; J7626

== ENCOUNTER → 2020-11-11 | Outpatient (CLI) | payer OTHER, MEDICAID ==
[2020-10-28 15:00] VITALS: BP 136/72
--- NOTE | 2020-11-14 12:46 | OP ---
DATE OF SURGERY: 11/11/2020 ATTENDING PHYSICIAN: Alban Alarcon MD The patient underwent full pulmonary function testing. FEV1 to FVC ratio of 67%. FEV1 was 84% of predicted, 1.61 liters. FVC was 2.41 liters. Diffusion capacity was slightly decreased. Total lung capacity was increased. IMPRESSION: Mild obstructive airflow. CIERA/ERASTO/RADHA DR: Giuliano TID: [id number]
== END ==
LOC: PF 09:40
PROVIDERS: ATTEND Internal Medicine Pulmonary Disease
DX: R06.02 Shortness of breath (principal)
CPT/HCPCS: 94010; 94726; 94729

== ENCOUNTER → 2020-11-11 | Outpatient (CLI) | payer OTHER, MEDICAID ==
[2020-10-28 15:00] VITALS: BP 136/72
--- NOTE | 2020-11-11 12:22 | RAD ---
NM PET/CT SKULL BASE TO MID THIGH Clinical Indication: Pulmonary nodule Comparison: CT chest October 04, 2020 Technique: Patient blood glucose at the time of injection is 127 mg/dL. The patient was administered 13.37 mCi of F-18 FDG intravenously. The patient rested quietly during a 60 minute uptake period. The n PET imaging from the skull base to the upper thighs was performed. A noncontrast CT was acquired ov er this same area. The CT is for attenuation correction and anatomic localization, it is not of diagn ostic quality and is not intended to diagnose disease independently of the PET. PQRS Compliance Statement: One or more of the following individualized dose reduction techniques were utilized for this examinat ion: 1. Automated exposure control 2. Adjustment of the mA and/or kV according to patient size 3. Use of iterative reconstruction technique Findings: Background: Mediastinal SUV max: 1.98 Liver SUV max: 3.29 Head and neck: There is no evidence of FDG-avid disease. Chest: Right upper lobe spiculated mass measures 2.8 x 2.2 cm with SUV max 17.5. New right upper lobe nodula r opacity measures 0.6 cm (series 3 image 123). The lesion is too small to evaluate on PET. Unchanged right upper lobe pleural-based nodule also too small to evaluate on PET. Severe pulmonary emphysema. No consolidation. No pneumothorax. No pleural effusion. Extensive coronar y artery calcifications. Atheromatous plaque within the aorta. Mildly enlarged precarinal lymph node measures 1.3 x 1.3 cm with mildly elevated metabolic activity 3 .38. Right hilar lymph node with SUV max 4.0 (series 603 image 59). Difficult to measure on noncontra st CT. Enlarged right axillary lymph node measures 2.4 x 3.3 cm with low level metabolic activity 2.8 8 in normal fatty hilum. Abdomen and pelvis: The liver, spleen, adrenal glands, pancreas and gallbladder have unremarkable noncontrast appearance. Small calcified lymph nodes within the periportal region. No hydronephrosis. No renal calculus. Moderate colonic stool burden. Normal appendix. No evidence of bowel obstruction. No pathologic lymph adenopathy. No ascites. Extensive atheromatous plaque throughout the aorta and branch vessels. Musculoskeletal: There is no evidence of FDG-avid disease. IMPRESSION: 1. Hypermetabolic spiculated right upper lobe mass compatible with known malignancy. 2. Mildly metabolic right hilar and mediastinal lymph nodes, concerning for metastasis. 3. New small right upper lobe nodular opacity, indeterminate on PET. Recommend short-term 3 month fo llow-up. Electronically signed by: Jb Barnhart DO (11/11/2020 12:19 PM) [id number]
== END ==
LOC: PETSC 08:58
PROVIDERS: ATTEND Radiology Radiation Oncology
DX: C34.11 Malignant neoplasm of upper lobe, right bronchus or lung (principal); R91.8 Other nonspecific abnormal finding of lung field; J43.9 Emphysema, unspecified; R59.0 Localized enlarged lymph nodes; I70.0 Atherosclerosis of aorta; I25.10 Atherosclerotic heart disease of native coronary artery without angina pectoris
CPT/HCPCS: 78815; A9552

== ENCOUNTER → 2020-11-18 | Outpatient (CLI) | payer OTHER, MEDICAID ==
[2020-10-28 15:00] VITALS: BP 136/72
[2020-11-18 15:21] LABS: BASO % 0 % (0-3); EOS # 0.1 x10^3/uL (0.0-0.7); EOS % 2 % (0-3); HEMATOCRIT 27.4 % (36.0-47.0); HEMOGLOBIN 8.9 g/dL (12.0-15.5); LYMPH # 1.4 x10^3/uL (1.0-4.8); LYMPH % 20 % (24-48); MEAN CORPUSCULAR HEMOGLOBIN 29 pg (25-35); MEAN CORPUSCULAR HGB CONC 32 g/dL (31-37); MEAN CORPUSCULAR VOLUME 90 fL (79-100); MONO # 0.7 x10^3/uL (0.0-1.1); MONO % 10 % (0-9); NEUT % 68 % (31-73); PLATELET COUNT 299 x10^3/uL (140-400); RED BLOOD COUNT 3.05 x10^6/uL (3.50-5.40); RED CELL DISTRIBUTION WIDTH 14.9 % (11.5-14.5); WHITE BLOOD COUNT 7.3 x10^3/uL (4.0-11.0)
[2020-11-18 15:36] LABS: CALCIUM 8.8 mg/dL (8.5-10.1); CREATININE 1.2 mg/dL (0.6-1.0); GFR 54.2; POTASSIUM 3.5 mmol/L (3.5-5.1)
[2020-11-18 15:42] LABS: ALBUMIN 2.9 g/dL (3.4-5.0); ALBUMIN/GLOBULIN RATIO 0.6 (1.0-1.7); TOTAL BILIRUBIN 0.2 mg/dL (0.2-1.0); TOTAL PROTEIN 7.8 g/dL (6.4-8.2)
== END ==
LOC: ONCLAB 14:42
PROVIDERS: ATTEND Internal Medicine Hematology & Oncology
DX: C34.11 Malignant neoplasm of upper lobe, right bronchus or lung (principal)
CPT/HCPCS: 36415; 80053; 85025

== ENCOUNTER → 2020-11-21 | Outpatient (CLI) | payer OTHER, MEDICAID ==
[2020-10-28 15:00] VITALS: BP 136/72
[~2020-11-21] MED LIST changes: +GADOTERATE 7.5 MMOL/15ML VIAL. IVP ONE; +PANT20TA2 PO
--- NOTE | 2020-11-21 14:37 | RAD ---
MRI BRAIN WO+W Date: 11/21/2020 10:08 AM Indication: LUNG CA. NON SMALL CELL LUNG CANCER Comparison: CT head 02/09/2019. Technique: Multiplanar multisequence MRI of the brain was performed with and without intravenous cont rast using the standard protocol. 15 cc Clariscan contrast was administered intravenously during the exam. Findings: No acute infarct. No acute or chronic hemorrhage. The ventricles are normal in size and configuration without hydrocephalus. Moderate scattered FLAIR hyperintensities in the subcortical and periventricu lar deep white matter, a nonspecific finding, most commonly seen with chronic small vessel ischemic d isease. Mild generalized cerebral volume loss. Bilateral cerebellar and thalamic chronic lacunar infarcts. The scalp and calvarium are normal. The pituitary and sella are normal. No Chiari malformation. Incom pletely characterized degenerative spondylosis of the visualized upper cervical spine. The visualized orbits and globes are normal. The visualized paranasal sinuses are clear. The mastoid air cells are clear. Normal flow voids within the vertebral, basilar, and internal carotid arteries indicating patency. IMPRESSION: 1. No evidence of intracranial metastatic disease. 2. Bilateral cerebellar and thalamic chronic lacunar infarcts. 3. Moderate chronic small vessel ischemic disease and mild cerebral volume loss. Electronically signed by: Nadir Rouse MD (11/21/2020 2:34 PM) [id number]
== END ==
LOC: MRI 14:54
PROVIDERS: ATTEND Radiology Radiation Oncology
DX: C34.11 Malignant neoplasm of upper lobe, right bronchus or lung (principal); I67.82 Cerebral ischemia; I63.81 Other cerebral infarction due to occlusion or stenosis of small artery; M47.812 Spondylosis without myelopathy or radiculopathy, cervical region
CPT/HCPCS: 70553; A9575

== ENCOUNTER 2020-11-23 08:47 | Outpatient (CLI) | payer OTHER, MEDICAID ==
[~2020-11-23] VITALS: Ht 162.6 cm; Wt 81.4 kg
[~2020-11-23 08:47] MED LIST changes: -GADOTERATE 7.5 MMOL/15ML VIAL. IVP ONE; -PANT20TA2 PO
[2020-11-23] MEDS ORDERED: PANT20TA2 PO (09:16)
[2020-11-23 09:35] VITALS: BP 134/61
[2020-11-23 09:46] LABS: PROTHROMBIN TIME PATIENT 13.2 SEC (11.7-14.0)
--- NOTE | 2020-11-23 10:15 | NUR ---
Pt here for portacath placement. Pt was swabbed for COViD upon arrival because she is not fully vaccinated. Rapid and PCR COVID test came back positive. Dr Espinoza and Dr Eckert notified. Decision made to delay port placement for 2 weeks. [facility] notified. New appt made for port placement. Pt instructed on quarantine procedures for herself and family members. 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 [place] MACIEL
== END 2020-11-23 10:20 | disposition home or self-care (01) ==
LOC: INTRAD 08:47
PROVIDERS: ATTEND Internal Medicine Hematology & Oncology
DX: Z11.52 Encounter for screening for COVID-19 (principal); Z20.822 Contact with and (suspected) exposure to COVID-19; I25.10 Atherosclerotic heart disease of native coronary artery without angina pectoris; I10 Essential (primary) hypertension; E78.00 Pure hypercholesterolemia, unspecified; K21.9 Gastro-esophageal reflux disease without esophagitis; M19.90 Unspecified osteoarthritis, unspecified site; E11.9 Type 2 diabetes mellitus without complications; Z79.899 Other long term (current) drug therapy; Z98.890 Other specified postprocedural states; Z79.82 Long term (current) use of aspirin; Z79.4 Long term (current) use of insulin; Z82.49 Family history of ischemic heart disease and other diseases of the circulatory system
CPT/HCPCS: 36415; 85610; 87426

== ENCOUNTER 2020-12-07 08:44 | Outpatient (CLI) | payer OTHER, MEDICAID ==
[~2020-12-07] VITALS: Ht 162.6 cm; Wt 81.8 kg
[~2020-12-07 08:44] MED LIST changes: +PANT20TA2 PO
[2020-12-07 09:22] VITALS: BP 158/66
[2020-12-07] MEDS ORDERED: LIDOCAINE 1%/EPI 1:100,000 20 ML VIAL. ONE (09:58)
[2020-12-07] MEDS ORDERED: fentaNYL PF VIAL 100 MCG/2 ML VIAL ONE (10:19)
[2020-12-07] MEDS ORDERED: MIDAZOLAM HCL/PF 2 MG/2 ML VIAL. ONE (10:19)
[2020-12-07] MEDS ORDERED: fentaNYL PF VIAL 100 MCG/2 ML VIAL IV ONE (10:45)
[2020-12-07] MEDS ORDERED: LIDOCAINE 1%/EPI 1:100,000 20 ML VIAL. INJ ONE (10:45)
[2020-12-07] MEDS ORDERED: MIDAZOLAM HCL/PF 2 MG/2 ML VIAL. IV ONE (10:45)
[2020-12-07 11:01] VITALS: BP 140/68
[2020-12-07 11:10] VITALS: BP 110/64
[2020-12-07 11:25] VITALS: BP 124/57
--- NOTE | 2020-12-07 11:25 | RAD ---
PROCEDURE: Fluoroscopically and ultrasound-guided placement of right internal jugular tunnel central venous catheter with port (Bard PowerPort, Groshong tip ). Clinical Indication: Chemotherapy access Discussion: The risks and benefits of the procedure were discussed with the patient and/or their visitor services representative. Informed consent was obtained. The patient was brought to the fluoroscopy suite and placed in supine position. A time out procedure was performed. The right neck and chest were prepped and draped using maximum sterile barrier technique including th e use of: Current guideline approved cutaneous antisepsis, a large sterile sheet to establish a steri le field. Additionally the heavy equipment operator apprentice wore a hat, mask, sterile gloves, a sterile gown during the proce dure as well as practiced acceptable hand hygiene prior to placing the port. Ultrasound-guided access: Ultrasound evaluation showed the right jugular vein to be patent and compr essible. 1 % lidocaine with epinephrine was administered to the skin and subcutaneous tissues overlyi ng the right neck and chest. Under direct ultrasound guidance a single wall puncture was made followe d by tract dilation and placement of a sheath. An ultrasound image was saved and sent to PACS. Next, an incision was made in an infraclavicular location and a pocket created. The catheter was tunneled between the pocket and the venotomy site. The catheter was advanced through the peel away sheath, u nder fluoroscopic guidance, such that it's tip was in the mid right atrium. The catheter was connecte d to the port reservoir. The port was accessed and found to flush and aspirate normally. The reservoi r was then placed into the subcutaneous pocket. The wound was closed in layers using 3 Vicryl and 4- 0 Vicryl suture. Dermabond was applied overlying the wound, and venotomy site. The patient tolerated procedure without immediate complication. Sedation: Conscious sedation was performed for 33 minutes. Sedation was carried out while the patie nt was continually monitored by a member of the Radiology nursing staff. Continual cardiopulmonary m onitoring was carried out during the procedure. The patient tolerated the procedure well and there w ere no immediate complications. Fluoroscopy time: 0.3 mins Dose area product 0.3 Park centimeter squared Impression: Successful ultrasound and fluoroscopically guided placement of right internal jugular anais kyle central venous catheter with port (Bard PowerPort, Groshong tip). Electronically signed by: Elias Bojorquez MD (12/07/2020 11:22 AM) [id number]
--- NOTE | 2020-12-07 11:25 | RAD ---
PROCEDURE: Fluoroscopically and ultrasound-guided placement of right internal jugular tunnel central venous catheter with port (Bard PowerPort, Groshong tip ). Clinical Indication: Chemotherapy access Discussion: The risks and benefits of the procedure were discussed with the patient and/or their banking representative. Informed consent was obtained. The patient was brought to the fluoroscopy suite and placed in supine position. A time out procedure was performed. The right neck and chest were prepped and draped using maximum sterile barrier technique including th e use of: Current guideline approved cutaneous antisepsis, a large sterile sheet to establish a steri le field. Additionally the wave soldering machine operator wore a hat, mask, sterile gloves, a sterile gown during the proce dure as well as practiced acceptable hand hygiene prior to placing the port. Ultrasound-guided access: Ultrasound evaluation showed the right jugular vein to be patent and compr essible. 1 % lidocaine with epinephrine was administered to the skin and subcutaneous tissues overlyi ng the right neck and chest. Under direct ultrasound guidance a single wall puncture was made followe d by tract dilation and placement of a sheath. An ultrasound image was saved and sent to PACS. Next, an incision was made in an infraclavicular location and a pocket created. The catheter was tunneled between the pocket and the venotomy site. The catheter was advanced through the peel away sheath, u nder fluoroscopic guidance, such that it's tip was in the mid right atrium. The catheter was connecte d to the port reservoir. The port was accessed and found to flush and aspirate normally. The reservoi r was then placed into the subcutaneous pocket. The wound was closed in layers using 3 Vicryl and 4- 0 Vicryl suture. Dermabond was applied overlying the wound, and venotomy site. The patient tolerated procedure without immediate complication. Sedation: Conscious sedation was performed for 33 minutes. Sedation was carried out while the patie nt was continually monitored by a member of the Radiology nursing staff. Continual cardiopulmonary m onitoring was carried out during the procedure. The patient tolerated the procedure well and there w ere no immediate complications. Fluoroscopy time: 0.3 mins Dose area product 0.3 Park centimeter squared Impression: Successful ultrasound and fluoroscopically guided placement of right internal jugular anais kyle central venous catheter with port (Bard PowerPort, Groshong tip). Electronically signed by: Elias Bojorquez MD (12/07/2020 11:22 AM) [id number]
[2020-12-07 11:40] VITALS: BP 117/54
[2020-12-07 11:55] VITALS: BP 144/70
--- NOTE | 2020-12-07 12:08 | NUR ---
Discharge Note: LOUIS SALAZAR Discharge instructions and discharge home medications reviewed with Patient and a copy given. All questions have been answered and understanding verbalized. The following instructions and handouts were given: adult moderate sedation and implanted port instructions Discontinued lines and drains: Peripheral IV intact. Patient discharged to Home or Self Care withFamily Membera Wheelchair
--- NOTE | 2020-12-07 12:22 | NUR ---
Called Elba in Radiation Oncology to let her know that patient was finishing her lunch and would be down for her appointment. No problems noted and transport took patient by wheelchair.
== END 2020-12-07 12:25 | disposition home or self-care (01) ==
LOC: INTRAD 08:44
PROVIDERS: ATTEND Internal Medicine Hematology & Oncology
DX: Z51.11 Encounter for antineoplastic chemotherapy (principal); I10 Essential (primary) hypertension; E78.00 Pure hypercholesterolemia, unspecified; I25.2 Old myocardial infarction; J44.9 Chronic obstructive pulmonary disease, unspecified; K21.9 Gastro-esophageal reflux disease without esophagitis; E11.9 Type 2 diabetes mellitus without complications; M79.7 Fibromyalgia; M06.9 Rheumatoid arthritis, unspecified; I25.10 Atherosclerotic heart disease of native coronary artery without angina pectoris; F17.210 Nicotine dependence, cigarettes, uncomplicated; Z87.440 Personal history of urinary (tract) infections; Z79.899 Other long term (current) drug therapy; Z98.890 Other specified postprocedural states
CPT/HCPCS: 36561; 76937; 77001; 99152; 99153; C1788; C1892; J0690; J2250; J3010; J3490

== ENCOUNTER → 2020-12-08 | Outpatient (CLI) | payer OTHER, MEDICAID ==
[2020-12-07 11:55] VITALS: BP 144/70
[2020-12-08 09:10] LABS: BASO % 0 % (0-3); EOS # 0.3 x10^3/uL (0.0-0.7); EOS % 3 % (0-3); HEMATOCRIT 30.8 % (36.0-47.0); HEMOGLOBIN 9.7 g/dL (12.0-15.5); LYMPH # 3.1 x10^3/uL (1.0-4.8); LYMPH % 31 % (24-48); MEAN CORPUSCULAR HEMOGLOBIN 28 pg (25-35); MEAN CORPUSCULAR HGB CONC 32 g/dL (31-37); MEAN CORPUSCULAR VOLUME 88 fL (79-100); MONO # 0.9 x10^3/uL (0.0-1.1); MONO % 9 % (0-9); NEUT # 5.7 x10^3/uL (1.8-7.7); NEUT % 57 % (31-73); PLATELET COUNT 251 x10^3/uL (140-400)
[2020-12-08 09:29] LABS: CALCIUM 8.5 mg/dL (8.5-10.1); CREATININE 0.7 mg/dL (0.6-1.0); POTASSIUM 3.5 mmol/L (3.5-5.1)
[2020-12-08 09:33] LABS: ALBUMIN 2.8 g/dL (3.4-5.0); ALBUMIN/GLOBULIN RATIO 0.7 (1.0-1.7); TOTAL BILIRUBIN 0.3 mg/dL (0.2-1.0); TOTAL PROTEIN 6.9 g/dL (6.4-8.2)
== END ==
LOC: ONCLAB 08:42
PROVIDERS: ATTEND Internal Medicine Hematology & Oncology
DX: C34.11 Malignant neoplasm of upper lobe, right bronchus or lung (principal)
CPT/HCPCS: 36415; 80053; 83615; 85025

== ENCOUNTER → 2020-12-14 | Outpatient (CLI) | payer OTHER, MEDICAID ==
[2020-12-07 11:55] VITALS: BP 144/70
[2020-12-14 11:50] LABS: BASO # 0.1 x10^3/uL (0.0-0.2); BASO % 1 % (0-3); EOS # 0.3 x10^3/uL (0.0-0.7); EOS % 3 % (0-3); HEMATOCRIT 31.2 % (36.0-47.0); LYMPH # 2.1 x10^3/uL (1.0-4.8); LYMPH % 25 % (24-48); MEAN CORPUSCULAR HEMOGLOBIN 28 pg (25-35); MEAN CORPUSCULAR HGB CONC 32 g/dL (31-37); MEAN CORPUSCULAR VOLUME 88 fL (79-100); MONO # 0.4 x10^3/uL (0.0-1.1); MONO % 5 % (0-9); NEUT # 5.5 x10^3/uL (1.8-7.7); NEUT % 66 % (31-73); PLATELET COUNT 209 x10^3/uL (140-400); RED BLOOD COUNT 3.53 x10^6/uL (3.50-5.40); RED CELL DISTRIBUTION WIDTH 16.7 % (11.5-14.5); WHITE BLOOD COUNT 8.4 x10^3/uL (4.0-11.0)
[2020-12-14 12:06] LABS: CALCIUM 8.8 mg/dL (8.5-10.1); GFR 66.9
[2020-12-14 12:14] LABS: ALBUMIN 3.2 g/dL (3.4-5.0); ALBUMIN/GLOBULIN RATIO 0.8 (1.0-1.7); TOTAL BILIRUBIN 0.3 mg/dL (0.2-1.0); TOTAL PROTEIN 7.4 g/dL (6.4-8.2)
== END ==
LOC: ONCLAB 10:53
PROVIDERS: ATTEND Internal Medicine Hematology & Oncology
DX: C34.11 Malignant neoplasm of upper lobe, right bronchus or lung (principal)
CPT/HCPCS: 36415; 80053; 85025

== ENCOUNTER → 2020-12-21 | Outpatient (CLI) | payer OTHER, MEDICAID ==
[2020-12-07 11:55] VITALS: BP 144/70
[2020-12-21 11:31] LABS: CALCIUM 8.6 mg/dL (8.5-10.1); CREATININE 0.7 mg/dL (0.6-1.0); POTASSIUM 3.8 mmol/L (3.5-5.1)
[2020-12-21 11:32] LABS: BASO % 1 % (0-3); EOS # 0.1 x10^3/uL (0.0-0.7); EOS % 2 % (0-3); HEMATOCRIT 27.6 % (36.0-47.0); HEMOGLOBIN 8.9 g/dL (12.0-15.5); LYMPH # 0.4 x10^3/uL (1.0-4.8); LYMPH % 6 % (24-48); MEAN CORPUSCULAR HEMOGLOBIN 29 pg (25-35); MEAN CORPUSCULAR HGB CONC 32 g/dL (31-37); MEAN CORPUSCULAR VOLUME 90 fL (79-100); MONO # 0.2 x10^3/uL (0.0-1.1); MONO % 3 % (0-9); NEUT # 5.6 x10^3/uL (1.8-7.7); NEUT % 89 % (31-73); PLATELET COUNT 227 x10^3/uL (140-400); RED BLOOD COUNT 3.08 x10^6/uL (3.50-5.40); RED CELL DISTRIBUTION WIDTH 17.2 % (11.5-14.5); WHITE BLOOD COUNT 6.3 x10^3/uL (4.0-11.0)
[2020-12-21 11:41] LABS: ALBUMIN/GLOBULIN RATIO 0.8 (1.0-1.7); TOTAL BILIRUBIN 0.4 mg/dL (0.2-1.0)
[2020-12-21 12:39] LABS: % BANDS 2 % (0-9); % LYMPHS 11 % (24-48); % MONOS 1 % (0-10); % SEGS 86 % (35-66); PLT ESTIMATE ADEQUATE (ADEQUATE)
== END ==
LOC: ONCLAB 10:42
PROVIDERS: ATTEND Internal Medicine Hematology & Oncology
DX: C34.11 Malignant neoplasm of upper lobe, right bronchus or lung (principal)
CPT/HCPCS: 36415; 80053; 85007; 85025

== ENCOUNTER → 2020-12-29 | Outpatient (CLI) | payer OTHER, MEDICAID ==
[2020-12-07 11:55] VITALS: BP 144/70
[2020-12-29 11:04] LABS: BASO % 0 % (0-3); EOS % 0 % (0-3); HEMATOCRIT 22.6 % (36.0-47.0); HEMOGLOBIN 7.4 g/dL (12.0-15.5); LYMPH # 0.3 x10^3/uL (1.0-4.8); LYMPH % 5 % (24-48); MEAN CORPUSCULAR HEMOGLOBIN 30 pg (25-35); MEAN CORPUSCULAR HGB CONC 33 g/dL (31-37); MEAN CORPUSCULAR VOLUME 91 fL (79-100); MONO # 0.2 x10^3/uL (0.0-1.1); MONO % 5 % (0-9); NEUT # 4.9 x10^3/uL (1.8-7.7); NEUT % 90 % (31-73); PLATELET COUNT 233 x10^3/uL (140-400); RED BLOOD COUNT 2.47 x10^6/uL (3.50-5.40); RED CELL DISTRIBUTION WIDTH 19.1 % (11.5-14.5)
[2020-12-29 11:07] LABS: CALCIUM 8.4 mg/dL (8.5-10.1); CREATININE 0.8 mg/dL (0.6-1.0); GFR 86.6; POTASSIUM 4.6 mmol/L (3.5-5.1)
[2020-12-29 11:14] LABS: ALBUMIN 3.1 g/dL (3.4-5.0); TOTAL BILIRUBIN 0.2 mg/dL (0.2-1.0); TOTAL PROTEIN 6.3 g/dL (6.4-8.2)
[2020-12-29 12:49] LABS: WHITE BLOOD COUNT 5.4 x10^3/uL (4.0-11.0)
== END ==
LOC: ONCLAB 09:42
PROVIDERS: ATTEND Physician Assistant
DX: C34.11 Malignant neoplasm of upper lobe, right bronchus or lung (principal)
CPT/HCPCS: 36415; 80053; 83615; 85025

== ENCOUNTER 2021-01-03 11:35 | Observation (INO) | payer OTHER, MEDICAID ==
[~2021-01-03] VITALS: Ht 162.6 cm; Wt 83.4 kg
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
[2021-01-03] MEDS ORDERED: IV NORMAL SALINE 1000ML BAG 1,000 ML IV ONE (12:45)
[2021-01-03 12:48] LABS: ALBUMIN 3.1 g/dL (3.4-5.0); ALBUMIN/GLOBULIN RATIO 0.9 (1.0-1.7); CALCIUM 8.6 mg/dL (8.5-10.1); CREATININE 0.6 mg/dL (0.6-1.0); GFR 120.7; MAGNESIUM 1.3 mg/dL (1.8-2.4); POTASSIUM 3.7 mmol/L (3.5-5.1); TOTAL BILIRUBIN 0.2 mg/dL (0.2-1.0); TOTAL PROTEIN 6.5 g/dL (6.4-8.2)
[2021-01-03 12:50] LABS: BASO % 1 % (0-3); EOS % 1 % (0-3); HEMATOCRIT 25.6 % (36.0-47.0); HEMOGLOBIN 8.3 g/dL (12.0-15.5); LYMPH # 0.5 x10^3/uL (1.0-4.8); LYMPH % 17 % (24-48); MEAN CORPUSCULAR HEMOGLOBIN 30 pg (25-35); MEAN CORPUSCULAR HGB CONC 33 g/dL (31-37); MEAN CORPUSCULAR VOLUME 92 fL (79-100); MONO # 0.3 x10^3/uL (0.0-1.1); MONO % 10 % (0-9); NEUT # 2.2 x10^3/uL (1.8-7.7); NEUT % 71 % (31-73); PLATELET COUNT 186 x10^3/uL (140-400); RED BLOOD COUNT 2.77 x10^6/uL (3.50-5.40); RED CELL DISTRIBUTION WIDTH 20.1 % (11.5-14.5); WHITE BLOOD COUNT 3.1 x10^3/uL (4.0-11.0)
[2021-01-03] MEDS ORDERED: DEXTROSE 50% 25 GM / 50ML DISP.SYRIN. IV ONE (12:57)
[2021-01-03] MEDS ORDERED: DEXTROSE 50% 25 GM / 50ML DISP.SYRIN. IV PRN ×2 (13:00→19:30)
[2021-01-03 13:31] LABS: ANISOCYTOSIS MOD; PLT ESTIMATE ADEQUATE (ADEQUATE); POLYCHROMASIA SLIGHT
[2021-01-03] MEDS ORDERED: ACETAMINOPHEN 325 MG TABLET. PO PRN (13:45)
[2021-01-03 13:52] LABS: BILIRUBIN,URINE NEGATIVE (NEG); CLARITY,URINE CLEAR; COLOR,URINE YELLOW; NITRITE,URINE NEGATIVE (NEG); PH,URINE 5.5 (<5.0-8.0); PROTEIN,URINE NEGATIVE (NEG-TRACE)
--- NOTE | 2021-01-03 14:00 | RAD ---
XR CHEST 1V CLINICAL INDICATIONS: Reason: DIZZINESS / Spl. Instructions: / History: COMPARISON: October 28, 2020 Findings: Right-sided chest tube has been removed. Again seen is a right upper lobe lung mass or nodu lar lung infiltrate. It is slightly smaller. No new lung infiltrate or pleural effusion or pulmonary edema or lung mass or pneumothorax is seen. The heart size, pulmonary vasculature, mediastinum and b oth marcela are unremarkable. Right IJ Port-A-Cath has been placed and the tip is seen within the lower SVC above the level of the right atrium.. IMPRESSION: No new radiographic abnormality is seen. Right upper lobe lung mass or nodular lung infil trate is slightly smaller since October 28, 2020. Electronically signed by: Robbin Masterson MD (01/03/2021 12:27 PM) [id number]
--- NOTE | 2021-01-03 14:00 | RAD ---
XR FOOT_LEFT 3 VIEWS Clinical indications: Reason: BRUISING METATARSAL AREA, RAN OVER WITH SCOOTER / Spl. Instructions: / History: Findings: No acute fracture or dislocation or osteolytic process is evident. IMPRESSION: No acute osseous abnormality is evident. Electronically signed by: Robbin Masterson MD (01/03/2021 12:38 PM) [id number]
--- NOTE | 2021-01-03 14:00 | RAD ---
PQRS Compliance Statement: One or more of the following individualized dose reduction techniques were utilized for this examinat ion: 1. Automated exposure control 2. Adjustment of the mA and/or kV according to patient size 3. Use of iterative reconstruction technique CT head without contrast 01/03/2021 12:25 PM INDICATION: Headache COMPARISON: CT head 02/09/2019 TECHNIQUE: Multiple axial CT images of the head were obtained from skull base through the vertex with out intravenous contrast. FINDINGS: Head: Ventricles, sulci and basal cisterns are within normal limits. There is no hydrocephalus. Low-attenuation in the periventricular white matter is suggestive of chronic small vessel ischemic ch anges. Park-white matter differentiation is normal. There is no acute intracranial hemorrhage. There is no mass, mass effect or midline shift. Posterior fossa is normal in appearance. Visualized portions of the orbits are normal with exception of bilateral lens replacement. Paranasal sinuses are well aerated. Mastoid air cells are well aerated. Scalp and calvaria are normal. IMPRESSION: No acute intracranial hemorrhage. Low-attenuation in the periventricular white matter is suggestive of chronic small vessel ischemic ch anges. Findings are stable as compared to prior examination from 02/09/2019. Electronically signed by: Scarlett Toth MD (01/03/2021 12:51 PM) [id number]
[2021-01-03 14:07] LABS: BACTERIA,URINE 0 /HPF (0-FEW); RBC,URINE 0 /HPF (0-2)
--- NOTE | 2021-01-03 15:37 | EKG ---
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
[2021-01-03 19:00] VITALS: BP_SYST 141; BP_SYST 156; BP_DIAS 100; BP_DIAS 67
[2021-01-03] MEDS ORDERED: POTASSIUM CL 20MEQ D5-0.9%NACL 1,000 ML IV SCH (19:30)
[2021-01-03] MEDS ORDERED: NITROGLYCERIN SUBLINGUAL 0.4 MG BOTTLE OF 25. SL PRN (19:30)
[2021-01-03] MEDS ORDERED: NON FORMULARY ITEM (Albuterol Sulfate (Albuterol Sulfate Neb Soln) 0.63 MG) NEB PRN (19:30)
[2021-01-03] MEDS ORDERED: NON FORMULARY ITEM (Albuterol Sulfate (Ventolin Hfa Inhaler) 2 PUFF) IH SCH (19:30)
[2021-01-03] MEDS ORDERED: MAGNESIUM SULFATE 4GM 100 ML IV ONE (19:30)
[2021-01-03] MEDS ORDERED: HYDROcodone/APAP 10/325 1 TAB TABLET PO PRN (19:30)
[2021-01-03] MEDS ORDERED: ALBUTEROL SULFATE 2.5 MG/3 ML NEBU. NEB PRN (19:45)
[2021-01-03] MEDS ORDERED: ENOXAPARIN 40 MG/0.4 ML SYRINGE. SQ SCH (20:00)
[2021-01-03] MEDS: ALBUTEROL SULFATE 2.5 MG/3 ML NEBU. NEB SCH (20:11)
[2021-01-03] MEDS: BUDESONIDE 0.5 MG/2 ML NEBU. NEB SCH (20:11)
[2021-01-03] MEDS ORDERED: NON FORMULARY ITEM (Budesonide/Formoterol Fumarate (Symbicort 160-4.5 Mcg Inhaler) 2 PUFF) IH SCH (21:00)
[2021-01-03] MEDS ORDERED: ATORVASTATIN CALCIUM 10 MG TABLET. PO SCH (21:00)
[2021-01-03] MEDS: SENNOSIDES/DOCUSATE 8.6/50MG TABLET. PO SCH (21:00)
[2021-01-03] MEDS: hydrALAZINE 25 MG TABLET PO SCH (21:25)
[2021-01-03] MEDS: oxyCODONE ER 15 MG TAB.ER.12H PO SCH (21:25)
[2021-01-03] MEDS: METOPROLOL TART IMMED RELEASE 25 MG TABLET. PO SCH (21:26)
[2021-01-03 23:00] VITALS: BP_SYST 137; BP_SYST 140; BP_DIAS 102; BP_DIAS 62
[2021-01-04] MEDS: ALBUTEROL SULFATE 2.5 MG/3 ML NEBU. NEB SCH ×2 (01:45→07:22)
[2021-01-04 03:00] VITALS: BP 157/81
[2021-01-04 07:00] VITALS: BP 123/59
[2021-01-04] MEDS: BUDESONIDE 0.5 MG/2 ML NEBU. NEB SCH (07:22)
[2021-01-04] MEDS ORDERED: PANTOPRAZOLE 40 MG TABLET.DR. PO SCH (07:30)
[2021-01-04 07:39] LABS: BASO % 1 % (0-3); EOS % 2 % (0-3); HEMATOCRIT 22.2 % (36.0-47.0); HEMOGLOBIN 7.2 g/dL (12.0-15.5); LYMPH # 0.6 x10^3/uL (1.0-4.8); LYMPH % 23 % (24-48); MEAN CORPUSCULAR HEMOGLOBIN 30 pg (25-35); MEAN CORPUSCULAR HGB CONC 33 g/dL (31-37); MEAN CORPUSCULAR VOLUME 93 fL (79-100); MONO # 0.3 x10^3/uL (0.0-1.1); MONO % 12 % (0-9); NEUT # 1.5 x10^3/uL (1.8-7.7); NEUT % 62 % (31-73); PLATELET COUNT 135 x10^3/uL (140-400); RED BLOOD COUNT 2.38 x10^6/uL (3.50-5.40); RED CELL DISTRIBUTION WIDTH 20.5 % (11.5-14.5); WHITE BLOOD COUNT 2.5 x10^3/uL (4.0-11.0)
[2021-01-04 07:41] LABS: CALCIUM 8.3 mg/dL (8.5-10.1); CREATININE 0.9 mg/dL (0.6-1.0); GFR 75.6; POTASSIUM 4.2 mmol/L (3.5-5.1)
[2021-01-04] MEDS ORDERED: INSULIN LISPRO 300 UNITS/3 ML VIAL. SQ SCH (08:00)
[2021-01-04] MEDS ORDERED: LOSARTAN POTASSIUM 50 MG TABLET. PO SCH (09:00)
[2021-01-04] MEDS ORDERED: ASPIRIN ENTERIC COATED 81 MG TABLET.DR. PO SCH (09:00)
--- NOTE | 2021-01-04 09:05 | PDOC ---
Provider Note Date of Service: DATE: 01/04/21 TIME: 09:04 Provider Note Pt seen, combined H&P and discharge summary dictated.#[id number]. Justifications for Admission Other Justification ANIVAL DESAI MD Jan 04, 2021 09:05
--- NOTE | 2021-01-04 09:46 | DS ---
DATE OF DISCHARGE: 01/04/2021 COMBINED HISTORY AND PHYSICAL AND DISCHARGE SUMMARY REASON FOR ADMISSION TO THE HOSPITAL: Hypoglycemia, orthostatic hypotension, dizziness. HISTORY OF PRESENT ILLNESS: The patient is a 65-year-old female with history of lung cancer and she is getting radiation and chemo at Outpatient Radiology. She does every day radiation, chemo once a week. She finished her radiation yesterday. When she was coming out of the table, she was lightheaded, dizzy and she was hypoglycemic, blood sugar was low, was sent to the Emergency Room after blood sugar was 30. She was given D50 and she was also orthostatic with a low blood pressure and a heart fast rate. The patient was given IV fluids. She was given D50, was put on D5 and was admitted for overnight observation. PAST MEDICAL HISTORY: She has a history of lung cancer, which was a non-small cell, this was diagnosed a month ago, she is seeing Radiation and Oncology; history of coronary artery disease; diabetes; hypertension; hyperlipidemia and she is on sliding scale insulin and she also has a history of cardiac stents for [place] in the past. She also has fibromyalgia, anxiety, depression, chronic pain. PAST SURGICAL HISTORY: Angioplasty, , stent placement and now, she is getting radiation and chemo, has a Port-A-Cath for chemo. PERSONAL HISTORY: Former smoker for at least 40 years, stopped recently. Denies alcohol. She is on chronic narcotic pain medications. ALLERGIES: LISINOPRIL CAUSED SWELLING, MORPHINE AND ENALAPRIL. MEDICATIONS AT HOME: The patient takes anywhere from 3-5 units of sliding scale with each meal. She is on hydrochlorothiazide 25 mg, cyclobenzaprine 5 mg at bedtime, albuterol nebulizer and inhaler, aspirin 81 mg daily, atorvastatin 10 mg daily, Symbicort 2 puffs twice a day, hydralazine 25 mg 3 times daily, hydrocodone 10/325 q.6, losartan 50 mg daily, metoprolol 25 mg twice a day, nitro sublingual, OxyContin 15 mg twice a day, pantoprazole 20 mg daily, senna 1 daily. FAMILY HISTORY: Unremarkable. SOCIAL HISTORY: Lives at home. REVIEW OF SYMPTOMS: Feels better. She is anxious to go home. PHYSICAL EXAMINATION: VITAL SIGNS: Her temperature is 98, pulse 86, respirations 18, blood pressure 140/65 and 99% on room air. HEENT: Head is atraumatic. Pupils equal. Oral cavity: She has no teeth, has dentures. NECK: Supple. CHEST: Symmetrical, has a Port-A-Cath in the right side of chest. CARDIOVASCULAR: S1, S2. LUNGS: Clear. ABDOMEN: Soft. No mass palpable. EXTERNAL GENITALIA: No Fraga. RECTUM: Deferred. EXTREMITIES: The patient has rheumatoid arthritis and some arthritis of the hands. NEUROLOGIC: No focal deficits, moving all extremities. LABORATORY DATA: At the time of her admission, white count 3, hemoglobin 8.3, platelets 186. Electrolytes show a sodium 140; potassium 3.7; chloride 102; bicarb 28; BUN 13; creatinine 0.6; glucose 30; magnesium 1.3, low. LFTs normal. Urine was negative for infection. DIAGNOSTIC DATA: She had a CT head negative. Chest x-ray was negative. X-ray of the foot negative. FINAL IMPRESSION: 1. Hypoglycemia. 2. Weakness secondary to hypoglycemia and orthostatics. 3. Lung cancer, small cell, getting radiation and chemotherapy. 4. Rheumatoid arthritis. 5. Coronary artery disease. 6. Generalized weakness. HOSPITAL COURSE: The patient was admitted to the hospital, was given D50 and D5W, blood sugars remained good, more than 150. As blood pressure is good, she is feeling good and then she will be discharged. She is going to get outpatient radiation treatment and followup in the office. The patient was explained that she is not going to eat, cut down the insulin by half. ANNY DR: Polina TID: [id number]
[2021-01-04 10:41] LABS: % BASOS 1 % (0-3); % EOS 1 % (0-5); % LYMPHS 32 % (24-48); % MONOS 9 % (0-10); % SEGS 57 % (35-66); PLT ESTIMATE DECREASED (ADEQUATE)
[2021-01-04 10:42] LABS: ANISOCYTOSIS MOD
[2021-01-04] MEDS: oxyCODONE ER 15 MG TAB.ER.12H PO SCH (11:25)
[2021-01-04] MEDS: METOPROLOL TART IMMED RELEASE 25 MG TABLET. PO SCH (11:25)
[2021-01-04] MEDS: hydrALAZINE 25 MG TABLET PO SCH (11:28)
[2021-01-04 11:29] VITALS: BP 157/81
[2021-01-04] MEDS: SENNOSIDES/DOCUSATE 8.6/50MG TABLET. PO SCH (11:29)
--- NOTE | 2021-01-04 11:58 | NUR ---
pt was discharged home with self care today, she was wheeled down to the Oncology Radiation depat for her daily appt, from there her daughter will pick her up and take her home. Ariel Reynoso RN
--- NOTE | 2021-01-04 14:11 | NUR ---
SW following. Discussed with RN, pt from home, room air, ada diet. Discharge order for home with self care. RN advised no SW needs. Pt discharged to radiation.
[2021-01-05 06:12] LABS: HEMOGLOBIN A1C 6.8 % (4.8-5.6)
== END 2021-01-04 12:05 | disposition home or self-care (01) ==
LOC: ER 11:35 → ED HOLD 13:22 → INTOOBSV 13:22 → 5 SOUTH 14:39
PROVIDERS: ADMIT Internal Medicine; ATTEND Internal Medicine
DX: E11.649 Type 2 diabetes mellitus with hypoglycemia without coma (principal); I95.1 Orthostatic hypotension; C34.90 Malignant neoplasm of unspecified part of unspecified bronchus or lung; I25.2 Old myocardial infarction; J44.9 Chronic obstructive pulmonary disease, unspecified; M06.9 Rheumatoid arthritis, unspecified; M79.7 Fibromyalgia; I25.10 Atherosclerotic heart disease of native coronary artery without angina pectoris; I10 Essential (primary) hypertension; E78.00 Pure hypercholesterolemia, unspecified; E78.5 Hyperlipidemia, unspecified; Z79.891 Long term (current) use of opiate analgesic; Z85.118 Personal history of other malignant neoplasm of bronchus and lung; Z87.891 Personal history of nicotine dependence; Z95.5 Presence of coronary angioplasty implant and graft; Z79.899 Other long term (current) drug therapy
CPT/HCPCS: 36415; 70450; 71045; 73630; 80048; 80053; 81001; 82962; 83036; 83735; 85007; 85025; 93005; 94640; 96361; 96365; 96366; 96372; 96375; 97162; 99285; G0378; J1650; J1815; J3475; J3480; J7030; J7613; J7626; 96374; G0379

== ENCOUNTER → 2021-01-05 | Outpatient (CLI) | payer OTHER, MEDICAID ==
[2021-01-04 11:29] VITALS: BP 157/81
[2021-01-05 12:12] LABS: BASO % 1 % (0-3); EOS % 1 % (0-3); HEMOGLOBIN 7.6 g/dL (12.0-15.5); LYMPH # 0.7 x10^3/uL (1.0-4.8); LYMPH % 17 % (24-48); MEAN CORPUSCULAR HEMOGLOBIN 30 pg (25-35); MEAN CORPUSCULAR HGB CONC 32 g/dL (31-37); MEAN CORPUSCULAR VOLUME 94 fL (79-100); MONO # 0.5 x10^3/uL (0.0-1.1); MONO % 11 % (0-9); NEUT # 3.2 x10^3/uL (1.8-7.7); NEUT % 71 % (31-73); PLATELET COUNT 142 x10^3/uL (140-400); RED BLOOD COUNT 2.56 x10^6/uL (3.50-5.40); RED CELL DISTRIBUTION WIDTH 20.5 % (11.5-14.5); WHITE BLOOD COUNT 4.5 x10^3/uL (4.0-11.0)
[2021-01-05 12:36] LABS: CALCIUM 8.8 mg/dL (8.5-10.1); CREATININE 0.7 mg/dL (0.6-1.0); POTASSIUM 4.1 mmol/L (3.5-5.1)
[2021-01-05 12:41] LABS: ALBUMIN 3.1 g/dL (3.4-5.0); ALBUMIN/GLOBULIN RATIO 0.9 (1.0-1.7); TOTAL BILIRUBIN 0.2 mg/dL (0.2-1.0); TOTAL PROTEIN 6.7 g/dL (6.4-8.2)
== END ==
LOC: ONCLAB 11:23
PROVIDERS: ATTEND Physician Assistant
DX: C34.11 Malignant neoplasm of upper lobe, right bronchus or lung (principal)
CPT/HCPCS: 36415; 80053; 83615; 85025

== ENCOUNTER → 2021-01-06 | Outpatient (CLI) | payer OTHER, MEDICAID ==
[2021-01-06 12:39] VITALS: BP 158/79
[2021-01-06 13:21] VITALS: BP 139/63
[2021-01-06 14:21] VITALS: BP 183/87
[2021-01-06 14:22] VITALS: BP 183/87
[2021-01-06 15:15] VITALS: BP 161/72
== END | disposition home or self-care (01) ==
LOC: OPS 11:32
PROVIDERS: ATTEND Physician Assistant
DX: C34.11 Malignant neoplasm of upper lobe, right bronchus or lung (principal); D64.9 Anemia, unspecified; I25.10 Atherosclerotic heart disease of native coronary artery without angina pectoris; I25.2 Old myocardial infarction; J44.9 Chronic obstructive pulmonary disease, unspecified; I10 Essential (primary) hypertension; E11.9 Type 2 diabetes mellitus without complications; K21.9 Gastro-esophageal reflux disease without esophagitis; E78.5 Hyperlipidemia, unspecified; E78.00 Pure hypercholesterolemia, unspecified; M06.9 Rheumatoid arthritis, unspecified; Z79.891 Long term (current) use of opiate analgesic; Z79.899 Other long term (current) drug therapy; Z87.891 Personal history of nicotine dependence
CPT/HCPCS: 36415; 36430; 86850; 86900; 86901; 86920; P9016

== ENCOUNTER → 2021-01-12 | Outpatient (CLI) | payer OTHER, MEDICAID ==
[2021-01-06 15:15] VITALS: BP 161/72
[2021-01-12 09:08] LABS: BASO % 1 % (0-3); EOS # 0.1 x10^3/uL (0.0-0.7); EOS % 2 % (0-3); HEMATOCRIT 31.2 % (36.0-47.0); LYMPH # 1.2 x10^3/uL (1.0-4.8); LYMPH % 30 % (24-48); MEAN CORPUSCULAR HEMOGLOBIN 30 pg (25-35); MEAN CORPUSCULAR HGB CONC 32 g/dL (31-37); MEAN CORPUSCULAR VOLUME 92 fL (79-100); MONO # 0.6 x10^3/uL (0.0-1.1); MONO % 14 % (0-9); NEUT # 2.1 x10^3/uL (1.8-7.7); NEUT % 53 % (31-73); PLATELET COUNT 136 x10^3/uL (140-400); RED BLOOD COUNT 3.38 x10^6/uL (3.50-5.40); RED CELL DISTRIBUTION WIDTH 21.7 % (11.5-14.5); WHITE BLOOD COUNT 3.9 x10^3/uL (4.0-11.0)
[2021-01-12 09:15] LABS: CALCIUM 9.2 mg/dL (8.5-10.1); CREATININE 0.8 mg/dL (0.6-1.0); GFR 86.6; POTASSIUM 3.7 mmol/L (3.5-5.1)
[2021-01-12 09:21] LABS: ALBUMIN 3.4 g/dL (3.4-5.0); ALBUMIN/GLOBULIN RATIO 0.9 (1.0-1.7); TOTAL BILIRUBIN 0.3 mg/dL (0.2-1.0)
[2021-01-12 10:40] LABS: PLT ESTIMATE ADEQUATE (ADEQUATE)
[2021-01-12 10:41] LABS: ANISOCYTOSIS SLIGHT
== END ==
LOC: ONCLAB 08:44
PROVIDERS: ATTEND Physician Assistant
DX: C34.11 Malignant neoplasm of upper lobe, right bronchus or lung (principal)
CPT/HCPCS: 36415; 80053; 83615; 85025

== ENCOUNTER → 2021-01-19 | Outpatient (CLI) | payer OTHER, MEDICAID ==
[2021-01-06 15:15] VITALS: BP 161/72
[2021-01-19 11:25] LABS: BASO % 0 % (0-3); EOS # 0.1 x10^3/uL (0.0-0.7); EOS % 3 % (0-3); HEMATOCRIT 29.2 % (36.0-47.0); HEMOGLOBIN 9.5 g/dL (12.0-15.5); LYMPH # 0.9 x10^3/uL (1.0-4.8); LYMPH % 32 % (24-48); MEAN CORPUSCULAR HEMOGLOBIN 30 pg (25-35); MEAN CORPUSCULAR HGB CONC 33 g/dL (31-37); MEAN CORPUSCULAR VOLUME 92 fL (79-100); MONO # 0.4 x10^3/uL (0.0-1.1); MONO % 13 % (0-9); NEUT # 1.4 x10^3/uL (1.8-7.7); NEUT % 52 % (31-73); PLATELET COUNT 182 x10^3/uL (140-400); RED BLOOD COUNT 3.17 x10^6/uL (3.50-5.40); RED CELL DISTRIBUTION WIDTH 20.9 % (11.5-14.5); WHITE BLOOD COUNT 2.8 x10^3/uL (4.0-11.0)
[2021-01-19 11:55] LABS: ALBUMIN 3.3 g/dL (3.4-5.0); ALBUMIN/GLOBULIN RATIO 0.9 (1.0-1.7); CALCIUM 8.6 mg/dL (8.5-10.1); CREATININE 0.7 mg/dL (0.6-1.0); POTASSIUM 3.2 mmol/L (3.5-5.1); TOTAL BILIRUBIN 0.2 mg/dL (0.2-1.0); TOTAL PROTEIN 6.9 g/dL (6.4-8.2)
== END ==
LOC: ONCLAB 11:04
PROVIDERS: ATTEND Internal Medicine Hematology & Oncology
DX: C34.11 Malignant neoplasm of upper lobe, right bronchus or lung (principal)
CPT/HCPCS: 36415; 80053; 83615; 85025

== ENCOUNTER → 2021-01-25 | Outpatient (CLI) | payer OTHER, MEDICAID ==
[2021-01-06 15:15] VITALS: BP 161/72
[2021-01-25 13:36] LABS: BASO % 1 % (0-3); EOS # 0.1 x10^3/uL (0.0-0.7); EOS % 3 % (0-3); HEMATOCRIT 33.1 % (36.0-47.0); HEMOGLOBIN 10.7 g/dL (12.0-15.5); LYMPH # 0.9 x10^3/uL (1.0-4.8); LYMPH % 33 % (24-48); MEAN CORPUSCULAR HEMOGLOBIN 31 pg (25-35); MEAN CORPUSCULAR HGB CONC 32 g/dL (31-37); MEAN CORPUSCULAR VOLUME 94 fL (79-100); MONO # 0.5 x10^3/uL (0.0-1.1); MONO % 19 % (0-9); NEUT # 1.2 x10^3/uL (1.8-7.7); NEUT % 44 % (31-73); PLATELET COUNT 220 x10^3/uL (140-400); RED BLOOD COUNT 3.53 x10^6/uL (3.50-5.40); RED CELL DISTRIBUTION WIDTH 22.3 % (11.5-14.5); WHITE BLOOD COUNT 2.8 x10^3/uL (4.0-11.0)
[2021-01-25 13:44] LABS: CALCIUM 8.7 mg/dL (8.5-10.1); CREATININE 0.7 mg/dL (0.6-1.0); POTASSIUM 3.5 mmol/L (3.5-5.1)
[2021-01-25 13:50] LABS: ALBUMIN 3.3 g/dL (3.4-5.0); ALBUMIN/GLOBULIN RATIO 0.9 (1.0-1.7); TOTAL BILIRUBIN 0.3 mg/dL (0.2-1.0)
[2021-01-25 16:46] LABS: % EOS 5 % (0-5); % LYMPHS 29 % (24-48); % MONOS 10 % (0-10); % SEGS 56 % (35-66)
[2021-01-25 16:47] LABS: ANISOCYTOSIS MOD; PLT ESTIMATE ADEQUATE (ADEQUATE)
== END ==
LOC: ONCLAB 13:23
PROVIDERS: ATTEND Internal Medicine Hematology & Oncology
DX: C34.11 Malignant neoplasm of upper lobe, right bronchus or lung (principal)
CPT/HCPCS: 36415; 80053; 85007; 85025

== ENCOUNTER → 2021-02-02 | Outpatient (CLI) | payer OTHER, MEDICAID ==
[2021-01-06 15:15] VITALS: BP 161/72
[2021-02-02 13:15] LABS: BASO # 0.1 x10^3/uL (0.0-0.2); BASO % 1 % (0-3); EOS # 0.1 x10^3/uL (0.0-0.7); EOS % 1 % (0-3); HEMATOCRIT 36.1 % (36.0-47.0); HEMOGLOBIN 11.7 g/dL (12.0-15.5); LYMPH # 1.3 x10^3/uL (1.0-4.8); LYMPH % 22 % (24-48); MEAN CORPUSCULAR HEMOGLOBIN 30 pg (25-35); MEAN CORPUSCULAR HGB CONC 33 g/dL (31-37); MEAN CORPUSCULAR VOLUME 93 fL (79-100); MONO # 1.1 x10^3/uL (0.0-1.1); MONO % 18 % (0-9); NEUT # 3.5 x10^3/uL (1.8-7.7); NEUT % 58 % (31-73); PLATELET COUNT 194 x10^3/uL (140-400); RED BLOOD COUNT 3.89 x10^6/uL (3.50-5.40); RED CELL DISTRIBUTION WIDTH 20.9 % (11.5-14.5)
[2021-02-02 13:18] LABS: CALCIUM 8.8 mg/dL (8.5-10.1); CREATININE 0.7 mg/dL (0.6-1.0); POTASSIUM 3.3 mmol/L (3.5-5.1)
[2021-02-02 13:27] LABS: ALBUMIN 3.6 g/dL (3.4-5.0); ALBUMIN/GLOBULIN RATIO 0.8 (1.0-1.7); TOTAL BILIRUBIN 0.3 mg/dL (0.2-1.0); TOTAL PROTEIN 7.9 g/dL (6.4-8.2)
== END ==
LOC: ONCLAB 12:39
PROVIDERS: ATTEND Internal Medicine Hematology & Oncology
DX: C34.11 Malignant neoplasm of upper lobe, right bronchus or lung (principal)
CPT/HCPCS: 36415; 80053; 85025

== ENCOUNTER → 2021-02-28 | Outpatient (CLI) | payer OTHER, MEDICAID ==
[2021-01-06 15:15] VITALS: BP 161/72
[~2021-02-28] MED LIST changes: +CONTRAST GIVEN. MC PRN; +IOHEXOL 300 MG/ML 100ML VIAL. IV ONE
--- NOTE | 2021-02-28 14:38 | RAD ---
CT of the chest with contrast 02/28/2021 INDICATION: Follow-up, non-small cell lung cancer. COMPARISON STUDY: PET CT 2020. TECHNIQUE: Multidetector CT imaging of the chest was performed following the administration of IV con trast. Heart size is normal. Coronary calcification noted. Small, subcentimeter precarinal and right hilar l ymph nodes are similar in size with respect to comparison exam. No new or increasing hilar adenopathy is identified. There is no pneumothorax or pleural effusion. No acute appearing infiltrate is identified. Severe enrico trilobular emphysematous changes are noted. There is a right internal jugular port with tip at the ca voatrial junction. The small subcentimeter nodule identified on most recent PET/CT is no longer visualized. The spiculated mass in the apical anterior right upper lobe has significantly decreased in size in interim now measuring approximately 1.5 x 0.8 cm previously measuring 2.6 x 1.8 cm when measured in a comparable fashion. IMPRESSION: 1. Interval decrease in size in the right upper lobe spiculated mass consistent with a positive treat ment response. Separate subcentimeter nodule in the right upper lobe demonstrated on most recent comp arison PET/CT is no longer visualized. 2. Small, subcentimeter mediastinal and right hilar lymph nodes, grossly unchanged in size CT DOSING PQRS STATEMENT: One or more of the following individualized dose reduction techniques were utilized for this examinat ion: 1. Automated exposure control 2. Adjustment of the mA and/or kV according to patient size 3. Use of iterative reconstruction technique Electronically signed by: Elias Bojorquez MD (02/28/2021 2:36 PM) [id number]
== END ==
LOC: CT 13:11
PROVIDERS: ATTEND Physician Assistant
DX: C34.11 Malignant neoplasm of upper lobe, right bronchus or lung (principal); J43.2 Centrilobular emphysema; R91.8 Other nonspecific abnormal finding of lung field; I25.10 Atherosclerotic heart disease of native coronary artery without angina pectoris
CPT/HCPCS: 71260; Q9967

== ENCOUNTER → 2021-03-15 | Outpatient (CLI) | payer OTHER, MEDICAID ==
[2021-01-06 15:15] VITALS: BP 161/72
[~2021-03-15] MED LIST changes: -CONTRAST GIVEN. MC PRN; -IOHEXOL 300 MG/ML 100ML VIAL. IV ONE
[2021-03-15 12:03] LABS: BASO % 0 % (0-3); EOS # 0.2 x10^3/uL (0.0-0.7); EOS % 3 % (0-3); HEMATOCRIT 37.4 % (36.0-47.0); HEMOGLOBIN 12.5 g/dL (12.0-15.5); LYMPH # 1.6 x10^3/uL (1.0-4.8); LYMPH % 23 % (24-48); MEAN CORPUSCULAR HEMOGLOBIN 31 pg (25-35); MEAN CORPUSCULAR HGB CONC 33 g/dL (31-37); MEAN CORPUSCULAR VOLUME 92 fL (79-100); MONO # 0.6 x10^3/uL (0.0-1.1); MONO % 9 % (0-9); NEUT # 4.5 x10^3/uL (1.8-7.7); NEUT % 66 % (31-73); PLATELET COUNT 225 x10^3/uL (140-400); RED BLOOD COUNT 4.04 x10^6/uL (3.50-5.40); WHITE BLOOD COUNT 6.9 x10^3/uL (4.0-11.0)
[2021-03-15 12:15] LABS: CALCIUM 9.2 mg/dL (8.5-10.1); CREATININE 0.7 mg/dL (0.6-1.0); POTASSIUM 3.8 mmol/L (3.5-5.1)
[2021-03-15 12:23] LABS: ALBUMIN 3.3 g/dL (3.4-5.0); ALBUMIN/GLOBULIN RATIO 0.7 (1.0-1.7); TOTAL BILIRUBIN 0.3 mg/dL (0.2-1.0)
== END ==
LOC: ONCLAB 11:45
PROVIDERS: ATTEND Internal Medicine Hematology & Oncology
DX: C34.11 Malignant neoplasm of upper lobe, right bronchus or lung (principal)
CPT/HCPCS: 36415; 80053; 85025

== ENCOUNTER → 2021-03-21 | Outpatient (CLI) | payer OTHER, MEDICAID ==
[2021-01-06 15:15] VITALS: BP 161/72
[2021-03-21 12:37] LABS: BASO % 1 % (0-3); EOS # 0.3 x10^3/uL (0.0-0.7); EOS % 4 % (0-3); HEMATOCRIT 34.4 % (36.0-47.0); HEMOGLOBIN 11.2 g/dL (12.0-15.5); LYMPH # 1.3 x10^3/uL (1.0-4.8); LYMPH % 18 % (24-48); MEAN CORPUSCULAR HEMOGLOBIN 31 pg (25-35); MEAN CORPUSCULAR HGB CONC 33 g/dL (31-37); MEAN CORPUSCULAR VOLUME 93 fL (79-100); MONO # 0.7 x10^3/uL (0.0-1.1); MONO % 9 % (0-9); NEUT # 4.9 x10^3/uL (1.8-7.7); NEUT % 67 % (31-73); PLATELET COUNT 174 x10^3/uL (140-400); RED BLOOD COUNT 3.68 x10^6/uL (3.50-5.40); RED CELL DISTRIBUTION WIDTH 14.3 % (11.5-14.5); WHITE BLOOD COUNT 7.2 x10^3/uL (4.0-11.0)
[2021-03-21 12:49] LABS: CALCIUM 8.6 mg/dL (8.5-10.1); CREATININE 0.7 mg/dL (0.6-1.0); POTASSIUM 3.2 mmol/L (3.5-5.1)
[2021-03-21 12:54] LABS: ALBUMIN 2.8 g/dL (3.4-5.0); ALBUMIN/GLOBULIN RATIO 0.7 (1.0-1.7); TOTAL BILIRUBIN 0.2 mg/dL (0.2-1.0)
== END ==
LOC: ONCLAB 12:02
PROVIDERS: ATTEND Internal Medicine Hematology & Oncology
DX: C34.11 Malignant neoplasm of upper lobe, right bronchus or lung (principal)
CPT/HCPCS: 36415; 80053; 85025

== ENCOUNTER → 2021-04-04 | Outpatient (CLI) | payer OTHER, MEDICAID ==
[2021-01-06 15:15] VITALS: BP 161/72
[2021-04-04 11:38] LABS: BASO % 0 % (0-3); EOS # 0.1 x10^3/uL (0.0-0.7); EOS % 1 % (0-3); HEMOGLOBIN 11.1 g/dL (12.0-15.5); LYMPH # 1.4 x10^3/uL (1.0-4.8); LYMPH % 17 % (24-48); MEAN CORPUSCULAR HEMOGLOBIN 30 pg (25-35); MEAN CORPUSCULAR HGB CONC 33 g/dL (31-37); MEAN CORPUSCULAR VOLUME 93 fL (79-100); MONO # 0.6 x10^3/uL (0.0-1.1); MONO % 8 % (0-9); NEUT # 6.1 x10^3/uL (1.8-7.7); NEUT % 74 % (31-73); PLATELET COUNT 296 x10^3/uL (140-400); RED BLOOD COUNT 3.67 x10^6/uL (3.50-5.40); RED CELL DISTRIBUTION WIDTH 13.5 % (11.5-14.5); WHITE BLOOD COUNT 8.2 x10^3/uL (4.0-11.0)
[2021-04-04 11:45] LABS: CALCIUM 9.2 mg/dL (8.5-10.1); CREATININE 0.6 mg/dL (0.6-1.0); GFR 120.7; POTASSIUM 3.6 mmol/L (3.5-5.1)
[2021-04-04 11:51] LABS: ALBUMIN 2.8 g/dL (3.4-5.0); ALBUMIN/GLOBULIN RATIO 0.5 (1.0-1.7); TOTAL BILIRUBIN 0.2 mg/dL (0.2-1.0); TOTAL PROTEIN 8.1 g/dL (6.4-8.2)
[2021-04-04 11:57] LABS: FREE T4 1.21 ng/dL (0.76-1.46); THYROID STIM HORMONE (TSH) 0.37 uIU/mL (0.358-3.74)
== END ==
LOC: ONCLAB 11:09
PROVIDERS: ATTEND Physician Assistant
DX: C34.11 Malignant neoplasm of upper lobe, right bronchus or lung (principal)
CPT/HCPCS: 36415; 80053; 83615; 84439; 84443; 85025

== ENCOUNTER 2021-04-07 16:00 | Inpatient (IN) | payer OTHER, MEDICAID ==
[~2021-04-07] VITALS: Ht 162.6 cm; Wt 81.8 kg
[2021-04-07] MEDS ORDERED: fentaNYL PF VIAL 100 MCG/2 ML VIAL IVP ONE ×2 (16:30→19:45)
[2021-04-07] MEDS ORDERED: LIDOCAINE/EPI/TETRACAINE TOPICAL GEL 3 ML. TP ONE (16:30)
--- NOTE | 2021-04-07 16:55 | RAD ---
INDICATION: Reason: soa / Spl. Instructions: / History: COMPARISON: January 03, 2021 FINDINGS: Single view of chest obtained. Right-sided port with tip at the SVC. Cardiac silhouette is unremarkable with calcific atherosclerosis seen. Patchy opacity is seen at the right upper lung as well as some additional mild interstitial opacities . Degenerative changes spine IMPRESSION: * Patchy opacity at the right upper lung which could be from infiltrate or posttreatment changes to the region. A portion of this is also secondary to the patient's known mass in the area. Electronically signed by: Omar Vanegas MD (04/07/2021 4:53 PM) [id number]
--- NOTE | 2021-04-07 17:05 | PHYS DOC ---
Past Medical History Past Medical History: CAD, Diabetes-Type II, GERD, High Cholesterol, CA, Unknown Additional Past Medical Histor: fibromyalgia, lung cancer (MARK REY APRN) Past Surgical History: Angioplasty, Additional Past Surgical Histo: W/ STENT PLACEMENT, Port placement- R chest (MARK REY SPIRITUAL ADVISOR) Smoking Status: Former Smoker Alcohol Use: None Drug Use: None (MARK REY APRN) General Adult EDM: Chief Complaint: PAIN CONTROL HPI: HPI: Patient is a 65 year old female who presents with started taking a new chemo drug of which she cannot remember the name of and she last took this on Saturday. She stated that she was to come to the emergency room if she began having a rash or shortness of breath as that is a side effect of this. She states that Dr. Desai gives her hydrocodone and OxyContin as she took last at 11:00 this morning. She states she is having pain all over her body and some shortness of breath. She states she also think she is getting a rash. She points to her right lower rosado area but no redness is seen upon exam. She states she does not itch or have any hives. She rates her pain a 10 out of 10. (MARK REY SPIRITUAL ADVISOR) Review of Systems: Review of Systems: Constitutional: Denies fever or chills. [] Eyes: Denies change in visual acuity. [] HENT: Denies nasal congestion or sore throat. [] Respiratory: Denies cough or +shortness of breath. [] Cardiovascular: Denies chest pain or edema. [] GI: Denies abdominal pain, nausea, vomiting, bloody stools or diarrhea. [] : Denies dysuria. [] Musculoskeletal: Denies back pain or joint pain. + Generalized pain [] Integument: + Right lower rosado rash. [] Neurologic: Denies headache, focal weakness or sensory changes. [] Endocrine: Denies polyuria or polydipsia. [] Lymphatic: Denies swollen glands. [] Psychiatric: Denies depression or anxiety. [] (MARK REY SPIRITUAL ADVISOR) Heart Score: C/O Chest Pain: No Risk Factors: Risk Factors: DM, Current or recent (<one month) smoker, HTN, HLP, family history of CAD, obesity. Risk Scores: Score 0 - 3: 2.5% MACE over next 6 weeks - Discharge Home Score 4 - 6: 20.3% MACE over next 6 weeks - Admit for Clinical Observation Score 7 - 10: 72.7% MACE over next 6 weeks - Early Invasive Strategies (MARK REY APRN) Current Medications: Current Medications Medications (Trade) Dose Ordered Sig/Juan Start Time Stop Time Status Last Admin Dose Admin Fentanyl Citrate (Fentanyl 2ml Vial) 75 mcg 1X ONCE 04/07/21 16:30 04/07/21 16:31 DC Tetracaine/ Epinephrine/ Lidocaine (Let (Vrjl-Yqtroqh-Qryjp) Gel) 3 ml 1X ONCE 04/07/21 16:30 04/07/21 16:31 DC (MARK REY APRN) Allergies: Allergies: Allergies Coded Allergies Type Severity Reaction Last Updated Verified enalapril Allergy Severe facial Swelling 02/02/19 Yes lisinopril Allergy Severe facial Swelling 02/02/19 Yes morphine Allergy Intermediate 02/02/19 Yes (MARK REY APRN) Physical Exam: PE: Constitutional: Well developed, well nourished, no acute distress, non-toxic appearance. [] HENT: Normocephalic, atraumatic, bilateral external ears normal, oropharynx moist, no oral exudates, nose normal. [] Eyes: PERRLA, EOMI, conjunctiva normal, no discharge. [] Neck: Normal range of motion, no tenderness, supple, no stridor. [] Cardiovascular:Heart rate regular rhythm, no murmur [] Lungs & Thorax: Bilateral breath sounds clear to auscultation [] Abdomen: Bowel sounds normal, soft, no tenderness, no masses, no pulsatile masses. [] Skin: Warm, dry, no erythema, no rash. [] Back: No tenderness, no CVA tenderness. [] Extremities: No tenderness, no cyanosis, no clubbing, ROM intact, no edema. [] Neurologic: Alert and oriented X 3, normal motor function, normal sensory function, no focal deficits noted. [] Psychologic: Affect normal, judgement normal, mood normal. [] Normal physical exam (MARK REY APRN) Current Patient Data: Vital Signs: Vital Signs Date Time Temp Pulse Resp B/P (MAP) Pulse Ox O2 Delivery O2 Flow Rate FiO2 04/07/21 16:23 98.9 86 15 161/105 (123) 97 Room Air 98.9 (MARK REY APRN) EKG: EKG: [[address] Ann as a sinus rhythm but no STEMI (MARK REY APRN) Radiology/Procedures: Radiology/Procedures: [] Impression: [facility] [address] [place], [place] [id number] IMAGING REPORT Signed PATIENT: LOUIS SALAZAR ACCOUNT: [id number] : 1955 LOCATION: ER AGE: 65 SEX: F EXAM STATUS: PRE ER ORD. PHYSICIAN: MARK REY APRN REASON: soa PROCEDURE: PORTABLE CHEST 1V INDICATION: Reason: soa / Spl. Instructions: / History: COMPARISON: January 03, 2021 FINDINGS: Single view of chest obtained. Right-sided port with tip at the SVC. Cardiac silhouette is unremarkable with calcific atherosclerosis seen. Patchy opacity is seen at the right upper lung as well as some additional mild interstitial opacities. Degenerative changes spine IMPRESSION: * Patchy opacity at the right upper lung which could be from infiltrate or posttreatment changes to the region. A portion of this is also secondary to the patient's known mass in the area. Electronically signed by: Ryne Jarrett MD (04/07/2021 4:53 PM) DESKTOP- [id number] DICTATED and SIGNED BY: RYNE JARRETT MD DATE: 04/07/21 [id number] (MARK REY APRN) Course & Med Decision Making: Course & Med Decision Making Pertinent Labs and Imaging studies reviewed. (See chart for details) See HPI. Alert and oriented x4. Ambulatory steady gait. Speaks in full clear sentences. She is not hypoxic. She denies any, chest pain, abdominal pain, nausea, vomiting, fever, cough, hives, itching, respiratory distress. No respiratory distress. No stridor or wheezing. No angioedema. No rashes appreciated. No hives. Uvula midline and nonswollen. Tongue is not swollen. No hives or swelling to the face. Lungs are clear in upper lobes and diminished in lower lobes. No swelling of extremities. Patient states she is feeling much better after the fentanyl was given. Patient's troponin is elevated. When looking back it looks like patient's troponin has been elevated in the past. She is also had an CA in the past. Patient is okay with staying. I spoke to Dr. Aguero and he states to admit the patient for serial troponins. I spoke to Dr. Cabral to let him know the patient's troponin was elevated. He gave no other orders. [] (MARK REY APRN) Course & Med Decision Making I was the Attending physician on the above date of service of this patient. This patient was evaluated, examined, treated, and dispositioned from the emergency department by the mid-level practitioner. Although I was working at the time , no assistance was requested. Patient disposition made after my shift as attending physician had ended Electronically signed, Emmanuelle Ann DO (EMMANUELLE ANN DO) Manish Disclaimer: Manish Disclaimer: This electronic medical record was generated, in whole or in part, using a voice recognition dictation system. (MARK REY APRN) Departure Departure Impression: Primary Impression: NSTEMI (non-ST elevated myocardial infarction) Disposition: 09 ADMITTED INPATIENT Condition: STABLE Referrals: ANIVAL DESAI MD (PCP) MARK REY APRN Apr 07, 2021 17:05 EMMANUELLE ANN DO Apr 08, 2021 14:08
[2021-04-07 17:53] LABS: BASO % 1 % (0-3); EOS # 0.3 x10^3/uL (0.0-0.7); EOS % 3 % (0-3); HEMATOCRIT 34.9 % (36.0-47.0); HEMOGLOBIN 11.5 g/dL (12.0-15.5); LYMPH # 1.3 x10^3/uL (1.0-4.8); LYMPH % 18 % (24-48); MEAN CORPUSCULAR HEMOGLOBIN 30 pg (25-35); MEAN CORPUSCULAR HGB CONC 33 g/dL (31-37); MEAN CORPUSCULAR VOLUME 93 fL (79-100); MONO # 0.8 x10^3/uL (0.0-1.1); MONO % 11 % (0-9); NEUT % 68 % (31-73); PLATELET COUNT 257 x10^3/uL (140-400); RED BLOOD COUNT 3.77 x10^6/uL (3.50-5.40); RED CELL DISTRIBUTION WIDTH 14.1 % (11.5-14.5); WHITE BLOOD COUNT 7.5 x10^3/uL (4.0-11.0)
[2021-04-07 18:06] LABS: CALCIUM 8.7 mg/dL (8.5-10.1); CREATININE 0.6 mg/dL (0.6-1.0); GFR 120.7; POTASSIUM 3.7 mmol/L (3.5-5.1)
[2021-04-07 18:12] LABS: ALBUMIN 2.7 g/dL (3.4-5.0); ALBUMIN/GLOBULIN RATIO 0.6 (1.0-1.7); MAGNESIUM 1.5 mg/dL (1.8-2.4); TOTAL BILIRUBIN 0.3 mg/dL (0.2-1.0); TOTAL PROTEIN 7.2 g/dL (6.4-8.2)
[2021-04-07] MEDS ORDERED: ASPIRIN 325 MG TABLET PO ONE (19:30)
[2021-04-07 22:34] VITALS: BP 170/63
[2021-04-08] VITALS (7 sets, daily range): BP systolic 97–207; BP diastolic 49–87
[2021-04-08] MEDS: fentaNYL PF VIAL 100 MCG/2 ML VIAL IVP PRN ×4 (03:18→14:09)
--- NOTE | 2021-04-08 04:31 | EKG ---
[facility] [address] [place] [address] Test Date: 2021-04-07 Test Time: 17:08:26 Pat Name: LOUIS SALAZAR Department: [facility] Gender: F Baller Tender: : 1955 Requested By: ANIVAL DESAI Order Number: [id number] Reading MD: Ward Abbott MD Measurements Intervals [place] Rate: 92 P: 129 SD: 160 QRS: -157 QRSD: 86 T: 138 QT: 352 QTc: 440 Interpretive Statements SR LIMB LEAD MISPLACEMENT Electronically Signed On 04-10-2021 13:21:56 MIG WELDER by Ward Abbott MD
[2021-04-08 06:47] LABS: PROTHROMBIN TIME PATIENT 13.4 SEC (11.7-14.0)
[2021-04-08] MEDS ORDERED: POTA-116 PO (06:58)
[2021-04-08] MEDS ORDERED: ATOR10TA60 PO (06:58)
[2021-04-08] MEDS ORDERED: HYDR-2869 PO (06:58)
[2021-04-08] MEDS ORDERED: NON FORMULARY ITEM (Albuterol Sulfate (Ventolin Hfa Inhaler) 2 PUFF) IH SCH (07:30)
[2021-04-08] MEDS: BUDESONIDE 0.5 MG/2 ML NEBU. NEB SCH ×2 (08:31→17:58)
[2021-04-08] MEDS: ALBUTEROL SULFATE 2.5 MG/3 ML NEBU. NEB SCH ×4 (08:32→17:58)
[2021-04-08] MEDS ORDERED: NON FORMULARY ITEM (Budesonide/Formoterol Fumarate (Symbicort 160-4.5 Mcg Inhaler) 2 PUFF) IH SCH (09:00)
[2021-04-08] MEDS: ASPIRIN ENTERIC COATED 81 MG TABLET.DR. PO SCH (09:30)
[2021-04-08] MEDS: CYCLOBENZAPRINE 10 MG TABLET. PO SCH ×2 (09:30→21:24)
[2021-04-08] MEDS: hydroCHLOROthiazide 25 MG TABLET PO SCH (09:30)
[2021-04-08] MEDS: LOSARTAN POTASSIUM 50 MG TABLET. PO SCH (09:31)
[2021-04-08] MEDS: POTASSIUM CHLORIDE 10 MEQ TABLET.ER. PO SCH ×2 (09:31→17:18)
[2021-04-08] MEDS: oxyCODONE ER 15 MG TAB.ER.12H PO SCH ×2 (09:32→21:25)
[2021-04-08] MEDS: METOPROLOL TART IMMED RELEASE 25 MG TABLET. PO SCH ×2 (09:33→21:24)
[2021-04-08] MEDS ORDERED: NITROGLYCERIN SUBLINGUAL 0.4 MG BOTTLE OF 25. SL PRN (11:30)
--- NOTE | 2021-04-08 11:37 | PDOC ---
Provider Note Date of Service: DATE: 04/08/21 TIME: 11:37 Provider Note Pt seen.H&P dictated.#[id number]. Justifications for Admission Other Justification ANIVAL DESAI MD Apr 08, 2021 11:37
[2021-04-08] MEDS: INSULIN LISPRO 300 UNITS/3 ML VIAL. SQ SCH ×2 (12:00→17:28)
[2021-04-08] MEDS: methylPREDNISolone SOD SUCC PF 40 MG/ML VIAL. IV SCH ×2 (13:09→21:24)
[2021-04-08] MEDS: ENOXAPARIN 40 MG/0.4 ML SYRINGE. SQ SCH (13:09)
--- NOTE | 2021-04-08 14:38 | PDOC2 ---
CONSULT Date of Consult Date of Consult DATE: 04/08/21 TIME: 14:38 Reason for Consult Reason for Consult: Elevated troponin level Referring Physician Referring Physician: Dr. cShmidt Identification/Chief Complaint Chief Complaint c/o pain all over including back pain Source Source: Chart review, Patient History of Present Illness Reason for Visit: 65-year-old female with history of coronary artery disease and non-small cell lung cancer apparently started taking a new chemotherapy agent and started having body pains, generalized weakness and mild shortness of breath. She denied any chest pain as such. She also denied any orthopnea/PND, palpitations or syncope. Her troponin level was slightly elevated prompting cardiology consultation. Past Medical History Cardiovascular: CAD, HTN, [place], Hyperlipidemia Pulmonary: COPD CENTRAL NERVOUS SYSTEM: Periperal neuropathy GI: Constipation, GERD, Other Heme/Onc: Anemia NOS Hepatobiliary: Hep A/B/C Psych: Anxiety Musculoskeletal: Other Rheumatologic: Fibromyalgia, Rheumatoid arthritis, Other Infectious disease: No pertinent hx Renal/: UTI, Urinary Incontinence Endocrine: Diabetes Past Surgical History Past Surgical History: Cataract Removal, , Tonsillectomy, Other Family History Family History: Diabetes, Heart Disease Social History ALCOHOL: occassional Drugs: None Lives: with Family Domestic Violence: Neg Current Problem List Problem List Problems Medical Problems: (1) NSTEMI (non-ST elevated myocardial infarction) Status: Acute Current Medications Current Medications Current Medications Tetracaine/ Epinephrine/ Lidocaine (Let (Dgmm-Ajjvnni-Ttiwk) Gel) 3 ml 1X ONCE TP Last administered on 04/07/21at 17:00; Start 04/07/21 at 16:30; Stop 04/07/21 at 16:31; Status DC Fentanyl Citrate (Fentanyl 2ml Vial) 75 mcg 1X ONCE IVP Last administered on 04/07/21at 16:30; Start 04/07/21 at 16:30; Stop 04/07/21 at 16:31; Status DC Aspirin (Rosaura Aspirin) 325 mg 1X ONCE PO Last administered on 04/07/21at 20:14; Start 04/07/21 at 19:30; Stop 04/07/21 at 19:31; Status DC Fentanyl Citrate (Fentanyl 2ml Vial) 50 mcg 1X ONCE IVP Last administered on 04/07/21at 20:08; Start 04/07/21 at 19:45; Stop 04/07/21 at 19:47; Status DC Fentanyl Citrate (Fentanyl 2ml Vial) 25 mcg PRN Q3HRS PRN IVP PAIN Last administered on 04/08/21 14:09; Start 04/08/21 at 01:00 Aspirin (Ecotrin) 81 mg DAILY PO Last administered on 04/08/21 09:30; Start 04/08/21 at 09:00 Atorvastatin Calcium (Lipitor) 10 mg HS PO ; Start 04/08/21 at 21:00 Hydralazine HCl (Apresoline) 50 mg TID PO Last administered on 04/08/21at 14:11; Start 04/08/21 at 09:00 Hydrochlorothiazide (Hydrodiuril) 25 mg DAILY PO Last administered on 04/08/21 09:30; Start 04/08/21 at 09:00 Acetaminophen/ Hydrocodone Bitart (Lortab 10/325) 1 tab PRN Q6HRS PRN PO PAIN; Start 04/08/21 at 07:30 Losartan Potassium (Cozaar) 50 mg DAILY PO Last administered on 04/08/21 09:31; Start 04/08/21 at 09:00 Metoprolol Tartrate (Lopressor) 25 mg BID PO Last administered on 04/08/21 09:33; Start 04/08/21 at 09:00 Oxycodone HCl (OxyCONTIN) 15 mg BID PO Last administered on 04/08/21 09:32; Start 04/08/21 at 09:00 Non-Formulary Medication (Albuterol Sulfate (Ventolin Hfa Inhaler)) 2 puff PRN Q4-6HRS IH ; Start 04/08/21 at 07:30; Status UNV Non-Formulary Medication (Budesonide/ Formoterol Fumarate (Symbicort 160-4.5 Mcg Inhaler)) 2 puff BID IH ; Start 04/08/21 at 09:00; Status UNV Cyclobenzaprine HCl (Flexeril) 10 mg QHS PO Last administered on 04/08/21at 09:30; Start 04/08/21 at 07:45 Pantoprazole Sodium (Protonix) 40 mg DAILYAC PO ; Start 04/09/21 at 07:30 Potassium Chloride (Klor-Con) 10 meq BIDWMEALS PO Last administered on 12/25/21at 09:31; Start 04/08/21 at 08:00 Albuterol Sulfate (Ventolin Neb Soln) 2.5 mg RTQID NEB Last administered on 04/08/21at 11:30; Start 04/08/21 at 08:00 Budesonide (Pulmicort) 0.5 mg RTBID NEB Last administered on 04/08/21at 08:31; Start 04/08/21 at 08:00 Atorvastatin Calcium (Lipitor) 5 mg QHS PO ; Start 04/08/21 at 21:00 Insulin Human Lispro (HumaLOG) 5 units TIDWMEALS SQ ; Start 04/08/21 at 12:00 Nitroglycerin (Nitrostat) 0.4 mg PRN Q5MIN PRN SL CHEST PAIN; Start 04/08/21 at 11:30 Senna/Docusate Sodium (Senna Plus) 1 tab BID PO ; Start 04/08/21 at 21:00 Methylprednisolone Sodium Succinate (SOLU-Medrol 40MG VIAL) 40 mg Q12HR IV Last administered on 04/08/21at 13:09; Start 04/08/21 at 11:30 Enoxaparin Sodium (Lovenox 40mg Syringe) 40 mg Q24H SQ Last administered on 04/08/21at 13:09; Start 04/08/21 at 11:30 Active Scripts Active Admelog (Insulin Lispro) 100 Unit/1 Ml Vial 5 Units SQ TIDWMEALS 30 Days Nitrostat (Nitroglycerin) 0.4 Mg Tab.subl 0.4 Mg SL PRN Q5MIN PRN 30 Days Senna-Time S Tablet (Sennosides/Docusate Sodium) 1 Each Tablet 1 Tab PO BID 30 Days Losartan Potassium 50 Mg Tablet 50 Mg PO DAILY Lipitor (Atorvastatin Calcium) 10 Mg Tablet 5 Mg PO QHS Reported Atorvastatin Calcium 10 Mg Tablet 10 Mg PO HS Klor-Con M10 (Potassium Chloride) 10 Meq Tab.er.prt 10 Meq PO BID Hydralazine Hcl 50 Mg Tablet 50 Mg PO TID Protonix (Pantoprazole Sodium) 20 Mg Tablet.dr 1 Tab PO DAILY Aspirin Ec (Aspirin) 81 Mg Tablet.dr 81 Mg PO DAILY Hydrochlorothiazide 25 Mg Tablet 25 Mg PO DAILY Metoprolol Tartrate 25 Mg Tablet 1 Tab PO BID Oxycontin (Oxycodone HCl) 15 Mg Tab.er.12h 15 Mg PO BID Ventolin Hfa Inhaler (Albuterol Sulfate) 18 Gm Hfa.aer.ad 2 Puff IH PRN Q4-6HRS Symbicort 160-4.5 Mcg Inhaler (Budesonide/Formoterol Fumarate) 10.2 Gm Hfa.aer.ad 2 Puff IH BID Hydrocodone-Apap 10-325 (Hydrocodone Bit/Acetaminophen) 1 Each Tablet 1 Tab PO PRN Q6HRS PRN Cyclobenzaprine Hcl 5 Mg Tablet 1 Tab PO QHS Allergies Allergies: Coded Allergies: enalapril (Verified Allergy, Severe, facial Swelling, 02/02/19) lisinopril (Verified Allergy, Severe, facial Swelling, 02/02/19) morphine (Verified Allergy, Intermediate, 02/02/19) TOLERATES LORTAB ROS PSYCHOLOGICAL ROS: No: Hallucinations Eyes: No Loss of vision HEENT: No: Epistaxis Respiratory: YES: Shortness of breath; No: Hemoptysis Cardiovascular: No Palpitations Genitourinary: No Hematuria Neurological: No Seizures Physical Exam General: Alert, mild distress HEENT: Atraumatic Lungs: Other (Scattered crepitations bilaterally) Heart: Regular rate Abdomen: Soft Extremities: No edema Neuro: Normal speech Psych/Mental Status: Mood NL Vitals VITALS Vital Signs Date Time Temp Pulse Resp B/P (MAP) Pulse Ox O2 Delivery O2 Flow Rate FiO2 04/08/21 14:11 101 149/81 04/08/21 14:09 Room Air 04/08/21 11:30 96 04/08/21 11:00 99.8 30 99.8 Labs Labs Laboratory Tests Test 04/07/21 17:37 04/07/21 21:16 04/08/21 06:00 04/08/21 07:54 White Blood Count 7.5 x10^3/uL (4.0-11.0) Red Blood Count 3.77 x10^6/uL (3.50-5.40) Hemoglobin 11.5 g/dL (12.0-15.5) Hematocrit 34.9 % (36.0-47.0) Mean Corpuscular Volume 93 fL (79-100) Mean Corpuscular Hemoglobin 30 pg (25-35) Mean Corpuscular Hemoglobin Concent 33 g/dL (31-37) Red Cell Distribution Width 14.1 % (11.5-14.5) Platelet Count 257 x10^3/uL (140-400) Neutrophils (%) (Auto) 68 % (31-73) Lymphocytes (%) (Auto) 18 % (24-48) Monocytes (%) (Auto) 11 % (0-9) Eosinophils (%) (Auto) 3 % (0-3) Basophils (%) (Auto) 1 % (0-3) Neutrophils # (Auto) 5.0 x10^3/uL (1.8-7.7) Lymphocytes # (Auto) 1.3 x10^3/uL (1.0-4.8) Monocytes # (Auto) 0.8 x10^3/uL (0.0-1.1) Eosinophils # (Auto) 0.3 x10^3/uL (0.0-0.7) Basophils # (Auto) 0.0 x10^3/uL (0.0-0.2) Sodium Level 142 mmol/L (136-145) Potassium Level 3.7 mmol/L (3.5-5.1) Chloride Level 104 mmol/L (98-107) Carbon Dioxide Level 28 mmol/L (21-32) Anion Gap 10 (6-14) Blood Urea Nitrogen 10 mg/dL (7-20) Creatinine 0.6 mg/dL (0.6-1.0) Estimated GFR (Cockcroft-Gault) 120.7 BUN/Creatinine Ratio 17 (6-20) Glucose Level 107 mg/dL (70-99) Calcium Level 8.7 mg/dL (8.5-10.1) Magnesium Level 1.5 mg/dL (1.8-2.4) Total Bilirubin 0.3 mg/dL (0.2-1.0) Aspartate Amino Transf (AST/SGOT) 19 U/L (15-37) Alanine Aminotransferase (ALT/SGPT) 28 U/L (14-59) Alkaline Phosphatase 48 U/L (46-116) Troponin I High Sensitivity 142 ng/L (4-50) 149 ng/L (4-50) 161 ng/L (4-50) LH-Aeo-N-Type Natriuretic Peptide 757 pg/mL (0-124) Total Protein 7.2 g/dL (6.4-8.2) Albumin 2.7 g/dL (3.4-5.0) Albumin/Globulin Ratio 0.6 (1.0-1.7) Prothrombin Time 13.4 SEC (11.7-14.0) Prothromb Time International Ratio 1.0 (0.8-1.1) Activated Partial Thromboplast Time 29 SEC (24-38) Glucose (Fingerstick) 117 mg/dL (70-99) Test 04/08/21 12:24 Glucose (Fingerstick) 145 mg/dL (70-99) Laboratory Tests Test 04/07/21 17:37 04/07/21 21:16 04/08/21 06:00 04/08/21 07:54 White Blood Count 7.5 x10^3/uL (4.0-11.0) Red Blood Count 3.77 x10^6/uL (3.50-5.40) Hemoglobin 11.5 g/dL (12.0-15.5) Hematocrit 34.9 % (36.0-47.0) Mean Corpuscular Volume 93 fL (79-100) Mean Corpuscular Hemoglobin 30 pg (25-35) Mean Corpuscular Hemoglobin Concent 33 g/dL (31-37) Red Cell Distribution Width 14.1 % (11.5-14.5) Platelet Count 257 x10^3/uL (140-400) Neutrophils (%) (Auto) 68 % (31-73) Lymphocytes (%) (Auto) 18 % (24-48) Monocytes (%) (Auto) 11 % (0-9) Eosinophils (%) (Auto) 3 % (0-3) Basophils (%) (Auto) 1 % (0-3) Neutrophils # (Auto) 5.0 x10^3/uL (1.8-7.7) Lymphocytes # (Auto) 1.3 x10^3/uL (1.0-4.8) Monocytes # (Auto) 0.8 x10^3/uL (0.0-1.1) Eosinophils # (Auto) 0.3 x10^3/uL (0.0-0.7) Basophils # (Auto) 0.0 x10^3/uL (0.0-0.2) Sodium Level 142 mmol/L (136-145) Potassium Level 3.7 mmol/L (3.5-5.1) Chloride Level 104 mmol/L (98-107) Carbon Dioxide Level 28 mmol/L (21-32) Anion Gap 10 (6-14) Blood Urea Nitrogen 10 mg/dL (7-20) Creatinine 0.6 mg/dL (0.6-1.0) Estimated GFR (Cockcroft-Gault) 120.7 BUN/Creatinine Ratio 17 (6-20) Glucose Level 107 mg/dL (70-99) Calcium Level 8.7 mg/dL (8.5-10.1) Magnesium Level 1.5 mg/dL (1.8-2.4) Total Bilirubin 0.3 mg/dL (0.2-1.0) Aspartate Amino Transf (AST/SGOT) 19 U/L (15-37) Alanine Aminotransferase (ALT/SGPT) 28 U/L (14-59) Alkaline Phosphatase 48 U/L (46-116) Troponin I High Sensitivity 142 ng/L (4-50) 149 ng/L (4-50) 161 ng/L (4-50) UF-Cnt-F-Type Natriuretic Peptide 757 pg/mL (0-124) Total Protein 7.2 g/dL (6.4-8.2) Albumin 2.7 g/dL (3.4-5.0) Albumin/Globulin Ratio 0.6 (1.0-1.7) Prothrombin Time 13.4 SEC (11.7-14.0) Prothromb Time International Ratio 1.0 (0.8-1.1) Activated Partial Thromboplast Time 29 SEC (24-38) Glucose (Fingerstick) 117 mg/dL (70-99) Test 04/08/21 12:24 Glucose (Fingerstick) 145 mg/dL (70-99) Assessment/Plan Assessment/Plan 1. Non-STEMI most probably type II/demand ischemia. Patient has history of coronary artery disease and had undergone PCI/stent placement to RCA with cardiac catheterization in 2018 showing patent stents. More recently, she had Lexiscan nuclear stress test in October 2020 that did not show any significant ischemia. 2D echo in May 2020 showed normal left ventricular systolic function with EF 60 to 65%. No further cardiac work-up is indicated at this time. Continue current secondary prevention measures. 2. Hypertension: Controlled 3. Hyperlipidemia: Continue statin therapy 4. Moderate aortic stenosis: Stable 5. Chronic diastolic heart failure: Clinically well compensated. Continue current medical regimen. 6. COPD: Clinically stable 7. Non-small cell lung cancer: Receiving radiation therapy and chemotherapy per oncology team. Continue pain management per primary team. 8. DM2: Per IM Thank you for your consultation DEIDRA BURRELL MD Apr 08, 2021 14:38
[2021-04-08] MEDS: ACETAMINOPHEN 325 MG TABLET. PO PRN (17:19)
[2021-04-08 18:10] LABS: INFLUENZA A PATIENT NEGATIVE (NEGATIVE); INFLUENZA B PATIENT NEGATIVE (NEGATIVE)
--- NOTE | 2021-04-08 20:24 | HP ---
DATE OF SERVICE: 04/08/2021 ADMIT DATE: 04/07/2021 MEDICAL HISTORY AND PHYSICAL REASON FOR ADMISSION TO THE HOSPITAL: Generalized weakness, pain issues, and also chest pain. The patient has a known history of coronary artery disease. HISTORY OF PRESENT ILLNESS: The patient is a 65-year-old female with history of fibromyalgia, rheumatoid arthritis and she also has history of lung cancer and she is getting chemotherapy, last chemo was infusion Saturday of last week. The patient was having more pain in the joints and arms, also pain in the chest. She has a history of coronary artery disease, previous stents in the heart and the patient was admitted to the hospital. Troponin was negative. Cardiology was consulted. PAST MEDICAL HISTORY: Has a history of coronary artery disease, diabetes, COPD, coronary artery disease, [place], lung cancer. PAST SURGICAL HISTORY: Had a cardiac stents, port placement for chemo. PERSONAL HISTORY: Smoker, just cut down recently, smoked for 40 years. Denies alcohol. The patient is on chronic pain medications. ALLERGIES: LISINOPRIL, KATEY INHIBITORS AND MORPHINE. MEDICATIONS AT HOME: The patient is on albuterol inhaler nebulizer, aspirin 81 mg daily, atorvastatin 10 mg daily, Symbicort 2 puffs twice a day, cyclobenzaprine 5 mg at bedtime, hydralazine 50 mg 3 times daily, hydrochlorothiazide 25 mg daily, hydrocodone q. 6, insulin 5 units with each meal, losartan 50 mg daily, metoprolol 25 mg twice a day, nitro sublingual, OxyContin 15 mg twice a day, pantoprazole 20 mg daily, Protonix 10 mg daily, senna daily, prednisone 5-7.5 mg daily. REVIEW OF SYSTEMS: Complains of pain all over chest pain, shoulder pain, arm pain, hand pain. No short of breath. No nausea or vomiting. The patient had 2 shots for COVID and she does not take a flu or pneumonia shots. PHYSICAL EXAMINATION: GENERAL: The patient is in pain, not in short of breath. VITAL SIGNS: At the time of admission shows a temperature 98, pulse 86, respirations 15, blood pressure 160/105, 97 on room air. HEENT: Head is atraumatic. Pupils equal. Oral cavity, no congestion. Has dentures. NECK: Supple. Thyroid not enlarged. JVD not elevated. CHEST: Symmetrical, has a Port-A-Cath in the right of the chest, has some chest wall tenderness and a costochondral left side. LUNGS: Clear to auscultation. No wheezing. ABDOMEN: Soft, bowel sounds present. No mass palpable. EXTERNAL GENITALIA: No Fraga. RECTUM: Deferred. EXTREMITIES: The patient has rheumatoid arthritis with a finger deformities tender and also elbow pain. NEUROLOGIC: No focal deficits noted. Moving all extremities. LABORATORY DATA: Shows white count 7, hemoglobin 11, platelets 257. INR 1.0. Electrolytes show sodium 142, potassium 3.7, chloride 104, bicarb 28, BUN 10, creatinine 0.6, glucose 107. LFTs normal. Troponin 142, 149, 161, BNP 757. EKG negative for ischemia. Chest x-ray: COPD pattern. FINAL IMPRESSION: 1. Chest pain for evaluation. 2. Pain with acute exacerbation, rheumatoid arthritis. 3. History of lung cancer, was getting chemo last infusion a week ago. 4. Coronary artery disease, previous stent. 5. Chronic obstructive pulmonary disease. 6. Hyperlipidemia. PLAN: At this time, the patient was admitted to the hospital. Cardiac enzymes, EKG, ekg monitor tech. Cardiology is consulted, Solu-Medrol 40 mg twice daily that will help her symptoms. Continue pain medication. She is scheduled in spite of the oral medicines and fentanyl every 3 hours 25 mcg. VINCENT/OSVALDO GALLARDO: NIMESH/[place] TID: [id number] MTDD
[2021-04-08] MEDS ORDERED: ATORVASTATIN CALCIUM 10 MG TABLET. PO SCH (21:00)
[2021-04-08] MEDS: cefTRIAXone IV Push 1 GM VIAL. IVP SCH (21:23)
[2021-04-08] MEDS: ATORVASTATIN CALCIUM 10 MG TABLET. PO SCH (21:24)
[2021-04-08] MEDS: SENNOSIDES/DOCUSATE 8.6/50MG TABLET. PO SCH (21:24)
[2021-04-09] VITALS (7 sets, daily range): BP systolic 112–158; BP diastolic 56–80
[2021-04-09] MEDS: HYDROcodone/APAP 10/325 1 TAB TABLET PO PRN ×2 (04:13→15:58)
[2021-04-09] MEDS: ALBUTEROL SULFATE 2.5 MG/3 ML NEBU. NEB SCH ×4 (07:26→18:30)
[2021-04-09] MEDS: BUDESONIDE 0.5 MG/2 ML NEBU. NEB SCH ×2 (07:26→18:31)
[2021-04-09] MEDS: SENNOSIDES/DOCUSATE 8.6/50MG TABLET. PO SCH ×2 (09:00→19:26)
[2021-04-09] MEDS: hydroCHLOROthiazide 25 MG TABLET PO SCH (09:21)
[2021-04-09] MEDS: oxyCODONE ER 15 MG TAB.ER.12H PO SCH ×2 (09:21→19:26)
[2021-04-09] MEDS: POTASSIUM CHLORIDE 10 MEQ TABLET.ER. PO SCH ×2 (09:21→17:17)
[2021-04-09] MEDS: ASPIRIN ENTERIC COATED 81 MG TABLET.DR. PO SCH (09:21)
[2021-04-09] MEDS: LOSARTAN POTASSIUM 50 MG TABLET. PO SCH (09:22)
[2021-04-09] MEDS: METOPROLOL TART IMMED RELEASE 25 MG TABLET. PO SCH ×2 (09:22→19:27)
[2021-04-09] MEDS: PANTOPRAZOLE 40 MG TABLET.DR. PO SCH (09:22)
[2021-04-09] MEDS: methylPREDNISolone SOD SUCC PF 40 MG/ML VIAL. IV SCH ×2 (09:23→19:26)
[2021-04-09] MEDS: INSULIN LISPRO 300 UNITS/3 ML VIAL. SQ SCH ×3 (09:35→17:32)
[2021-04-09] MEDS: ENOXAPARIN 40 MG/0.4 ML SYRINGE. SQ SCH (12:49)
--- NOTE | 2021-04-09 13:32 | PDOC ---
PROGRESS NOTES Date of Service: DATE: 04/09/21 TIME: 13:31 Subjective Subjective Denied any chest pain Objective Objective Vital Signs Date Time Temp Pulse Resp B/P (MAP) Pulse Ox O2 Delivery O2 Flow Rate FiO2 04/09/21 11:13 96 Room Air 04/09/21 11:11 98.2 82 18 149/58 (88) 98.2 Intake and Output 04/09/21 07:00 Output Total 200 ml Balance -200 ml Output Urine Total 200 ml # Voids 1 # Bowel Movements 1 Physical Exam Abdomen: Soft Heart: Regular rate Extremities: No edema General: Alert, mild distress HEENT: Atraumatic Lungs: Other (Scattered crepitations bilaterally) MUSCULOSKELETAL: No deformity, Osteoarthritic changes both hands Neuro: Normal speech Psych/Mental Status: Mood NL Assessment Assessment 1. Non-STEMI most probably type II/demand ischemia. Patient has history of coronary artery disease and had undergone PCI/stent placement to RCA with cardiac catheterization in 2018 showing patent stents. More recently, she had Lexiscan nuclear stress test in October 2020 that did not show any significant ischemia. 2D echo in May 2020 showed normal left ventricular systolic function with EF 60 to 65%. No further cardiac work-up is indicated at this time. Continue current secondary prevention measures. 2. Hypertension: Controlled 3. Hyperlipidemia: Continue statin therapy 4. Moderate aortic stenosis: Stable 5. Chronic diastolic heart failure: Clinically well compensated. Continue current medical regimen. 6. COPD: Clinically stable 7. Non-small cell lung cancer: Receiving radiation therapy and chemotherapy per oncology team. Continue pain management per primary team. 8. DM2: Per IM Plan Plan of Care Problems Medical Problems: (1) NSTEMI (non-ST elevated myocardial infarction) Status: Acute Comment Review of Relevant I have reviewed the following items bijal (where applicable) has been applied. Labs Laboratory Tests Test 04/08/21 16:28 04/08/21 17:30 04/08/21 21:03 04/09/21 08:26 Glucose (Fingerstick) 232 mg/dL (70-99) 215 mg/dL (70-99) 215 mg/dL (70-99) Influenza Type A Antigen Negative (NEGATIVE) Influenza Type B Antigen Negative (NEGATIVE) SARS-CoV-2 RNA (RAFI) Negative (Negative) SARS-CoV-2 Antigen (Rapid) Negative (NEGATIVE) Test 04/09/21 11:40 Glucose (Fingerstick) 233 mg/dL (70-99) Medications Current Medications Acetaminophen (Tylenol) 650 mg PRN Q6HRS PRN PO MILD PAIN / TEMP > 100.3'F Last administered on 04/08/21at 17:19; Start 04/08/21 at 17:00 Atorvastatin Calcium (Lipitor) 5 mg QHS PO Last administered on 04/08/21at 21:24; Start 04/08/21 at 21:00 Atorvastatin Calcium (Lipitor) 10 mg HS PO ; Start 04/08/21 at 21:00; Status Cancel Ceftriaxone Sodium (Rocephin) 1 gm Q24H IVP Last administered on 04/08/21at 21:23; Start 04/08/21 at 17:00 Pantoprazole Sodium (Protonix) 40 mg DAILYAC PO Last administered on 04/09/21at 09:22; Start 04/09/21 at 07:30 Senna/Docusate Sodium (Senna Plus) 1 tab BID PO Last administered on 04/08/21at 21:24; Start 04/08/21 at 21:00 Vitals/I & O Vital Sign - Last 24 Hours 04/08/21 04/08/21 04/08/21 04/08/21 13:32 14:09 14:11 14:39 Pulse 101 B/P (MAP) 149/81 O2 Delivery Room Air Room Air Room Air 04/08/21 04/08/21 04/08/21 04/08/21 15:00 15:12 19:50 20:00 Temp 100.5 98.1 100.5 98.1 Pulse 98 89 Resp 18 18 B/P (MAP) 104/68 (80) 136/66 (89) Pulse Ox 93 96 96 O2 Delivery Room Air Room Air Room Air Room Air 04/08/21 04/08/21 04/08/21 04/08/21 21:24 21:24 21:25 23:20 Temp 97.7 97.7 Pulse 89 89 78 Resp 20 B/P (MAP) 136/66 136/66 176/78 (110) Pulse Ox 96 96 O2 Delivery Room Air Room Air 04/09/21 04/09/21 04/09/21 04/09/21 03:40 07:45 08:00 09:21 Temp 97.8 98.3 97.8 98.3 Pulse 73 77 77 Resp 18 18 B/P (MAP) 143/75 (97) 112/57 (75) 112/57 Pulse Ox 94 97 O2 Delivery Room Air Room Air Room Air 04/09/21 04/09/21 04/09/21 04/09/21 09:21 09:22 09:22 11:11 Temp 98.2 98.2 Pulse 77 77 82 Resp 18 B/P (MAP) 112/57 112/57 149/58 (88) Pulse Ox 97 O2 Delivery Room Air Room Air 04/09/21 11:13 Pulse Ox 96 O2 Delivery Room Air Intake and Output 04/08/21 04/08/21 04/09/21 15:00 23:00 07:00 Output Total 200 ml Balance -200 ml DEIDRA UBRRELL MD Apr 09, 2021 13:32
--- NOTE | 2021-04-09 13:54 | PDOC ---
PROGRESS NOTES Date of Service: DATE: 04/09/21 TIME: 13:54 Subjective Subjective low grade fever 100.5 last night Objective Objective Vital Signs Date Time Temp Pulse Resp B/P (MAP) Pulse Ox O2 Delivery O2 Flow Rate FiO2 04/09/21 11:13 96 Room Air 04/09/21 11:11 98.2 82 18 149/58 (88) 98.2 Intake and Output 04/09/21 07:00 Output Total 200 ml Balance -200 ml Output Urine Total 200 ml # Voids 1 # Bowel Movements 1 Physical Exam Abdomen: Soft Heart: Regular rate Extremities: No edema General: Alert, mild distress HEENT: Atraumatic Lungs: Other (Scattered crepitations bilaterally) MUSCULOSKELETAL: No deformity, Osteoarthritic changes both hands Neuro: Normal speech Psych/Mental Status: Mood NL Diagnosis Problem List Problems Medical Problems: (1) NSTEMI (non-ST elevated myocardial infarction) Status: Acute Assessment Assessment Problems Medical Problems: (1) NSTEMI (non-ST elevated myocardial infarction) Status: Acute FINAL IMPRESSION: 1. Chest pain for evaluation. 2. Pain with acute exacerbation, rheumatoid arthritis. 3. History of lung cancer, was getting chemo last infusion a week ago. 4. Coronary artery disease, previous stent. 5. Chronic obstructive pulmonary disease. 6. Hyperlipidemia. PLAN: cardiac enzymes -ve ekg -ve low grade fever ,covid and flu test -ve. emperic rocephin due to fever /copd and Lung cancer ?d/c home tomorrow. At this time, the patient was admitted to the hospital. Cardiac enzymes, EKG, dealmaker. Cardiology is consulted, Solu-Medrol 40 mg twice daily that will help her symptoms. Continue pain medication. She is scheduled in spite of the oral medicines and fentanyl every 3 hours 25 mcg. Plan Plan of Care Problems Medical Problems: (1) NSTEMI (non-ST elevated myocardial infarction) Status: Acute Comment Review of Relevant I have reviewed the following items bijal (where applicable) has been applied. Labs Laboratory Tests Test 04/08/21 16:28 04/08/21 17:30 04/08/21 21:03 04/09/21 08:26 Glucose (Fingerstick) 232 mg/dL (70-99) 215 mg/dL (70-99) 215 mg/dL (70-99) Influenza Type A Antigen Negative (NEGATIVE) Influenza Type B Antigen Negative (NEGATIVE) SARS-CoV-2 RNA (RAFI) Negative (Negative) SARS-CoV-2 Antigen (Rapid) Negative (NEGATIVE) Test 04/09/21 11:40 Glucose (Fingerstick) 233 mg/dL (70-99) Medications Current Medications Acetaminophen (Tylenol) 650 mg PRN Q6HRS PRN PO MILD PAIN / TEMP > 100.3'F Last administered on 04/08/21at 17:19; Start 04/08/21 at 17:00 Atorvastatin Calcium (Lipitor) 5 mg QHS PO Last administered on 04/08/21at 21:24; Start 04/08/21 at 21:00 Atorvastatin Calcium (Lipitor) 10 mg HS PO ; Start 04/08/21 at 21:00; Status Cancel Ceftriaxone Sodium (Rocephin) 1 gm Q24H IVP Last administered on 04/08/21at 21:23; Start 04/08/21 at 17:00 Pantoprazole Sodium (Protonix) 40 mg DAILYAC PO Last administered on 04/09/21at 09:22; Start 04/09/21 at 07:30 Senna/Docusate Sodium (Senna Plus) 1 tab BID PO Last administered on 04/08/21at 21:24; Start 04/08/21 at 21:00 Vitals/I & O Vital Sign - Last 24 Hours 04/08/21 04/08/21 04/08/21 04/08/21 14:09 14:11 14:39 15:00 Temp 100.5 100.5 Pulse 101 98 Resp 18 B/P (MAP) 149/81 104/68 (80) Pulse Ox 93 O2 Delivery Room Air Room Air Room Air 04/08/21 04/08/21 04/08/21 04/08/21 15:12 19:50 20:00 21:24 Temp 98.1 98.1 Pulse 89 89 Resp 18 B/P (MAP) 136/66 (89) 136/66 Pulse Ox 96 96 O2 Delivery Room Air Room Air Room Air 04/08/21 04/08/21 04/08/21 04/09/21 21:24 21:25 23:20 03:40 Temp 97.7 97.8 97.7 97.8 Pulse 89 78 73 Resp 20 18 B/P (MAP) 136/66 176/78 (110) 143/75 (97) Pulse Ox 96 96 94 O2 Delivery Room Air Room Air Room Air 04/09/21 04/09/21 04/09/21 04/09/21 07:45 08:00 09:21 09:21 Temp 98.3 98.3 Pulse 77 77 Resp 18 B/P (MAP) 112/57 (75) 112/57 Pulse Ox 97 O2 Delivery Room Air Room Air Room Air 04/09/21 04/09/21 04/09/21 04/09/21 09:22 09:22 11:11 11:13 Temp 98.2 98.2 Pulse 77 77 82 Resp 18 B/P (MAP) 112/57 112/57 149/58 (88) Pulse Ox 97 96 O2 Delivery Room Air Room Air Intake and Output 04/08/21 04/08/21 04/09/21 15:00 23:00 07:00 Output Total 200 ml Balance -200 ml Justifications for Admission Other Justification ANIVAL DESAI MD Apr 09, 2021 13:54
[2021-04-09] MEDS: cefTRIAXone IV Push 1 GM VIAL. IVP SCH (17:18)
[2021-04-09] MEDS: CYCLOBENZAPRINE 10 MG TABLET. PO SCH (19:26)
[2021-04-09] MEDS: ATORVASTATIN CALCIUM 10 MG TABLET. PO SCH (19:26)
[2021-04-09 22:48] LABS: BILIRUBIN,URINE NEGATIVE (NEG); CLARITY,URINE CLEAR; COLOR,URINE YELLOW; NITRITE,URINE NEGATIVE (NEG); PH,URINE 5.5 (<5.0-8.0); PROTEIN,URINE NEGATIVE (NEG-TRACE)
[2021-04-09 22:57] LABS: BACTERIA,URINE 0 /HPF (0-FEW); RBC,URINE 0 /HPF (0-2)
[2021-04-10] MEDS: ACETAMINOPHEN 325 MG TABLET. PO PRN (02:15)
[2021-04-10 03:25] VITALS: BP 122/59
[2021-04-10] MEDS: ALBUTEROL SULFATE 2.5 MG/3 ML NEBU. NEB SCH ×4 (06:10→20:45)
[2021-04-10] MEDS: BUDESONIDE 0.5 MG/2 ML NEBU. NEB SCH ×2 (06:10→20:45)
[2021-04-10 07:00] VITALS: BP 140/65
--- NOTE | 2021-04-10 09:17 | PDOC ---
PROGRESS NOTES Date of Service: DATE: 04/10/21 TIME: 09:14 Subjective Subjective knee joints hurt Objective Objective Vital Signs Date Time Temp Pulse Resp B/P (MAP) Pulse Ox O2 Delivery O2 Flow Rate FiO2 04/10/21 07:00 97.7 80 18 140/65 (90) 94 Room Air 97.7 Intake and Output 04/10/21 07:00 Intake Total 860 ml Output Total 600 ml Balance 260 ml Intake Oral 860 ml Output Urine Total 600 ml Physical Exam Abdomen: Soft Heart: Regular rate Extremities: No edema General: Alert, mild distress HEENT: Atraumatic Lungs: Other (Scattered crepitations bilaterally) MUSCULOSKELETAL: No deformity, Osteoarthritic changes both hands Neuro: Normal speech Psych/Mental Status: Mood NL COMMENT swelling rt knee Diagnosis Problem List Problems Medical Problems: (1) NSTEMI (non-ST elevated myocardial infarction) Status: Acute Assessment Assessment Problems Medical Problems: (1) NSTEMI (non-ST elevated myocardial infarction) Status: Acute FINAL IMPRESSION: 1. Chest pain for evaluation. 2. Pain with acute exacerbation, rheumatoid arthritis. 3. History of lung cancer, was getting chemo last infusion a week ago. 4. Coronary artery disease, previous stent. 5. Chronic obstructive pulmonary disease. 6. Hyperlipidemia. PLAN:taper steroids iv Rocephin , change to po tomorrow c/s neg ortho consult for knee problems ? home with home health tomorrow. cardiac enzymes -ve ekg -ve low grade fever ,covid and flu test -ve. emperic rocephin due to fever /copd and Lung cancer ?d/c home tomorrow. At this time, the patient was admitted to the hospital. Cardiac enzymes, EKG, patient monitor. Cardiology is consulted, Solu-Medrol 40 mg twice daily that will help her symptoms. Continue pain medication. She is scheduled in spite of the oral medicines and fentanyl every 3 hours 25 mcg. Plan Plan of Care Problems Medical Problems: (1) NSTEMI (non-ST elevated myocardial infarction) Status: Acute Comment Review of Relevant I have reviewed the following items bijal (where applicable) has been applied. Labs Laboratory Tests Test 04/09/21 11:40 04/09/21 16:20 04/09/21 21:06 04/09/21 22:30 Glucose (Fingerstick) 233 mg/dL (70-99) 258 mg/dL (70-99) 243 mg/dL (70-99) Urine Collection Type Unknown Urine Color Yellow Urine Clarity Clear Urine pH 5.5 (<5.0-8.0) Urine Specific [place] 1.025 (1.000-1.030) Urine Protein Negative mg/dL (NEG-TRACE) Urine Glucose (UA) 100 mg/dL (NEG) Urine Ketones (Stick) Negative mg/dL (NEG) Urine Blood Negative (NEG) Urine Nitrite Negative (NEG) Urine Bilirubin Negative (NEG) Urine Urobilinogen Dipstick 1.0 mg/dL (0.2 mg/dL) Urine Leukocyte Esterase Small (NEG) Urine RBC 0 /HPF (0-2) Urine WBC 5-10 /HPF (0-4) Urine Squamous Epithelial Cells Few /LPF Urine Renal Epithelial Cells Occ /LPF Urine Bacteria 0 /HPF (0-FEW) Urine Mucus Slight /LPF Test 04/10/21 07:46 Glucose (Fingerstick) 321 mg/dL (70-99) Microbiology 04/08/21 Blood Culture - Preliminary, Resulted NO GROWTH AFTER 1 DAY Vitals/I & O Vital Sign - Last 24 Hours 04/09/21 04/09/21 04/09/21 04/09/21 09:21 09:21 09:22 09:22 Pulse 77 77 77 B/P (MAP) 112/57 112/57 112/57 O2 Delivery Room Air 04/09/21 04/09/21 04/09/21 04/09/21 11:11 11:13 13:21 14:14 Temp 98.2 97.8 98.2 97.8 Pulse 82 90 Resp 18 18 B/P (MAP) 149/58 (88) 133/56 (81) Pulse Ox 97 96 96 O2 Delivery Room Air Room Air Room Air Room Air 04/09/21 04/09/21 04/09/21 04/09/21 15:00 15:17 15:57 15:58 Pulse 94 94 B/P (MAP) 127/66 (86) 127/66 Pulse Ox 100 O2 Delivery Room Air Room Air Room Air 04/09/21 04/09/21 04/09/21 04/09/21 16:28 18:32 19:26 19:27 Pulse 105 Pulse Ox 100 O2 Delivery Room Air Room Air Room Air 12/04/09/21 04/09/21 04/09/21 19:27 19:30 20:18 22:40 Temp 98.2 97.9 98.2 97.9 Pulse 105 97 94 Resp 18 20 B/P (MAP) 151/80 (103) 158/63 (94) Pulse Ox 97 99 O2 Delivery Room Air Room Air Room Air 04/10/21 04/10/21 04/10/21 03:25 06:11 07:00 Temp 97.6 97.7 97.6 97.7 Pulse 82 80 Resp 20 18 B/P (MAP) 122/59 (80) 140/65 (90) Pulse Ox 95 95 94 O2 Delivery Room Air Room Air Room Air Intake and Output 04/09/21 04/09/21 04/10/21 15:00 23:00 07:00 Intake Total 360 ml 180 ml 320 ml Output Total 600 ml Balance 360 ml 180 ml -280 ml Justifications for Admission Other Justification ANIVAL DESAI MD Apr 10, 2021 09:17
[2021-04-10] MEDS: POTASSIUM CHLORIDE 10 MEQ TABLET.ER. PO SCH ×2 (09:40→17:00)
[2021-04-10] MEDS: SENNOSIDES/DOCUSATE 8.6/50MG TABLET. PO SCH ×2 (09:40→20:35)
[2021-04-10] MEDS: hydroCHLOROthiazide 25 MG TABLET PO SCH (09:40)
[2021-04-10] MEDS: PANTOPRAZOLE 40 MG TABLET.DR. PO SCH (09:40)
[2021-04-10] MEDS: METOPROLOL TART IMMED RELEASE 25 MG TABLET. PO SCH ×2 (09:41→20:36)
[2021-04-10] MEDS: LOSARTAN POTASSIUM 50 MG TABLET. PO SCH (09:41)
[2021-04-10] MEDS: ASPIRIN ENTERIC COATED 81 MG TABLET.DR. PO SCH (09:41)
[2021-04-10] MEDS: oxyCODONE ER 15 MG TAB.ER.12H PO SCH ×2 (09:42→20:36)
[2021-04-10] MEDS: INSULIN LISPRO 300 UNITS/3 ML VIAL. SQ SCH ×5 (09:54→17:00)
[2021-04-10] MEDS ORDERED: methylPREDNISolone SOD SUCC PF 40 MG/ML VIAL. IV SCH (10:00)
[2021-04-10 10:46] VITALS: BP 148/66
--- NOTE | 2021-04-10 11:28 | PDOC ---
CARLTON US GLUE MAKER BONE 04/10/21 1128: CARDIO Progress Notes Date and Time Date of Service 04/10/21 Time of Evaluation 1120 Subjective Subjective: No Chest Pain, No shortness of breath, No Palpitations Vitals Vitals Vital Signs Date Time Temp Pulse Resp B/P (MAP) Pulse Ox O2 Delivery O2 Flow Rate FiO2 04/10/21 10:46 96.8 90 18 148/66 (93) 100 Room Air 96.8 Weight Weight [ ] Input and Output Intake and Output Intake and Output 04/10/21 07:00 Intake Total 860 ml Output Total 600 ml Balance 260 ml Intake Oral 860 ml Output Urine Total 600 ml Laboratory Labs Laboratory Tests Test 04/09/21 11:40 04/09/21 16:20 04/09/21 21:06 04/09/21 22:30 Glucose (Fingerstick) 233 mg/dL (70-99) 258 mg/dL (70-99) 243 mg/dL (70-99) Urine Collection Type Unknown Urine Color Yellow Urine Clarity Clear Urine pH 5.5 (<5.0-8.0) Urine Specific [place] 1.025 (1.000-1.030) Urine Protein Negative mg/dL (NEG-TRACE) Urine Glucose (UA) 100 mg/dL (NEG) Urine Ketones (Stick) Negative mg/dL (NEG) Urine Blood Negative (NEG) Urine Nitrite Negative (NEG) Urine Bilirubin Negative (NEG) Urine Urobilinogen Dipstick 1.0 mg/dL (0.2 mg/dL) Urine Leukocyte Esterase Small (NEG) Urine RBC 0 /HPF (0-2) Urine WBC 5-10 /HPF (0-4) Urine Squamous Epithelial Cells Few /LPF Urine Renal Epithelial Cells Occ /LPF Urine Bacteria 0 /HPF (0-FEW) Urine Mucus Slight /LPF Test 04/10/21 07:46 Glucose (Fingerstick) 321 mg/dL (70-99) Microbiology Micro Microbiology 04/08/21 Blood Culture - Preliminary, Resulted NO GROWTH AFTER 1 DAY Physical Exam HEENT: Neck Supple W Full Motion Chest: Symmetric LUNGS: Clear to Auscultation Heart: RRR Abdomen: Soft N/T Extremities: No Edema Neurology: alert, oriented, follow commands Assessment Assessment 1. Mild troponin elevation; high sensitivity trop highest 161. most probably type II, demand ischemia. 2. CAD s/p PCI/stent placement to RCA. [facility] 2019 showing patent stents. Lexiscan nuclear stress test in 10/2020 did not show any significant ischemia. Echo 05/2020 with preserved LV systolic function. Continue secondary prevention measures. 2. Hypertension: Controlled overall 3. Hyperlipidemia: statin therapy 4. Moderate aortic stenosis: Stable 5. Chronic diastolic heart failure: Clinically well compensated. Continue current medical regimen. 6. COPD: Clinically stable 7. Non-small cell lung cancer: Receiving radiation therapy and chemotherapy per oncology team. 8. DM2: Per IM Justicifation of Admission Dx: Justifications for Admission: Justification of Admission Dx: Yes DEIDRA BURRELL MD 04/10/21 1553: CARDIO Progress Notes Assessment Assessment Patient seen and examined. Agree with CONFIGURATOR's assessment and plan. Slight troponin elevation probably demand ischemia. CAD status clinically stable. Chronic diastolic heart failure well compensated. Continue current secondary prevention measures. CARLTON US APRN Apr 10, 2021 11:28 DEIDRA BURRELL MD Apr 10, 2021 15:53
[2021-04-10] MEDS ORDERED: DEXTROSE 50% 25 GM / 50ML DISP.SYRIN. IV PRN (12:15)
--- NOTE | 2021-04-10 13:09 | RAD ---
EXAM: Chest, 2 views. HISTORY: Pneumonia. COMPARISON: 04/07/2021 FINDINGS: 2 views of the chest are obtained. There is stable right upper lobe interstitial opacity. T here is no consolidation, pleural effusion or pneumothorax. The heart is normal in size. There is a r ight port catheter with the tip in the superior cavoatrial junction. IMPRESSION: Stable right upper lobe opacity likely due to residual neoplasm or posttreatment changes. Electronically signed by: Peri William MD (04/10/2021 1:07 PM) [id number]
[2021-04-10] MEDS: ENOXAPARIN 40 MG/0.4 ML SYRINGE. SQ SCH (13:14)
[2021-04-10] MEDS: HYDROcodone/APAP 10/325 1 TAB TABLET PO PRN (13:17)
--- NOTE | 2021-04-10 14:33 | NUR ---
SS following for discharge planning. SS reviewed pt chart and discussed with pt RN. Pt is from home and is currently on room air. COVID19 negative. Pt on IV Solu-Medrol and IV Rocephin. PT/OT recommended alf unit. SS met with pt and discussed discharge planning and alf unit. Pt requesting to go to [facility], ; fax [phone]. SS phoned and faxed referral as requested. Pt has had both COVID19 vaccinations. SS will continue to follow for discharge planning. Addendum: 04/10/21 at 1529 by PANCHITO STEELE Pt accepted at [facility] pending insurance approval.
[2021-04-10 15:00] VITALS: BP 153/69
[2021-04-10] MEDS: cefTRIAXone IV Push 1 GM VIAL. IVP SCH (17:00)
[2021-04-10 19:25] VITALS: BP 152/75
[2021-04-10] MEDS: CYCLOBENZAPRINE 10 MG TABLET. PO SCH (20:35)
[2021-04-10] MEDS: ATORVASTATIN CALCIUM 10 MG TABLET. PO SCH (20:36)
[2021-04-10 23:00] VITALS: BP 170/68
[2021-04-11 03:00] VITALS: BP 145/57
[2021-04-11] MEDS: BUDESONIDE 0.5 MG/2 ML NEBU. NEB SCH (06:17)
[2021-04-11] MEDS: ALBUTEROL SULFATE 2.5 MG/3 ML NEBU. NEB SCH ×2 (06:18→12:00)
[2021-04-11 07:15] VITALS: BP 186/84
--- NOTE | 2021-04-11 09:17 | PDOC ---
PROGRESS NOTES Date of Service: DATE: 04/11/21 TIME: 09:15 Subjective Subjective feels ok Objective Objective Vital Signs Date Time Temp Pulse Resp B/P (MAP) Pulse Ox O2 Delivery O2 Flow Rate FiO2 04/11/21 07:15 97.8 72 18 186/84 (118) 95 Room Air 97.8 Intake and Output 04/11/21 07:00 Intake Total 790 ml Output Total 380 ml Balance 410 ml Intake Oral 790 ml Output Urine Total 380 ml # Voids 2 Physical Exam Abdomen: Soft Heart: Regular rate Extremities: No edema General: Alert, mild distress HEENT: Atraumatic Lungs: Other (Scattered crepitations bilaterally) MUSCULOSKELETAL: No deformity, Osteoarthritic changes both hands Neuro: Normal speech Psych/Mental Status: Mood NL COMMENT swelling rt knee Diagnosis Problem List Problems Medical Problems: (1) NSTEMI (non-ST elevated myocardial infarction) Status: Acute Assessment Assessment Problems Medical Problems: (1) NSTEMI (non-ST elevated myocardial infarction) Status: Acute FINAL IMPRESSION: 1. Chest pain for evaluation. 2. Pain with acute exacerbation, rheumatoid arthritis. 3. History of lung cancer, was getting chemo last infusion a week ago. 4. Coronary artery disease, previous stent. 5. Chronic obstructive pulmonary disease. 6. Hyperlipidemia. PLAN: SNU today po meds c/s neg ortho consult for knee problems cardiac enzymes -ve ekg -ve Plan Plan of Care Problems Medical Problems: (1) NSTEMI (non-ST elevated myocardial infarction) Status: Acute Comment Review of Relevant I have reviewed the following items bijal (where applicable) has been applied. Labs Laboratory Tests Test 04/10/21 12:00 04/10/21 17:00 04/10/21 21:09 04/10/21 22:55 Glucose (Fingerstick) 325 mg/dL (70-99) 240 mg/dL (70-99) 274 mg/dL (70-99) 261 mg/dL (70-99) Test 04/11/21 07:18 Glucose (Fingerstick) 229 mg/dL (70-99) Microbiology 04/09/21 Urine Culture - Final, Complete 04/08/21 Blood Culture - Preliminary, Resulted NO GROWTH AFTER 2 DAYS Medications Current Medications Dextrose (Dextrose 50%-Water Syringe) 12.5 gm PRN Q15MIN PRN IV SEE COMMENTS; Start 04/10/21 at 12:15 Insulin Human Lispro (HumaLOG) 0-7 UNITS TIDWMEALS SQ Last administered on 04/10/21at 17:00; Start 04/10/21 at 13:00 Methylprednisolone Sodium Succinate (SOLU-Medrol 40MG VIAL) 20 mg Q12HR IV Last administered on 04/10/21at 09:42; Start 04/10/21 at 10:00; Stop 04/10/21 at 12:10; Status DC Vitals/I & O Vital Sign - Last 24 Hours 04/10/21 04/10/21 04/10/21 04/10/21 09:40 09:41 09:41 09:42 Pulse 80 80 80 B/P (MAP) 140/65 140/65 140/65 Pulse Ox 94 O2 Delivery Room Air 04/10/21 04/10/21 04/10/21 04/10/21 10:46 13:16 13:17 13:43 Temp 96.8 96.8 Pulse 90 90 Resp 18 B/P (MAP) 148/66 (93) 148/66 Pulse Ox 100 100 100 O2 Delivery Room Air Room Air Room Air 04/10/21 04/10/21 04/10/21 04/10/21 13:43 15:00 15:00 15:52 Temp 96.8 96.8 96.8 96.8 Pulse 95 95 Resp 18 18 B/P (MAP) 153/69 (97) 153/69 (97) Pulse Ox 100 96 96 95 O2 Delivery Room Air Room Air Room Air Room Air 04/10/21 04/10/21 04/10/21 04/10/21 19:25 20:05 20:36 20:36 Temp 98.0 98.0 Pulse 90 90 90 Resp 18 B/P (MAP) 152/75 (100) 152/75 152/75 Pulse Ox 95 O2 Delivery Room Air Room Air 04/10/21 04/10/21 04/10/21 04/11/21 20:36 20:48 23:00 03:00 Temp 98.1 98.3 98.1 98.3 Pulse 80 80 Resp 16 18 B/P (MAP) 170/68 (102) 145/57 (86) Pulse Ox 100 95 93 O2 Delivery Room Air Room Air Room Air Room Air 04/11/21 04/11/21 06:18 07:15 Temp 97.8 97.8 Pulse 72 Resp 18 B/P (MAP) 186/84 (118) Pulse Ox 98 95 O2 Delivery Room Air Room Air Intake and Output 04/10/21 04/10/21 04/11/21 15:00 23:00 07:00 Intake Total 670 ml 0 ml 120 ml Output Total 280 ml 100 ml Balance 390 ml -100 ml 120 ml Justifications for Admission Other Justification NAIVAL DESAI MD Apr 11, 2021 09:17
[2021-04-11] MEDS ORDERED: PRED20TA PO (09:25)
[2021-04-11] MEDS ORDERED: PRED-220 PO ×2 (09:25)
--- NOTE | 2021-04-11 09:27 | SNU/HH DC ---
DISCHARGE ORDERS DISCHARGE INFORMATION: DISCHARGE DATE: Apr 11, 2021 FINAL DIAGNOSIS Problems Medical Problems: (1) NSTEMI (non-ST elevated myocardial infarction) Status: Acute CONDITION ON DISCHARGE: Stable CODE STATUS: Code Status: Full GROUP HOME: SNF STAY <30 DAYS: Yes HOSPICE: HOSPICE: No HOSPICE EVAL & TREAT: No LTAC: ADMIT TO LTAC: No POST DISCHARGE ORDERS: ACTIVITY ORDERS: Activity as tolerated WEIGHT BEARING STATUS: As tolerated DIET AFTER DISCHARGE: Cardiac WOUND/INCISION CARE: Keep wound/cast CDI CHECKS AFTER DISCHARGE: CHECKS AFTER DISCHARGE: Check blood press - daily, Check blood sugar, ac/hs TREATMENT/EQUIPMENT ORDERS: ADAPTIVE EQUIPMENT NEEDED: None RESPIRATORY EQUIPMENT NEEDED: Oxygen Physical Therapy For: Evalulation/Treatment Occupational Therapy For: Evaluation/Treatment DISCHARGE MEDICATIONS: Home Meds Active Scripts Prednisone (PREDNISONE ) 10 Mg Tablet, 10 MG PO DAILY for lungs for 10 Days, #10 TAB Prov:ANIVAL DESAI MD 04/11/21 Prednisone (PREDNISONE ) 10 Mg Tablet, 10 MG PO 1X for lungs for 1 Day, TAB Prov:ANIVAL DESAI MD 04/11/21 Prednisone (PREDNISONE) 20 Mg Tablet, 20 MG PO 1X for lungs MDD 1 for 1 Day, TAB Prov:ANIVAL DESAI MD 04/11/21 Prednisone (PREDNISONE ) 10 Mg Tablet, 30 MG PO 1X for lungs for 1 Day, #1 TAB Prov:ANIVAL DESAI MD 04/11/21 Insulin Lispro (Admelog) 100 Unit/1 Ml Vial, 5 UNITS SQ TIDWMEALS for sherman for 30 Days, EACH Prov:ANIVAL DESAI MD 10/04/20 Nitroglycerin (NITROSTAT) 0.4 Mg Tab.subl, 0.4 MG SL PRN Q5MIN PRN for CHEST PAIN for 30 Days, #25 TAB Prov:RITO JOLLY MD 01/19/18 Sennosides/Docusate Sodium (SENNA-TIME S TABLET) 1 Each Tablet, 1 TAB PO BID for 30 Days, #60 TAB Prov:RITO JOLLY MD 01/19/18 Losartan Potassium (LOSARTAN POTASSIUM) 50 Mg Tablet, 50 MG PO DAILY, #30 TAB Prov:GUIDO MARTINEZ APRN 11/25/15 Atorvastatin Calcium (LIPITOR) 10 Mg Tablet, 5 MG PO QHS, #30 Prov:ANIVAL DESAI MD 05/05/14 Reported Medications Atorvastatin Calcium (ATORVASTATIN CALCIUM) 10 Mg Tablet, 10 MG PO HS for hld 04/08/21 Potassium Chloride (KLOR-CON M10) 10 Meq Tab.er.prt, 10 MEQ PO BID for supplement 04/08/21 Hydralazine Hcl (HYDRALAZINE HCL) 50 Mg Tablet, 50 MG PO TID for htn 04/08/21 Pantoprazole Sodium (PROTONIX) 20 Mg Tablet.dr, 1 TAB PO DAILY for rx, #30 TAB 11/23/20 Aspirin (ASPIRIN EC) 81 Mg Tablet.dr, 81 MG PO DAILY for clot prevention 02/09/19 Hydrochlorothiazide (Hydrochlorothiazide) 25 Mg Tablet, 25 MG PO DAILY for heart 02/09/19 Metoprolol Tartrate (METOPROLOL TARTRATE) 25 Mg Tablet, 1 TAB PO BID for HTN, #180 TAB 1 Refill 05/09/18 Oxycodone Hcl (OXYCONTIN ) 15 Mg Tab.er.12h, 15 MG PO BID for cronic pain, TAB 12/22/17 Albuterol Sulfate (VENTOLIN HFA INHALER) 18 Gm Hfa.aer.ad, 2 PUFF IH PRN Q4-6HRS for copd, #1 INHALER 05/03/14 Budesonide/Formoterol Fumarate (SYMBICORT 160-4.5 MCG INHALER) 10.2 Gm Hfa.aer.ad, 2 PUFF IH BID for copd, #10.6 GM 3 Refills 05/03/14 Hydrocodone Bit/Acetaminophen (HYDROCODONE-APAP 10-325 ) 1 Each Tablet, 1 TAB PO PRN Q6HRS PRN for PAIN, TAB 0 Refills 05/03/14 Cyclobenzaprine Hcl (CYCLOBENZAPRINE HCL) 5 Mg Tablet, 1 TAB PO QHS for muscle relaxer, #30 TAB 05/03/14 ANIVAL DESAI MD Apr 11, 2021 09:27
[2021-04-11] MEDS ORDERED: predniSONE 10 MG TABLET PO ONE (09:30)
[2021-04-11] MEDS: PANTOPRAZOLE 40 MG TABLET.DR. PO SCH (09:39)
[2021-04-11] MEDS: POTASSIUM CHLORIDE 10 MEQ TABLET.ER. PO SCH ×2 (09:40→17:00)
[2021-04-11] MEDS: METOPROLOL TART IMMED RELEASE 25 MG TABLET. PO SCH (09:40)
[2021-04-11] MEDS: SENNOSIDES/DOCUSATE 8.6/50MG TABLET. PO SCH (09:40)
[2021-04-11] MEDS: LOSARTAN POTASSIUM 50 MG TABLET. PO SCH (09:40)
[2021-04-11] MEDS: ASPIRIN ENTERIC COATED 81 MG TABLET.DR. PO SCH (09:40)
[2021-04-11] MEDS: hydroCHLOROthiazide 25 MG TABLET PO SCH (09:41)
[2021-04-11] MEDS: INSULIN LISPRO 300 UNITS/3 ML VIAL. SQ SCH ×6 (09:49→17:00)
--- NOTE | 2021-04-11 10:45 | NUR ---
patient refused rapid covid test
--- NOTE | 2021-04-11 11:08 | NUR ---
JANKI following. Discussed with RN, pt accepted at [facility] pending insurance auth. JANKI faxed discharge orders. Repeat COVID requested. JANKI will continue to follow. Addendum: 04/11/21 at 1347 by ALEKS SHEARER Insurance approved, transportation arranged by [facility] for [id number]. RN notified.
--- NOTE | 2021-04-11 11:09 | PDOC ---
CARLTON US SEPARATING MACHINE OPERATOR 04/11/21 1109: CARDIO Progress Notes Date and Time Date of Service 04/11/21 Time of Evaluation 1100 Subjective Subjective: No Chest Pain, No shortness of breath, No Palpitations Vitals Vitals Vital Signs Date Time Temp Pulse Resp B/P (MAP) Pulse Ox O2 Delivery O2 Flow Rate FiO2 04/11/21 09:41 72 186/84 04/11/21 07:15 97.8 18 95 Room Air 97.8 Weight Weight [ ] Input and Output Intake and Output Intake and Output 04/11/21 07:00 Intake Total 790 ml Output Total 380 ml Balance 410 ml Intake Oral 790 ml Output Urine Total 380 ml # Voids 2 Laboratory Labs Laboratory Tests Test 04/10/21 12:00 04/10/21 17:00 04/10/21 21:09 04/10/21 22:55 Glucose (Fingerstick) 325 mg/dL (70-99) 240 mg/dL (70-99) 274 mg/dL (70-99) 261 mg/dL (70-99) Test 04/11/21 07:18 Glucose (Fingerstick) 229 mg/dL (70-99) Microbiology Micro Microbiology 04/09/21 Urine Culture - Final, Complete 04/08/21 Blood Culture - Preliminary, Resulted NO GROWTH AFTER 2 DAYS Physical Exam HEENT: Neck Supple W Full Motion Chest: Symmetric LUNGS: Clear to Auscultation Heart: RRR Abdomen: Soft N/T Extremities: No Edema Neurology: alert, oriented, follow commands Assessment Assessment 1. Mild troponin elevation; high sensitivity trop highest 161. most probably type II, demand ischemia. 2. CAD s/p PCI/stent placement to RCA. [facility] 2018 showing patent stents. Lexiscan nuclear stress test in 10/2020 did not show any significant ischemia. Echo 05/2020 with preserved LV systolic function. Continue secondary prevention measures. Follow up in our office with Dr. Cabral as scheduled. 2. Hypertension; labile. increase losartan for BP control 3. Hyperlipidemia: statin therapy 4. Moderate aortic stenosis: Stable 5. Chronic diastolic heart failure: Clinically well compensated. Continue current medical regimen. 6. COPD: Clinically stable 7. Non-small cell lung cancer: Receiving radiation therapy and chemotherapy per oncology team. 8. DM2: Per IM Justicifation of Admission Dx: Justifications for Admission: Justification of Admission Dx: Yes DEIDRA CABRAL MD 04/11/21 1515: CARDIO Progress Notes Assessment Assessment Patient seen and examined. FIELD LOGISTICS COORDINATOR's assessment and plan. Slight troponin elevation probably demand ischemia. CAD status clinically stable. Agree with increasing losartan for better blood pressure control. Chronic diastolic heart failure well compensated. CARLTON US APRN Apr 11, 2021 11:09 DEIDRA CABRAL MD Apr 11, 2021 15:15
[2021-04-11 11:10] VITALS: BP 172/65
[2021-04-11] MEDS: ENOXAPARIN 40 MG/0.4 ML SYRINGE. SQ SCH (11:58)
[2021-04-11] MEDS: oxyCODONE ER 15 MG TAB.ER.12H PO SCH (12:02)
[2021-04-11 15:01] VITALS: BP 148/69
[2021-04-11 15:13] VITALS: BP 148/69
--- NOTE | 2021-04-11 17:41 | NUR ---
pt discharged to [facility]. transportation by wheelchair. report call to [facility] 1950.
[2021-04-12] MEDS ORDERED: LOSARTAN POTASSIUM 50 MG TABLET. PO SCH (09:00)
[2021-04-12] MEDS ORDERED: predniSONE 10 MG TABLET PO ONE (09:30)
[2021-04-13] MEDS ORDERED: predniSONE 20 MG TABLET PO ONE (09:30)
[2021-04-14] MEDS ORDERED: predniSONE 10 MG TABLET PO ONE (09:30)
[2021-04-15] MEDS ORDERED: predniSONE 10 MG TABLET PO SCH (09:00)
== END 2021-04-11 15:40 | DRG 545 ==
LOC: ER 16:00 → 6 SOUTH 19:08 → OBSVTOIN 04-08 20:53 → 4 NORTH 04-10 22:30
PROVIDERS: ADMIT Internal Medicine; ATTEND Internal Medicine
DX: M06.9 Rheumatoid arthritis, unspecified (principal); I21.A1 Myocardial infarction type 2; C34.90 Malignant neoplasm of unspecified part of unspecified bronchus or lung; I50.32 Chronic diastolic (congestive) heart failure; E11.9 Type 2 diabetes mellitus without complications; E78.00 Pure hypercholesterolemia, unspecified; E78.5 Hyperlipidemia, unspecified; I11.0 Hypertensive heart disease with heart failure; I25.10 Atherosclerotic heart disease of native coronary artery without angina pectoris; I35.0 Nonrheumatic aortic (valve) stenosis; J44.9 Chronic obstructive pulmonary disease, unspecified; M79.7 Fibromyalgia; Z83.3 Family history of diabetes mellitus; Z85.118 Personal history of other malignant neoplasm of bronchus and lung; Z87.891 Personal history of nicotine dependence; Z95.5 Presence of coronary angioplasty implant and graft; F41.9 Anxiety disorder, unspecified; K21.9 Gastro-esophageal reflux disease without esophagitis; I25.2 Old myocardial infarction; Z20.822 Contact with and (suspected) exposure to COVID-19; Z92.3 Personal history of irradiation; Z92.21 Personal history of antineoplastic chemotherapy; Z88.8 Allergy status to other drugs, medicaments and biological substances
CPT/HCPCS: 36415; 71045; 71046; 80053; 81001; 82962; 83735; 83880; 84484; 85025; 85610; 85730; 87040; 87086; 87426; 87804; 93005; 94640; 94760; 96374; 96375; 96376; G0378; G0379; J0696; J1650; J1815; J2920; J3010; J7512; U0003; U0005; 97110-GP; 99285-25; J7613; J7626

== ENCOUNTER → 2021-04-28 | Outpatient (CLI) | payer OTHER, MEDICAID ==
[2021-04-11 15:13] VITALS: BP 148/69
[~2021-04-28] MED LIST changes: +ATOR10TA60 PO; +HEPARIN PF 500 UNIT/5 ML DISP.SYRIN. IVP ONE; +HYDR-2869 PO; +IOHEXOL 350 MG/ML 100 ML VIAL. IV ONE; +POTA-116 PO
--- NOTE | 2021-04-28 14:54 | RAD ---
EXAMINATION: CT Angiogram of chest with IV contrast INDICATION: Reason: hemoptysis NON-SMALL CELL LUNG CANCER / Spl. Instructions: omni 350 95ml / Histo ry: COMPARISON: CT chest from 02/28/2021 TECHNIQUE: Using helical technique, CT data from the thoracic inlet through the upper abdomen was obt ained during rapid IV contrast infusion using 95 cc of Omnipaque 350. The examination was timed to th e arterial system to generate a CT angiographic study. 3D images were generated at an independent [facility] k station. FINDINGS: Vascular: Thoracic aorta: Similar moderate atherosclerotic disease of the normal sized thoracic aorta and supra aortic branching vessels. No evidence of aortic disruption, injury, dissection or transection. The a scending, transverse and descending aorta are normal in caliber and of uniform contrast enhancement. Supraaortic branches: Normal size and branching pattern. Widely patent and without evidence of injury . Pulmonary arteries: Normal in size and without evidence of acute or chronic embolism. Coronary arteries: Normal origins. Severe coronary atherosclerosis. Thoracic systemic veins: Within normal limits. Right chest Port-A-Cath with tip terminating at the at riocaval junction. Visualized upper abdominal aorta and branch vessels: Within normal limits. Heart: The heart is normal in size. No pericardial effusion. Chest: Lungs/Pleura: Severe centrilobular emphysematous changes are redemonstrated. Spiculated nodule in the apical anterior right upper lobe measures 1.9 x 1.1 cm, previously measured 1.5 x 0.8 cm. There is i ncreased nodular subpleural opacities with interspersed paraseptal emphysematous changes along the po sterior and anterior aspect of the right upper lobe. These subpleural nodular opacities also involve the posterior aspect of the right lower lobe as seen on sagittal image 48/6. This measures up to 1.3 x 2.5 cm as seen on axial image 72/3. There is also new nodular thickening along the right major fiss ure. No new findings within the left lung. No pneumothorax or pleural effusion. Central airways clear . Mediastinum: No pathologic mediastinal or hilar adenopathy. Similar subcentimeter precarinal and righ t hilar lymph nodes unchanged from prior exams. The visualized thyroid and the esophagus are unremark able. Axilla/Soft Tissue: No supraclavicular or axillary adenopathy. Regional soft tissues are within isabella l limits. Bones: No evidence of acute fractures or aggressive osseous lesions. Upper Abdomen: Subcentimeter hypoattenuating left renal lesions too small to characterize and unchang ed from prior PET/CT. Calcifications in the bowen hepatis region favoring partially calcified lymph n odes similar in appearance from prior PET/CT. The gallbladder is normal. No definite biliary ductal d ilation. Adrenal glands are normal. IMPRESSION: Vascular: 1. No evidence of pulmonary embolus. 2. Some of acute vascular abnormality of the thoracic aorta or major branching vessels. Chest: 1. Interval increase in size of right upper lobe spiculated mass suggestive of disease progression. T here is also development of subpleural nodularity involving the right upper lobe and the posterior as pect of the right lower lobe with extension along the right major fissure. This is suspicious for dis ease progression. Evolution of postradiation therapy changes is also a consideration. Clinical correl ation is advised. Short interval follow-up with chest CT with IV contrast or PET CT may be considered . 2. Similar small subcentimeter mediastinal and right hilar lymph nodes. Electronically signed by: Alexis Robbins DO (04/28/2021 2:52 PM) [facility], [facility]
== END ==
LOC: CT 13:18
PROVIDERS: ATTEND Internal Medicine Hematology & Oncology
DX: C34.11 Malignant neoplasm of upper lobe, right bronchus or lung (principal); J43.2 Centrilobular emphysema; I70.0 Atherosclerosis of aorta; I25.10 Atherosclerotic heart disease of native coronary artery without angina pectoris; R59.0 Localized enlarged lymph nodes
CPT/HCPCS: 71275; J1642; Q9967

== ENCOUNTER → 2021-05-03 | Outpatient (CLI) | payer OTHER, MEDICAID ==
[2021-04-11 15:13] VITALS: BP 148/69
[~2021-05-03] MED LIST changes: -HEPARIN PF 500 UNIT/5 ML DISP.SYRIN. IVP ONE; -IOHEXOL 350 MG/ML 100 ML VIAL. IV ONE
[2021-05-03 12:35] LABS: BASO # 0.1 x10^3/uL (0.0-0.2); BASO % 1 % (0-3); EOS # 0.2 x10^3/uL (0.0-0.7); EOS % 2 % (0-3); HEMATOCRIT 34.5 % (36.0-47.0); HEMOGLOBIN 11.1 g/dL (12.0-15.5); LYMPH # 1.4 x10^3/uL (1.0-4.8); LYMPH % 14 % (24-48); MEAN CORPUSCULAR HEMOGLOBIN 30 pg (25-35); MEAN CORPUSCULAR HGB CONC 32 g/dL (31-37); MEAN CORPUSCULAR VOLUME 91 fL (79-100); MONO # 0.9 x10^3/uL (0.0-1.1); MONO % 9 % (0-9); NEUT # 7.6 x10^3/uL (1.8-7.7); NEUT % 75 % (31-73); PLATELET COUNT 191 x10^3/uL (140-400); RED BLOOD COUNT 3.78 x10^6/uL (3.50-5.40); RED CELL DISTRIBUTION WIDTH 14.2 % (11.5-14.5); WHITE BLOOD COUNT 10.2 x10^3/uL (4.0-11.0)
[2021-05-03 12:55] LABS: CALCIUM 8.4 mg/dL (8.5-10.1); CREATININE 0.7 mg/dL (0.6-1.0); POTASSIUM 3.6 mmol/L (3.5-5.1)
[2021-05-03 13:01] LABS: ALBUMIN 2.6 g/dL (3.4-5.0); ALBUMIN/GLOBULIN RATIO 0.6 (1.0-1.7); TOTAL BILIRUBIN 0.2 mg/dL (0.2-1.0); TOTAL PROTEIN 6.9 g/dL (6.4-8.2)
== END ==
LOC: ONCLAB 12:12
PROVIDERS: ATTEND Internal Medicine Hematology & Oncology
DX: C34.11 Malignant neoplasm of upper lobe, right bronchus or lung (principal)
CPT/HCPCS: 36415; 80053; 85025

== ENCOUNTER → 2021-05-05 | Outpatient (CLI) | payer OTHER, MEDICAID ==
[2021-04-11 15:13] VITALS: BP 148/69
[~2021-05-05] MED LIST changes: +HEPARIN PF 500 UNIT/5 ML DISP.SYRIN. IVP ONE
--- NOTE | 2021-05-05 11:45 | NUR ---
Pt here for PET scan, R chest portacth accessed for procedure and deaccessed and packed with heparin per protocol. Pt tolerated without difficulty. CATARINA RN
--- NOTE | 2021-05-05 14:19 | RAD ---
NM PET/CT SKULL BASE TO MID THIGH Clinical Indication: Lung cancer. Comparison: November 11, 2020 PET/CT. CT chest April 28, 2021 and February 28, 2021 Technique: Patient blood glucose at the time of injection is 189 mg/dL. The patient was administered 12 mCi of F-18 FDG intravenously. The patient rested quietly during a 60 minute uptake period. Then P ET imaging from the skull base to the upper thighs was performed. A noncontrast CT was acquired over this same area. The CT is for attenuation correction and anatomic localization, it is not of diagnost ic quality and is not intended to diagnose disease independently of the PET. PQRS Compliance Statement: One or more of the following individualized dose reduction techniques were utilized for this examinat ion: 1. Automated exposure control 2. Adjustment of the mA and/or kV according to patient size 3. Use of iterative reconstruction technique Findings: Background: Mediastinal SUV max: 3.39 Liver SUV max: 3.92 Head and neck: There is no evidence of FDG-avid disease. Chest: Right chest wall port. Severe atheromatous plaque within the aorta. Severe coronary artery calcificat ions. Unchanged mediastinal lymph nodes. Right precarinal lymph node measures 0.9 x 1.2 cm with SUV m ax. Severe pulmonary emphysema. No pneumothorax. No pleural effusion. Right upper lobe spiculated nodular opacity measures 1.5 x 0.8 cm, similar compared to prior. SUV max 2.19. There is surrounding patchy and groundglass opacities within the right upper lobe with SUV max 3.15. Additionally patchy opacities within the right superior lower lobe along the pleura with SUV m ax 3.23. Abdomen and pelvis: The liver, spleen, adrenal glands, pancreas and gallbladder are unremarkable. No renal calculus. No h ydronephrosis. Calcifications within the uterus likely fibroids. Stool-filled colon. Normal appendix . No evidence of bowel obstruction. No pathologic lymphadenopathy. No ascites. Severe atheromatous pl aque throughout the nonaneurysmal abdominal aorta and branch vessels. Musculoskeletal: There is no evidence of FDG-avid disease. IMPRESSION: 1. Right upper lobe spiculated nodule with metabolic activity below background, favor positive treat ment response. 2. Right upper and lower lobe patchy and groundglass opacities with low level metabolic activity, ma y represent postradiation changes or infectious/inflammatory process. Recommend 3 month follow-up fady st CT. 3. Unchanged mediastinal lymph nodes. Electronically signed by: Jb Barnhart DO (05/05/2021 2:17 PM) [id number]
== END ==
LOC: PETSC 10:43
PROVIDERS: ATTEND Internal Medicine Hematology & Oncology
DX: C34.11 Malignant neoplasm of upper lobe, right bronchus or lung (principal); R91.1 Solitary pulmonary nodule; I70.0 Atherosclerosis of aorta; I25.10 Atherosclerotic heart disease of native coronary artery without angina pectoris
CPT/HCPCS: 78815; A9552; J1642

== ENCOUNTER → 2021-05-30 | Outpatient (CLI) | payer OTHER, MEDICAID ==
[~2021-05-30] MED LIST changes: -HEPARIN PF 500 UNIT/5 ML DISP.SYRIN. IVP ONE
[2021-05-30 11:46] LABS: BASO % 0 % (0-3); EOS # 0.1 x10^3/uL (0.0-0.7); EOS % 2 % (0-3); HEMATOCRIT 30.6 % (36.0-47.0); HEMOGLOBIN 10.1 g/dL (12.0-15.5); LYMPH # 0.7 x10^3/uL (1.0-4.8); LYMPH % 17 % (24-48); MEAN CORPUSCULAR HEMOGLOBIN 30 pg (25-35); MEAN CORPUSCULAR HGB CONC 33 g/dL (31-37); MEAN CORPUSCULAR VOLUME 90 fL (79-100); MONO # 0.5 x10^3/uL (0.0-1.1); MONO % 11 % (0-9); NEUT # 3.1 x10^3/uL (1.8-7.7); NEUT % 70 % (31-73); PLATELET COUNT 179 x10^3/uL (140-400); RED CELL DISTRIBUTION WIDTH 14.3 % (11.5-14.5); WHITE BLOOD COUNT 4.4 x10^3/uL (4.0-11.0)
[2021-05-30 12:01] LABS: CALCIUM 8.7 mg/dL (8.5-10.1); CREATININE 0.7 mg/dL (0.6-1.0); POTASSIUM 3.7 mmol/L (3.5-5.1)
[2021-05-30 12:10] LABS: ALBUMIN 2.4 g/dL (3.4-5.0); ALBUMIN/GLOBULIN RATIO 0.5 (1.0-1.7); TOTAL BILIRUBIN 0.2 mg/dL (0.2-1.0); TOTAL PROTEIN 7.3 g/dL (6.4-8.2)
[2021-05-30 12:12] LABS: CHOLESTEROL/HDL RATIO 1.7
[2021-05-30 12:13] LABS: FREE T4 1.3 ng/dL (0.76-1.46); THYROID STIM HORMONE (TSH) 0.996 uIU/mL (0.358-3.74)
[2021-05-30 13:35] LABS: % BANDS 2 % (0-9); % BASOS 1 % (0-3); % EOS 2 % (0-5); % LYMPHS 19 % (24-48); % MONOS 5 % (0-10); % MYELOS 2 % (0-0); % SEGS 69 % (35-66); PLT ESTIMATE ADEQUATE (ADEQUATE)
[2021-05-31 04:11] LABS: CREAT RD UR 74.4 mg/dL (Not Estab.); MICRO CREAT RATIO <4 mg/g creat (0-29); MICROALB RD UR <3.0 ug/mL (Not Estab.)
[2021-05-31 07:32] LABS: HEMOGLOBIN A1C 7.8 % (4.8-5.6)
== END ==
LOC: ONCLAB 10:59
PROVIDERS: ATTEND Internal Medicine Hematology & Oncology
DX: C34.11 Malignant neoplasm of upper lobe, right bronchus or lung (principal); J44.9 Chronic obstructive pulmonary disease, unspecified; E11.9 Type 2 diabetes mellitus without complications; E03.9 Hypothyroidism, unspecified
CPT/HCPCS: 36415; 80053; 80061; 82043; 82570; 83036; 84439; 84443; 85007; 85025

== ENCOUNTER → 2021-08-03 | Outpatient (CLI) | payer OTHER, MEDICAID ==
[2021-08-03 11:40] LABS: BASO % 0 % (0-3); EOS # 0.1 x10^3/uL (0.0-0.7); EOS % 1 % (0-3); HEMOGLOBIN 11.4 g/dL (12.0-15.5); LYMPH # 0.6 x10^3/uL (1.0-4.8); LYMPH % 7 % (24-48); MEAN CORPUSCULAR HEMOGLOBIN 30 pg (25-35); MEAN CORPUSCULAR HGB CONC 33 g/dL (31-37); MEAN CORPUSCULAR VOLUME 91 fL (79-100); MONO # 0.3 x10^3/uL (0.0-1.1); MONO % 4 % (0-9); NEUT # 6.5 x10^3/uL (1.8-7.7); NEUT % 87 % (31-73); PLATELET COUNT 174 x10^3/uL (140-400); RED BLOOD COUNT 3.85 x10^6/uL (3.50-5.40); RED CELL DISTRIBUTION WIDTH 14.9 % (11.5-14.5); WHITE BLOOD COUNT 7.5 x10^3/uL (4.0-11.0)
[2021-08-03 11:53] LABS: CALCIUM 8.7 mg/dL (8.5-10.1); CREATININE 0.9 mg/dL (0.6-1.0); GFR 75.3; POTASSIUM 3.9 mmol/L (3.5-5.1)
[2021-08-03 11:58] LABS: ALBUMIN 3.1 g/dL (3.4-5.0); ALBUMIN/GLOBULIN RATIO 0.8 (1.0-1.7); TOTAL BILIRUBIN 0.3 mg/dL (0.2-1.0); TOTAL PROTEIN 7.1 g/dL (6.4-8.2)
[2021-08-03 12:41] LABS: % BANDS 2 % (0-9); % EOS 1 % (0-5); % LYMPHS 6 % (24-48); % MONOS 4 % (0-10); % SEGS 87 % (35-66); PLT ESTIMATE ADEQUATE (ADEQUATE)
== END ==
LOC: ONCLAB 11:18
PROVIDERS: ATTEND Internal Medicine Hematology & Oncology
DX: C34.11 Malignant neoplasm of upper lobe, right bronchus or lung (principal)
CPT/HCPCS: 36415; 80053; 85007; 85025

== ENCOUNTER → 2021-08-22 | Outpatient (CLI) | payer OTHER, MEDICAID ==
--- NOTE | 2021-08-22 16:57 | RAD ---
MR#: [id number] Date of Study: 08/22/2021 Ordering Physician: DEIDRA BURRELL, Referring Physician: DEIDRA BURRELL, Tech: Karen Tesfaye RDMS, RVT, RTR APPROVED REPORT Patient Location : OUT-PATIENT Indications Venous Insufficiency Findings Grayscale images of the bilateral saphenofemoral junctions are grossly unremarkable. The right great saphenous vein measures 3.1 mm in the left great saphenous vein measures 3.4 mm. No evidence of reflux in the bilateral greater and lesser saphenous veins Critical Notification Critical Value: No <Conclusion> 1. No significant reflux in the bilateral lower extremities Signed by : Ward Abbott, Electronically Approved : 08/22/2021 16:57:04
--- NOTE | 2021-08-24 08:21 | CARD ---
MR#: [id number] Date of Study: 08/22/2021 Ordering Physician: DEIDRA BURRELL, Referring Physician: DEIDRA BURRELL Tech: Alexsandra Stoner SHILOH APPROVED REPORT EXAM: Two-dimensional and M-mode echocardiogram with Doppler and color Doppler. Other Information Quality : Technically LimitedHR: 80bpm Rhythm : NSRTechnically limited study due to body habitus. INDICATION Aortic Valve Disease RISK FACTORS Hypertension Obesity Hyperlipidemia Diabetes 2D DIMENSIONS RVDd3.2 (2.9-3.5cm)Left Atrium(2D)2.9 (1.6-4.0cm) IVSd1.4 (0.7-1.1cm)Aortic Root(2D)2.9 (2.0-3.7cm) LVDd3.2 (3.9-5.9cm)LVOT Diameter1.9 (1.8-2.4cm) PWd1.6 (0.7-1.1cm)LVDs1.7 (2.5-4.0cm) FS (%) 48.1 %SV32.9 ml LVEF(%)80.8 (>50%) Aortic Valve AoV Peak Alfa.395.6cm/sAoV VTI87.2cm AO Peak GR.62.6mmHgLVOT Peak Alfa.167.3cm/s AO Mean GR.35mmHgAVA (VMAX)1.17cm2 Mitral Valve MV E Ibfcwmcj734.6cm/sMV DECEL [id number] MV A Cufllyhy195.6cm/sE/A Ratio0.8 Pulmonary Valve PV Peak Rygxzmex015.4cm/s LEFT VENTRICLE The left ventricle is normal size. There is moderate concentric left ventricular hypertrophy. The lef t ventricular systolic function is normal and the ejection fraction is within normal range. Estimated ejection fraction 60%. There is normal LV segmental wall motion. Transmitral Doppler flow pattern is Grade I-abnormal relaxation pattern. RIGHT VENTRICLE The right ventricle is normal size. There is normal right ventricular wall thickness. The right ventr icular systolic function is normal. ATRIA The left atrium is mildly dilated. The right atrium size is normal. The interatrial septum is intact with no evidence for an atrial septal defect or patent foramen ovale as noted on 2-D or Doppler imagi ng. AORTIC VALVE The aortic valve is calcified and displays decreased opening. Doppler and Color Flow revealed trace t o mild aortic regurgitation. There is probable severe aortic stenosis with MG of 36 mm Hg and peak ve locities of 3.96 m/s. MITRAL VALVE The mitral valve leaflets are calcified. Mitral annular calcification is mild. There is no evidence o f mitral valve prolapse. There is no mitral valve stenosis. Doppler and Color Flow revealed no mitral valve regurgitation noted. TRICUSPID VALVE The tricuspid valve is normal in structure and function. Doppler and Color Flow revealed no tricuspid valve regurgitation noted. There is no tricuspid valve stenosis. PULMONIC VALVE Doppler and Color Flow revealed no pulmonic valvular regurgitation. There is no pulmonic valvular selma nosis. GREAT VESSELS The aortic root is normal in size. The ascending aorta is normal in size. The IVC is normal in size a nd collapses >50% with inspiration. PERICARDIAL EFFUSION There is no evidence of significant pericardial effusion. Critical Notification Critical Value: No <Conclusion> There is moderate concentric left ventricular hypertrophy. The left ventricular systolic function is normal and the ejection fraction is within normal range. E stimated ejection fraction 60%. There is normal LV segmental wall motion. There is probable severe aortic stenosis with MG of 36 mm Hg and peak velocities of 3.96 m/s. Signed by : Ward Abbott, Electronically Approved : 08/24/2021 08:20:42
== END ==
LOC: ECHO 13:14
PROVIDERS: ATTEND Internal Medicine Cardiovascular Disease
DX: I08.0 Rheumatic disorders of both mitral and aortic valves (principal); I87.2 Venous insufficiency (chronic) (peripheral)
CPT/HCPCS: 93306; 93970; C8929